=== PATIENT | male | born 1940 | race Caucasian/White ===

== ENCOUNTER → 2018-06-13 08:11 | Outpatient (CLI) | payer MEDICARE, SELFPAY ==
[2018-06-13 08:55] LABS: BUN Creatinine Ratio 19.1 (6-22); Blood Urea Nitrogen 21 mg/dL (9-20); Calcium 8.6 mg/dL (8.4-10.2); Carbon Dioxide 29 mmol/L (22-32); Chloride 104 mmol/L (98-107); Estimated Glomerular Filt Rate > 60.0 mL/min (>60); Glucose 108 mg/dL (80-110); HEMOLYSIS < 15 (0-50); Sodium 144 mmol/L (137-145)
== END ==
PROVIDERS: PCP Student in an Organized Health Care Education/Training Program; Visit Provider Student in an Organized Health Care Education/Training Program
DX: Z78.9 Other specified health status (principal)
CPT/HCPCS: 36415; 80048

== ENCOUNTER → 2019-01-21 14:39 | Outpatient (CLI) | payer MEDICARE, SELFPAY ==
--- NOTE | 2019-01-21 14:40 | DI.RAD.S_ITS ---
PROCEDURE: XR KNEE STANDING BI INDICATIONS: Bilateral knee pain TECHNIQUE: Single views of the right knee, and single views of the left knee. COMPARISON: None. FINDINGS: Bones: No acute fractures or dislocations. On the right, severe narrowing of the medial joint space with near [id number] appearance, subchondral sclerosis and spurring. On the left, moderate joint space narrowing within the medial compartment. Scattered degenerative subchondral sclerosis and spurring. IMPRESSION: Severe right knee joint degeneration Moderate left knee joint degeneration Dictated by: Mike Ortiz M.D. on 01/21/2019 at 15:40 Approved by: Mike Ortiz M.D. on 01/21/2019 at 15:42
== END ==
PROVIDERS: PCP Student in an Organized Health Care Education/Training Program; Visit Provider Physical Medicine & Rehabilitation
DX: M17.0 Bilateral primary osteoarthritis of knee (principal)
CPT/HCPCS: 73565; 99214

== ENCOUNTER 2019-06-07 11:15 | Outpatient (RCR) | payer MEDICARE, SELFPAY ==
--- NOTE | 2019-04-26 10:40 | PT.OIE ---
Current Diagnoses Bilateral primary osteoarthritis of knee (04/26/19) Muscle weakness (generalized) (04/26/19) Other reduced mobility (04/26/19) Past Medical History (Last Reviewed 03/14/19 @ 08:01 by ALVARO Oconnor) Chickenpox (Resolved 1944) Hearing loss (Chronic) Knee pain, right anterior (Resolved) Nocturia (Acute) Obesity (BMI 30.0-34.9) (Chronic) Vertigo (Chronic) Past Surgical History (Last Reviewed 03/14/19 @ 08:01 by ALVARO Oconnor) Hx of discectomy (Resolved 1984) Visit Care Team Role Provider Type Gordon Pardo MD Primary Care Provider Physician Specialty: Internal Medicine Address: [address] [place] [address], [facility] [address], [place], [facility] Email: [email or web address] ALVARO Oconnor Attending Provider Advanced Telecommunications Field Engineer Specialty: Pain Management Address: [address] [place] [address], [facility] Email: [email or web address] Physical Therapy Initial Evaluation PT-OP-A Visit Information Start: 04/25/19 15:52 Freq: Status: Active Protocol: Document 04/26/19 09:02 LRN (Rec: 04/26/19 10:33 PACO [id number]) Out-Patient Physical Therapy Visit Information Visit Information Visit Type Initial Evaluation Visit Start Time 09:02 Visit Stop Time 09:50 Total Visit Minutes 48 Visit Number 1 Number of MILANESE KNITTING MACHINE OPERATOR Visits 0 Evaluation Information Evaluation Date 04/26/19 Precautions Precautions Prior history or low back surgery. PT-OP-B Current Condition Start: 04/25/19 15:52 Freq: Status: Active Protocol: Document 04/26/19 09:02 LRN (Rec: 04/26/19 10:33 PACO [id number]) Current Condition History of Current Condition Onset Date 9 months ago. Current Complaints L knee pain with prolonged sitting, franko knee pn w/gait History of Current Condition Pt reports bilateral knee pain off/on for 8-10 yrs. Insidious onset of worsening franko knee pain within the past 9 months. He has pain behind the knee with sitting and with stair ambulation. 5-6 yrs ago he had a shot in R knee that took the pain away; therefore he has occasional tinge of pain in the R knee. He currently has L > R knee pain. Takes a pill for L knee pain and wears a soft brace support to make the knee pain tolerable. Pt reports a hx of vertigo and back surgery to have a disc removed (of unknown level). Prior Treatments and Tests X-rays @ Dr. Pardo office. Future Testing and Treatments Planned Follow up visit with Gray Cruz PA in couple months. 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 Did [email or web address] after retired. Treatment Goals Patient/Caregiver Goals Pt goal is to eliminate bilateral knee pain, but understands since having pain for 8-10 yrs elimination may not be achieved; therefore would like to return to baseline of occasional knee pain on the left. Prior Functional Status Baseline Function- ADL's Independent Baseline Function- Mobility Independent Baseline Function- Gait TM: 3.5 speed. Baseline Function- Other No L knee pain with prolonged sitting. Current Functional Impairments (Reported) Functional Limitations- Mobility/Gait Slower gait than baseline (TM: 2.5 speed without pain). Functional Limitations- Other Off/on use of treadmill. Takes pain pill and use soft brace for pain on L knee. Personal Factors Other Personal Factors That May Effect Varus of knees. Therapy/Recovery Prior low back surgery of unknown specifics. PT-OP-C Subjective Start: 04/25/19 15:52 Freq: Status: Active Protocol: Document 04/26/19 09:02 PACO (Rec: 04/26/19 10:33 LRN [id number]) Patient Questionnaires Lower Extremity Functional Scale LEFS Score 46 LEFS Impairment 40 to 59% Impaired (Score 32- 47) OP-PT Pain Assessment Location R knee Pain Location Details Anterior and lateral R knee Intensity 4 Scale Used Numeric (1 - 10) Description Aching Frequency Intermittent Pain Aggravating Factors Walking Other Pain Alleviating Factors Soft knee support L knee Pain Location Details Posterior after sitting, otherwise general joint Intensity 5 Scale Used Numeric (1 - 10) Description Aching Frequency Frequent Radiating Location to buttock Pain Aggravating Factors Sitting,Walking Pain Alleviating Factors Medication,Changing Position Other Pain Alleviating Factors Soft knee support PT-OP-D Balance Start: 04/25/19 15:52 Freq: Status: Active Protocol: Document 04/26/19 09:02 LRN (Rec: 04/26/19 10:33 LRN [id number]) Balance Tests Single Limb Standing Single Limb- Right 2 Single Limb- Left 4 PT-OP-F Manual Assessment Start: 04/25/19 15:52 Freq: Status: Active Protocol: Document 04/26/19 09:02 LRN (Rec: 04/26/19 10:33 LRN [id number]) Manual Assessments Soft Tissue Assessment Soft Tissue Mobility Assessment L posterior knee: Swelling and tenderness present. Joint Mobility Assessment Joint Mobility Assessment Decreased mobility of patella bilaterally PT-OP-G Mobility & Gait Start: 04/25/19 15:52 Freq: Status: Active Protocol: Document 04/26/19 09:02 LRN (Rec: 04/26/19 10:33 LRN [id number]) OP Gait Assessment Gait Gait Assistance Required: Independent Able to Maintain Weight Bearing Status Yes During Gait Assistive Devices Assistive Device None Gait Deviations General Gait Pattern Decreased Stride Length, Lateral Trunk Lean Factors Limiting Gait Function Factors Limiting Gait Function Limited Range of Motion,Poor Balance PT-OP-J Posture/Palpation/Skin Start: 04/25/19 15:52 Freq: Status: Active Protocol: Document 04/26/19 09:02 LRN (Rec: 04/26/19 10:33 LRN [id number]) Posture Evaluation Comments Posture Comments Standing: Varus of ankles and knees. R PSIS shifted anteriorly, lower L shoulder. PT-OP-K Range of Motion Start: 04/25/19 15:52 Freq: Status: Active Protocol: Document 04/26/19 09:02 LRN (Rec: 04/26/19 10:33 LRN [id number]) Knee Goniometric Range of Motion Knee Right Patient Position Supine Flexion Active (degrees) 123 Left Patient Position Supine Flexion Active (degrees) 114 Knee ROM Limitations Knee ROM Limitations Soft Tissue Tightness,Pain Comments L knee: lacks 10 deg's extension. R knee: lacks 7 deg's extension. PT-OP-M Strength Start: 04/25/19 15:52 Freq: Status: Active Protocol: Document 04/26/19 09:02 LRN (Rec: 04/26/19 10:33 LRN [id number]) Hip Strength Hip Manual Muscle Testing Right Flexion (L2) 4+ Good+ Extension (S1) 5 Normal Comments Otherwise WNL Left Flexion (L2) 4+ Good+ Extension (S1) 4+ Good+ Comments Otherwise WNL Knee Strength Knee Manual Muscle Testing Right Flexion (S2) 4+ Good+ Extension (L3) 5 Normal Left Flexion (S2) 4+ Good+ Extension (L3) 4+ Good+ Ankle/Foot Strength Ankle and Foot Manual Muscle Testing Right Inversion 3+ Fair+ Comments Otherwise WNL Left Eversion (S1) 5 Normal Comments Otherwise WNL PT-OP-Q Treatments Start: 04/25/19 15:52 Freq: Status: Active Protocol: Document 04/26/19 09:02 LRN (Rec: 04/26/19 10:33 [facility] [id number]) Self-Care/Home Management Treatment Education Patient Education Pain Management Other Education I/S pt in bilateral knee ext ROM stretching in supine. Activities Self-Care/Home Management Activities I/S pt in use of Cold pack after exercise PT-OP-T Assessment and Plan Start: 04/25/19 15:52 Freq: Status: Active Protocol: Document 04/26/19 09:02 LRN (Rec: 04/26/19 10:33 [facility] [id number]) Physical Therapy Assessment Rehab Potential Rehabilitation Potential Good Evaluation Complexity Number of Personal Factors/Comorbidities 1-2 Number of Body Systems Impaired 4 or More Clinical Presentation at Evaluation Stable Impairments Impairments Balance,Gait,Pain,ROM,Strength Goals Three Impairment Decreased speed of gait on TM to 2.5. Shear Operator Automatic Goal (LTG) Pt will be able to ambulate on a TM at a speed of 3.5 without pain. LTG Duration 06/07/19 Two Impairment Franko knee pain Nursing Home Goal (LTG) Pt will have occasional bilateral knee pain per baseline level. LTG Duration 06/07/19 One Impairment Pt lacks appropriate self care program. Shear Operator Automatic Goal (LTG) Pt will be independent in a self care HEP. LTG Duration 06/21/19 Assessment Summary Assessment Pt presents with a mechanical dysfunction of the Bilateral knees with limited knee mobility (left worse than right), and mild weakness of R ankle and hip. He has an obvious varus posture of the LEs; therefore changes in patellar tracking and medial quad weakness. He has swelling in the posterior aspect of the L knee that may indicate soft tissue dysfunction. Further assessment is needed. The pt will benefit from skilled physical therapy to improve bilateral knee mobility and stability through ROM exs and strengthening of the LEs. Balance and gait training to improve standing stability and aerobic conditioning to improve the pt's stability and speed with gait. Physical Therapy Plan Frequency and Duration Frequency of Treatment 2x/Week Duration of Treatment 8 weeks Plan of Care Start Date 04/26/19 Plan of Care End Date 06/21/19 Therapeutic Interventions Therapeutic Interventions Balance Training,Gait Training ,Home Exercise Program,Manual Therapy,Neuromuscular Re- education,Patient/Caregiver Education,Self-Care/Home Management,Soft Tissue Mobilization,Taping, Therapeutic Exercises Modalities Cold Pack/Ice Massage,Electric Stimulation,Hot Packs, Ultrasound Next Visit Focus/Plan Next Note Type Treatment Note Next Visit Plan Start aerobic ex on TM and modify gait as able, start ROM to knees bilaterally with US if needed to improve range, check meniscus, start strengthening of hips/knees/ ankles.
--- NOTE | 2019-04-26 10:41 | PT.OPPOC ---
Current Diagnoses Bilateral primary osteoarthritis of knee (04/26/19) Muscle weakness (generalized) (04/26/19) Other reduced mobility (04/26/19) Visit Care Team Role Provider Type Gordon Pardo MD Primary Care Provider Physician Specialty: Internal Medicine Address: [address] [place] [address], [facility] [address], [place], [address] Email: [email or web address] ALVARO Oconnor Attending Provider Advanced Waitstaff Specialty: Pain Management Address: [address] [place] [address], [id number] Email: [email or web address] Plan Of Care PT-OP-T Assessment and Plan Start: 04/25/19 15:52 Freq: Status: Active Protocol: Document 04/26/19 09:02 LRN (Rec: 04/26/19 10:33 LRN [id number]) Physical Therapy Assessment Rehab Potential Rehabilitation Potential Good Evaluation Complexity Number of Personal Factors/Comorbidities 1-2 Number of Body Systems Impaired 4 or More Clinical Presentation at Evaluation Stable Impairments Impairments Balance,Gait,Pain,ROM,Strength Goals Three Impairment Decreased speed of gait on TM to 2.5. Volcanology Teacher Goal (LTG) Pt will be able to ambulate on a TM at a speed of 3.5 without pain. LTG Duration 06/07/19 Two Impairment David knee pain Volcanology Teacher Goal (LTG) Pt will have occasional bilateral knee pain per baseline level. LTG Duration 06/07/19 One Impairment Pt lacks appropriate self care program. Nursing Home Goal (LTG) Pt will be independent in a self care HEP. LTG Duration 06/21/19 Assessment Summary Assessment Pt presents with a mechanical dysfunction of the Bilateral knees with limited knee mobility (left worse than right), and mild weakness of R ankle and hip. He has an obvious varus posture of the LEs; therefore changes in patellar tracking and medial quad weakness. He has swelling in the posterior aspect of the L knee that may indicate soft tissue dysfunction. Further assessment is needed. The pt will benefit from skilled physical therapy to improve bilateral knee mobility and stability through ROM exs and strengthening of the LEs. Balance and gait training to improve standing stability and aerobic conditioning to improve the pt's stability and speed with gait. Physical Therapy Plan Frequency and Duration Frequency of Treatment 2x/Week Duration of Treatment 8 weeks Plan of Care Start Date 04/26/19 Plan of Care End Date 06/21/19 Therapeutic Interventions Therapeutic Interventions Balance Training,Gait Training ,Home Exercise Program,Manual Therapy,Neuromuscular Re- education,Patient/Caregiver Education,Self-Care/Home Management,Soft Tissue Mobilization,Taping, Therapeutic Exercises Modalities Cold Pack/Ice Massage,Electric Stimulation,Hot Packs, Ultrasound Next Visit Focus/Plan Next Note Type Treatment Note Next Visit Plan Start aerobic ex on TM and modify gait as able, start ROM to knees bilaterally with US if needed to improve range, check meniscus, start strengthening of hips/knees/ ankles. Plan of Care Dates Plan of Care Start Date 04/26/19 Plan of Care End Date 06/21/19
--- NOTE | 2019-04-29 10:17 | PT.OTN ---
Current Diagnoses Bilateral primary osteoarthritis of knee (04/29/19) Muscle weakness (generalized) (04/29/19) Other reduced mobility (04/29/19) Physical Therapy Treatment Note PT-OP-A Visit Information Start: 04/25/19 15:52 Freq: Status: Active Protocol: Document 04/29/19 09:04 LRN (Rec: 04/29/19 10:07 LRN [id number]) Out-Patient Physical Therapy Visit Information Visit Information Visit Type Treatment Note Visit Start Time 09:04 Visit Stop Time 09:55 Total Visit Minutes 51 Visit Number 2 Number of ADOPTION SOCIAL WORKER Visits 0 Evaluation Information Evaluation Date 04/26/19 Precautions Precautions Prior history of low back surgery. PT-OP-B Current Condition Start: 04/25/19 15:52 Freq: Status: Active Protocol: Document 04/26/19 09:02 LRN (Rec: 04/26/19 10:33 LRN [id number]) Current Condition History of Current Condition Onset Date 9 months ago. Current Complaints L knee pain with prolonged sitting, franko knee pn w/gait History of Current Condition Pt reports bilateral knee pain off/on for 8-10 yrs. Insidious onset of worsening franko knee pain within the past 9 months. He has pain behind the knee with sitting and with stair ambulation. 5-6 yrs ago he had a shot in R knee that took the pain away; therefore he has occasional tinge of pain in the R knee. He currently has L > R knee pain. Takes a pill for L knee pain and wears a soft brace support to make the knee pain tolerable. Pt reports a hx of vertigo and back surgery to have a disc removed (of unknown level). Prior Treatments and Tests X-rays @ Dr. Pardo office. Future Testing and Treatments Planned Follow up visit with Gray Cruz PA in couple months. 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 Treatment Goals Patient/Caregiver Goals Pt goal is to eliminate bilateral knee pain, but understands since having pain for 8-10 yrs elimination may not be achieved; therefore would like to return to baseline of occasional knee pain on the left. Prior Functional Status Baseline Function- ADL's Independent Baseline Function- Mobility Independent Baseline Function- Gait TM: 3.5 speed. Baseline Function- Other No L knee pain with prolonged sitting. Current Functional Impairments (Reported) Functional Limitations- Mobility/Gait Slower gait than baseline (TM: 2.5 speed without pain). Functional Limitations- Other Off/on use of treadmill. Takes pain pill and use soft brace for pain on L knee. Personal Factors Other Personal Factors That May Effect Varus of knees. Therapy/Recovery Prior low back surgery of unknown specifics. PT-OP-C Subjective Start: 04/25/19 15:52 Freq: Status: Active Protocol: Document 04/29/19 09:04 LRN (Rec: 04/29/19 10:07 LRN [id number]) OP-PT Subjective Patient Comments Patient Comments Wants to walk at speed of 4 vs 3.5 to keep up with family PT-OP-D Balance Start: 04/25/19 15:52 Freq: Status: Active Protocol: Document 04/26/19 09:02 LRN (Rec: 04/26/19 10:33 LRN [id number]) Balance Tests Single Limb Standing Single Limb- Right 2 Single Limb- Left 4 PT-OP-F Manual Assessment Start: 04/25/19 15:52 Freq: Status: Active Protocol: Document 04/26/19 09:02 LRN (Rec: 04/26/19 10:33 LRN [id number]) Manual Assessments Soft Tissue Assessment Soft Tissue Mobility Assessment L posterior knee: Swelling and tenderness present. Joint Mobility Assessment Joint Mobility Assessment Decreased mobility of patella bilaterally PT-OP-G Mobility & Gait Start: 04/25/19 15:52 Freq: Status: Active Protocol: Document 04/26/19 09:02 LRN (Rec: 04/26/19 10:33 LRN [id number]) OP Gait Assessment Gait Gait Assistance Required: Independent Able to Maintain Weight Bearing Status Yes During Gait Assistive Devices Assistive Device None Gait Deviations General Gait Pattern Decreased Stride Length, Lateral Trunk Lean Factors Limiting Gait Function Factors Limiting Gait Function Limited Range of Motion,Poor Balance PT-OP-J Posture/Palpation/Skin Start: 04/25/19 15:52 Freq: Status: Active Protocol: Document 04/26/19 09:02 LRN (Rec: 04/26/19 10:33 LRN [id number]) Posture Evaluation Comments Posture Comments Standing: Varus of ankles and knees. R PSIS shifted anteriorly, lower L shoulder. PT-OP-K Range of Motion Start: 04/25/19 15:52 Freq: Status: Active Protocol: Document 04/26/19 09:02 LRN (Rec: 04/26/19 10:33 LRN [id number]) Knee Goniometric Range of Motion Knee Right Patient Position Supine Flexion Active (degrees) 123 Left Patient Position Supine Flexion Active (degrees) 114 Knee ROM Limitations Knee ROM Limitations Soft Tissue Tightness,Pain Comments L knee: lacks 10 deg's extension. R knee: lacks 7 deg's extension. PT-OP-M Strength Start: 04/25/19 15:52 Freq: Status: Active Protocol: Document 04/26/19 09:02 LRN (Rec: 04/26/19 10:33 LRN [id number]) Hip Strength Hip Manual Muscle Testing Right Flexion (L2) 4+ Good+ Extension (S1) 5 Normal Comments Otherwise WNL Left Flexion (L2) 4+ Good+ Extension (S1) 4+ Good+ Comments Otherwise WNL Knee Strength Knee Manual Muscle Testing Right Flexion (S2) 4+ Good+ Extension (L3) 5 Normal Left Flexion (S2) 4+ Good+ Extension (L3) 4+ Good+ Ankle/Foot Strength Ankle and Foot Manual Muscle Testing Right Inversion 3+ Fair+ Comments Otherwise WNL Left Eversion (S1) 5 Normal Comments Otherwise WNL PT-OP-Q Treatments Start: 04/25/19 15:52 Freq: Status: Active Protocol: Document 04/29/19 09:04 LRN (Rec: 04/29/19 10:07 LRN [id number]) Cardio Equipment Treadmill Duration (Minutes) 5 Speed 1.5 Incline 0 Other Speed increased to Therapeutic Exercises Supine Exercises SAQ Supine Exercise Name SAQ Side bilateral Resistance 5# Reps/Minutes 30 x Comments Pt wearing soft knee supports SLR Supine Exercise Name SLR @ 10, 12, 2 O'Clock Side bilateral Reps/Minutes 10 x each position Ankle pumps Supine Exercise Name Ankles on 1/2 roll Reps/Minutes 10 x QS Supine Exercise Name QS with ankles on 1/2 roll Reps/Minutes 5S holds x 10 End-range knee ext stretch Supine Exercise Name Ankles on 1/2 roll for static stretch Reps/Minutes 60 sec x 2 Manual Therapy Treatment Taping L patella medial glide Body Location L patella Treatment Focus Medial glide of patella Type of Tape Kinesio Tape Skin Inspection Good Self-Care/Home Management Treatment Education Patient Education Home Exercise Program,Safety Other Education Pt I/S and educated in proper self care of removal and skin care precautions. Activities Self-Care/Home Management Activities Issued & reviewed HEP: Knee ext stretch f/b QS & SLR. PT-OP-T Assessment and Plan Start: 04/25/19 15:52 Freq: Status: Active Protocol: Document 04/29/19 09:04 LRN (Rec: 04/29/19 10:07 LRN [id number]) Physical Therapy Assessment Assessment Summary Assessment On TM pt had ER R>L with gait. He has difficulty at 2.2 speed keeping in position of TM and might not be able to achieve 4.0 speed due to knee pain or decreased cardio fitness. He ambs with flex at hips and doesn't fully clear his heels. He has pain with R meniscus testing, neg on the left. +response to K-tape for L medial patella glide with exercise. Physical Therapy Plan Frequency and Duration Frequency of Treatment 2x/Week Duration of Treatment 8 weeks Plan of Care Start Date 04/26/19 Plan of Care End Date 06/21/19 Next Visit Focus/Plan Next Note Type Treatment Note Next Visit Plan Assess response to K-tape and inspect skin. Start aerobic ex (?TM) to improve speed with gait and for LE strengthening . modify gait for improved foot clearance and decr ER of RLE, ROM to knees bilaterally with US if needed to improve range, strengthening of hips/ knees/ankles.
--- NOTE | 2019-05-02 15:46 | PT.OTN ---
Current Diagnoses Bilateral primary osteoarthritis of knee (05/02/19) Muscle weakness (generalized) (05/02/19) Other reduced mobility (05/02/19) Physical Therapy Treatment Note PT-OP-A Visit Information Start: 04/25/19 15:52 Freq: Status: Active Protocol: Document 05/02/19 08:58 LRN (Rec: 05/02/19 09:52 LRN [id number]) Out-Patient Physical Therapy Visit Information Visit Information Visit Type Treatment Note Visit Start Time 08:58 Visit Stop Time 09:45 Total Visit Minutes 47 Visit Number 2 Number of ASSEMBLER WIRE MESH GATE Visits 0 Evaluation Information Evaluation Date 04/26/19 Precautions Precautions Prior history of low back surgery. PT-OP-B Current Condition Start: 04/25/19 15:52 Freq: Status: Active Protocol: Document 04/26/19 09:02 LRN (Rec: 04/26/19 10:33 LRN [id number]) Current Condition History of Current Condition Onset Date 9 months ago. Current Complaints L knee pain with prolonged sitting, david knee pn w/gait History of Current Condition Pt reports bilateral knee pain off/on for 8-10 yrs. Insidious onset of worsening david knee pain within the past 9 months. He has pain behind the knee with sitting and with stair ambulation. 5-6 yrs ago he had a shot in R knee that took the pain away; therefore he has occasional tinge of pain in the R knee. He currently has L > R knee pain. Takes a pill for L knee pain and wears a soft brace support to make the knee pain tolerable. Pt reports a hx of vertigo and back surgery to have a disc removed (of unknown level). Prior Treatments and Tests X-rays @ Dr. Pardo office. Future Testing and Treatments Planned Follow up visit with Gray Cruz PA in couple months. 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 Treatment Goals Patient/Caregiver Goals Pt goal is to eliminate bilateral knee pain, but understands since having pain for 8-10 yrs elimination may not be achieved; therefore would like to return to baseline of occasional knee pain on the left. Prior Functional Status Baseline Function- ADL's Independent Baseline Function- Mobility Independent Baseline Function- Gait TM: 3.5 speed. Baseline Function- Other No L knee pain with prolonged sitting. Current Functional Impairments (Reported) Functional Limitations- Mobility/Gait Slower gait than baseline (TM: 2.5 speed without pain). Functional Limitations- Other Off/on use of treadmill. Takes pain pill and use soft brace for pain on L knee. Personal Factors Other Personal Factors That May Effect Varus of knees. Therapy/Recovery Prior low back surgery of unknown specifics. PT-OP-C Subjective Start: 04/25/19 15:52 Freq: Status: Active Protocol: Document 05/02/19 08:58 LRN (Rec: 05/02/19 09:52 LRN [id number]) OP-PT Subjective Patient Comments Patient Comments States the K-tape was helpful. Helped take the pain away with walking. PT-OP-D Balance Start: 04/25/19 15:52 Freq: Status: Active Protocol: Document 04/26/19 09:02 LRN (Rec: 04/26/19 10:33 LRN [id number]) Balance Tests Single Limb Standing Single Limb- Right 2 Single Limb- Left 4 PT-OP-F Manual Assessment Start: 04/25/19 15:52 Freq: Status: Active Protocol: Document 04/26/19 09:02 LRN (Rec: 04/26/19 10:33 LRN [id number]) Manual Assessments Soft Tissue Assessment Soft Tissue Mobility Assessment L posterior knee: Swelling and tenderness present. Joint Mobility Assessment Joint Mobility Assessment Decreased mobility of patella bilaterally PT-OP-G Mobility & Gait Start: 04/25/19 15:52 Freq: Status: Active Protocol: Document 04/26/19 09:02 LRN (Rec: 04/26/19 10:33 LRN [id number]) OP Gait Assessment Gait Gait Assistance Required: Independent Able to Maintain Weight Bearing Status Yes During Gait Assistive Devices Assistive Device None Gait Deviations General Gait Pattern Decreased Stride Length, Lateral Trunk Lean Factors Limiting Gait Function Factors Limiting Gait Function Limited Range of Motion,Poor Balance PT-OP-J Posture/Palpation/Skin Start: 04/25/19 15:52 Freq: Status: Active Protocol: Document 04/26/19 09:02 LRN (Rec: 04/26/19 10:33 LRN [id number]) Posture Evaluation Comments Posture Comments Standing: Varus of ankles and knees. R PSIS shifted anteriorly, lower L shoulder. PT-OP-K Range of Motion Start: 04/25/19 15:52 Freq: Status: Active Protocol: Document 04/26/19 09:02 LRN (Rec: 04/26/19 10:33 LRN [id number]) Knee Goniometric Range of Motion Knee Right Patient Position Supine Flexion Active (degrees) 123 Left Patient Position Supine Flexion Active (degrees) 114 Knee ROM Limitations Knee ROM Limitations Soft Tissue Tightness,Pain Comments L knee: lacks 10 deg's extension. R knee: lacks 7 deg's extension. PT-OP-M Strength Start: 04/25/19 15:52 Freq: Status: Active Protocol: Document 04/26/19 09:02 LRN (Rec: 04/26/19 10:33 LRN [id number]) Hip Strength Hip Manual Muscle Testing Right Flexion (L2) 4+ Good+ Extension (S1) 5 Normal Comments Otherwise WNL Left Flexion (L2) 4+ Good+ Extension (S1) 4+ Good+ Comments Otherwise WNL Knee Strength Knee Manual Muscle Testing Right Flexion (S2) 4+ Good+ Extension (L3) 5 Normal Left Flexion (S2) 4+ Good+ Extension (L3) 4+ Good+ Ankle/Foot Strength Ankle and Foot Manual Muscle Testing Right Inversion 3+ Fair+ Comments Otherwise WNL Left Eversion (S1) 5 Normal Comments Otherwise WNL PT-OP-Q Treatments Start: 04/25/19 15:52 Freq: Status: Active Protocol: Document 05/02/19 08:58 LRN (Rec: 05/02/19 09:52 LRN [id number]) Therapeutic Exercises Supine Exercises QS Supine Exercise Name QS in prone after US Side bilateral Reps/Minutes 10 Sec holds x 10 End-range knee ext stretch Supine Exercise Name Ankles on 1/2 roll for static stretch Reps/Minutes 60 sec x 2 Sidelying Exercises Hip AD Sidelying Exercise Name Prolonged stretch f/b 10 active stretches Side bilateral Manual Therapy Treatment Joint Mobilizations Patella distraction Joint David patella, R>L Direction Distraction, Medial glide Body Position Supine Taping L patella medial glide Body Location L patella Treatment Focus Medial glide of patella Type of Tape Kinesio Tape Skin Inspection Good Self-Care/Home Management Treatment Education Patient Education Home Exercise Program Other Education Pt I/S and in proper self care of removal and skin care precautions. Activities Self-Care/Home Management Activities Issued & reviewed HEP: IT band stretch. PT-OP-R Modalities Start: 04/25/19 15:52 Freq: Status: Active Protocol: Document 05/02/19 08:58 LRN (Rec: 05/02/19 09:52 LRN [id number]) Hot Pack/Cold Pack Treatment Cold Pack Location Bilateral knees Patient Position Supine Treatment Duration (minutes) 10 Patient Tolerance Good Comments Bolster under knees Ultrasound Therapy Treatment Posterior R knee Treatment Duration (minutes) 8 Patient Position Prone Coupling Medium Ultrasound Gel Applicator Size (cm2) 10 Intensity Setting (w/cm2) 1.7 Posterior L knee Treatment Duration (minutes) 8 Patient Position Prone Coupling Medium Ultrasound Gel Applicator Size (cm2) 10 Intensity Setting (w/cm2) 1.5 PT-OP-T Assessment and Plan Start: 04/25/19 15:52 Freq: Status: Active Protocol: Document 05/02/19 08:58 LRN (Rec: 05/02/19 09:52 LRN [id number]) Physical Therapy Assessment Assessment Summary Assessment Positive response to K-tape. Tight IT Bands (L>R) pulling patella laterally. Physical Therapy Plan Frequency and Duration Frequency of Treatment 2x/Week Duration of Treatment 8 weeks Plan of Care Start Date 04/26/19 Plan of Care End Date 06/21/19 Next Visit Focus/Plan Next Note Type Treatment Note Next Visit Plan Assess response to US. Start w/K-tape and aerobic ex (TM) to improve speed with gait and for LE strengthening, modify gait for improved foot clearance and decr ER of RLE. US to decrease knee pain as needed and improve ROM to knees bilaterally if needed. Start strengthening of hips/ knees/ankles.
--- NOTE | 2019-05-06 09:49 | PT.OTN ---
Current Diagnoses Bilateral primary osteoarthritis of knee (05/06/19) Muscle weakness (generalized) (05/06/19) Other reduced mobility (05/06/19) Physical Therapy Treatment Note PT-OP-A Visit Information Start: 04/25/19 15:52 Freq: Status: Active Protocol: Document 05/06/19 09:02 LRN (Rec: 05/06/19 09:46 LRN [id number]) Out-Patient Physical Therapy Visit Information Visit Information Visit Type Treatment Note Visit Start Time 09:02 Visit Stop Time 09:55 Total Visit Minutes 53 Visit Number 3 Number of PIT CLERK Visits 0 Evaluation Information Evaluation Date 04/26/19 Precautions Precautions Prior history of low back surgery. PT-OP-B Current Condition Start: 04/25/19 15:52 Freq: Status: Active Protocol: Document 04/26/19 09:02 LRN (Rec: 04/26/19 10:33 LRN [id number]) Current Condition History of Current Condition Onset Date 9 months ago. Current Complaints L knee pain with prolonged sitting, franko knee pn w/gait History of Current Condition Pt reports bilateral knee pain off/on for 8-10 yrs. Insidious onset of worsening franko knee pain within the past 9 months. He has pain behind the knee with sitting and with stair ambulation. 5-6 yrs ago he had a shot in R knee that took the pain away; therefore he has occasional tinge of pain in the R knee. He currently has L > R knee pain. Takes a pill for L knee pain and wears a soft brace support to make the knee pain tolerable. Pt reports a hx of vertigo and back surgery to have a disc removed (of unknown level). Prior Treatments and Tests X-rays @ Dr. Pardo office. Future Testing and Treatments Planned Follow up visit with Gray Cruz PA in couple months. 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 Treatment Goals Patient/Caregiver Goals Pt goal is to eliminate bilateral knee pain, but understands since having pain for 8-10 yrs elimination may not be achieved; therefore would like to return to baseline of occasional knee pain on the left. Prior Functional Status Baseline Function- ADL's Independent Baseline Function- Mobility Independent Baseline Function- Gait TM: 3.5 speed. Baseline Function- Other No L knee pain with prolonged sitting. Current Functional Impairments (Reported) Functional Limitations- Mobility/Gait Slower gait than baseline (TM: 2.5 speed without pain). Functional Limitations- Other Off/on use of treadmill. Takes pain pill and use soft brace for pain on L knee. Personal Factors Other Personal Factors That May Effect Varus of knees. Therapy/Recovery Prior low back surgery of unknown specifics. PT-OP-C Subjective Start: 04/25/19 15:52 Freq: Status: Active Protocol: Document 05/06/19 09:02 LRN (Rec: 05/06/19 09:46 LRN [id number]) OP-PT Subjective Patient Comments Patient Comments States he took the tape off yesterday and noted L knee pain going downstairs. PT-OP-D Balance Start: 04/25/19 15:52 Freq: Status: Active Protocol: Document 04/26/19 09:02 LRN (Rec: 04/26/19 10:33 LRN [id number]) Balance Tests Single Limb Standing Single Limb- Right 2 Single Limb- Left 4 PT-OP-F Manual Assessment Start: 04/25/19 15:52 Freq: Status: Active Protocol: Document 04/26/19 09:02 LRN (Rec: 04/26/19 10:33 LRN [id number]) Manual Assessments Soft Tissue Assessment Soft Tissue Mobility Assessment L posterior knee: Swelling and tenderness present. Joint Mobility Assessment Joint Mobility Assessment Decreased mobility of patella bilaterally PT-OP-G Mobility & Gait Start: 04/25/19 15:52 Freq: Status: Active Protocol: Document 04/26/19 09:02 LRN (Rec: 04/26/19 10:33 LRN [id number]) OP Gait Assessment Gait Gait Assistance Required: Independent Able to Maintain Weight Bearing Status Yes During Gait Assistive Devices Assistive Device None Gait Deviations General Gait Pattern Decreased Stride Length, Lateral Trunk Lean Factors Limiting Gait Function Factors Limiting Gait Function Limited Range of Motion,Poor Balance PT-OP-J Posture/Palpation/Skin Start: 04/25/19 15:52 Freq: Status: Active Protocol: Document 04/26/19 09:02 LRN (Rec: 04/26/19 10:33 LRN [id number]) Posture Evaluation Comments Posture Comments Standing: Varus of ankles and knees. R PSIS shifted anteriorly, lower L shoulder. PT-OP-K Range of Motion Start: 04/25/19 15:52 Freq: Status: Active Protocol: Document 04/26/19 09:02 LRN (Rec: 04/26/19 10:33 LRN [id number]) Knee Goniometric Range of Motion Knee Right Patient Position Supine Flexion Active (degrees) 123 Left Patient Position Supine Flexion Active (degrees) 114 Knee ROM Limitations Knee ROM Limitations Soft Tissue Tightness,Pain Comments L knee: lacks 10 deg's extension. R knee: lacks 7 deg's extension. PT-OP-M Strength Start: 04/25/19 15:52 Freq: Status: Active Protocol: Document 04/26/19 09:02 LRN (Rec: 04/26/19 10:33 LRN [id number]) Hip Strength Hip Manual Muscle Testing Right Flexion (L2) 4+ Good+ Extension (S1) 5 Normal Comments Otherwise WNL Left Flexion (L2) 4+ Good+ Extension (S1) 4+ Good+ Comments Otherwise WNL Knee Strength Knee Manual Muscle Testing Right Flexion (S2) 4+ Good+ Extension (L3) 5 Normal Left Flexion (S2) 4+ Good+ Extension (L3) 4+ Good+ Ankle/Foot Strength Ankle and Foot Manual Muscle Testing Right Inversion 3+ Fair+ Comments Otherwise WNL Left Eversion (S1) 5 Normal Comments Otherwise WNL PT-OP-Q Treatments Start: 04/25/19 15:52 Freq: Status: Active Protocol: Document 05/06/19 09:02 LRN (Rec: 05/06/19 09:46 LRN [id number]) Cardio Equipment Bicycle (Upright) Duration (Minutes) 8 Resistance 4, 5 Seat Position 5 Other 70 or greater rpm Gym Equipment Cable Column (Body Solid) Leg Extension Details 30 deg's extension Resistance 5# Reps/Time 10x 10 hold Shuttle Recovery Bilateral Heel Raises Details Focus on last 45 deg's extension Resistance 50# Shuttle Recovery Platform Stable Reps/Time 15x, 5 hold Unilateral Squats Shuttle Recovery Platform Stable Therapeutic Exercises Standing Exercises Ankle DF Standing Exercise Name Toe raises Side bilateral Equipment Used UE support Reps/Minutes 15x 2 Comments 1 set quick reps, 1 set holding 10. Hamstring stretch Standing Exercise Name Hamstring stretch w/foot on step f/b QS Side bilateral Equipment Used Steps Reps/Minutes 1 each Comments Extra time taken for training and posture control PT-OP-R Modalities Start: 04/25/19 15:52 Freq: Status: Active Protocol: Document 05/06/19 09:02 LRN (Rec: 05/06/19 09:47 LRN [id number]) Hot Pack/Cold Pack Treatment Cold Pack Location Bilateral knees Patient Position Supine Treatment Duration (minutes) 10 Patient Tolerance Good Comments Bolster under knees PT-OP-T Assessment and Plan Start: 04/25/19 15:52 Freq: Status: Active Protocol: Document 05/06/19 09:02 LRN (Rec: 05/06/19 09:46 LRN [id number]) Physical Therapy Assessment Assessment Summary Assessment Did good after last session. Used ex bike vs TM to start for medial quad strengthening. Weak medial quads, L>R. L anteriolateral occasional knee pain appears to be managed by improving posture of the core . Poor R foot ankle DF active movement. Physical Therapy Plan Frequency and Duration Frequency of Treatment 2x/Week Duration of Treatment 8 weeks Plan of Care Start Date 04/26/19 Plan of Care End Date 06/21/19 Therapeutic Interventions Therapeutic Interventions Balance Training,Gait Training ,Home Exercise Program,Manual Therapy,Neuromuscular Re- education,Patient/Caregiver Education,Self-Care/Home Management,Soft Tissue Mobilization,Taping, Therapeutic Exercises Modalities Cold Pack/Ice Massage,Electric Stimulation,Hot Packs, Ultrasound Next Visit Focus/Plan Next Note Type Treatment Note Next Visit Plan Start w/K-tape and aerobic ex (bike & TM) to improve speed with gait and for LE strengthening, modify gait for improved foot clearance and decr ER of RLE. US to decrease L posterior knee pain after ex if needed next visit . Improve ROM to knees bilaterally if needed. Add strengthening of hips, progress knee/ankle strengthening.
--- NOTE | 2019-05-09 14:01 | PT.OTN ---
Current Diagnoses Bilateral primary osteoarthritis of knee (05/09/19) Muscle weakness (generalized) (05/09/19) Other reduced mobility (05/09/19) Physical Therapy Treatment Note PT-OP-A Visit Information Start: 04/25/19 15:52 Freq: Status: Active Protocol: Document 05/09/19 09:04 LRN (Rec: 05/09/19 09:46 LRN [id number]) Out-Patient Physical Therapy Visit Information Visit Information Visit Type Treatment Note Visit Start Time 09:04 Visit Stop Time 09:55 Total Visit Minutes 51 Visit Number 4 Number of MACHINE TOOL REBUILDER Visits 0 Evaluation Information Evaluation Date 04/26/19 Precautions Precautions Prior history of low back surgery. PT-OP-B Current Condition Start: 04/25/19 15:52 Freq: Status: Active Protocol: Document 04/26/19 09:02 LRN (Rec: 04/26/19 10:33 LRN [id number]) Current Condition History of Current Condition Onset Date 9 months ago. Current Complaints L knee pain with prolonged sitting, david knee pn w/gait History of Current Condition Pt reports bilateral knee pain off/on for 8-10 yrs. Insidious onset of worsening david knee pain within the past 9 months. He has pain behind the knee with sitting and with stair ambulation. 5-6 yrs ago he had a shot in R knee that took the pain away; therefore he has occasional tinge of pain in the R knee. He currently has L > R knee pain. Takes a pill for L knee pain and wears a soft brace support to make the knee pain tolerable. Pt reports a hx of vertigo and back surgery to have a disc removed (of unknown level). Prior Treatments and Tests X-rays @ Dr. Pardo office. Future Testing and Treatments Planned Follow up visit with Gray Cruz PA in couple months. 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 Treatment Goals Patient/Caregiver Goals Pt goal is to eliminate bilateral knee pain, but understands since having pain for 8-10 yrs elimination may not be achieved; therefore would like to return to baseline of occasional knee pain on the left. Prior Functional Status Baseline Function- ADL's Independent Baseline Function- Mobility Independent Baseline Function- Gait TM: 3.5 speed. Baseline Function- Other No L knee pain with prolonged sitting. Current Functional Impairments (Reported) Functional Limitations- Mobility/Gait Slower gait than baseline (TM: 2.5 speed without pain). Functional Limitations- Other Off/on use of treadmill. Takes pain pill and use soft brace for pain on L knee. Personal Factors Other Personal Factors That May Effect Varus of knees. Therapy/Recovery Prior low back surgery of unknown specifics. PT-OP-C Subjective Start: 04/25/19 15:52 Freq: Status: Active Protocol: Document 05/09/19 09:04 LRN (Rec: 05/09/19 09:46 LRN [id number]) OP-PT Subjective Patient Comments Patient Comments Knees are more achy due to change in weather. PT-OP-D Balance Start: 04/25/19 15:52 Freq: Status: Active Protocol: Document 04/26/19 09:02 LRN (Rec: 04/26/19 10:33 LRN [id number]) Balance Tests Single Limb Standing Single Limb- Right 2 Single Limb- Left 4 PT-OP-F Manual Assessment Start: 04/25/19 15:52 Freq: Status: Active Protocol: Document 04/26/19 09:02 LRN (Rec: 04/26/19 10:33 LRN [id number]) Manual Assessments Soft Tissue Assessment Soft Tissue Mobility Assessment L posterior knee: Swelling and tenderness present. Joint Mobility Assessment Joint Mobility Assessment Decreased mobility of patella bilaterally PT-OP-G Mobility & Gait Start: 04/25/19 15:52 Freq: Status: Active Protocol: Document 04/26/19 09:02 LRN (Rec: 04/26/19 10:33 LRN [id number]) OP Gait Assessment Gait Gait Assistance Required: Independent Able to Maintain Weight Bearing Status Yes During Gait Assistive Devices Assistive Device None Gait Deviations General Gait Pattern Decreased Stride Length, Lateral Trunk Lean Factors Limiting Gait Function Factors Limiting Gait Function Limited Range of Motion,Poor Balance PT-OP-J Posture/Palpation/Skin Start: 04/25/19 15:52 Freq: Status: Active Protocol: Document 04/26/19 09:02 LRN (Rec: 04/26/19 10:33 LRN [id number]) Posture Evaluation Comments Posture Comments Standing: Varus of ankles and knees. R PSIS shifted anteriorly, lower L shoulder. PT-OP-K Range of Motion Start: 04/25/19 15:52 Freq: Status: Active Protocol: Document 04/26/19 09:02 LRN (Rec: 04/26/19 10:33 LRN [id number]) Knee Goniometric Range of Motion Knee Right Patient Position Supine Flexion Active (degrees) 123 Left Patient Position Supine Flexion Active (degrees) 114 Knee ROM Limitations Knee ROM Limitations Soft Tissue Tightness,Pain Comments L knee: lacks 10 deg's extension. R knee: lacks 7 deg's extension. PT-OP-M Strength Start: 04/25/19 15:52 Freq: Status: Active Protocol: Document 04/26/19 09:02 LRN (Rec: 04/26/19 10:33 LRN [id number]) Hip Strength Hip Manual Muscle Testing Right Flexion (L2) 4+ Good+ Extension (S1) 5 Normal Comments Otherwise WNL Left Flexion (L2) 4+ Good+ Extension (S1) 4+ Good+ Comments Otherwise WNL Knee Strength Knee Manual Muscle Testing Right Flexion (S2) 4+ Good+ Extension (L3) 5 Normal Left Flexion (S2) 4+ Good+ Extension (L3) 4+ Good+ Ankle/Foot Strength Ankle and Foot Manual Muscle Testing Right Inversion 3+ Fair+ Comments Otherwise WNL Left Eversion (S1) 5 Normal Comments Otherwise WNL PT-OP-Q Treatments Start: 04/25/19 15:52 Freq: Status: Active Protocol: Document 05/09/19 09:04 LRN (Rec: 05/09/19 09:46 LRN [id number]) Cardio Equipment Bicycle (Upright) Duration (Minutes) 9 Resistance 4, 5 Seat Position 5 Other 70 or greater rpm Gym Equipment Cable Column (Body Solid) Leg Curl Resistance 20# Reps/Time 10x, 5 holes showing Leg Extension Details 45 deg's extension Resistance 10# Reps/Time 10x 5 hold, 5 holes showing Shuttle Recovery Bilateral Squat Details David Squat with hold at full ext Resistance 50 Shuttle Recovery Platform Stable Reps/Time 15x 2 Bilateral Heel Raises Details Heel Raises Resistance 50# Shuttle Recovery Platform Stable Reps/Time 15 x 2 Gait Training Gait Activity Walk with hip shift, core stab Description Hip shift and core straight/ stab Level of Assistance Cuing Treatment Focus 10' PT-OP-R Modalities Start: 04/25/19 15:52 Freq: Status: Active Protocol: Document 05/09/19 09:04 LRN (Rec: 05/09/19 13:54 LRN [id number]) Hot Pack/Cold Pack Treatment Cold Pack Location Bilateral knees Patient Position Supine Treatment Duration (minutes) 10 Patient Tolerance Good Comments Bolster under knees PT-OP-T Assessment and Plan Start: 04/25/19 15:52 Freq: Status: Active Protocol: Document 05/09/19 09:04 LRN (Rec: 05/09/19 09:46 LRN [id number]) Physical Therapy Assessment Assessment Summary Assessment Not able to use K-tape due to redness from last taping. Poor gait mechanics, futher training needed. Physical Therapy Plan Frequency and Duration Frequency of Treatment 2x/Week Duration of Treatment 8 weeks Plan of Care Start Date 04/26/19 Plan of Care End Date 06/21/19 Next Visit Focus/Plan Next Note Type Treatment Note Next Visit Plan Check skin if appropriate for K-tape before aerobic ex (bike & TM). TM to improve speed with gait and for LE strengthening. Assess gait for weight shift. Modify gait for improved foot clearance, improved hip shift, and decr ER of RLE. US to decrease L posterior knee pain after ex if needed next. Improve ROM to knees bilaterally, MWM helpful. Add strengthening of hips and progress knee/ankle strengthening.
--- NOTE | 2019-05-13 16:39 | PT.OTN ---
Current Diagnoses Bilateral primary osteoarthritis of knee (05/13/19) Muscle weakness (generalized) (05/13/19) Other reduced mobility (05/13/19) Physical Therapy Treatment Note PT-OP-A Visit Information Start: 04/25/19 15:52 Freq: Status: Active Protocol: Document 05/13/19 09:01 LRN (Rec: 05/13/19 09:47 LRN [id number]) Out-Patient Physical Therapy Visit Information Visit Information Visit Type Treatment Note Visit Start Time 09:02 Visit Stop Time 09:57 Total Visit Minutes 55 Visit Number 5 Number of CERTIFIED BREASTFEEDING EDUCATOR Visits 0 Evaluation Information Evaluation Date 04/26/19 Precautions Precautions Prior history of low back surgery. PT-OP-B Current Condition Start: 04/25/19 15:52 Freq: Status: Active Protocol: Document 04/26/19 09:02 LRN (Rec: 04/26/19 10:33 LRN [id number]) Current Condition History of Current Condition Onset Date 9 months ago. Current Complaints L knee pain with prolonged sitting, david knee pn w/gait History of Current Condition Pt reports bilateral knee pain off/on for 8-10 yrs. Insidious onset of worsening david knee pain within the past 9 months. He has pain behind the knee with sitting and with stair ambulation. 5-6 yrs ago he had a shot in R knee that took the pain away; therefore he has occasional tinge of pain in the R knee. He currently has L > R knee pain. Takes a pill for L knee pain and wears a soft brace support to make the knee pain tolerable. Pt reports a hx of vertigo and back surgery to have a disc removed (of unknown level). Prior Treatments and Tests X-rays @ Dr. Pardo office. Future Testing and Treatments Planned Follow up visit with Gray Cruz PA in couple months. 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 Did [employer] business after retired. Treatment Goals Patient/Caregiver Goals Pt goal is to eliminate bilateral knee pain, but understands since having pain for 8-10 yrs elimination may not be achieved; therefore would like to return to baseline of occasional knee pain on the left. Prior Functional Status Baseline Function- ADL's Independent Baseline Function- Mobility Independent Baseline Function- Gait TM: 3.5 speed. Baseline Function- Other No L knee pain with prolonged sitting. Current Functional Impairments (Reported) Functional Limitations- Mobility/Gait Slower gait than baseline (TM: 2.5 speed without pain). Functional Limitations- Other Off/on use of treadmill. Takes pain pill and use soft brace for pain on L knee. Personal Factors Other Personal Factors That May Effect Varus of knees. Therapy/Recovery Prior low back surgery of unknown specifics. PT-OP-C Subjective Start: 04/25/19 15:52 Freq: Status: Active Protocol: Document 05/13/19 09:01 LRN (Rec: 05/13/19 09:47 LRN [id number]) OP-PT Subjective Patient Comments Patient Comments 60-70% better. States he has twinges of pain. PT-OP-D Balance Start: 04/25/19 15:52 Freq: Status: Active Protocol: Document 04/26/19 09:02 LRN (Rec: 04/26/19 10:33 LRN [id number]) Balance Tests Single Limb Standing Single Limb- Right 2 Single Limb- Left 4 PT-OP-F Manual Assessment Start: 04/25/19 15:52 Freq: Status: Active Protocol: Document 04/26/19 09:02 LRN (Rec: 04/26/19 10:33 LRN [id number]) Manual Assessments Soft Tissue Assessment Soft Tissue Mobility Assessment L posterior knee: Swelling and tenderness present. Joint Mobility Assessment Joint Mobility Assessment Decreased mobility of patella bilaterally PT-OP-G Mobility & Gait Start: 04/25/19 15:52 Freq: Status: Active Protocol: Document 04/26/19 09:02 LRN (Rec: 04/26/19 10:33 LRN [id number]) OP Gait Assessment Gait Gait Assistance Required: Independent Able to Maintain Weight Bearing Status Yes During Gait Assistive Devices Assistive Device None Gait Deviations General Gait Pattern Decreased Stride Length, Lateral Trunk Lean Factors Limiting Gait Function Factors Limiting Gait Function Limited Range of Motion,Poor Balance PT-OP-J Posture/Palpation/Skin Start: 04/25/19 15:52 Freq: Status: Active Protocol: Document 04/26/19 09:02 LRN (Rec: 04/26/19 10:33 LRN [id number]) Posture Evaluation Comments Posture Comments Standing: Varus of ankles and knees. R PSIS shifted anteriorly, lower L shoulder. PT-OP-K Range of Motion Start: 04/25/19 15:52 Freq: Status: Active Protocol: Document 04/26/19 09:02 LRN (Rec: 04/26/19 10:33 LRN [id number]) Knee Goniometric Range of Motion Knee Right Patient Position Supine Flexion Active (degrees) 123 Left Patient Position Supine Flexion Active (degrees) 114 Knee ROM Limitations Knee ROM Limitations Soft Tissue Tightness,Pain Comments L knee: lacks 10 deg's extension. R knee: lacks 7 deg's extension. PT-OP-M Strength Start: 04/25/19 15:52 Freq: Status: Active Protocol: Document 04/26/19 09:02 LRN (Rec: 04/26/19 10:33 LRN [id number]) Hip Strength Hip Manual Muscle Testing Right Flexion (L2) 4+ Good+ Extension (S1) 5 Normal Comments Otherwise WNL Left Flexion (L2) 4+ Good+ Extension (S1) 4+ Good+ Comments Otherwise WNL Knee Strength Knee Manual Muscle Testing Right Flexion (S2) 4+ Good+ Extension (L3) 5 Normal Left Flexion (S2) 4+ Good+ Extension (L3) 4+ Good+ Ankle/Foot Strength Ankle and Foot Manual Muscle Testing Right Inversion 3+ Fair+ Comments Otherwise WNL Left Eversion (S1) 5 Normal Comments Otherwise WNL PT-OP-Q Treatments Start: 04/25/19 15:52 Freq: Status: Active Protocol: Document 05/13/19 09:01 LRN (Rec: 05/13/19 09:47 LRN [id number]) Cardio Equipment Bicycle (Upright) Duration (Minutes) 10 Resistance 4, 5 Seat Position 5 Other 70 or greater rpm Treadmill Duration (Minutes) 9 Speed Speed increased to 1.6 Incline 2 Other No c/o knee pain Therapeutic Exercises Prone Exercises Posterior knee stretch Prone Exercise Name Stretch f/b QS Side bilateral Reps/Minutes QS 30x Gait Training Gait Activity Walk with hip shift, core stab Description Hip shift and core straight/ stab Level of Assistance Cuing Treatment Focus 8' PT-OP-R Modalities Start: 04/25/19 15:52 Freq: Status: Active Protocol: Document 05/13/19 09:01 LRN (Rec: 05/13/19 09:47 LRN [id number]) Ultrasound Therapy Treatment Posterior R knee Treatment Duration (minutes) 8 Patient Position Prone Coupling Medium Ultrasound Gel Applicator Size (cm2) 10 Mode Setting Pulsed Duty Cycle 50% Intensity Setting (w/cm2) 1.7 Posterior L knee Treatment Duration (minutes) 8 Patient Position Prone Coupling Medium Ultrasound Gel Applicator Size (cm2) 10 Mode Setting Pulsed Duty Cycle 50% Intensity Setting (w/cm2) 1.5 PT-OP-T Assessment and Plan Start: 04/25/19 15:52 Freq: Status: Active Protocol: Document 05/13/19 09:01 LRN (Rec: 05/13/19 09:47 LRN [id number]) Physical Therapy Assessment Goals Three Impairment Decreased speed of gait on TM to 2.5. [facility] Goal (LTG) Pt will be able to ambulate on a TM at a speed of 3.5 without pain. LTG Duration 06/07/19 Two Impairment David knee pain [facility] Goal (LTG) Pt will have occasional bilateral knee pain per baseline level. LTG Duration 06/07/19 One Impairment Pt lacks appropriate self care program. [facility] Goal (LTG) Pt will be independent in a self care HEP. LTG Duration 06/21/19 Assessment Summary Assessment Pt L knee skin shows minor redness where K-tape had been; therefore held K-tape use. Pt able to walk incline of 2deg without knee pain. Physical Therapy Plan Frequency and Duration Frequency of Treatment 2x/Week Duration of Treatment 8 weeks Plan of Care Start Date 04/26/19 Plan of Care End Date 06/21/19 Next Visit Focus/Plan Next Note Type Treatment Note Next Visit Plan Check ROM to knees bilaterally . Monitor Skin since K-tape~1 wk ago. TM to improve speed with gait and for LE strengthening. Assess gait for weight shift. Modify gait for improved foot clearance, improved hip shift, and decr ER of RLE. US to decrease L posterior knee pain after ex if needed. Add strengthening of hips and progress knee/ ankle strengthening.
--- NOTE | 2019-05-16 09:43 | PT.OTN ---
Current Diagnoses Bilateral primary osteoarthritis of knee (05/16/19) Muscle weakness (generalized) (05/16/19) Other reduced mobility (05/16/19) Physical Therapy Treatment Note PT-OP-A Visit Information Start: 04/25/19 15:52 Freq: Status: Active Protocol: Document 05/16/19 09:06 LR (Rec: 05/16/19 09:43 [facility] [id number]) Out-Patient Physical Therapy Visit Information Visit Information Visit Type Treatment Note Visit Start Time 09:01 Visit Stop Time 09:51 Total Visit Minutes 50 Visit Number 6 Number of ROOFER VINYL COATING Visits 0 PT-OP-B Current Condition Start: 04/25/19 15:52 Freq: Status: Active Protocol: Document 04/26/19 09:02 LRN (Rec: 04/26/19 10:33 LRN [id number]) Current Condition History of Current Condition Onset Date 9 months ago. Current Complaints L knee pain with prolonged sitting, david knee pn w/gait History of Current Condition Pt reports bilateral knee pain off/on for 8-10 yrs. Insidious onset of worsening david knee pain within the past 9 months. He has pain behind the knee with sitting and with stair ambulation. 5-6 yrs ago he had a shot in R knee that took the pain away; therefore he has occasional tinge of pain in the R knee. He currently has L > R knee pain. Takes a pill for L knee pain and wears a soft brace support to make the knee pain tolerable. Pt reports a hx of vertigo and back surgery to have a disc removed (of unknown level). Prior Treatments and Tests X-rays @ Dr. Pardo office. Future Testing and Treatments Planned Follow up visit with Gray Cruz PA in couple months. 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 Did [employer] business after retired. Treatment Goals Patient/Caregiver Goals Pt goal is to eliminate bilateral knee pain, but understands since having pain for 8-10 yrs elimination may not be achieved; therefore would like to return to baseline of occasional knee pain on the left. Prior Functional Status Baseline Function- ADL's Independent Baseline Function- Mobility Independent Baseline Function- Gait TM: 3.5 speed. Baseline Function- Other No L knee pain with prolonged sitting. Current Functional Impairments (Reported) Functional Limitations- Mobility/Gait Slower gait than baseline (TM: 2.5 speed without pain). Functional Limitations- Other Off/on use of treadmill. Takes pain pill and use soft brace for pain on L knee. Personal Factors Other Personal Factors That May Effect Varus of knees. Therapy/Recovery Prior low back surgery of unknown specifics. PT-OP-C Subjective Start: 04/25/19 15:52 Freq: Status: Active Protocol: Document 05/16/19 09:06 LR (Rec: 05/16/19 09:43 LR [id number]) OP-PT Subjective Patient Comments Patient Comments Pt reports going down stairs, his L leg still gives him a problem. Its been than it was before. Reprots he is doing his stretches at home. Patient Reported Progress Improving PT-OP-D Balance Start: 04/25/19 15:52 Freq: Status: Active Protocol: Document 04/26/19 09:02 LRN (Rec: 04/26/19 10:33 LRN [id number]) Balance Tests Single Limb Standing Single Limb- Right 2 Single Limb- Left 4 PT-OP-F Manual Assessment Start: 04/25/19 15:52 Freq: Status: Active Protocol: Document 04/26/19 09:02 LRN (Rec: 04/26/19 10:33 LRN [id number]) Manual Assessments Soft Tissue Assessment Soft Tissue Mobility Assessment L posterior knee: Swelling and tenderness present. Joint Mobility Assessment Joint Mobility Assessment Decreased mobility of patella bilaterally PT-OP-G Mobility & Gait Start: 04/25/19 15:52 Freq: Status: Active Protocol: Document 04/26/19 09:02 LRN (Rec: 04/26/19 10:33 LRN [id number]) OP Gait Assessment Gait Gait Assistance Required: Independent Able to Maintain Weight Bearing Status Yes During Gait Assistive Devices Assistive Device None Gait Deviations General Gait Pattern Decreased Stride Length, Lateral Trunk Lean Factors Limiting Gait Function Factors Limiting Gait Function Limited Range of Motion,Poor Balance PT-OP-J Posture/Palpation/Skin Start: 04/25/19 15:52 Freq: Status: Active Protocol: Document 04/26/19 09:02 LRN (Rec: 04/26/19 10:33 LRN [id number]) Posture Evaluation Comments Posture Comments Standing: Varus of ankles and knees. R PSIS shifted anteriorly, lower L shoulder. PT-OP-K Range of Motion Start: 04/25/19 15:52 Freq: Status: Active Protocol: Document 04/26/19 09:02 LRN (Rec: 04/26/19 10:33 LR [id number]) Knee Goniometric Range of Motion Knee Right Patient Position Supine Flexion Active (degrees) 123 Left Patient Position Supine Flexion Active (degrees) 114 Knee ROM Limitations Knee ROM Limitations Soft Tissue Tightness,Pain Comments L knee: lacks 10 deg's extension. R knee: lacks 7 deg's extension. PT-OP-M Strength Start: 04/25/19 15:52 Freq: Status: Active Protocol: Document 04/26/19 09:02 LRN (Rec: 04/26/19 10:33 LR [id number]) Hip Strength Hip Manual Muscle Testing Right Flexion (L2) 4+ Good+ Extension (S1) 5 Normal Comments Otherwise WNL Left Flexion (L2) 4+ Good+ Extension (S1) 4+ Good+ Comments Otherwise WNL Knee Strength Knee Manual Muscle Testing Right Flexion (S2) 4+ Good+ Extension (L3) 5 Normal Left Flexion (S2) 4+ Good+ Extension (L3) 4+ Good+ Ankle/Foot Strength Ankle and Foot Manual Muscle Testing Right Inversion 3+ Fair+ Comments Otherwise WNL Left Eversion (S1) 5 Normal Comments Otherwise WNL PT-OP-Q Treatments Start: 04/25/19 15:52 Freq: Status: Active Protocol: Document 05/16/19 09:06 [facility] (Rec: 05/16/19 09:43 [facility] [id number]) Cardio Equipment Treadmill Duration (Minutes) 5 Speed 1.6 Incline 2.5 Other No c/o knee pain Therapeutic Exercises Standing Exercises step downs Standing Exercise Name 4 in Side left Reps/Minutes 12 Comments focus on neutral position & wt shift sidestepping Standing Exercise Name w/mini squats Side bilateral Equipment Used yellow tband Reps/Minutes 2x20ft PT-OP-R Modalities Start: 04/25/19 15:52 Freq: Status: Active Protocol: Document 05/16/19 09:06 [facility] (Rec: 05/16/19 09:43 [facility] [id number]) Hot Pack/Cold Pack Treatment Cold Pack Location Bilateral knees Patient Position Supine Treatment Duration (minutes) 10 Patient Tolerance Good Comments Bolster under knees Ultrasound Therapy Treatment Posterior R knee Treatment Duration (minutes) 8 Patient Position Prone Coupling Medium Ultrasound Gel Applicator Size (cm2) 10 Mode Setting Pulsed Duty Cycle 50% Intensity Setting (w/cm2) 1.7 Posterior L knee Treatment Duration (minutes) 8 Patient Position Prone Coupling Medium Ultrasound Gel Applicator Size (cm2) 10 Mode Setting Pulsed Duty Cycle 50% Intensity Setting (w/cm2) 1.5 PT-OP-T Assessment and Plan Start: 04/25/19 15:52 Freq: Status: Active Protocol: Document 05/16/19 09:06 [facility] (Rec: 05/16/19 09:43 [facility] [id number]) Physical Therapy Assessment Goals Three Impairment Decreased speed of gait on TM to 2.5. Mortgage Counselor Goal (LTG) Pt will be able to ambulate on a TM at a speed of 3.5 without pain. LTG Duration 06/07/19 Two Impairment David knee pain Skilled Nursing Goal (LTG) Pt will have occasional bilateral knee pain per baseline level. LTG Duration 06/07/19 One Impairment Pt lacks appropriate self care program. Mortgage Counselor Goal (LTG) Pt will be independent in a self care HEP. LTG Duration 06/21/19 Assessment Summary Assessment Pt did well with walking on treadmill without inc pain. WOrked on squatting strength today d/t pt main c/o stair descent being difficult. He required cueing throughout to avoid knees going past toes in squat. Physical Therapy Plan Frequency and Duration Frequency of Treatment 2x/Week Duration of Treatment 8 weeks Plan of Care Start Date 04/26/19 Plan of Care End Date 06/21/19 Next Visit Focus/Plan Next Note Type Treatment Note Next Visit Plan Check ROM to knees bilaterally . Monitor Skin since K-tape~1 wk ago. TM to improve speed with gait and for LE strengthening. Assess gait for weight shift. Modify gait for improved foot clearance, improved hip shift, and decr ER of RLE. US to decrease L posterior knee pain after ex if needed. Add strengthening of hips and progress knee/ ankle strengthening.
--- NOTE | 2019-05-21 14:48 | PT.OTN ---
Current Diagnoses Bilateral primary osteoarthritis of knee (05/21/19) Muscle weakness (generalized) (05/21/19) Other reduced mobility (05/21/19) Physical Therapy Treatment Note PT-OP-A Visit Information Start: 04/25/19 15:52 Freq: Status: Active Protocol: Document 05/21/19 13:50 [facility] (Rec: 05/21/19 14:45 [facility] [id number]) Out-Patient Physical Therapy Visit Information Visit Information Visit Type Treatment Note Visit Start Time 13:47 Visit Stop Time 14:38 Total Visit Minutes 51 Visit Number 7 Number of RETREAD SUPERVISOR Visits 0 PT-OP-B Current Condition Start: 04/25/19 15:52 Freq: Status: Active Protocol: Document 04/26/19 09:02 LRN (Rec: 04/26/19 10:33 LRN [id number]) Current Condition History of Current Condition Onset Date 9 months ago. Current Complaints L knee pain with prolonged sitting, david knee pn w/gait History of Current Condition Pt reports bilateral knee pain off/on for 8-10 yrs. Insidious onset of worsening david knee pain within the past 9 months. He has pain behind the knee with sitting and with stair ambulation. 5-6 yrs ago he had a shot in R knee that took the pain away; therefore he has occasional tinge of pain in the R knee. He currently has L > R knee pain. Takes a pill for L knee pain and wears a soft brace support to make the knee pain tolerable. Pt reports a hx of vertigo and back surgery to have a disc removed (of unknown level). Prior Treatments and Tests X-rays @ Dr. Pardo office. Future Testing and Treatments Planned Follow up visit with Gray Cruz PA in couple months. 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 Did [employer] business after retired. Treatment Goals Patient/Caregiver Goals Pt goal is to eliminate bilateral knee pain, but understands since having pain for 8-10 yrs elimination may not be achieved; therefore would like to return to baseline of occasional knee pain on the left. Prior Functional Status Baseline Function- ADL's Independent Baseline Function- Mobility Independent Baseline Function- Gait TM: 3.5 speed. Baseline Function- Other No L knee pain with prolonged sitting. Current Functional Impairments (Reported) Functional Limitations- Mobility/Gait Slower gait than baseline (TM: 2.5 speed without pain). Functional Limitations- Other Off/on use of treadmill. Takes pain pill and use soft brace for pain on L knee. Personal Factors Other Personal Factors That May Effect Varus of knees. Therapy/Recovery Prior low back surgery of unknown specifics. PT-OP-C Subjective Start: 04/25/19 15:52 Freq: Status: Active Protocol: Document 05/21/19 13:50 [facility] (Rec: 05/21/19 14:45 [facility] [id number]) OP-PT Subjective Patient Comments Patient Comments Pt reports no issues after last session. Pt reports stairs have been better the last few days. PT-OP-D Balance Start: 04/25/19 15:52 Freq: Status: Active Protocol: Document 04/26/19 09:02 LRN (Rec: 04/26/19 10:33 [facility] [id number]) Balance Tests Single Limb Standing Single Limb- Right 2 Single Limb- Left 4 PT-OP-F Manual Assessment Start: 04/25/19 15:52 Freq: Status: Active Protocol: Document 04/26/19 09:02 LRN (Rec: 04/26/19 10:33 LRN [id number]) Manual Assessments Soft Tissue Assessment Soft Tissue Mobility Assessment L posterior knee: Swelling and tenderness present. Joint Mobility Assessment Joint Mobility Assessment Decreased mobility of patella bilaterally PT-OP-G Mobility & Gait Start: 04/25/19 15:52 Freq: Status: Active Protocol: Document 04/26/19 09:02 LRN (Rec: 04/26/19 10:33 [facility] [id number]) OP Gait Assessment Gait Gait Assistance Required: Independent Able to Maintain Weight Bearing Status Yes During Gait Assistive Devices Assistive Device None Gait Deviations General Gait Pattern Decreased Stride Length, Lateral Trunk Lean Factors Limiting Gait Function Factors Limiting Gait Function Limited Range of Motion,Poor Balance PT-OP-J Posture/Palpation/Skin Start: 04/25/19 15:52 Freq: Status: Active Protocol: Document 04/26/19 09:02 LRN (Rec: 04/26/19 10:33 LRN [id number]) Posture Evaluation Comments Posture Comments Standing: Varus of ankles and knees. R PSIS shifted anteriorly, lower L shoulder. PT-OP-K Range of Motion Start: 09/19/19 15:52 Freq: Status: Active Protocol: Document 04/26/19 09:02 LRN (Rec: 04/26/19 10:33 LR [id number]) Knee Goniometric Range of Motion Knee Right Patient Position Supine Flexion Active (degrees) 123 Left Patient Position Supine Flexion Active (degrees) 114 Knee ROM Limitations Knee ROM Limitations Soft Tissue Tightness,Pain Comments L knee: lacks 10 deg's extension. R knee: lacks 7 deg's extension. PT-OP-M Strength Start: 04/25/19 15:52 Freq: Status: Active Protocol: Document 04/26/19 09:02 LRN (Rec: 04/26/19 10:33 LR [id number]) Hip Strength Hip Manual Muscle Testing Right Flexion (L2) 4+ Good+ Extension (S1) 5 Normal Comments Otherwise WNL Left Flexion (L2) 4+ Good+ Extension (S1) 4+ Good+ Comments Otherwise WNL Knee Strength Knee Manual Muscle Testing Right Flexion (S2) 4+ Good+ Extension (L3) 5 Normal Left Flexion (S2) 4+ Good+ Extension (L3) 4+ Good+ Ankle/Foot Strength Ankle and Foot Manual Muscle Testing Right Inversion 3+ Fair+ Comments Otherwise WNL Left Eversion (S1) 5 Normal Comments Otherwise WNL PT-OP-Q Treatments Start: 04/25/19 15:52 Freq: Status: Active Protocol: Document 05/21/19 13:50 [facility] (Rec: 05/21/19 14:45 [facility] [id number]) Cardio Equipment Treadmill Duration (Minutes) 9 Speed 1.7 Incline 2-4 Other No c/o knee pain Therapeutic Exercises Standing Exercises step downs Standing Exercise Name 5 in step up and down Side bilateral Reps/Minutes 12 Comments focus on neutral position & wt shift sidestepping Standing Exercise Name w/mini squats Side bilateral Equipment Used yellow tband Reps/Minutes 20ft Gait Training Gait Activity stairs Description 6 in Comments reciprocal working on on wt shift fwd into the next step Walk with hip shift, core stab Description focus on push off & upright positioning PT-OP-R Modalities Start: 04/25/19 15:52 Freq: Status: Active Protocol: Document 05/21/19 13:50 [facility] (Rec: 05/21/19 14:45 [facility] [id number]) Hot Pack/Cold Pack Treatment Cold Pack Location Bilateral knees Patient Position Supine Treatment Duration (minutes) 10 Patient Tolerance Good Comments Bolster under knees Ultrasound Therapy Treatment Posterior R knee Treatment Duration (minutes) 8 Patient Position Prone Coupling Medium Ultrasound Gel Applicator Size (cm2) 10 Mode Setting Pulsed Duty Cycle 50% Intensity Setting (w/cm2) 1.7 Posterior L knee Treatment Duration (minutes) 7 Patient Position Prone Coupling Medium Ultrasound Gel Applicator Size (cm2) 10 Mode Setting Pulsed Duty Cycle 50% Intensity Setting (w/cm2) 1.5 PT-OP-T Assessment and Plan Start: 04/25/19 15:52 Freq: Status: Active Protocol: Document 05/21/19 13:50 [facility] (Rec: 05/21/19 14:45 [facility] [id number]) Physical Therapy Assessment Goals Three Impairment Decreased speed of gait on TM to 2.5. Penitentiary Goal (LTG) Pt will be able to ambulate on a TM at a speed of 3.5 without pain. LTG Duration 06/07/19 Two Impairment David knee pain [facility]iary Goal (LTG) Pt will have occasional bilateral knee pain per baseline level. LTG Duration 06/07/19 One Impairment Pt lacks appropriate self care program. Penitentiary Goal (LTG) Pt will be independent in a self care HEP. LTG Duration 06/21/19 Assessment Summary Assessment Pt progressed with ability to walk at slightly faster pace with increased grade. He was able to improve gait pattern and stair pattern with cueing and use of mirro with dec pain . Physical Therapy Plan Frequency and Duration Frequency of Treatment 2x/Week Duration of Treatment 8 weeks Plan of Care Start Date 04/26/19 Plan of Care End Date 06/21/19 Next Visit Focus/Plan Next Note Type Treatment Note Next Visit Plan TM to improve speed with gait and for LE strengthening. Assess gait for weight shift. Modify gait for improved foot clearance, improved hip shift , and decr ER of RLE. US to decrease L posterior knee pain after ex if needed. Add strengthening of hips and progress knee/ankle strengthening.
--- NOTE | 2019-05-24 14:47 | PT.OTN ---
Current Diagnoses Bilateral primary osteoarthritis of knee (05/24/19) Muscle weakness (generalized) (05/24/19) Other reduced mobility (05/24/19) Physical Therapy Treatment Note PT-OP-A Visit Information Start: 04/25/19 15:52 Freq: Status: Active Protocol: Document 05/24/19 13:36 LRN (Rec: 05/24/19 14:31 [facility] [id number]) Out-Patient Physical Therapy Visit Information Visit Information Visit Type Treatment Note Visit Start Time 13:36 Visit Stop Time 14:26 Total Visit Minutes 50 Visit Number 8 Number of BLOWER ROOM ATTENDANT Visits 0 Evaluation Information Evaluation Date 04/26/19 Precautions Precautions Prior history of low back surgery. PT-OP-B Current Condition Start: 04/25/19 15:52 Freq: Status: Active Protocol: Document 04/26/19 09:02 LRN (Rec: 04/26/19 10:33 [facility] [id number]) Current Condition History of Current Condition Onset Date 9 months ago. Current Complaints L knee pain with prolonged sitting, david knee pn w/gait History of Current Condition Pt reports bilateral knee pain off/on for 8-10 yrs. Insidious onset of worsening david knee pain within the past 9 months. He has pain behind the knee with sitting and with stair ambulation. 5-6 yrs ago he had a shot in R knee that took the pain away; therefore he has occasional tinge of pain in the R knee. He currently has L > R knee pain. Takes a pill for L knee pain and wears a soft brace support to make the knee pain tolerable. Pt reports a hx of vertigo and back surgery to have a disc removed (of unknown level). Prior Treatments and Tests X-rays @ Dr. Pardo office. Future Testing and Treatments Planned Follow up visit with Gray Cruz PA in couple months. 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 Did [employer] business after retired. Treatment Goals Patient/Caregiver Goals Pt goal is to eliminate bilateral knee pain, but understands since having pain for 8-10 yrs elimination may not be achieved; therefore would like to return to baseline of occasional knee pain on the left. Prior Functional Status Baseline Function- ADL's Independent Baseline Function- Mobility Independent Baseline Function- Gait TM: 3.5 speed. Baseline Function- Other No L knee pain with prolonged sitting. Current Functional Impairments (Reported) Functional Limitations- Mobility/Gait Slower gait than baseline (TM: 2.5 speed without pain). Functional Limitations- Other Off/on use of treadmill. Takes pain pill and use soft brace for pain on L knee. Personal Factors Other Personal Factors That May Effect Varus of knees. Therapy/Recovery Prior low back surgery of unknown specifics. PT-OP-C Subjective Start: 04/25/19 15:52 Freq: Status: Active Protocol: Document 05/24/19 13:36 LRN (Rec: 05/24/19 14:31 [facility]N [id number]) OP-PT Subjective Patient Comments Patient Comments Thinks improving because he is exercising. 80% towards baseline. Pain daily in the posterior knees, primarily on the left. Has not noticed the kne pain with walking. Patient Reported Progress Improving PT-OP-D Balance Start: 04/25/19 15:52 Freq: Status: Active Protocol: Document 04/26/19 09:02 LRN (Rec: 04/26/19 10:33 LRN [id number]) Balance Tests Single Limb Standing Single Limb- Right 2 Single Limb- Left 4 PT-OP-F Manual Assessment Start: 04/25/19 15:52 Freq: Status: Active Protocol: Document 04/26/19 09:02 LRN (Rec: 04/26/19 10:33 LRN [id number]) Manual Assessments Soft Tissue Assessment Soft Tissue Mobility Assessment L posterior knee: Swelling and tenderness present. Joint Mobility Assessment Joint Mobility Assessment Decreased mobility of patella bilaterally PT-OP-G Mobility & Gait Start: 04/25/19 15:52 Freq: Status: Active Protocol: Document 04/26/19 09:02 LRN (Rec: 04/26/19 10:33 [facility]N [id number]) OP Gait Assessment Gait Gait Assistance Required: Independent Able to Maintain Weight Bearing Status Yes During Gait Assistive Devices Assistive Device None Gait Deviations General Gait Pattern Decreased Stride Length, Lateral Trunk Lean Factors Limiting Gait Function Factors Limiting Gait Function Limited Range of Motion,Poor Balance PT-OP-J Posture/Palpation/Skin Start: 04/25/19 15:52 Freq: Status: Active Protocol: Document 04/26/19 09:02 LRN (Rec: 04/26/19 10:33 LRN [id number]) Posture Evaluation Comments Posture Comments Standing: Varus of ankles and knees. R PSIS shifted anteriorly, lower L shoulder. PT-OP-K Range of Motion Start: 04/25/19 15:52 Freq: Status: Active Protocol: Document 04/26/19 09:02 LRN (Rec: 04/26/19 10:33 LRN [id number]) Knee Goniometric Range of Motion Knee Right Patient Position Supine Flexion Active (degrees) 123 Left Patient Position Supine Flexion Active (degrees) 114 Knee ROM Limitations Knee ROM Limitations Soft Tissue Tightness,Pain Comments L knee: lacks 10 deg's extension. R knee: lacks 7 deg's extension. PT-OP-M Strength Start: 04/25/19 15:52 Freq: Status: Active Protocol: Document 04/26/19 09:02 LRN (Rec: 04/26/19 10:33 LRN [id number]) Hip Strength Hip Manual Muscle Testing Right Flexion (L2) 4+ Good+ Extension (S1) 5 Normal Comments Otherwise WNL Left Flexion (L2) 4+ Good+ Extension (S1) 4+ Good+ Comments Otherwise WNL Knee Strength Knee Manual Muscle Testing Right Flexion (S2) 4+ Good+ Extension (L3) 5 Normal Left Flexion (S2) 4+ Good+ Extension (L3) 4+ Good+ Ankle/Foot Strength Ankle and Foot Manual Muscle Testing Right Inversion 3+ Fair+ Comments Otherwise WNL Left Eversion (S1) 5 Normal Comments Otherwise WNL PT-OP-Q Treatments Start: 04/25/19 15:52 Freq: Status: Active Protocol: Document 05/24/19 13:36 LRN (Rec: 05/24/19 14:31 LRN [id number]) Cardio Equipment Treadmill Duration (Minutes) 10 Speed 1.7 Incline 2-4.5 Other c/o knee pain at 4.5 incline only Therapeutic Exercises Supine Exercises End range knee flex stretch Supine Exercise Name Knee flexion stretch Side bilateral Comments Stretch f/b ROM taken End-range knee ext stretch Supine Exercise Name Ankles on 1/2 roll for static stretch Side bilateral Reps/Minutes 60 sec x 1 Comments Stretch f/b ROM taken Prone Exercises Hamstring Curls Prone Exercise Name Knee flex: foot in neutral, ER , IR Side left Reps/Minutes 15x each Comments Ex f/b ROM taken Standing Exercises step downs Standing Exercise Name 5 in step up and down in open area of floor Side bilateral Reps/Minutes 10 Comments focus on balance Ankle DF Standing Exercise Name Toe raises Side bilateral Equipment Used UE support Reps/Minutes 15xeach: Quick lifts and long holds Comments 1 set quick reps, 1 set holding 10. PT-OP-R Modalities Start: 04/25/19 15:52 Freq: Status: Active Protocol: Document 05/24/19 13:36 LRN (Rec: 05/24/19 14:31 LRN [id number]) Hot Pack/Cold Pack Treatment Cold Pack Location Bilateral knees Patient Position Supine Treatment Duration (minutes) 10 Patient Tolerance Good Comments Bolster under knees PT-OP-T Assessment and Plan Start: 04/25/19 15:52 Freq: Status: Active Protocol: Document 05/24/19 13:36 [facility]N (Rec: 05/24/19 14:31 [facility]N [id number]) Physical Therapy Assessment Goals Three Impairment Decreased speed of gait on TM to 2.5. Stripper [employer] Goal (LTG) Pt will be able to ambulate on a TM at a speed of 3.5 without pain. LTG Duration 06/07/19 (05/24/19: Incline 4. 5%, Speed 1.7) Two Impairment David knee pain Group Home Goal (LTG) Pt will have occasional bilateral knee pain per baseline level. LTG Duration 06/07/19 (: Pain daily , but intermittent in day). One Impairment Pt lacks appropriate self care program. Group Home Goal (LTG) Pt will be independent in a self care HEP. LTG Duration 06/21/19 Progress Towards Goals Progress Comments Goal 1: HEP progressing as appropriate. Goal 2: Pt is 80% to baseline bilateral knee pain level. Goal 3: TM gait speed and incline GOAL MET. Assessment Summary Assessment Pt knee AROM decreased. Pain with L knee flex is lessened with AP mob applied; therefore further hamstring strengthening is needed. Skin at location of K-tape is normal. Held K-tape due to no c/o knee pain. Pt having no pain with incline 0-4.5%, pain onset at incline of 5%. His speed is 1.7 but the goal is for 3.5 which seems too fast, but the pt will walk with spouse this weekend to get an idea of speed of gait of spouse. Physical Therapy Plan Frequency and Duration Frequency of Treatment 2x/Week Duration of Treatment 8 weeks Plan of Care Start Date 04/26/19 Plan of Care End Date 06/21/19 Next Visit Focus/Plan Next Note Type Treatment Note Next Visit Plan Progress speed of gait on TM as pt notes over the weekend walks. TM for LE strengthening. Assess gait for weight shift. Modify gait for improved foot clearance, improved hip shift, and decr ER of RLE. Add strengthening of hips and progress hamstring /ankle strengthening.
--- NOTE | 2019-05-24 14:51 | PT.OTN ---
Current Diagnoses Bilateral primary osteoarthritis of knee (05/24/19) Muscle weakness (generalized) (05/24/19) Other reduced mobility (05/24/19) Physical Therapy Treatment Note PT-OP-A Visit Information Start: 04/25/19 15:52 Freq: Status: Active Protocol: Document 05/24/19 13:36 LRN (Rec: 05/24/19 14:31 LRN [id number]) Out-Patient Physical Therapy Visit Information Visit Information Visit Type Treatment Note Visit Start Time 13:36 Visit Stop Time 14:26 Total Visit Minutes 50 Visit Number 8 Number of MACHINIST HELPER Visits 0 Evaluation Information Evaluation Date 04/26/19 Precautions Precautions Prior history of low back surgery. PT-OP-B Current Condition Start: 04/25/19 15:52 Freq: Status: Active Protocol: Document 04/26/19 09:02 LRN (Rec: 04/26/19 10:33 LRN [id number]) Current Condition History of Current Condition Onset Date 9 months ago. Current Complaints L knee pain with prolonged sitting, david knee pn w/gait History of Current Condition Pt reports bilateral knee pain off/on for 8-10 yrs. Insidious onset of worsening david knee pain within the past 9 months. He has pain behind the knee with sitting and with stair ambulation. 5-6 yrs ago he had a shot in R knee that took the pain away; therefore he has occasional tinge of pain in the R knee. He currently has L > R knee pain. Takes a pill for L knee pain and wears a soft brace support to make the knee pain tolerable. Pt reports a hx of vertigo and back surgery to have a disc removed (of unknown level). Prior Treatments and Tests X-rays @ Dr. Pardo office. Future Testing and Treatments Planned Follow up visit with Gray Cruz PA in couple months. 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 Treatment Goals Patient/Caregiver Goals Pt goal is to eliminate bilateral knee pain, but understands since having pain for 8-10 yrs elimination may not be achieved; therefore would like to return to baseline of occasional knee pain on the left. Prior Functional Status Baseline Function- ADL's Independent Baseline Function- Mobility Independent Baseline Function- Gait TM: 3.5 speed. Baseline Function- Other No L knee pain with prolonged sitting. Current Functional Impairments (Reported) Functional Limitations- Mobility/Gait Slower gait than baseline (TM: 2.5 speed without pain). Functional Limitations- Other Off/on use of treadmill. Takes pain pill and use soft brace for pain on L knee. Personal Factors Other Personal Factors That May Effect Varus of knees. Therapy/Recovery Prior low back surgery of unknown specifics. PT-OP-C Subjective Start: 04/25/19 15:52 Freq: Status: Active Protocol: Document 05/24/19 13:36 LRN (Rec: 05/24/19 14:31 LRN [id number]) OP-PT Subjective Patient Comments Patient Comments Thinks improving because he is exercising. 80% towards baseline. Pain daily in the posterior knees, primarily on the left. Has not noticed the kne pain with walking. Patient Reported Progress Improving PT-OP-D Balance Start: 04/25/19 15:52 Freq: Status: Active Protocol: Document 04/26/19 09:02 LRN (Rec: 04/26/19 10:33 LRN [id number]) Balance Tests Single Limb Standing Single Limb- Right 2 Single Limb- Left 4 PT-OP-F Manual Assessment Start: 04/25/19 15:52 Freq: Status: Active Protocol: Document 04/26/19 09:02 LRN (Rec: 04/26/19 10:33 LRN [id number]) Manual Assessments Soft Tissue Assessment Soft Tissue Mobility Assessment L posterior knee: Swelling and tenderness present. Joint Mobility Assessment Joint Mobility Assessment Decreased mobility of patella bilaterally PT-OP-G Mobility & Gait Start: 04/25/19 15:52 Freq: Status: Active Protocol: Document 04/26/19 09:02 LRN (Rec: 04/26/19 10:33 LRN [id number]) OP Gait Assessment Gait Gait Assistance Required: Independent Able to Maintain Weight Bearing Status Yes During Gait Assistive Devices Assistive Device None Gait Deviations General Gait Pattern Decreased Stride Length, Lateral Trunk Lean Factors Limiting Gait Function Factors Limiting Gait Function Limited Range of Motion,Poor Balance PT-OP-J Posture/Palpation/Skin Start: 04/25/19 15:52 Freq: Status: Active Protocol: Document 04/26/19 09:02 LRN (Rec: 04/26/19 10:33 LRN [id number]) Posture Evaluation Comments Posture Comments Standing: Varus of ankles and knees. R PSIS shifted anteriorly, lower L shoulder. PT-OP-K Range of Motion Start: 04/25/19 15:52 Freq: Status: Active Protocol: Document 05/24/19 13:36 LRN (Rec: 05/24/19 14:51 LRN [id number]) Knee Goniometric Range of Motion Knee Right Patient Position Supine Flexion Active (degrees) 120 Extension Active (degrees) 0 Left Patient Position Supine Flexion Active (degrees) 103 Hyper-Extension Active 1 Knee ROM Limitations Comments Supine L knee flexion after hamstring curls in prone: 112 deg's flex w/o pain. PT-OP-M Strength Start: 04/25/19 15:52 Freq: Status: Active Protocol: Document 04/26/19 09:02 LRN (Rec: 04/26/19 10:33 LRN [id number]) Hip Strength Hip Manual Muscle Testing Right Flexion (L2) 4+ Good+ Extension (S1) 5 Normal Comments Otherwise WNL Left Flexion (L2) 4+ Good+ Extension (S1) 4+ Good+ Comments Otherwise WNL Knee Strength Knee Manual Muscle Testing Right Flexion (S2) 4+ Good+ Extension (L3) 5 Normal Left Flexion (S2) 4+ Good+ Extension (L3) 4+ Good+ Ankle/Foot Strength Ankle and Foot Manual Muscle Testing Right Inversion 3+ Fair+ Comments Otherwise WNL Left Eversion (S1) 5 Normal Comments Otherwise WNL PT-OP-Q Treatments Start: 04/25/19 15:52 Freq: Status: Active Protocol: Document 05/24/19 13:36 LRN (Rec: 05/24/19 14:31 LRN [id number]) Cardio Equipment Treadmill Duration (Minutes) 10 Speed 1.7 Incline 2-4.5 Other c/o knee pain at 4.5 incline only Therapeutic Exercises Supine Exercises End range knee flex stretch Supine Exercise Name Knee flexion stretch Side bilateral Comments Stretch f/b ROM taken End-range knee ext stretch Supine Exercise Name Ankles on 1/2 roll for static stretch Side bilateral Reps/Minutes 60 sec x 1 Comments Stretch f/b ROM taken Prone Exercises Hamstring Curls Prone Exercise Name Knee flex: foot in neutral, ER , IR Side left Reps/Minutes 15x each Comments Ex f/b ROM taken Standing Exercises step downs Standing Exercise Name 5 in step up and down in open area of floor Side bilateral Reps/Minutes 10 Comments focus on balance Ankle DF Standing Exercise Name Toe raises Side bilateral Equipment Used UE support Reps/Minutes 15xeach: Quick lifts and long holds Comments 1 set quick reps, 1 set holding 10. PT-OP-R Modalities Start: 04/25/19 15:52 Freq: Status: Active Protocol: Document 05/24/19 13:36 LRN (Rec: 05/24/19 14:31 LRN [id number]) Hot Pack/Cold Pack Treatment Cold Pack Location Bilateral knees Patient Position Supine Treatment Duration (minutes) 10 Patient Tolerance Good Comments Bolster under knees PT-OP-T Assessment and Plan Start: 04/25/19 15:52 Freq: Status: Active Protocol: Document 05/24/19 13:36 LRN (Rec: 05/24/19 14:31 LRN [id number]) Physical Therapy Assessment Goals Three Impairment Decreased speed of gait on TM to 2.5. Long-Term Goal (LTG) Pt will be able to ambulate on a TM at a speed of 3.5 without pain. LTG Duration 06/07/19 (05/24/19: Incline 4. 5%, Speed 1.7) Two Impairment David knee pain Long-Term Goal (LTG) Pt will have occasional bilateral knee pain per baseline level. LTG Duration 06/07/19 (: Pain daily , but intermittent in day). One Impairment Pt lacks appropriate self care program. 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 LTG Duration 06/21/19 Progress Towards Goals Progress Comments Goal 1: HEP progressing as appropriate. Goal 2: Pt is 80% to baseline bilateral knee pain level. Goal 3: TM gait speed and incline GOAL MET. Assessment Summary Assessment Pt knee AROM decreased. Pain with L knee flex is lessened with AP mob applied; therefore further hamstring strengthening is needed. Skin at location of K-tape is normal. Held K-tape due to no c/o knee pain. Pt having no pain with incline 0-4.5%, pain onset at incline of 5%. His speed is 1.7 but the goal is for 3.5 which seems too fast, but the pt will walk with spouse this weekend to get an idea of speed of gait of spouse. Physical Therapy Plan Frequency and Duration Frequency of Treatment 2x/Week Duration of Treatment 8 weeks Plan of Care Start Date 04/26/19 Plan of Care End Date 06/21/19 Next Visit Focus/Plan Next Note Type Treatment Note Next Visit Plan Progress speed of gait on TM as pt notes over the weekend walks. TM for LE strengthening. Assess gait for weight shift. Modify gait for improved foot clearance, improved hip shift, and decr ER of RLE. Add strengthening of hips and progress hamstring /ankle strengthening.
--- NOTE | 2019-05-27 14:29 | PT.OTN ---
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 Current Complaints L knee pain with prolonged sitting, david knee pn w/gait History of Current Condition Pt reports bilateral knee pain off/on for 8-10 yrs. Insidious onset of worsening david knee pain within the past 9 months. He has pain behind the knee with sitting and with stair ambulation. 5-6 yrs ago he had a shot in R knee that took the pain away; therefore he has occasional tinge of pain in the R knee. He currently has L > R knee pain. Takes a pill for L knee pain and wears a soft brace support to make the knee pain tolerable. Pt reports a hx of vertigo and back surgery to have a disc removed (of unknown level). Prior Treatments and Tests X-rays @ Dr. Pardo office. Future Testing and Treatments Planned Follow up visit with Gray Cruz PA in couple months. 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 Did [employer] business after retired. Treatment Goals Patient/Caregiver Goals Pt goal is to eliminate bilateral knee pain, but understands since having pain for 8-10 yrs elimination may not be achieved; therefore would like to return to baseline of occasional knee pain on the left. Prior Functional Status Baseline Function- ADL's Independent Baseline Function- Mobility Independent Baseline Function- Gait TM: 3.5 speed. Baseline Function- Other No L knee pain with prolonged sitting. Current Functional Impairments (Reported) Functional Limitations- Mobility/Gait Slower gait than baseline (TM: 2.5 speed without pain). Functional Limitations- Other Off/on use of treadmill. Takes pain pill and use soft brace for pain on L knee. Personal Factors Other Personal Factors That May Effect Varus of knees. Therapy/Recovery Prior low back surgery of unknown specifics. PT-OP-C Subjective Start: 04/25/19 15:52 Freq: Status: Active Protocol: Document 05/27/19 13:50 LRH (Rec: 05/27/19 14:29 LRH [id number]) OP-PT Subjective Patient Comments Patient Comments Pt reports he feels much better. He is still slower than his dgt but feels like his speed is picking up and he feels like PT is really helping his walking pattern. Patient Reported Progress Improving PT-OP-D Balance Start: 04/25/19 15:52 Freq: Status: Active Protocol: Document 04/26/19 09:02 LRN (Rec: 04/26/19 10:33 LRN [id number]) Balance Tests Single Limb Standing Single Limb- Right 2 Single Limb- Left 4 PT-OP-F Manual Assessment Start: 04/25/19 15:52 Freq: Status: Active Protocol: Document 04/26/19 09:02 LRN (Rec: 04/26/19 10:33 LRN [id number]) Manual Assessments Soft Tissue Assessment Soft Tissue Mobility Assessment L posterior knee: Swelling and tenderness present. Joint Mobility Assessment Joint Mobility Assessment Decreased mobility of patella bilaterally PT-OP-G Mobility & Gait Start: 04/25/19 15:52 Freq: Status: Active Protocol: Document 04/26/19 09:02 LRN (Rec: 04/26/19 10:33 LRN [id number]) OP Gait Assessment Gait Gait Assistance Required: Independent Able to Maintain Weight Bearing Status Yes During Gait Assistive Devices Assistive Device None Gait Deviations General Gait Pattern Decreased Stride Length, Lateral Trunk Lean Factors Limiting Gait Function Factors Limiting Gait Function Limited Range of Motion,Poor Balance PT-OP-J Posture/Palpation/Skin Start: 04/25/19 15:52 Freq: Status: Active Protocol: Document 04/26/19 09:02 LRN (Rec: 04/26/19 10:33 LRN [id number]) Posture Evaluation Comments Posture Comments Standing: Varus of ankles and knees. R PSIS shifted anteriorly, lower L shoulder. PT-OP-K Range of Motion Start: 04/25/19 15:52 Freq: Status: Active Protocol: Document 05/24/19 13:36 LRN (Rec: 05/24/19 14:51 LRN [id number]) Knee Goniometric Range of Motion Knee Right Patient Position Supine Flexion Active (degrees) 120 Extension Active (degrees) 0 Left Patient Position Supine Flexion Active (degrees) 103 Hyper-Extension Active 1 Knee ROM Limitations Comments Supine L knee flexion after hamstring curls in prone: 112 deg's flex w/o pain. PT-OP-M Strength Start: 04/25/19 15:52 Freq: Status: Active Protocol: Document 04/26/19 09:02 LRN (Rec: 04/26/19 10:33 LRN [id number]) Hip Strength Hip Manual Muscle Testing Right Flexion (L2) 4+ Good+ Extension (S1) 5 Normal Comments Otherwise WNL Left Flexion (L2) 4+ Good+ Extension (S1) 4+ Good+ Comments Otherwise WNL Knee Strength Knee Manual Muscle Testing Right Flexion (S2) 4+ Good+ Extension (L3) 5 Normal Left Flexion (S2) 4+ Good+ Extension (L3) 4+ Good+ Ankle/Foot Strength Ankle and Foot Manual Muscle Testing Right Inversion 3+ Fair+ Comments Otherwise WNL Left Eversion (S1) 5 Normal Comments Otherwise WNL PT-OP-Q Treatments Start: 04/25/19 15:52 Freq: Status: Active Protocol: Document 05/27/19 13:50 [facility] (Rec: 05/27/19 14:29 [facility] [id number]) Cardio Equipment Treadmill Duration (Minutes) 10 Speed 1.8-2.1 Incline 2-3 Other c/o knee pain at 4.5 incline only Gym Equipment Sport Cord red Cord/Resistance red Comments 1. wt shifts B 10 each 2. fwd walking x10 Therapeutic Exercises Prone Exercises Hamstring Curls Prone Exercise Name Knee flex: foot in neutral, ER , IR Side left Reps/Minutes 10x each Comments Ex f/b ROM taken Standing Exercises HS curl Side bilateral sidestepping Standing Exercise Name w/mini squats Side bilateral Equipment Used yellow tband Reps/Minutes 20ft Comments rail as needed Gait Training Gait Activity Walk with hip shift, core stab Description focus on push off & upright positioning Manual Therapy Treatment Soft Tissue Mobilization HS Body Location L lat Mobilization Type Rolling,Strumming Intensity/Depth Moderate Body Position Prone PT-OP-R Modalities Start: 04/25/19 15:52 Freq: Status: Active Protocol: Document 05/27/19 13:50 [facility] (Rec: 05/27/19 14:29 [facility] [id number]) Hot Pack/Cold Pack Treatment Cold Pack Comments Bolster under knees PT-OP-T Assessment and Plan Start: 04/25/19 15:52 Freq: Status: Active Protocol: Document 05/27/19 13:50 [facility] (Rec: 05/27/19 14:29 [facility] [id number]) Physical Therapy Assessment Goals Three Impairment Decreased speed of gait on TM to 2.5. Shelter Goal (LTG) Pt will be able to ambulate on a TM at a speed of 3.5 without pain. LTG Duration 06/07/19 (05/24/19: Incline 4. 5%, Speed 1.7) Two Impairment David knee pain Preschool Teacher'S Assistant Goal (LTG) Pt will have occasional bilateral knee pain per baseline level. LTG Duration 06/07/19 (: Pain daily , but intermittent in day). One Impairment Pt lacks appropriate self care program. Preschool Teacher'S Assistant Goal (LTG) Pt will be independent in a self care HEP. LTG Duration 06/21/19 Assessment Summary Assessment Pt able to tolerate all strengthening without inc pain . He requires significant cueing for push off with ambulation. He is improving with foot clearance and heel strike. Physical Therapy Plan Frequency and Duration Frequency of Treatment 2x/Week Duration of Treatment 8 weeks Plan of Care Start Date 04/26/19 Plan of Care End Date 06/21/19 Next Visit Focus/Plan Next Note Type Progress Note Next Visit Plan Progress speed of gait on TM as pt notes over the weekend walks. TM for LE strengthening. Assess gait for weight shift. Modify gait for improved foot clearance, improved hip shift, and decr ER of RLE. Add strengthening of hips and progress hamstring /ankle strengthening.
--- NOTE | 2019-05-29 14:31 | PT.OTN ---
Current Diagnoses Bilateral primary osteoarthritis of knee (05/29/19) Muscle weakness (generalized) (05/29/19) Other reduced mobility (05/29/19) Physical Therapy Treatment Note PT-OP-A Visit Information Start: 04/25/19 15:52 Freq: Status: Active Protocol: Document 05/29/19 13:51 LR (Rec: 05/29/19 14:31 [facility] [id number]) Out-Patient Physical Therapy Visit Information Visit Information Visit Type Treatment Note Visit Start Time 13:46 Visit Stop Time 14:27 Total Visit Minutes 41 Visit Number 10 Number of ASSEMBLER [employer]ILITY BUILDINGS Visits 0 PT-OP-B Current Condition Start: 04/25/19 15:52 Freq: Status: Active Protocol: Document 04/26/19 09:02 LRN (Rec: 04/26/19 10:33 LRN [id number]) Current Condition History of Current Condition Onset Date 9 months ago. Current Complaints L knee pain with prolonged sitting, david knee pn w/gait History of Current Condition Pt reports bilateral knee pain off/on for 8-10 yrs. Insidious onset of worsening david knee pain within the past 9 months. He has pain behind the knee with sitting and with stair ambulation. 5-6 yrs ago he had a shot in R knee that took the pain away; therefore he has occasional tinge of pain in the R knee. He currently has L > R knee pain. Takes a pill for L knee pain and wears a soft brace support to make the knee pain tolerable. Pt reports a hx of vertigo and back surgery to have a disc removed (of unknown level). Prior Treatments and Tests X-rays @ Dr. Pardo office. Future Testing and Treatments Planned Follow up visit with Gray Cruz PA in couple months. 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 Did [employer] business after retired. Treatment Goals Patient/Caregiver Goals Pt goal is to eliminate bilateral knee pain, but understands since having pain for 8-10 yrs elimination may not be achieved; therefore would like to return to baseline of occasional knee pain on the left. Prior Functional Status Baseline Function- ADL's Independent Baseline Function- Mobility Independent Baseline Function- Gait TM: 3.5 speed. Baseline Function- Other No L knee pain with prolonged sitting. Current Functional Impairments (Reported) Functional Limitations- Mobility/Gait Slower gait than baseline (TM: 2.5 speed without pain). Functional Limitations- Other Off/on use of treadmill. Takes pain pill and use soft brace for pain on L knee. Personal Factors Other Personal Factors That May Effect Varus of knees. Therapy/Recovery Prior low back surgery of unknown specifics. PT-OP-C Subjective Start: 04/25/19 15:52 Freq: Status: Active Protocol: Document 05/29/19 13:51 LRH (Rec: 05/29/19 14:31 [facility]H [id number]) OP-PT Subjective Patient Comments Patient Comments Pt reports he didn't have any aching after the soft tissue work last session. Patient Reported Progress Improving PT-OP-D Balance Start: 04/25/19 15:52 Freq: Status: Active Protocol: Document 04/26/19 09:02 LRN (Rec: 04/26/19 10:33 LRN [id number]) Balance Tests Single Limb Standing Single Limb- Right 2 Single Limb- Left 4 PT-OP-F Manual Assessment Start: 04/25/19 15:52 Freq: Status: Active Protocol: Document 04/26/19 09:02 LRN (Rec: 04/26/19 10:33 LRN [id number]) Manual Assessments Soft Tissue Assessment Soft Tissue Mobility Assessment L posterior knee: Swelling and tenderness present. Joint Mobility Assessment Joint Mobility Assessment Decreased mobility of patella bilaterally PT-OP-G Mobility & Gait Start: 04/25/19 15:52 Freq: Status: Active Protocol: Document 04/26/19 09:02 LRN (Rec: 04/26/19 10:33 LRN [id number]) OP Gait Assessment Gait Gait Assistance Required: Independent Able to Maintain Weight Bearing Status Yes During Gait Assistive Devices Assistive Device None Gait Deviations General Gait Pattern Decreased Stride Length, Lateral Trunk Lean Factors Limiting Gait Function Factors Limiting Gait Function Limited Range of Motion,Poor Balance PT-OP-J Posture/Palpation/Skin Start: 04/25/19 15:52 Freq: Status: Active Protocol: Document 04/26/19 09:02 LRN (Rec: 04/26/19 10:33 LRN [id number]) Posture Evaluation Comments Posture Comments Standing: Varus of ankles and knees. R PSIS shifted anteriorly, lower L shoulder. PT-OP-K Range of Motion Start: 04/25/19 15:52 Freq: Status: Active Protocol: Document 05/24/19 13:36 LRN (Rec: 05/24/19 14:51 LRN [id number]) Knee Goniometric Range of Motion Knee Right Patient Position Supine Flexion Active (degrees) 120 Extension Active (degrees) 0 Left Patient Position Supine Flexion Active (degrees) 103 Hyper-Extension Active 1 Knee ROM Limitations Comments Supine L knee flexion after hamstring curls in prone: 112 deg's flex w/o pain. PT-OP-M Strength Start: 04/25/19 15:52 Freq: Status: Active Protocol: Document 04/26/19 09:02 LRN (Rec: 04/26/19 10:33 LRN [id number]) Hip Strength Hip Manual Muscle Testing Right Flexion (L2) 4+ Good+ Extension (S1) 5 Normal Comments Otherwise WNL Left Flexion (L2) 4+ Good+ Extension (S1) 4+ Good+ Comments Otherwise WNL Knee Strength Knee Manual Muscle Testing Right Flexion (S2) 4+ Good+ Extension (L3) 5 Normal Left Flexion (S2) 4+ Good+ Extension (L3) 4+ Good+ Ankle/Foot Strength Ankle and Foot Manual Muscle Testing Right Inversion 3+ Fair+ Comments Otherwise WNL Left Eversion (S1) 5 Normal Comments Otherwise WNL PT-OP-Q Treatments Start: 04/25/19 15:52 Freq: Status: Active Protocol: Document 05/29/19 13:51 [facility] (Rec: 05/29/19 14:31 [facility] [id number]) Cardio Equipment Treadmill Duration (Minutes) 10 Speed 2-2.2 Incline 2-3 Other c/o knee pain at 4.5 incline only Gym Equipment Sport Cord red Cord/Resistance red Comments 1. wt shifts to wt acceptance & SLS B 10 each 2. fwd walking x10 3. backwards walking x10 Therapeutic Exercises Supine Exercises ITB stretch Supine Exercise Name L ITB & HS Side bilateral Reps/Minutes 30 sec Comments with belt d/t feels liek he is falling off bed w/s/l version Standing Exercises step up Standing Exercise Name onto bosu Side bilateral Reps/Minutes 10 Comments w/3 sec balance at top Gait Training Gait Activity Walk with hip shift, core stab Description focus on push off & upright positioning Manual Therapy Treatment Soft Tissue Mobilization ITB Body Location L Mobilization Type Rolling,Strumming Intensity/Depth Moderate Body Position Hooklying HS Body Location L lat Mobilization Type Rolling,Strumming Intensity/Depth Moderate Body Position Hooklying PT-OP-R Modalities Start: 04/25/19 15:52 Freq: Status: Active Protocol: Document 05/27/19 13:50 [facility] (Rec: 05/27/19 14:29 [facility] [id number]) Hot Pack/Cold Pack Treatment Cold Pack Comments Bolster under knees PT-OP-T Assessment and Plan Start: 04/25/19 15:52 Freq: Status: Active Protocol: Document 05/29/19 13:51 [facility] (Rec: 05/29/19 14:31 [facility] [id number]) Physical Therapy Assessment Goals Three Impairment Decreased speed of gait on TM to 2.5. Hot Mill Operator Goal (LTG) Pt will be able to ambulate on a TM at a speed of 3.5 without pain. 05/29-improved to 2.2 with 4% incline LTG Duration 06/07/19 (05/24/19: Incline 4. 5%, Speed 1.7) Two Impairment David knee pain Hot Mill Operator Goal (LTG) Pt will have occasional bilateral knee pain per baseline level. 05/29- Pt reports past 2 days have been really good. Notes occasionally some post pain after working out. LTG Duration 06/07/19 One Impairment Pt lacks appropriate self care program. Fpc Goal (LTG) Pt will be independent in a self care HEP. LTG Duration 06/21/19-achieved progressing as needed Assessment Summary Assessment Pt is making excellent progress with goals. he cont to advance with speed and incline without knee pain. He is improving gait mechanics and is having greater ease with knee pain and activities at home. Cont to work on push off with gait. Physical Therapy Plan Frequency and Duration Frequency of Treatment 2x/Week Duration of Treatment 8 weeks Plan of Care Start Date 04/26/19 Plan of Care End Date 06/21/19 Next Visit Focus/Plan Next Note Type Treatment Note Next Visit Plan COnt to work on gait mechanics & glute strenght for push off
--- NOTE | 2019-06-04 17:19 | PT.OTN ---
Current Diagnoses Bilateral primary osteoarthritis of knee (06/04/19) Muscle weakness (generalized) (06/04/19) Other reduced mobility (06/04/19) Physical Therapy Treatment Note PT-OP-A Visit Information Start: 04/25/19 15:52 Freq: Status: Active Protocol: Document 06/04/19 13:02 MT (Rec: 06/04/19 14:04 MT [id number]) Out-Patient Physical Therapy Visit Information Visit Information Visit Type Treatment Note Visit Start Time 13:02 Visit Stop Time 13:42 Total Visit Minutes 40 Visit Number 11 Number of FREE LANCE MODEL Visits 0 PT-OP-B Current Condition Start: 04/25/19 15:52 Freq: Status: Active Protocol: Document 04/26/19 09:02 LRN (Rec: 04/26/19 10:33 LRN [id number]) Current Condition History of Current Condition Onset Date 9 months ago. Current Complaints L knee pain with prolonged sitting, david knee pn w/gait History of Current Condition Pt reports bilateral knee pain off/on for 8-10 yrs. Insidious onset of worsening david knee pain within the past 9 months. He has pain behind the knee with sitting and with stair ambulation. 5-6 yrs ago he had a shot in R knee that took the pain away; therefore he has occasional tinge of pain in the R knee. He currently has L > R knee pain. Takes a pill for L knee pain and wears a soft brace support to make the knee pain tolerable. Pt reports a hx of vertigo and back surgery to have a disc removed (of unknown level). Prior Treatments and Tests X-rays @ Dr. Pardo office. Future Testing and Treatments Planned Follow up visit with Gray Cruz PA in couple months. 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 Did [email or web address] after retired. Treatment Goals Patient/Caregiver Goals Pt goal is to eliminate bilateral knee pain, but understands since having pain for 8-10 yrs elimination may not be achieved; therefore would like to return to baseline of occasional knee pain on the left. Prior Functional Status Baseline Function- ADL's Independent Baseline Function- Mobility Independent Baseline Function- Gait TM: 3.5 speed. Baseline Function- Other No L knee pain with prolonged sitting. Current Functional Impairments (Reported) Functional Limitations- Mobility/Gait Slower gait than baseline (TM: 2.5 speed without pain). Functional Limitations- Other Off/on use of treadmill. Takes pain pill and use soft brace for pain on L knee. Personal Factors Other Personal Factors That May Effect Varus of knees. Therapy/Recovery Prior low back surgery of unknown specifics. PT-OP-C Subjective Start: 04/25/19 15:52 Freq: Status: Active Protocol: Document 06/04/19 13:02 MT (Rec: 06/04/19 14:04 MT [id number]) OP-PT Subjective Patient Comments Patient Comments Pt reports that he has not had much of his knee pain and [facility] daugther with only one rest break. He was able to keep up with her pretty well. He remarked that he only seems to have trouble when he has been sitting for a prolonged period of time Patient Reported Progress Improving PT-OP-D Balance Start: 04/25/19 15:52 Freq: Status: Active Protocol: Document 04/26/19 09:02 LRN (Rec: 04/26/19 10:33 LRN [id number]) Balance Tests Single Limb Standing Single Limb- Right 2 Single Limb- Left 4 PT-OP-F Manual Assessment Start: 04/25/19 15:52 Freq: Status: Active Protocol: Document 04/26/19 09:02 LRN (Rec: 04/26/19 10:33 LRN [id number]) Manual Assessments Soft Tissue Assessment Soft Tissue Mobility Assessment L posterior knee: Swelling and tenderness present. Joint Mobility Assessment Joint Mobility Assessment Decreased mobility of patella bilaterally PT-OP-G Mobility & Gait Start: 04/25/19 15:52 Freq: Status: Active Protocol: Document 04/26/19 09:02 LRN (Rec: 04/26/19 10:33 LRN [id number]) OP Gait Assessment Gait Gait Assistance Required: Independent Able to Maintain Weight Bearing Status Yes During Gait Assistive Devices Assistive Device None Gait Deviations General Gait Pattern Decreased Stride Length, Lateral Trunk Lean Factors Limiting Gait Function Factors Limiting Gait Function Limited Range of Motion,Poor Balance PT-OP-J Posture/Palpation/Skin Start: 04/25/19 15:52 Freq: Status: Active Protocol: Document 04/26/19 09:02 LRN (Rec: 04/26/19 10:33 LRN [id number]) Posture Evaluation Comments Posture Comments Standing: Varus of ankles and knees. R PSIS shifted anteriorly, lower L shoulder. PT-OP-K Range of Motion Start: 04/25/19 15:52 Freq: Status: Active Protocol: Document 05/24/19 13:36 LRN (Rec: 05/24/19 14:51 LRN [id number]) Knee Goniometric Range of Motion Knee Right Patient Position Supine Flexion Active (degrees) 120 Extension Active (degrees) 0 Left Patient Position Supine Flexion Active (degrees) 103 Hyper-Extension Active 1 Knee ROM Limitations Comments Supine L knee flexion after hamstring curls in prone: 112 deg's flex w/o pain. PT-OP-M Strength Start: 04/25/19 15:52 Freq: Status: Active Protocol: Document 04/26/19 09:02 LRN (Rec: 04/26/19 10:33 LRN [id number]) Hip Strength Hip Manual Muscle Testing Right Flexion (L2) 4+ Good+ Extension (S1) 5 Normal Comments Otherwise WNL Left Flexion (L2) 4+ Good+ Extension (S1) 4+ Good+ Comments Otherwise WNL Knee Strength Knee Manual Muscle Testing Right Flexion (S2) 4+ Good+ Extension (L3) 5 Normal Left Flexion (S2) 4+ Good+ Extension (L3) 4+ Good+ Ankle/Foot Strength Ankle and Foot Manual Muscle Testing Right Inversion 3+ Fair+ Comments Otherwise WNL Left Eversion (S1) 5 Normal Comments Otherwise WNL PT-OP-Q Treatments Start: 04/25/19 15:52 Freq: Status: Active Protocol: Document 06/04/19 13:02 MT (Rec: 06/04/19 14:04 MT [email or web address]) Cardio Equipment Treadmill Duration (Minutes) 10 Speed 2-2.2 Incline 2 Gym Equipment Sport Cord blue Exercise Details step ups/downs 5 inch box Cord/Resistance blue Reps/Duration 15B Comments cueing for squeezing glutes at top of step up and to slowly control step down Therapeutic Exercises Standing Exercises step up Standing Exercise Name onto bosu Side bilateral Reps/Minutes 20 Comments w/ 5 sec balance at top sidestepping Standing Exercise Name w/mini squats Side bilateral Equipment Used L1 Reps/Minutes 20ft Comments rail as needed, cueing for squeeze glut at top of extension Manual Therapy Treatment Soft Tissue Mobilization HS Body Location L HS/calf/popliteal area Mobilization Type Rolling,Strumming Intensity/Depth Moderate Body Position Hooklying Comments pt had decreased tightness and with knee extension on table PT-OP-R Modalities Start: 04/25/19 15:52 Freq: Status: Active Protocol: Document 05/27/19 13:50 LRH (Rec: 05/27/19 14:29 LRH [id number]) Hot Pack/Cold Pack Treatment Cold Pack Comments Bolster under knees PT-OP-T Assessment and Plan Start: 04/25/19 15:52 Freq: Status: Active Protocol: Document 06/04/19 13:02 MT (Rec: 06/04/19 14:04 MT [id number]) Physical Therapy Assessment Goals Three Impairment Decreased speed of gait on TM to 2.5. Senior Care Goal (LTG) Pt will be able to ambulate on a TM at a speed of 3.5 without pain. 05/29-improved to 2.2 with 4% incline LTG Duration 06/07/19 (05/24/19: Incline 4. 5%, Speed 1.7) Two Impairment David knee pain Therapeutic Sales Specialist Goal (LTG) Pt will have occasional bilateral knee pain per baseline level. 05/29- Pt reports past 2 days have been really good. Notes occasionally some post pain after working out. 06/04- pt reports that he has not noticed his knee pain except for sitting for prolonged periods of time LTG Duration 06/07/19 One Impairment Pt lacks appropriate self care program. Senior Care Goal (LTG) Pt will be independent in a self care HEP. LTG Duration 06/21/19-achieved progressing as needed Assessment Summary Assessment Pt is making good progress towards his goals. Discussed with pt to take note of things he still has difficulty or when he feels most pain and to report back at next visit. Discussed with pt the possibility of discharge for the next couple visits if he continues to progress and does not report difficulty with any tasks. Pt is able to walk at faster pace and demonstrates better push off and forward motion with gait with less cueing, but does not consistently maintain these corrections when walking to different activities in the clinic and not focusing on form. Pt expressed some tightness in the back of his R knee when his legs were fully extended on the table. When STM was applied to hamstrings/ calf/popiliteal area he reported less stiffness in the back of his leg. Physical Therapy Plan Frequency and Duration Frequency of Treatment 2x/Week Duration of Treatment 8 weeks Plan of Care Start Date 04/26/19 Plan of Care End Date 06/21/19 Next Visit Focus/Plan Next Note Type Treatment Note Next Visit Plan continue to work on gait mechanics and patient awarenss of gait pattern when not focusing on technique, emphasis on push off and forward rather than lateral motion, continue with glute strengthening, review HEp and look for places to progress
--- NOTE | 2019-06-07 12:51 | PT.OTN ---
Current Diagnoses Bilateral primary osteoarthritis of knee (06/07/19) Muscle weakness (generalized) (06/07/19) Other reduced mobility (06/07/19) Physical Therapy Treatment Note PT-OP-A Visit Information Start: 04/25/19 15:52 Freq: Status: Active Protocol: Document 06/07/19 11:27 LRN (Rec: 06/07/19 12:24 LRN [id number]) Out-Patient Physical Therapy Visit Information Visit Information Visit Type Treatment Note Visit Start Time 11:28 Visit Stop Time 12:07 Total Visit Minutes 39 Visit Number 12 Number of ON SITE SOIL EVALUATOR Visits 0 Evaluation Information Evaluation Date 04/26/19 Precautions Precautions Prior history of low back surgery. PT-OP-B Current Condition Start: 04/25/19 15:52 Freq: Status: Active Protocol: Document 04/26/19 09:02 LRN (Rec: 04/26/19 10:33 LRN [id number]) Current Condition History of Current Condition Onset Date 9 months ago. Current Complaints L knee pain with prolonged sitting, david knee pn w/gait History of Current Condition Pt reports bilateral knee pain off/on for 8-10 yrs. Insidious onset of worsening david knee pain within the past 9 months. He has pain behind the knee with sitting and with stair ambulation. 5-6 yrs ago he had a shot in R knee that took the pain away; therefore he has occasional tinge of pain in the R knee. He currently has L > R knee pain. Takes a pill for L knee pain and wears a soft brace support to make the knee pain tolerable. Pt reports a hx of vertigo and back surgery to have a disc removed (of unknown level). Prior Treatments and Tests X-rays @ Dr. Pardo office. Future Testing and Treatments Planned Follow up visit with Gray Cruz PA in couple months. 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 Treatment Goals Patient/Caregiver Goals Pt goal is to eliminate bilateral knee pain, but understands since having pain for 8-10 yrs elimination may not be achieved; therefore would like to return to baseline of occasional knee pain on the left. Prior Functional Status Baseline Function- ADL's Independent Baseline Function- Mobility Independent Baseline Function- Gait TM: 3.5 speed. Baseline Function- Other No L knee pain with prolonged sitting. Current Functional Impairments (Reported) Functional Limitations- Mobility/Gait Slower gait than baseline (TM: 2.5 speed without pain). Functional Limitations- Other Off/on use of treadmill. Takes pain pill and use soft brace for pain on L knee. Personal Factors Other Personal Factors That May Effect Varus of knees. Therapy/Recovery Prior low back surgery of unknown specifics. PT-OP-C Subjective Start: 04/25/19 15:52 Freq: Status: Active Protocol: Document 06/07/19 11:27 LRN (Rec: 06/07/19 12:24 LRN [id number]) OP-PT Subjective Patient Comments Patient Comments Improving. [place] around [place] without a problem. Doing stretches and don't have the problems like I did in the past. Patient Questionnaires Lower Extremity Functional Scale LEFS Score 58 LEFS Impairment 20 to 39% Impaired (Score 48- 62) PT-OP-D Balance Start: 04/25/19 15:52 Freq: Status: Active Protocol: Document 04/26/19 09:02 LRN (Rec: 04/26/19 10:33 LRN [id number]) Balance Tests Single Limb Standing Single Limb- Right 2 Single Limb- Left 4 PT-OP-F Manual Assessment Start: 04/25/19 15:52 Freq: Status: Active Protocol: Document 04/26/19 09:02 LRN (Rec: 04/26/19 10:33 LRN [id number]) Manual Assessments Soft Tissue Assessment Soft Tissue Mobility Assessment L posterior knee: Swelling and tenderness present. Joint Mobility Assessment Joint Mobility Assessment Decreased mobility of patella bilaterally PT-OP-G Mobility & Gait Start: 04/25/19 15:52 Freq: Status: Active Protocol: Document 04/26/19 09:02 LRN (Rec: 04/26/19 10:33 LRN [id number]) OP Gait Assessment Gait Gait Assistance Required: Independent Able to Maintain Weight Bearing Status Yes During Gait Assistive Devices Assistive Device None Gait Deviations General Gait Pattern Decreased Stride Length, Lateral Trunk Lean Factors Limiting Gait Function Factors Limiting Gait Function Limited Range of Motion,Poor Balance PT-OP-J Posture/Palpation/Skin Start: 04/25/19 15:52 Freq: Status: Active Protocol: Document 04/26/19 09:02 LRN (Rec: 04/26/19 10:33 LRN [id number]) Posture Evaluation Comments Posture Comments Standing: Varus of ankles and knees. R PSIS shifted anteriorly, lower L shoulder. PT-OP-K Range of Motion Start: 04/25/19 15:52 Freq: Status: Active Protocol: Document 05/24/19 13:36 LRN (Rec: 05/24/19 14:51 LRN [id number]) Knee Goniometric Range of Motion Knee Right Patient Position Supine Flexion Active (degrees) 120 Extension Active (degrees) 0 Left Patient Position Supine Flexion Active (degrees) 103 Hyper-Extension Active 1 Knee ROM Limitations Comments Supine L knee flexion after hamstring curls in prone: 112 deg's flex w/o pain. PT-OP-M Strength Start: 04/25/19 15:52 Freq: Status: Active Protocol: Document 04/26/19 09:02 LRN (Rec: 04/26/19 10:33 LRN [id number]) Hip Strength Hip Manual Muscle Testing Right Flexion (L2) 4+ Good+ Extension (S1) 5 Normal Comments Otherwise WNL Left Flexion (L2) 4+ Good+ Extension (S1) 4+ Good+ Comments Otherwise WNL Knee Strength Knee Manual Muscle Testing Right Flexion (S2) 4+ Good+ Extension (L3) 5 Normal Left Flexion (S2) 4+ Good+ Extension (L3) 4+ Good+ Ankle/Foot Strength Ankle and Foot Manual Muscle Testing Right Inversion 3+ Fair+ Comments Otherwise WNL Left Eversion (S1) 5 Normal Comments Otherwise WNL PT-OP-Q Treatments Start: 04/25/19 15:52 Freq: Status: Active Protocol: Document 06/07/19 11:27 LRN (Rec: 06/07/19 12:24 LRN [id number]) Cardio Equipment Treadmill Duration (Minutes) 10 Speed 2.2 Incline 0% Other Pt reported normal gait Therapeutic Exercises Supine Exercises SAQ Supine Exercise Name SAQ Side bilateral Reps/Minutes 10 x Comments Pt wearing soft knee supports SLR Supine Exercise Name SLR @ 10, 12, 2 O'Clock Side bilateral Reps/Minutes 10 x each position Comments Pt wearing soft knee supports QS Supine Exercise Name QS in supine Side bilateral Reps/Minutes 10 Sec holds x 10 Comments Pt wearing soft knee supports End-range knee ext stretch Supine Exercise Name Ankles on 1/2 roll for static stretch Side bilateral Reps/Minutes 60 sec x 1 Comments Stretch f/b ROM taken Sidelying Exercises Hip AD Sidelying Exercise Name Prolonged stretch f/b 10 active stretches Side bilateral Comments Stretch to TFL/IT-Band Standing Exercises Ankle PF Standing Exercise Name Heel Raises Side bilateral Ankle DF Standing Exercise Name Gastroc stretch on YAW f/b Toe raises Side bilateral Equipment Used UE support Reps/Minutes 15xeach: Quick lifts and long holds Comments 1 set quick reps, 1 set holding 10. Gait Training Gait Activity Walk with hip shift, core stab Description focus on push off & upright positioning and no waddle Level of Assistance Independent Surface Level Comments Pt able to correct gait without use of mirror. Habitually he waddles unless focusing on preventing waddling. Self-Care/Home Management Treatment Education Patient Education Home Exercise Program,Posture Activities Self-Care/Home Management Activities Training and education in proper gait and gait posturing (see gait training above). Reviewed Current HEP and issued/reviewed new HEP: ankle DF/PF exer stretching and strengthening. PT-OP-R Modalities Start: 04/25/19 15:52 Freq: Status: Active Protocol: Document 05/27/19 13:50 LRH (Rec: 05/27/19 14:29 LR [id number]) Hot Pack/Cold Pack Treatment Cold Pack Comments Bolster under knees PT-OP-T Assessment and Plan Start: 04/25/19 15:52 Freq: Status: Active Protocol: Document 06/07/19 11:27 LRN (Rec: 06/07/19 12:24 LRN [id number]) Physical Therapy Assessment Goals Three Impairment Decreased speed of gait on TM to 2.5. Health And Wellness Advisor Goal (LTG) Pt will be able to ambulate on a TM at a speed of 3.5 without pain. 05/29-improved to 2.2 with 4% incline LTG Duration 06/07/19 (05/24/19: Incline 4. 5%, Speed 1.7) Two Impairment David knee pain Mcfp Goal (LTG) Pt will have occasional bilateral knee pain per baseline level. 05/29- Pt reports past 2 days have been really good. Notes occasionally some post pain after working out. 06/04- pt reports that he has not noticed his knee pain except for sitting for prolonged periods of time LTG Duration 06/07/19 One Impairment Pt lacks appropriate self care program. Health And Wellness Advisor Goal (LTG) Pt will be independent in a self care HEP. LTG Duration 06/21/19 (06/07/19: GOAL MET) Assessment Summary Assessment Pt feels confident with his HEP and was able to demonstrate good knowledge of his exercises after review. He feels he is a little above his baseline level and can walk [place] without onset of knee pain. His gait speed goals was determined to be inappropriate as it was a speed he thought he could do on his own treadmill, but admits it was a guess. The pt is able to walk at a good pace on the TM without onset of knee pain and can walk on inclines without difficulty, His gait mechanics is normal when he concentrates on maintaining an upright core, but he has a tendency to forward bend at the hips, possibly due to tight hip flexors. The pt may need therapy in the future if he is not able to maintain good core stability with gait. Physical Therapy Plan Frequency and Duration Frequency of Treatment 2x/Week Duration of Treatment 8 weeks Plan of Care Start Date 04/26/19 Plan of Care End Date 06/21/19 Discharge Physical Therapy Discharge Comments Goals that were appropriate were met. Goal #3 was inappropriate. Pt felt he was wrong in guessing the appropriate speed goal. Pt is happy with gait speed that he feels is his norm (2.5)
== END 2019-06-07 12:52 ==
LOC: PHYS 11:15
PROVIDERS: PCP Student in an Organized Health Care Education/Training Program; Visit Provider Registered Nurse
DX: M17.0 Bilateral primary osteoarthritis of knee (principal); M62.81 Muscle weakness (generalized); Z74.09 Other reduced mobility
CPT/HCPCS: 97035; 97110; 97116; 97140; 97161; 97535

== ENCOUNTER 2020-01-03 20:00 | Emergency (ER) | payer MEDICARE, SELFPAY ==
[2020-01-03 20:10] VITALS: BP 194/103; PULSE 115; RESP 19; TEMP 37.5; O2SAT 96; BMI 33.4
--- NOTE | 2020-01-03 20:27 | PC.NURSE ---
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 10, aching mostly in the upper arm. equal pattern attendant and pushes. FAST negative. no known inj. IV placed labs drawn EKG obtained. BP elevated 199/103 HR 110. awaiting MD assessment
[2020-01-03 20:34] LABS: INR 1.2 (0.9-1.3)
[2020-01-03 20:39] LABS: Alanine Aminotransferase 14 IU/L (<50); Albumin 4.1 g/dL (3.5-5.0); Albumin Globulin Ratio 1.2 (1.0-2.8); Alkaline Phosphatase 102 U/L (38-126); Aspartate Aminotransferase 22 IU/L (17-59); BUN Creatinine Ratio 16.7 (6-22); Bilirubin Total 0.6 mg/dL (0.2-1.3); Blood Urea Nitrogen 18 mg/dL (9-20); Carbon Dioxide 27 mmol/L (22-32); Chloride 103 mmol/L (98-107); Creatine Kinase 39 U/L (55-170); Estimated Glomerular Filt Rate > 60.0 mL/min (>60); Globulin 3.5 g/dL (1.7-4.1); Glucose 133 mg/dL (80-110); HEMOLYSIS < 15 (0-50); Potassium 3.8 mmol/L (3.4-5.1); Sodium 139 mmol/L (137-145); Total Protein 7.6 g/dL (6.3-8.2)
[2020-01-03 20:41] LABS: Add Manual Diff / Slide Review NO; Basophils Absolute Auto 100 /uL (0-100); Eosinophils Absolute Auto 400 /uL (0-450); Eosinophils Percent Auto 4.6 % (2-4); Hemoglobin 13.8 g/dL (13.5-17.5); Lymphocytes Absolute Auto 3100 /uL (1100-4500); Lymphocytes Percent Auto 33.1 % (25-40); Mean Corpuscular HGB Conc 34.5 % (30-36); Mean Corpuscular Hemoglobin 31.5 PG (26-34); Mean Corpuscular Volume 91.2 fL (80-100); Monocytes Absolute Auto 1000 /uL (0-900); Monocytes Percent Auto 10.6 % (3-14); Neutrophils Absolute Auto 4700 /uL (1500-7000); Neutrophils Percent Auto 50.7 % (50-75); Platelet Count 194 X10^3/uL (150-400); Red Blood Cell Count 4.39 X10^6/uL (4.5-5.9); Red Cell Distribution Width 13.8 % (11.6-14.8); White Blood Cell Count 9.3 X10^3/uL (4.5-11.0)
[2020-01-03 20:51] LABS: Troponin I < 0.012 ng/mL (0.01-0.034)
[2020-01-03 21:11] VITALS: BP 198/96; PULSE 95; RESP 17; O2SAT 96
--- NOTE | 2020-01-03 22:07 | ED.EXTPRO ---
HPI - Extremity Problem General Chief complaint: Extremity Problem,Nontraumatic Stated complaint: left arm pain and shoulder pain, no injury Time Seen by Provider: 01/03/20 22:07 Source: patient and family Mode of arrival: Ambulatory Limitations: no limitations History of Present Illness HPI Narrative: The patient was a passenger in a car with his . He has no neck pain, and no chest pain, he developed sharp pain radiating down his left arm. He has no weakness or numbness in left arm. The pain is pulsing in nature, not consistent. He takes lisinopril for hypertension. He has no cardiac issues. He has no recent illness. He has no history suggesting CVA. He is right-hand dominant. The left hand although presenting with his postop pain, has no functional deficits. Motion of the arm does not exacerbate or relieve the pain. Despite his compliance to his blood pressure medications, history of his blood pressure was 198 systolic. His blood pressure has remained elevated since arrival. Related Data Previous Rx's Medication Instructions Recorded lisinopril 20 mg tablet 20 mg PO DAILY #90 tab 07/18/19 celecoxib 200 mg capsule 200 mg PO DAILY #30 cap MDD 200 mg 10/07/19 amlodipine [Norvasc] 10 mg PO DAILY #30 tab 01/04/20 Allergies Allergy/AdvReac Type Severity Reaction Status Date / Time No Known Drug Allergies Allergy Verified 05/15/19 10:05 Review of Systems Review of Systems ROS Unobtainable: All systems reviewed & are unremarkable except as noted in HPI and below Constitutional Constitutional: Denies body ache(s), Denies chills, Denies fatigue, Denies fever(s), Denies headache(s), Denies lethargy and Denies weakness Eyes Eyes: Denies change in vision ENT Ears, Nose, Mouth, and Throat: Denies facial pain and Denies headache(s) Cardiovascular Cardiovascular: Denies chest pain, Denies lightheadedness, Denies palpitations, Denies dyspnea and Denies orthopnea Respiratory Respiratory: Denies cough, Denies dyspnea and Denies wheezing Gastrointestinal Gastrointestinal: Denies abdominal pain and Denies nausea Musculoskeletal Musculoskeletal: Denies back pain, Denies numbness and Denies tingling Comments: Left arm pain as noted HPI. No restriction of motion or weakness. Integumentary/Breasts Skin/Breast: Denies pruritus, Denies erythema, Denies rash and Denies wounds Neurologic Neurologic: Denies confusion, Denies headache(s), Denies numbness, Denies tingling and Denies weakness Psychiatric Psychiatric: Denies anxiety, Denies confusion, Denies depression, Denies homicidal ideation and Denies suicidal ideation Endocrine Endocrine: Denies fatigue and Denies palpitations Allergic/Immunologic Allergic/Immunologic: Denies wheezing Patient History Medical History (Updated 01/04/20 @ 00:48 by Josias Watson MD) Chickenpox (Resolved 1944) Hearing loss (Chronic) Hypertension (Chronic) Knee pain, right anterior (Resolved) Nocturia (Acute) Obesity (BMI 30.0-34.9) (Chronic) Vertigo (Chronic) Surgical History Hx of discectomy (Resolved 1984) Family History Father Diabetes mellitus Mother Cancer Sister Cancer Grandfather Cancer Grandmother Stroke Grandfather No problems noted. Grandmother No problems noted. Social History Smoking Status: Never smoker alcohol intake: never substance use type: does not use Smoking Status: Never smoker Substance Use Type: does not use Exam Initial Vital Signs Initial Vital Signs: Vital Signs Temperature 99.5 F 01/03/20 20:10 Pulse Rate 115 H 01/03/20 20:10 Respiratory Rate 19 01/03/20 20:10 Blood Pressure 194/103 H 01/03/20 20:10 Pulse Oximetry 96 01/03/20 20:10 Const General: cooperative and well developed Nutritional Appearance: well nourished [facility] Head: normocephalic and atraumatic Mouth: oral mucosae normal Throat: posterior oropharynx normal and uvula midline Eyes General: appearance normal, both eyes and all related structures Eyelids: eyelids normal Conjunctivae: conjunctivae normal Sclera: sclerae normal Pupils: PERRL EOM: EOM intact bilaterally Neck Neck: No lymphadenopathy and No JVD Resp Effort & Inspection: normal respiratory effort and able to speak in complete sentences Auscultation: clear to auscultation bilaterally, no rales, no rhonchi and no wheezes Cardio Rate: regular rate Rhythm: regular rhythm Heart Sounds: no click, no gallops, no murmurs and no rubs Pulses: normal peripheral pulses GI Inspection: non-distended Palpation: soft, no hepatosplenomegaly and No tender Auscultation: normal bowel sounds Back/Spine/Pelvis Back: No CVA tenderness Cervical Spine: cervical ROM normal Thoracic/Lumbar Spine: thoracic and lumbar spine normal to inspection Skin General: no rashes or lesions noted, No jaundice and No petechiae Neuro General: alert, oriented x3, gait normal and no focal motor deficits Speech: speech normal Extrem General: full ROM, capillary refill normal, no pedal edema and no calf tenderness Other: Left arm discomfort, no palpable tenderness in the left shoulder, elbow, wrist or hand. No pain with motion. The left arm as no edema. The radial pulse is normal. He has normal flexion extension in all fingers. Course Course Course Narrative: His blood pressure initially greater than 200 has 150/88 after receiving IV labetalol. He is on lisinopril 20 mg daily. I have added Norvasc 10 mg daily to treat his blood pressure. He still has left arm discomfort, but not the sharp, shooting pain earlier. Exam showed no obvious musculoskeletal etiology of pain. He has no evidence of cardiac issues. He is advised to take Tylenol as necessary for the arm pain. Orders Ordered: ED Orders 01/03/20 20:19 EKG-12 Lead Stat 01/03/20 20:22 Complete Blood Count AUTO DIFF Stat Comprehensive Metabolic Panel Stat Prothrombin Time INR Stat Troponin & CK Cardiac Panel Stat Discontinued Medications Labetalol HCl (Trandate) 10 mg IV NOW ONE Stop: 01/03/20 22:15 Last Admin: 01/03/20 22:18 Dose: 10 mg Documented by: MISTI Vital Signs Vital signs: Vital Signs - 8 hr 01/03/20 20:10 01/03/20 21:11 01/03/20 22:18 Temperature 99.5 F Pulse Rate 115 H 95 H Respiratory Rate 19 17 Blood Pressure 194/103 H 209/106 H Blood Pressure [Right Arm] 198/96 H Pulse Oximetry 96 96 01/03/20 22:54 Temperature Pulse Rate 82 Respiratory Rate 16 Blood Pressure Blood Pressure [Right Arm] 166/89 H Pulse Oximetry 97 MDM - Extremity (Nontraumatic) Lab Data Result diagrams: 01/03/20 20:22 01/03/20 20:22 Labs: Lab Results 01/03/20 01/03/20 01/03/20 Range/Units 20:22 20:22 20:22 WBC 9.3 (4.5-11.0) X10^3/uL RBC 4.39 L (4.5-5.9) X10^6/uL Hgb 13.8 (13.5-17.5) g/dL Hct 40.0 L (41-53) % MCV 91.2 (80-100) fL MCH 31.5 (26-34) PG MCHC 34.5 (30-36) % RDW 13.8 (11.6-14.8) % Plt Count 194 (150-400) X10^3/uL Neut % (Auto) 50.7 (50-75) % Lymph % (Auto) 33.1 (25-40) % [place] % (Auto) 10.6 (3-14) % Eos % (Auto) 4.6 H (2-4) % Baso % (Auto) 1.0 (0-2) % Neut # (Auto) 4700 (5538-0147) /uL Lymph # (Auto) 3100 (3304-5282) /uL [place] # (Auto) 1000 H (0-900) /uL Eos # (Auto) 400 (0-450) /uL Baso # (Auto) 100 (0-100) /uL PT 14.0 H (10.1-12.7) SECONDS INR 1.2 (0.9-1.3) Sodium 139 (137-145) mmol/L Potassium 3.8 (3.4-5.1) mmol/L Chloride 103 (98-107) mmol/L Carbon Dioxide 27 (22-32) mmol/L BUN 18 (9-20) mg/dL Creatinine 1.08 (0.66-1.25) mg/dL Estimated GFR > 60.0 (>60) mL/min BUN/Creatinine Ratio 16.7 (6-22) Glucose 133 H (80-110) mg/dL Calcium 9.0 (8.4-10.2) mg/dL Total Bilirubin 0.6 (0.2-1.3) mg/dL AST 22 (17-59) IU/L ALT 14 (<50) IU/L Alkaline Phosphatase 102 (38-126) U/L Total Creatine Kinase 39 L (55-170) U/L CK-MB (CK-2) TNP CK-MB (CK-2) Rel Index TNP Troponin I < 0.012 (0.01-0.034) ng/mL Total Protein 7.6 (6.3-8.2) g/dL Albumin 4.1 (3.5-5.0) g/dL Globulin 3.5 (1.7-4.1) g/dL Albumin/Globulin Ratio 1.2 (1.0-2.8) ECG Data Attestation EKG: I personally reviewed and interpreted this ECG as follows: (Sinus tachycardia rate 106 beats per minute. Occasional PVCs. LAFB. No acute ST T wave changes.) Discharge Plan Departure Patient Disposition: Home Clinical Impression: Arm pain, left Hypertension Qualifiers: Hypertension type: essential hypertension Qualified Code(s): I10 - Essential (primary) hypertension Instructions: Essential Hypertension, DI for Arm Pain Activity Restrictions/Additional Instructions: Use prescription Celebrex forearm pain, you may also take Tylenol every 4 hours if you need additional pain treatment. For high blood pressure, continue your current dose of lisinopril, 20 mg daily. I have also prescribed Norvasc 10 mg daily. You may take the medications at the same time. Keep a daily record of your blood pressure readings. If you have persistent blood pressure greater than 180, headache, visual changes, chest pain or difficulty breathing return the ER. Contact your doctor for follow-up. Prescriptions: New amlodipine [Norvasc] 10 mg tablet 10 mg PO DAILY Qty: 30 RF: 0 No Action lisinopril 20 mg tablet 20 mg PO DAILY Qty: 90 RF: 1 celecoxib [Celebrex] 200 mg capsule 200 mg PO DAILY MDD 200 mg Qty: 30 RF: 5 Referrals: Gordon Pardo MD [Primary Care Provider] -
[2020-01-03 22:18] VITALS: BP 209/106
[2020-01-03] MEDS: LABETALOL 20 MG/4 ML SYRINGE 10 MG IV (22:18)
[2020-01-03 22:54] VITALS: BP 166/89; PULSE 82; RESP 16; O2SAT 97
[2020-01-03 23:30] VITALS: BP 158/89; PULSE 80; RESP 26; O2SAT 95
[2020-01-04] VITALS: BP 158/88; PULSE 81; RESP 18; O2SAT 96
[2020-01-04] MEDS: AMLODIPINE 2.5 MG TABLET 10 MG PO (00:35)
== END 2020-01-04 00:51 | disposition home or self-care (01) ==
PROVIDERS: Emergency Provider Emergency Medicine; PCP Student in an Organized Health Care Education/Training Program
DX: M79.602 Pain in left arm (principal); I10 Essential (primary) hypertension; R00.0 Tachycardia, unspecified
CPT/HCPCS: 36415; 80053; 82550; 84484; 85025; 85610; 93005; 93010; 96374; 99284

== ENCOUNTER → 2021-01-13 13:22 | Outpatient (CLI) | payer MEDICARE, SELFPAY ==
[2021-01-13 15:08] LABS: Hematocrit 40.5 % (41-53); Mean Corpuscular HGB Conc 34.4 % (30-36); Mean Corpuscular Hemoglobin 31.4 PG (26-34); Mean Corpuscular Volume 91.2 fL (80-100); Platelet Count 204 X10^3/uL (150-400); Red Blood Cell Count 4.45 X10^6/uL (4.5-5.9); Red Cell Distribution Width 13.6 % (11.6-14.8)
[2021-01-13 15:23] LABS: BUN Creatinine Ratio 18.3 (6-22); Blood Urea Nitrogen 20 mg/dL (9-20); Calcium 9.2 mg/dL (8.4-10.2); Carbon Dioxide 25 mmol/L (22-32); Chloride 105 mmol/L (98-107); Estimated Glomerular Filt Rate > 60.0 mL/min (>60); Glucose 103 mg/dL (80-110); HEMOLYSIS < 15 (0-50); Potassium 4.4 mmol/L (3.4-5.1); Sodium 138 mmol/L (137-145)
== END ==
PROVIDERS: PCP Student in an Organized Health Care Education/Training Program; Referring Provider Student in an Organized Health Care Education/Training Program; Visit Provider Student in an Organized Health Care Education/Training Program
DX: I10 Essential (primary) hypertension (principal); Z79.1 Long term (current) use of non-steroidal anti-inflammatories (NSAID)
CPT/HCPCS: 36415; 80048; 85027

== ENCOUNTER 2021-02-15 18:23 | Emergency (ER) | payer MEDICARE, SELFPAY ==
[2021-02-15] VITALS (10 sets, daily range): BP systolic 126–146; BP diastolic 59–79; PULSE 92–101; RESP 12–33; TEMP 38.4; O2SAT 87–96
--- NOTE | 2021-02-15 18:30 | DI.RAD.S_ITS ---
PROCEDURE: XR CHEST 1V INDICATIONS: suspected sepsis TECHNIQUE: One view of the chest was acquired. COMPARISON: None. FINDINGS: Surgical changes and devices: None. Lungs and pleura: Bibasilar atelectasis and infiltrate accentuated by low lung volumes. Mediastinum: Mediastinal contours appear normal. Heart size is normal. Bones and chest wall: No suspicious bony lesions. Overlying soft tissues appear unremarkable. IMPRESSION: Bibasilar atelectasis and/or infiltrate accentuated by low lung volumes. Dictated by: Blayne Woods M.D. on 02/15/2021 at 18:21 Approved by: Blayne Woods M.D. on 02/15/2021 at 18:23
[2021-02-15 19:02] LABS: Add Manual Diff / Slide Review NO; Basophils Absolute Auto 0 /uL (0-100); Basophils Percent Auto 0.4 % (0-2); Eosinophils Absolute Auto 0 /uL (0-450); Eosinophils Percent Auto 0.1 % (2-4); Hematocrit 39.9 % (41-53); Hemoglobin 13.8 g/dL (13.5-17.5); Lymphocytes Absolute Auto 1000 /uL (1100-4500); Lymphocytes Percent Auto 18.3 % (25-40); Mean Corpuscular HGB Conc 34.5 % (30-36); Mean Corpuscular Hemoglobin 31.2 PG (26-34); Mean Corpuscular Volume 90.6 fL (80-100); Monocytes Absolute Auto 600 /uL (0-900); Neutrophils Absolute Auto 4000 /uL (1500-7000); Neutrophils Percent Auto 71.2 % (50-75); Platelet Count 147 X10^3/uL (150-400); Red Blood Cell Count 4.41 X10^6/uL (4.5-5.9); Red Cell Distribution Width 13.5 % (11.6-14.8); White Blood Cell Count 5.6 X10^3/uL (4.5-11.0)
[2021-02-15 19:28] LABS: Lactate (Lactic Acid) 1.1 mmol/L (0.7-2.1)
--- NOTE | 2021-02-15 19:29 | ED.SEPSIS ---
HPI - Sepsis General Chief Complaint: Fever Mode of arrival: Wheelchair Source: patient and family Evaluation Sepsis Screen: Possible Sepsis Risk Sepsis Infection Criteria Present: Suspected New Infection Narrative: 80-year-old male never smoker with history of hypertension presents with family in the chief complaint of fever, chills, generalized weakness and dry hacking cough over the past few days. He had recently traveled to [facility] and returned home early in the week. His symptoms have been gradually worsening over the past 5 or 6 days. He denies any obvious exposure to persons known or suspected to have COVID. He is vaccinated and wears his mask any time he goes out. He denies any N/V/D. Review of Systems Review of Systems Narrative: GENERAL: See HPI. HEENT: Denies sinus pain, ear pain, sore throat, difficulty swallowing, dizziness. RESPIRATORY: See HPI CARDIOVASCULAR: Denies chest pain, palpitations, orthopnea, edema, GASTROINTESTINAL: Denies nausea, vomiting, abdominal pain, diarrhea, constipation, melena. : Denies dysuria, frequency, incontinence, hematuria, urinary retention. MUSCULOSKELETAL: denies weakness, joint pain, or bony pain SKIN: Denies rash, skin lesions, or other NEUROLOGIC: Denies weakness, headache, numbness, change in speech, confusion, seizures, incoordination. PSYCHIATRIC: No concerning psychosocial issues. 12 point review of systems is negative except for those stated above Patient History Medical History Chickenpox (1945) Hearing loss Hypertension Knee pain, right anterior Nocturia Obesity (BMI 30.0-34.9) Vertigo Surgical History Hx of discectomy (1984) Family History Father Diabetes mellitus Mother Cancer Sister Cancer Grandfather Cancer Grandmother Stroke Grandfather No problems noted. Grandmother No problems noted. Social History Smoking Status: Never smoker alcohol intake: never substance use type: does not use Smoking Status: Never smoker Substance Use Type: does not use Exam Narrative Exam Narrative: GENERAL: [80] year old patient appears stated age. Well-developed patient, in mild distress. No significant work of breathing, no need for supplemental oxygen, the occasional dry hacking cough is noted HEAD: Atraumatic. Normocephalic. EYES: Pupils equal round and reactive. Extraocular motions intact. No scleral icterus. No injection or drainage. ENT: Nose without bleeding, purulent drainage. Throat without erythema, tonsillar hypertrophy or exudate. Airway patent. NECK: Trachea midline. Non tender CARDIOVASCULAR: Regular rate and rhythm without murmurs, gallops, or rubs. RESPIRATORY: Faint crackles in bilateral bases GASTROINTESTINAL: Abdomen soft, non-tender, nondistended. EXTREMITIES: No edema or joint tenderness. BACK: Nontender without deformity or crepitance. No flank tenderness. NEURO: AOx3. SKIN: No rash or erythema of visible areas Initial Vital Signs Initial Vital Signs: Vital Signs Temperature 101.1 F H 02/15/21 18:33 Pulse Rate 101 H 02/15/21 18:33 Respiratory Rate 20 02/15/21 18:33 Blood Pressure 144/70 H 02/15/21 18:33 Pulse Oximetry 96 02/15/21 18:33 Course Orders Ordered: ED Orders 02/15/21 18:55 Blood Culture Stat 02/15/21 19:30 COVID19 -Nasal swab/Pre-Proc Stat Respiratory Panel (Film Array) Stat 02/15/21 19:46 Urine Microscopic Stat 02/15/21 20:01 D Dimer Stat Discontinued Medications Sodium Chloride (Normal Saline 0.9%) 1,000 mls @ 1,000 mls/hr IV BOLUS ONE Stop: 02/15/21 19:29 Last Infusion: 02/15/21 21:23 Dose: 0 mls/hr Documented by: Admin: 02/15/21 19:41 Dose: 1,000 mls/hr Documented by: LORRAINE Vital Signs Vital signs: Vital Signs - 8 hr 02/15/21 20:02 02/15/21 20:30 02/15/21 21:00 Pulse Rate 95 H 95 H 95 H Respiratory Rate 33 H 25 H 27 H Blood Pressure 141/67 H 127/68 141/67 H Pulse Oximetry 92 91 93 MDM - Sepsis Lab Data Result diagrams: 02/15/21 18:48 02/15/21 18:48 Labs: Lab Results 02/15/21 02/15/21 02/15/21 Range/Units 18:48 18:48 18:48 WBC 5.6 (4.5-11.0) X10^3/uL RBC 4.41 L (4.5-5.9) X10^6/uL Hgb 13.8 (13.5-17.5) g/dL Hct 39.9 L (41-53) % MCV 90.6 (80-100) fL MCH 31.2 (26-34) PG MCHC 34.5 (30-36) % RDW 13.5 (11.6-14.8) % Plt Count 147 L (150-400) X10^3/uL Neut % (Auto) 71.2 (50-75) % Lymph % (Auto) 18.3 L (25-40) % Barry % (Auto) 10.0 (3-14) % Eos % (Auto) 0.1 L (2-4) % Baso % (Auto) 0.4 (0-2) % Neut # (Auto) 4000 (8314-8802) /uL Lymph # (Auto) 1000 L (9481-9083) /uL Barry # (Auto) 600 (0-900) /uL Eos # (Auto) 0 (0-450) /uL Baso # (Auto) 0 (0-100) /uL D-Dimer (<230) ng/mL Sodium 133 L (137-145) mmol/L Potassium 4.1 (3.4-5.1) mmol/L Chloride 101 (98-107) mmol/L Carbon Dioxide 25 (22-32) mmol/L BUN 19 (9-20) mg/dL Creatinine 1.12 (0.66-1.25) mg/dL Estimated GFR > 60.0 (>60) mL/min BUN/Creatinine Ratio 17.0 (6-22) Glucose 134 H (80-110) mg/dL Lactate 1.1 (0.7-2.1) mmol/L Calcium 8.5 (8.4-10.2) mg/dL Total Bilirubin 0.4 (0.2-1.3) mg/dL AST 37 (17-59) IU/L ALT 23 (<50) IU/L Alkaline Phosphatase 85 (38-126) U/L Total Creatine Kinase (55-170) U/L CK-MB (CK-2) CK-MB (CK-2) Rel Index Troponin I (0.01-0.034) ng/mL NT-Pro-B Natriuret Pep (<450) pg/mL Total Protein 7.2 (6.3-8.2) g/dL Albumin 3.9 (3.5-5.0) g/dL Globulin 3.3 (1.7-4.1) g/dL Albumin/Globulin Ratio 1.2 (1.0-2.8) Lipase 57 (23-300) U/L Procalcitonin 0.13 (<0.5) ng/mL Urine RBC (0-5/HPF) Urine WBC (0-5/HPF) Ur Squamous Epith Cells (0-5/HPF) Urine Bacteria (None) Urine Mucus (Negative) Ur Culture Indicated? Chlamy pneumoniae PCR (Not Detect) Adenovirus (PCR) (Not Detect) B. pertussis DNA (PCR) (Not Detecte) B.parapertussis DNA PCR (Not Detecte) Coronavirus OC43 (PCR) (Not Detect) Coronavirus HKU1 (PCR) (Not Detect) Coronavirus 229E (PCR) (Not Detect) SARS-CoV-2 (PCR) (Negative) Coronavirus NL63 (PCR) (Not Detect) Human Metapneumovir PCR (Not Detect) Influenza Type A (PCR) (Not Detect) Influenza Type B (PCR) (Not Detect) M. pneumoniae (PCR) (Not Detect) Parainfluenza 1 (PCR) (Not Detect) Parainfluenza 2 (PCR) (Not Detect) Parainfluenza 3 (PCR) (Not Detect) Parainfluenza 4 (PCR) (Not Detect) RSV (PCR) (Not Detect) Entero/Rhino (PCR) (Not Detect) 02/15/21 02/15/21 02/15/21 Range/Units 18:48 19:30 19:30 WBC (4.5-11.0) X10^3/uL RBC (4.5-5.9) X10^6/uL Hgb (13.5-17.5) g/dL Hct (41-53) % MCV (80-100) fL MCH (26-34) PG MCHC (30-36) % RDW (11.6-14.8) % Plt Count (150-400) X10^3/uL Neut % (Auto) (50-75) % Lymph % (Auto) (25-40) % Barry % (Auto) (3-14) % Eos % (Auto) (2-4) % Baso % (Auto) (0-2) % Neut # (Auto) (6464-7448) /uL Lymph # (Auto) (9629-7130) /uL Barry # (Auto) (0-900) /uL Eos # (Auto) (0-450) /uL Baso # (Auto) (0-100) /uL D-Dimer (<230) ng/mL Sodium (137-145) mmol/L Potassium (3.4-5.1) mmol/L Chloride (98-107) mmol/L Carbon Dioxide (22-32) mmol/L BUN (9-20) mg/dL Creatinine (0.66-1.25) mg/dL Estimated GFR (>60) mL/min BUN/Creatinine Ratio (6-22) Glucose (80-110) mg/dL Lactate (0.7-2.1) mmol/L Calcium (8.4-10.2) mg/dL Total Bilirubin (0.2-1.3) mg/dL AST (17-59) IU/L ALT (<50) IU/L Alkaline Phosphatase (38-126) U/L Total Creatine Kinase 52 L (55-170) U/L CK-MB (CK-2) TNP CK-MB (CK-2) Rel Index TNP Troponin I < 0.012 (0.01-0.034) ng/mL NT-Pro-B Natriuret Pep 199 (<450) pg/mL Total Protein (6.3-8.2) g/dL Albumin (3.5-5.0) g/dL Globulin (1.7-4.1) g/dL Albumin/Globulin Ratio (1.0-2.8) Lipase (23-300) U/L Procalcitonin (<0.5) ng/mL Urine RBC (0-5/HPF) Urine WBC (0-5/HPF) Ur Squamous Epith Cells (0-5/HPF) Urine Bacteria (None) Urine Mucus (Negative) Ur Culture Indicated? Chlamy pneumoniae PCR Not detected (Not Detect) Adenovirus (PCR) Not detected (Not Detect) B. pertussis DNA (PCR) Not detected (Not Detecte) B.parapertussis DNA PCR Not detected (Not Detecte) Coronavirus OC43 (PCR) Not detected (Not Detect) Coronavirus HKU1 (PCR) Not detected (Not Detect) Coronavirus 229E (PCR) Not detected (Not Detect) SARS-CoV-2 (PCR) Positive H Detected H (Negative) Coronavirus NL63 (PCR) Not detected (Not Detect) Human Metapneumovir PCR Not detected (Not Detect) Influenza Type A (PCR) Not detected (Not Detect) Influenza Type B (PCR) Not detected (Not Detect) M. pneumoniae (PCR) Not detected (Not Detect) Parainfluenza 1 (PCR) Not detected (Not Detect) Parainfluenza 2 (PCR) Not detected (Not Detect) Parainfluenza 3 (PCR) Not detected (Not Detect) Parainfluenza 4 (PCR) Not detected (Not Detect) RSV (PCR) Not detected (Not Detect) Entero/Rhino (PCR) Not detected (Not Detect) 02/15/21 02/15/21 Range/Units 19:46 20:01 WBC (4.5-11.0) X10^3/uL RBC (4.5-5.9) X10^6/uL Hgb (13.5-17.5) g/dL Hct (41-53) % MCV (80-100) fL MCH (26-34) PG MCHC (30-36) % RDW (11.6-14.8) % Plt Count (150-400) X10^3/uL Neut % (Auto) (50-75) % Lymph % (Auto) (25-40) % Barry % (Auto) (3-14) % Eos % (Auto) (2-4) % Baso % (Auto) (0-2) % Neut # (Auto) (8722-3104) /uL Lymph # (Auto) (2908-9405) /uL Barry # (Auto) (0-900) /uL Eos # (Auto) (0-450) /uL Baso # (Auto) (0-100) /uL D-Dimer 343 H (<230) ng/mL Sodium (137-145) mmol/L Potassium (3.4-5.1) mmol/L Chloride (98-107) mmol/L Carbon Dioxide (22-32) mmol/L BUN (9-20) mg/dL Creatinine (0.66-1.25) mg/dL Estimated GFR (>60) mL/min BUN/Creatinine Ratio (6-22) Glucose (80-110) mg/dL Lactate (0.7-2.1) mmol/L Calcium (8.4-10.2) mg/dL Total Bilirubin (0.2-1.3) mg/dL AST (17-59) IU/L ALT (<50) IU/L Alkaline Phosphatase (38-126) U/L Total Creatine Kinase (55-170) U/L CK-MB (CK-2) CK-MB (CK-2) Rel Index Troponin I (0.01-0.034) ng/mL NT-Pro-B Natriuret Pep (<450) pg/mL Total Protein (6.3-8.2) g/dL Albumin (3.5-5.0) g/dL Globulin (1.7-4.1) g/dL Albumin/Globulin Ratio (1.0-2.8) Lipase (23-300) U/L Procalcitonin (<0.5) ng/mL Urine RBC None seen (0-5/HPF) Urine WBC 0-1/hpf (0-5/HPF) Ur Squamous Epith Cells 0-1 /hpf (0-5/HPF) Urine Bacteria None seen (None) Urine Mucus 1+ H (Negative) Ur Culture Indicated? Cult not indicated Chlamy pneumoniae PCR (Not Detect) Adenovirus (PCR) (Not Detect) B. pertussis DNA (PCR) (Not Detecte) B.parapertussis DNA PCR (Not Detecte) Coronavirus OC43 (PCR) (Not Detect) Coronavirus HKU1 (PCR) (Not Detect) Coronavirus 229E (PCR) (Not Detect) SARS-CoV-2 (PCR) (Negative) Coronavirus NL63 (PCR) (Not Detect) Human Metapneumovir PCR (Not Detect) Influenza Type A (PCR) (Not Detect) Influenza Type B (PCR) (Not Detect) M. pneumoniae (PCR) (Not Detect) Parainfluenza 1 (PCR) (Not Detect) Parainfluenza 2 (PCR) (Not Detect) Parainfluenza 3 (PCR) (Not Detect) Parainfluenza 4 (PCR) (Not Detect) RSV (PCR) (Not Detect) Entero/Rhino (PCR) (Not Detect) Urine Dip Bedside Urine Glucose Negative Bedside Urine Bilirubin - Negative Bedside Urine Ketone +/- 5 Urine Specific [place] 1.025 Bedside Urine Occult Blood - Negative Bedside Urine pH 6.0 Bedside Urine Protein + 30 Bedside Urine Urobilinogen - Negative Bedside Urine Nitrite - Negative Bedside Urine Leukocytes - Negative Esterase Imaging Data Chest x-ray: Radiologist's Impression: [address] [id number] ReportSigned Patient: Jack Boyd AMR#: [id number]: 9Acct:[id number]/Sex: 80 / MDate of Service: 02/15/21Loc: EDAccession Number: [id number] Procedure: XR chest 1V Ordering Provider: Crow Danielson D.O. PROCEDURE: XR CHEST 1V INDICATIONS: suspected sepsis TECHNIQUE: One view of the chest was acquired. COMPARISON: None. FINDINGS: Surgical changes and devices: None. Lungs and pleura: Bibasilar atelectasis and infiltrate accentuated by low lung volumes. Mediastinum: Mediastinal contours appear normal. Heart size is normal. Bones and chest wall: No suspicious bony lesions. Overlying soft tissues appear unremarkable. IMPRESSION: Bibasilar atelectasis and/or infiltrate accentuated by low lung volumes. Dictated by: Blayne Woods M.D. on 02/15/2021 at 18:21 Approved by: Blayne Woods M.D. on 02/15/2021 at 18:23 [facility] Narrative Medical decision making narrative: Patient has become COVID positive and risk factors include age, slightly elevated BMI. He has mild findings on x-ray, physical exam demonstrates no sign of respiratory distress or need for supplemental oxygen. Patient is appropriate for discharge. Extensive return precautions given and encouragement to use home pulse oximeter device. We did discuss that under many circumstances a patient's symptoms worsen as we approached the 8-10 day darling and I discussed with patient and family what to look for to prompt return. They expressed their understanding with return precautions as well as agreement and understanding of the plan and diagnosis. Questions have been answered to their apparent satisfaction Discharge Plan Departure Patient Disposition: Home Clinical Impression: COVID-19 Instructions: Coronavirus Disease 2019 Activity Restrictions/Additional Instructions: *You have been diagnosed with [ COVID-19] *What to do: * per recommendations from the CDC and the [facility] Department of Health * stay home except to get medical care. Restrict activities outside your home, except for getting medical care. Do not go to work, school, or public areas. Avoid using public transportation, ride sharing, or taxis. * separate yourself from other people in your home. * call ahead before visiting your doctor * Wear a facemask * Cover your coughs and sneezes * Clean your hands often * Avoid sharing household items * Clean all high-touch services every day * Monitor your symptoms and seek prompt medical attention if your illness is worsening, particularly with difficulty in breathing. You may discontinue your isolation when: 1. You have been fever-free for at least 24 hours without the use of fever reducing medication, AND 2. Your symptoms are getting better 3. At least 10 days have passed since symptoms first appeared Individuals with laboratory confirmed COVID-19 who have not had any symptoms may discontinue home isolation when at least 10 days have passed since the date of their first COVID-19 diagnostic test and have had no subsequent illness Prescriptions: No Action celecoxib [Celebrex] 200 mg capsule 200 mg PO DAILY MDD 200 mg Qty: 30 RF: 5 lisinopril 20 mg tablet 20 mg PO DAILY Qty: 90 RF: 0 amlodipine [Norvasc] 10 mg tablet 10 mg PO DAILY Qty: 90 RF: 0 Referrals: Gordon Pardo MD [Primary Care Provider] -
[2021-02-15 19:30] LABS: Alanine Aminotransferase 23 IU/L (<50); Albumin 3.9 g/dL (3.5-5.0); Albumin Globulin Ratio 1.2 (1.0-2.8); Alkaline Phosphatase 85 U/L (38-126); Aspartate Aminotransferase 37 IU/L (17-59); Bilirubin Total 0.4 mg/dL (0.2-1.3); Blood Urea Nitrogen 19 mg/dL (9-20); Calcium 8.5 mg/dL (8.4-10.2); Carbon Dioxide 25 mmol/L (22-32); Chloride 101 mmol/L (98-107); Estimated Glomerular Filt Rate > 60.0 mL/min (>60); Globulin 3.3 g/dL (1.7-4.1); Glucose 134 mg/dL (80-110); HEMOLYSIS < 15 (0-50); Lipase 57 U/L (23-300); Potassium 4.1 mmol/L (3.4-5.1); Sodium 133 mmol/L (137-145); Total Protein 7.2 g/dL (6.3-8.2)
[2021-02-15] MEDS: SODIUM CHLORIDE 0.9% 1,000 ML 1000 ML IV (19:41)
[2021-02-15 19:46] LABS: Procalcitonin 0.13 ng/mL (<0.5)
[2021-02-15 19:56] LABS: Bacteria Urine None Seen; RBC Urine None Seen (0-5/HPF)
[2021-02-15 20:03] LABS: Creatine Kinase 52 U/L (55-170)
[2021-02-15 20:14] LABS: COVID19 -Nasal RAPID POSITIVE (Negative)
[2021-02-15 20:15] LABS: NT-proBNP (BNP-Adult 18+) 199 pg/mL (<450); Troponin I < 0.012 ng/mL (0.01-0.034)
[2021-02-15 20:16] LABS: Mucus Urine 1+ (Negative); Squamous Epithelial Cell Urine 0-1 /HPF (0-5/HPF); WBC Urine 0-1/HPF (0-5/HPF)
[2021-02-15 20:17] LABS: Culture Indicated Urine Cult Not Indicated
[2021-02-15 20:30] LABS: D Dimer 343 ng/mL (<230)
[2021-02-15 21:11] LABS: Adenovirus Not Detected (Not Detect); B. parapertussis Not Detected (Not Detecte); Bordetella pertussis Not Detected (Not Detecte); Chlamydophila pneumoniae Not Detected (Not Detect); Coronavirus 229E Not Detected (Not Detect); Coronavirus HKU1 Not Detected (Not Detect); Coronavirus NL 63 Not Detected (Not Detect); Coronavirus OC43 Not Detected (Not Detect); Human Metapneumovirus Not Detected (Not Detect); Human Rhinovirus/Enterovirus Not Detected (Not Detect); Influenza A Not Detected (Not Detect); Influenza B Not Detected (Not Detect); Mycoplasma pneumoniae Not Detected (Not Detect); Parainfluenza Virus 1 Not Detected (Not Detect); Parainfluenza Virus 2 Not Detected (Not Detect); Parainfluenza Virus 3 Not Detected (Not Detect); Parainfluenza Virus 4 Not Detected (Not Detect); Respiratory Syncytial Virus Not Detected (Not Detect); SARS- CoV-2 Detected (Not Detecte)
== END 2021-02-15 21:10 | disposition home or self-care (01) ==
PROVIDERS: Emergency Provider Emergency Medicine; PCP Student in an Organized Health Care Education/Training Program
DX: U07.1 COVID-19 (principal); R79.89 Other specified abnormal findings of blood chemistry
CPT/HCPCS: 36415; 71045; 80053; 81003; 81015; 82550; 83605; 83690; 83880; 84145; 84484; 85025; 85379; 87040; 87633; 87635; 96360; 96361; 99284; C9803

== ENCOUNTER 2021-02-18 10:54 | Inpatient (IN) | payer MEDICARE, SELFPAY ==
[2021-02-18] VITALS (40 sets, daily range): BP systolic 115–155; BP diastolic 57–79; PULSE 75–110; RESP 12–34; TEMP 36.4–38.3; O2SAT 84–97; BMI 34.0
[2021-02-18] MEDS: ACETAMINOPHEN 325 MG TABLET 650 MG PO (11:13)
--- NOTE | 2021-02-18 11:19 | ED.GENADULT ---
HPI - General Adult General Chief complaint: Fever Stated complaint: covid+, low blood oxygen Time Seen by Provider: 02/18/21 11:00 Source: patient Mode of arrival: EMS History of Present Illness HPI narrative: Patient is a 80-year-old male who is relatively healthy with a history of high blood pressure not on anticoagulation no prior cardiac diagnosis and no underlying lung issues who has had 2 Pfizer COVID-19 immunizations with the last dose being at the beginning of November who was just diagnosed with COVID-19 a couple days ago in the emergency department after having approximately 1 week of symptoms returns today for feeling worse, problems breathing and low oxygen saturations at home. He denies chest pain. Related Data Previous Rx's Medication Instructions Recorded celecoxib 200 mg capsule (Celebrex) 200 mg PO DAILY #30 cap MDD 200 mg 10/19/20 amlodipine 10 mg tablet (Norvasc) 10 mg PO DAILY #90 tab 12/31/20 lisinopril 20 mg tablet 20 mg PO DAILY #90 tab 12/31/20 Allergies Allergy/AdvReac Type Severity Reaction Status Date / Time No Known Drug Allergies Allergy Verified 02/18/21 11:24 Review of Systems Constitutional Constitutional: Reports body ache(s), Reports chills, Reports fatigue and Reports fever(s) Eyes Eyes: Reports system reviewed and no additional complaints, except as documented ENT Ears, Nose, Mouth, and Throat: Denies sore throat Cardiovascular Cardiovascular: Denies chest pain and Reports dyspnea Respiratory Respiratory: Reports cough and Reports dyspnea Gastrointestinal Gastrointestinal: Reports system reviewed and no additional complaints, except as documented Genitourinary Genitourinary: Reports system reviewed and no additional complaints, except as documented Musculoskeletal Musculoskeletal: Reports system reviewed and no additional complaints, except as documented Integumentary/Breasts Skin/Breast: Denies rash Neurologic Neurologic: Reports system reviewed and no additional complaints, except as documented Psychiatric Psychiatric: Reports system reviewed and no additional complaints, except as documented Endocrine Endocrine: Reports fatigue Hematologic/Lymphatic On Anticoagulants: No Allergic/Immunologic Allergic/Immunologic: Reports system reviewed and no additional complaints, except as documented Patient History Medical History Chickenpox (1945) Hearing loss Hypertension Knee pain, right anterior Nocturia Obesity (BMI 30.0-34.9) Vertigo Surgical History Hx of discectomy (1984) Family History Father Diabetes mellitus Mother Cancer Sister Cancer Grandfather Cancer Grandmother Stroke Grandfather No problems noted. Grandmother No problems noted. Social History Smoking Status: Never smoker alcohol intake: never substance use type: does not use Smoking Status: Never smoker Substance Use Type: does not use Exam Initial Vital Signs Initial Vital Signs: Vital Signs Temperature 100.9 F H 02/18/21 10:55 Pulse Rate 110 H 02/18/21 10:55 Respiratory Rate 34 H 02/18/21 10:55 Blood Pressure 134/79 02/18/21 10:55 Pulse Oximetry 84 L 02/18/21 10:55 Const General: cooperative and healthy appearing HENMT Head: normal to inspection and normocephalic Eyes General: appearance normal, both eyes and all related structures Resp Effort & Inspection: tachypneic Auscultation: clear to auscultation bilaterally Cardio Rate: regular rate Rhythm: regular rhythm GI Inspection: normal to inspection Skin General: no rashes or lesions noted Neuro General: patient alert, patient awake, patient oriented x3 and moves all extremities Extrem General: normal to inspection and capillary refill normal Psych Appearance: grossly normal and well kempt Course Orders Ordered: ED Orders 02/18/21 11:11 Blood Culture Stat C-Reactive Protein Quant Stat Complete Blood Count AUTO DIFF Stat Comprehensive Metabolic Panel Stat D Dimer Stat Ferritin Stat Lactate (Lactic Acid) Stat Lactate Dehydrogenase Stat Troponin & CK Cardiac Panel Stat 02/18/21 11:20 Arterial Blood Gas Stat 02/18/21 11:21 EKG-12 Lead Stat RT Consult Eval and Treat Now 02/18/21 11:36 ABG [Arterial Blood Gas] Stat 02/18/21 12:07 XR chest 1V Stat 02/18/21 12:43 Urine Microscopic Stat Dexamethasone (Dexamethasone 10 Mg/Ml Vial) 10 mg IV NOW ONE Stop: 02/18/21 13:53 Sodium Chloride (Normal Saline 0.9%) 1,000 mls @ 100 mls/hr IV CONT NORA Last Admin: 02/18/21 12:00 Dose: 100 mls/hr Documented by: PAOLO Discontinued Medications Acetaminophen (Acetaminophen 325 Mg Tablet) 650 mg PO NOW ONE Stop: 02/18/21 11:10 Last Admin: 02/18/21 11:13 Dose: 650 mg Documented by: CASPER Murphyivir 200 mg/ Sodium (Chloride) 250 mls @ 250 mls/hr IV NOW ONE Stop: 02/18/21 11:31 Last Infusion: 02/18/21 13:05 Dose: 0 mls/hr Documented by: Admin: 02/18/21 12:00 Dose: 250 mls/hr Documented by: PAOLO Vital Signs Vital signs: Vital Signs - 8 hr 02/18/21 10:55 02/18/21 11:25 02/18/21 11:30 Temperature 100.9 F H Pulse Rate 110 H 99 H 100 H Respiratory Rate 34 H 30 H 26 H Blood Pressure 134/79 145/75 H 146/76 H Pulse Oximetry 84 L 94 93 02/18/21 11:45 02/18/21 12:00 02/18/21 12:15 Temperature Pulse Rate 105 H 101 H 99 H Respiratory Rate 34 H 27 H 25 H Blood Pressure 125/59 L 124/59 L 117/57 L Pulse Oximetry 93 90 L 91 02/18/21 12:30 02/18/21 12:45 02/18/21 13:00 Temperature 100.4 F H Pulse Rate 97 H 91 H 84 Respiratory Rate 27 H 33 H 32 H Blood Pressure 133/70 125/67 Pulse Oximetry 91 92 92 02/18/21 13:28 Temperature 100.4 F H Pulse Rate Respiratory Rate Blood Pressure Pulse Oximetry Medical Decision Making Medical Records Medical records reviewed: Yes I reviewed the patient's medical records. Lab Data Lab results reviewed: Yes I reviewed the patient's lab results. Result diagrams: 02/18/21 11:11 02/18/21 11:11 Labs: Lab Results 02/18/21 02/18/21 02/18/21 Range/Units 11:11 11:11 11:11 WBC 8.9 (4.5-11.0) X10^3/uL RBC 4.38 L (4.5-5.9) X10^6/uL Hgb 13.3 L (13.5-17.5) g/dL Hct 38.5 L (41-53) % MCV 87.8 (80-100) fL MCH 30.2 (26-34) PG MCHC 34.4 (30-36) % RDW 13.7 (11.6-14.8) % Plt Count 171 (150-400) X10^3/uL Neut % (Auto) 83.3 H (50-75) % Lymph % (Auto) 11.5 L (25-40) % [place] % (Auto) 5.1 (3-14) % Eos % (Auto) 0.0 L (2-4) % Baso % (Auto) 0.1 (0-2) % Neut # (Auto) 7400 H (1743-1619) /uL Lymph # (Auto) 1000 L (3135-4861) /uL [place] # (Auto) 400 (0-900) /uL Eos # (Auto) 0 (0-450) /uL Baso # (Auto) 0 (0-100) /uL D-Dimer 478 H (<230) ng/mL ABG pH (7.35-7.45) ABG pCO2 (35-45) mmHg ABG pO2 (80-100) mmHg ABG HCO3 (22-26) mmol/L ABG Total CO2 (21-31) mmol/L ABG O2 Saturation (95-100) % ABG Base Excess (-2-2) mmol/L FiO2 Sodium 131 L (137-145) mmol/L Potassium 3.6 (3.4-5.1) mmol/L Chloride 98 (98-107) mmol/L Carbon Dioxide 25 (22-32) mmol/L BUN 21 H (9-20) mg/dL Creatinine 1.00 (0.66-1.25) mg/dL Estimated GFR > 60.0 (>60) mL/min BUN/Creatinine Ratio 21.0 (6-22) Glucose 137 H (80-110) mg/dL Lactate (0.7-2.1) mmol/L Calcium 7.9 L (8.4-10.2) mg/dL Ferritin 511 H (18-464) ng/mL Total Bilirubin 0.7 (0.2-1.3) mg/dL AST 63 H (17-59) IU/L ALT 28 (<50) IU/L Alkaline Phosphatase 70 (38-126) U/L Lactate Dehydrogenase 855 H (313-618) U/L Total Creatine Kinase (55-170) U/L CK-MB (CK-2) (<2.37) ng/mL CK-MB (CK-2) Rel Index (1.5-5.0) % Troponin I (0.01-0.034) ng/mL C-Reactive Protein (<1.0) mg/dL Total Protein 6.7 (6.3-8.2) g/dL Albumin 3.5 (3.5-5.0) g/dL Globulin 3.2 (1.7-4.1) g/dL Albumin/Globulin Ratio 1.1 (1.0-2.8) Urine RBC (0-5/HPF) Urine WBC (0-5/HPF) Ur Squamous Epith Cells (0-5/HPF) Ur Renal Epithelial Cell (0-1/HPF) Amorphous Sediment Urine Bacteria (None) Urine Mucus (Negative) Ur Culture Indicated? 02/18/21 02/18/21 02/18/21 Range/Units 11:11 11:11 11:36 WBC (4.5-11.0) X10^3/uL RBC (4.5-5.9) X10^6/uL Hgb (13.5-17.5) g/dL Hct (41-53) % MCV (80-100) fL MCH (26-34) PG MCHC (30-36) % RDW (11.6-14.8) % Plt Count (150-400) X10^3/uL Neut % (Auto) (50-75) % Lymph % (Auto) (25-40) % [place] % (Auto) (3-14) % Eos % (Auto) (2-4) % Baso % (Auto) (0-2) % Neut # (Auto) (9791-0469) /uL Lymph # (Auto) (3107-3218) /uL [place] # (Auto) (0-900) /uL Eos # (Auto) (0-450) /uL Baso # (Auto) (0-100) /uL D-Dimer (<230) ng/mL ABG pH 7.53 H (7.35-7.45) ABG pCO2 28.3 L (35-45) mmHg ABG pO2 60 L (80-100) mmHg ABG HCO3 24 (22-26) mmol/L ABG Total CO2 24 (21-31) mmol/L ABG O2 Saturation 94 L (95-100) % ABG Base Excess 1.0 (-2-2) mmol/L FiO2 38 Sodium (137-145) mmol/L Potassium (3.4-5.1) mmol/L Chloride (98-107) mmol/L Carbon Dioxide (22-32) mmol/L BUN (9-20) mg/dL Creatinine (0.66-1.25) mg/dL Estimated GFR (>60) mL/min BUN/Creatinine Ratio (6-22) Glucose (80-110) mg/dL Lactate 1.6 (0.7-2.1) mmol/L Calcium (8.4-10.2) mg/dL Ferritin (18-464) ng/mL Total Bilirubin (0.2-1.3) mg/dL AST (17-59) IU/L ALT (<50) IU/L Alkaline Phosphatase (38-126) U/L Lactate Dehydrogenase (313-618) U/L Total Creatine Kinase 602 H D (55-170) U/L CK-MB (CK-2) 3.15 H (<2.37) ng/mL CK-MB (CK-2) Rel Index 0.5 L (1.5-5.0) % Troponin I 0.017 (0.01-0.034) ng/mL C-Reactive Protein 8.8 H (<1.0) mg/dL Total Protein (6.3-8.2) g/dL Albumin (3.5-5.0) g/dL Globulin (1.7-4.1) g/dL Albumin/Globulin Ratio (1.0-2.8) Urine RBC (0-5/HPF) Urine WBC (0-5/HPF) Ur Squamous Epith Cells (0-5/HPF) Ur Renal Epithelial Cell (0-1/HPF) Amorphous Sediment Urine Bacteria (None) Urine Mucus (Negative) Ur Culture Indicated? 02/18/21 Range/Units 12:43 WBC (4.5-11.0) X10^3/uL RBC (4.5-5.9) X10^6/uL Hgb (13.5-17.5) g/dL Hct (41-53) % MCV (80-100) fL MCH (26-34) PG MCHC (30-36) % RDW (11.6-14.8) % Plt Count (150-400) X10^3/uL Neut % (Auto) (50-75) % Lymph % (Auto) (25-40) % [place] % (Auto) (3-14) % Eos % (Auto) (2-4) % Baso % (Auto) (0-2) % Neut # (Auto) (3444-2013) /uL Lymph # (Auto) (3506-1591) /uL [place] # (Auto) (0-900) /uL Eos # (Auto) (0-450) /uL Baso # (Auto) (0-100) /uL D-Dimer (<230) ng/mL ABG pH (7.35-7.45) ABG pCO2 (35-45) mmHg ABG pO2 (80-100) mmHg ABG HCO3 (22-26) mmol/L ABG Total CO2 (21-31) mmol/L ABG O2 Saturation (95-100) % ABG Base Excess (-2-2) mmol/L FiO2 Sodium (137-145) mmol/L Potassium (3.4-5.1) mmol/L Chloride (98-107) mmol/L Carbon Dioxide (22-32) mmol/L BUN (9-20) mg/dL Creatinine (0.66-1.25) mg/dL Estimated GFR (>60) mL/min BUN/Creatinine Ratio (6-22) Glucose (80-110) mg/dL Lactate (0.7-2.1) mmol/L Calcium (8.4-10.2) mg/dL Ferritin (18-464) ng/mL Total Bilirubin (0.2-1.3) mg/dL AST (17-59) IU/L ALT (<50) IU/L Alkaline Phosphatase (38-126) U/L Lactate Dehydrogenase (313-618) U/L Total Creatine Kinase (55-170) U/L CK-MB (CK-2) (<2.37) ng/mL CK-MB (CK-2) Rel Index (1.5-5.0) % Troponin I (0.01-0.034) ng/mL C-Reactive Protein (<1.0) mg/dL Total Protein (6.3-8.2) g/dL Albumin (3.5-5.0) g/dL Globulin (1.7-4.1) g/dL Albumin/Globulin Ratio (1.0-2.8) Urine RBC 0-1/hpf (0-5/HPF) Urine WBC 0-1/hpf (0-5/HPF) Ur Squamous Epith Cells 0-1 /hpf (0-5/HPF) Ur Renal Epithelial Cell 0-1/hpf (0-1/HPF) Amorphous Sediment 1+ Urine Bacteria None seen (None) Urine Mucus 1+ H (Negative) Ur Culture Indicated? Cult not indicated Urine Dip Bedside Urine Glucose Negative Bedside Urine Bilirubin - Negative Bedside Urine Ketone - Negative Urine Specific [place] 1.020 Bedside Urine Occult Blood +/- Bedside Urine pH 6.0 Bedside Urine Protein ++ 100 Bedside Urine Urobilinogen - Negative Bedside Urine Nitrite - Negative Bedside Urine Leukocytes - Negative Esterase Point of care testing: Urine Dip Bedside Urine Glucose Negative Bedside Urine Bilirubin - Negative Bedside Urine Ketone - Negative Urine Specific [place] 1.020 Bedside Urine Occult Blood +/- Bedside Urine pH 6.0 Bedside Urine Protein ++ 100 Bedside Urine Urobilinogen - Negative Bedside Urine Nitrite - Negative Bedside Urine Leukocytes - Negative Esterase Imaging Data Chest x-ray: Radiologist's Impression: [address] [id number] ReportSigned Patient: Jack Boyd AMR#: [id number]: 9Acct:[id number]/Sex: 80 / MDate of Service: 02/18/21Loc: EDAccession Number: [id number] Procedure: XR chest 1V Ordering Provider: Saúl Suárez D.O. PROCEDURE: XR CHEST 1V INDICATIONS: SOB TECHNIQUE: One view of the chest was acquired. COMPARISON: [facility] , XR CHEST 1V, 02/15/2021, 19:02. FINDINGS: Surgical changes and devices: None. Lungs and pleura: Increased patchy opacifications in the lung bases bilaterally compatible with progression of pneumonia. No pleural effusions or pneumothorax. Mediastinum: Mediastinal contours appear normal. Heart size is normal. Bones and chest wall: No suspicious bony lesions. Overlying soft tissues appear unremarkable. IMPRESSION: Worsening bibasilar pneumonia. Dictated by: Francheska James MD, PhD on 02/18/2021 at 12:32 Approved by: Francheska James MD, PhD on 02/18/2021 at 12:32 ECG Data Attestation: I personally reviewed and interpreted this ECG as follows: Interpretation: Sinus tachycardia Ventricular rate of 101 Occasional PAC Normal QRS Normal QTC No ST T wave changes MDM Narrative Medical decision making narrative: Patient is known COVID positive despite being fully immunized. Is hypoxic. Improved with oxygen by nasal cannula. EKG is unremarkable. Given patient's COVID positive status, chest x-ray, hypoxia a does require admission to the hospital for further evaluation and treatment. Discussed the case with Dr. Patel who will admit. Also discussed admission with the patient family. They expressed understanding and agreement. Discharge Plan Departure Patient Disposition: Admitted As Inpatient Clinical Impression: COVID-19, Hypoxia
--- NOTE | 2021-02-18 11:28 | PC.NURSE ---
Pt w/known Covid +.
[2021-02-18 11:29] LABS: Add Manual Diff / Slide Review NO; Basophils Absolute Auto 0 /uL (0-100); Basophils Percent Auto 0.1 % (0-2); Eosinophils Absolute Auto 0 /uL (0-450); Hematocrit 38.5 % (41-53); Hemoglobin 13.3 g/dL (13.5-17.5); Lymphocytes Absolute Auto 1000 /uL (1100-4500); Lymphocytes Percent Auto 11.5 % (25-40); Mean Corpuscular HGB Conc 34.4 % (30-36); Mean Corpuscular Hemoglobin 30.2 PG (26-34); Mean Corpuscular Volume 87.8 fL (80-100); Monocytes Absolute Auto 400 /uL (0-900); Monocytes Percent Auto 5.1 % (3-14); Neutrophils Absolute Auto 7400 /uL (1500-7000); Neutrophils Percent Auto 83.3 % (50-75); Platelet Count 171 X10^3/uL (150-400); Red Blood Cell Count 4.38 X10^6/uL (4.5-5.9); Red Cell Distribution Width 13.7 % (11.6-14.8); White Blood Cell Count 8.9 X10^3/uL (4.5-11.0)
[2021-02-18 11:47] LABS: Lactate (Lactic Acid) 1.6 mmol/L (0.7-2.1)
[2021-02-18 11:49] LABS: Alanine Aminotransferase 28 IU/L (<50); Albumin 3.5 g/dL (3.5-5.0); Albumin Globulin Ratio 1.1 (1.0-2.8); Alkaline Phosphatase 70 U/L (38-126); Aspartate Aminotransferase 63 IU/L (17-59); Bilirubin Total 0.7 mg/dL (0.2-1.3); Blood Urea Nitrogen 21 mg/dL (9-20); Calcium 7.9 mg/dL (8.4-10.2); Carbon Dioxide 25 mmol/L (22-32); Chloride 98 mmol/L (98-107); Estimated Glomerular Filt Rate > 60.0 mL/min (>60); Globulin 3.2 g/dL (1.7-4.1); Glucose 137 mg/dL (80-110); HEMOLYSIS < 15 (0-50); Lactate Dehydrogenase 855 U/L (313-618); Potassium 3.6 mmol/L (3.4-5.1); Sodium 131 mmol/L (137-145); Total Protein 6.7 g/dL (6.3-8.2)
[2021-02-18 11:51] LABS: C-Reactive Protein Quant 8.8 mg/dL (<1.0); Creatine Kinase 602 U/L (55-170)
[2021-02-18 11:57] LABS: D Dimer 478 ng/mL (<230)
[2021-02-18] MEDS: SODIUM CHLORIDE 0.9% 1,000 ML 100 ML IV ×2 (12:00→20:51)
[2021-02-18] MEDS: REMDESIVIR 200 MG in SODIUM CHLORIDE 0.9% 210 ML 250 ML IV (12:00)
[2021-02-18 12:01] LABS: Troponin I 0.017 ng/mL (0.01-0.034)
[2021-02-18 12:03] LABS: CKMB % Relative Index 0.5 % (1.5-5.0); Creatine Kinase MB 3.15 ng/mL (<2.37)
--- NOTE | 2021-02-18 12:07 | DI.RAD.S_ITS ---
PROCEDURE: XR CHEST 1V INDICATIONS: SOB TECHNIQUE: One view of the chest was acquired. COMPARISON: [facility], CR, XR CHEST 1V, 02/15/2021, 19:02. FINDINGS: Surgical changes and devices: None. Lungs and pleura: Increased patchy opacifications in the lung bases bilaterally compatible with progression of pneumonia. No pleural effusions or pneumothorax. Mediastinum: Mediastinal contours appear normal. Heart size is normal. Bones and chest wall: No suspicious bony lesions. Overlying soft tissues appear unremarkable. IMPRESSION: Worsening bibasilar pneumonia. Dictated by: Francheska James MD, PhD on 02/18/2021 at 12:32 Approved by: Francheska James MD, PhD on 02/18/2021 at 12:32
[2021-02-18 12:11] LABS: HCO3 ABG 24 mmol/L (22-26); Oxygen Saturation ABG 94 % (95-100); PCO2 ABG 28.3 mmHg (35-45); PO2 ABG 60 mmHg (80-100); TCO2 ABG 24 mmol/L (21-31); pH ABG 7.53 (7.35-7.45)
[2021-02-18 12:12] LABS: Fractionated Inspired Oxygen 38
[2021-02-18 12:24] LABS: Ferritin 511 ng/mL (18-464)
[2021-02-18 12:50] LABS: Bacteria Urine None Seen
[2021-02-18 13:28] LABS: RBC Urine 0-1/HPF (0-5/HPF)
[2021-02-18 13:29] LABS: Amorphous Sediment Urine 1+; Culture Indicated Urine Cult Not Indicated; Mucus Urine 1+ (Negative); Renal Epithelial Cells Urine 0-1/HPF (0-1/HPF); Squamous Epithelial Cell Urine 0-1 /HPF (0-5/HPF); WBC Urine 0-1/HPF (0-5/HPF)
[2021-02-18] MEDS: DEXAMETHASONE 10 MG/ML VIAL IV (14:22)
--- NOTE | 2021-02-18 19:00 | PC.NURSE ---
Patient arrived to ICU from ED at 1840 with RT and ED RN at bedside. Report received from MERLE Hoffman. Pt alert, oriented to self and situation, oxygen saturations 92-94% after being placed back on heated high flow nasal cannula at 40L and 50% FiO2. Patient able to transfer self from ED gurney to bed in room. Pt vital signs stable, afebrile upon arrival. Patient educated plc controls engineer light, call don't fall policies, and plan of care up to this point. Discussed importance of proning and side-lying positions with pt. Spoke briefly with patient's daughter Jenni outside of the room.
[2021-02-18] MEDS: SENNOSIDES 8.6 MG TABLET 17.2 MG PO (20:51)
--- NOTE | 2021-02-18 22:06 | P.HP_ITS ---
History of Present Illness History of Present Illness Date Patient Seen: 02/18/21 Time Patient Seen: 19:56 Chief complaint: covid+, low blood oxygen Narrative: Patient is a 80-year-old male Jack Boyd who presented to the ED with a chief complaint of fever, chills, generalized weakness and dry hacking cough over the past few days. He had recently traveled to [facility] and returned home earlier in the week. His symptoms have been gradually worsening over the past 5 or 6 days. He denies any obvious exposure to persons known or suspected to have COVID. He is vaccinated and wears his mask any time he goes out. He denies any N/V/D. Patient was seen in the ED on 02/15/2021 for the symptoms and was diagnosed with COVID-19. Today he returned feeling worse, problems breathing and low oxygen saturations at home. He denies chest pain. is relatively healthy with a history of high blood pressure not on anticoagulation no prior cardiac diagnosis and no underlying lung issues, he had 2 Pfizer COVID- 19 immunizations, last dose . Upon admit patient is resting in isolation, in no distress at this time denies chest pain states that shortness of breath has improved from ED, he continues to have an occasional mild cough that is productive, denies nasal drainage, eye irritation, sore throat, fever, body aches, chills, nausea, vomiting, abdominal pain, swelling of his hands or feet, leg pain. Patient is currently satting in the low 90s at rest but any sort of movement or exertion even sitting up to the side of the bed patient desats into the low 80s. Patient upon admit was slightly febrile at 99.5, mildly hypertensive 155/79, HR 91, tachypneic with an RR 24, patient's saturation was 89% on 40 L high-flow. Patient presents with acute respiratory alkalosis failure with hypocapnia as evidence by ABGs pH 7.53, pCO2 28.3, HC03 24, patient has a Christina score of 9.76 which is low risk for intubation. Mild anemia HGB 13.3, HCT 38.5, RBC 4.38, patient does have elevated neutrophils at 7400, WBC WNL. Mild hyponatremia Na 131, BUN 21, AST 63, mild hypo calcemia 7.9, elevated D-dimer 478, elevated ferritin 511, lactate D 155, CK-MB 3.15, CK-MB index 0.5%, CRP 8.8, UA is negative. On chest xray found increased patchy opacifications in the lung bases bilaterally compatible with progression of pneumonia. Patient admitted for acute respiratory alkalosis failure with hypocapnia and hypoxia as a result of bibasilar COVID pneumonia. Patient History Medical History Chickenpox (1945) Hearing loss Hypertension Knee pain, right anterior Nocturia Obesity (BMI 30.0-34.9) Vertigo Surgical History Hx of discectomy (1984) Family & Social History Family History Father Diabetes mellitus Mother Cancer Sister Cancer Grandfather Cancer Grandmother Stroke Grandfather No problems noted. Grandmother No problems noted. Social History: household members children Prior Living Arrangements House Safety & Behavioral: Feels Safe in Current Yes Environment Been Physically Hurt or No Threatened By a Person Suicidal Ideation Description None Suicide Plan Description No Plan Tobacco & Substance use: Smoking Status Never smoker alcohol intake never alcohol intake frequency never Substance Use Type does not use Meds Home Medications and Allergies Home Medications Medication Instructions Recorded Confirmed Type celecoxib 200 mg capsule (Celebrex) 200 mg PO DAILY #30 cap MDD 200 mg 10/19/20 02/18/21 Rx Prevagen 1 tab PO QAM 02/18/21 02/18/21 History amlodipine 10 mg tablet (Norvasc) 10 mg PO QPM 02/18/21 02/18/21 History lisinopril 20 mg tablet 20 mg PO QAM 02/18/21 02/18/21 History Allergies Allergy/AdvReac Type Severity Reaction Status Date / Time No Known Drug Allergies Allergy Verified 02/18/21 11:24 Review of Systems Review of Systems Narrative: All systems reviewed with the patient and are negative except otherwise documented. Exam Vital Signs (past 8 hours): - 02/18/21 14:15 02/18/21 14:25 02/18/21 14:30 Temperature Pulse Rate 85 85 86 Respiratory Rate 27 H 21 26 H Blood Pressure 125/72 Pulse Oximetry 91 90 L 91 02/18/21 14:38 02/18/21 14:45 02/18/21 14:55 Temperature Pulse Rate 91 H 86 84 Respiratory Rate 25 H 25 H 16 Blood Pressure 138/76 124/74 Pulse Oximetry 91 92 92 02/18/21 15:00 02/18/21 15:15 02/18/21 15:30 Temperature Pulse Rate 79 76 77 Respiratory Rate 24 19 19 Blood Pressure 124/74 124/60 Pulse Oximetry 92 92 91 02/18/21 15:45 02/18/21 16:00 02/18/21 16:15 Temperature Pulse Rate 85 76 75 Respiratory Rate 23 21 22 Blood Pressure 115/64 Pulse Oximetry 93 91 90 L 02/18/21 16:30 02/18/21 16:45 02/18/21 17:00 Temperature Pulse Rate 77 77 94 H Respiratory Rate 21 24 23 Blood Pressure 125/59 L 140/71 Pulse Oximetry 91 91 97 02/18/21 17:30 02/18/21 17:45 02/18/21 18:01 Temperature Pulse Rate 82 83 94 H Respiratory Rate 23 25 H Blood Pressure 151/71 H Pulse Oximetry 89 L 89 L 86 L 02/18/21 18:02 02/18/21 18:19 02/18/21 18:40 Temperature 99.5 F 97.6 F Pulse Rate 91 H 92 H Respiratory Rate 24 23 Blood Pressure 155/79 H 131/64 Pulse Oximetry 89 L 93 02/18/21 20:00 02/18/21 20:10 02/18/21 21:11 Temperature 98 F 98.5 F Pulse Rate 96 H 91 H 91 H Respiratory Rate 20 24 23 Blood Pressure 153/75 H 129/75 Pulse Oximetry 92 91 92 Fraction of Inspired Oxygen 50 Oxygen Delivery Method Heated High Flow Oxygen Flow Rate 40 Narrative Exam Narrative: General: Patient is a well-developed, well-nourished male in no acute distress at rest at this time, but continued slightly increased work of breathing. HEENT: Normocephalic, atraumatic, extraocular muscles intact, oral pharynx is clear and mucous membranes are moist. Neck is supple and symmetric, trachea is midline, no adenopathy, no thyroid enlargement, nontender, no masses palpated. Negative for JVD Chest: Normal AP diameter and contour without kyphoscoliosis, Positive tachypneic labored and work of breathing. Patient unable to complete full sentences. Lungs: Auscultation of all lung [place]on appeared diffusely slightly decraesed but equal, clear without adventitious sounds, wheezes, rhonchi, or rales. Cardio: S1 & S2 with regular rate and rhythm without murmur, rubs, or gallops, no carotid bruit, no cardiac pulsations present. Abdomen: Soft nontender, negative for organomegaly, or masses. Bowel sounds are present in all 4 quadrants without guarding or rebound, no CVA tenderness. Musculoskeletal: Muscle strength and tone are equal within normal limits, no deformity, crepitus, effusions, cyanosis, clubbing or edema present. Full range of motion intact radial and pedal pulses are normal. Skin: Warm dry and intact without rashes, ulcerations or petechiae. Neuro: Alert and orientated x3, strength is +5/5 in all extremities, sensation to touch intact, no gross deficits noted of cranial nerves. Psych: Patient has a well-kept appearance, appropriate affect, mental status attitude thought context and judgment are appropriate for age. Objective Labs Result Diagrams: 02/18/21 11:11 02/18/21 11:11 Labs: Laboratory Results - last 24 hr 02/18/21 02/18/21 02/18/21 11:11 11:11 11:11 WBC 8.9 RBC 4.38 L Hgb 13.3 L Hct 38.5 L MCV 87.8 MCH 30.2 MCHC 34.4 RDW 13.7 Plt Count 171 Neut % (Auto) 83.3 H Lymph % (Auto) 11.5 L [place] % (Auto) 5.1 Eos % (Auto) 0.0 L Baso % (Auto) 0.1 Neut # (Auto) 7400 H Lymph # (Auto) 1000 L [place] # (Auto) 400 Eos # (Auto) 0 Baso # (Auto) 0 D-Dimer 478 H ABG pH ABG pCO2 ABG pO2 ABG HCO3 ABG Total CO2 ABG O2 Saturation ABG Base Excess FiO2 Sodium 131 L Potassium 3.6 Chloride 98 Carbon Dioxide 25 BUN 21 H Creatinine 1.00 Estimated GFR > 60.0 BUN/Creatinine Ratio 21.0 Glucose 137 H Lactate Calcium 7.9 L Magnesium Ferritin 511 H Total Bilirubin 0.7 AST 63 H ALT 28 Alkaline Phosphatase 70 Lactate Dehydrogenase 855 H Total Creatine Kinase CK-MB (CK-2) CK-MB (CK-2) Rel Index Troponin I C-Reactive Protein Total Protein 6.7 Albumin 3.5 Globulin 3.2 Albumin/Globulin Ratio 1.1 Urine RBC Urine WBC Ur Squamous Epith Cells Ur Renal Epithelial Cell Amorphous Sediment Urine Bacteria Urine Mucus Ur Culture Indicated? 02/18/21 02/18/21 02/18/21 11:11 11:11 11:20 WBC RBC Hgb Hct MCV MCH MCHC RDW Plt Count Neut % (Auto) Lymph % (Auto) [place] % (Auto) Eos % (Auto) Baso % (Auto) Neut # (Auto) Lymph # (Auto) [place] # (Auto) Eos # (Auto) Baso # (Auto) D-Dimer ABG pH ABG pCO2 ABG pO2 ABG HCO3 ABG Total CO2 ABG O2 Saturation ABG Base Excess FiO2 Sodium Potassium Chloride Carbon Dioxide BUN Creatinine Estimated GFR BUN/Creatinine Ratio Glucose Lactate 1.6 Calcium Magnesium 2.0 Ferritin Total Bilirubin AST ALT Alkaline Phosphatase Lactate Dehydrogenase Total Creatine Kinase 602 H D CK-MB (CK-2) 3.15 H CK-MB (CK-2) Rel Index 0.5 L Troponin I 0.017 C-Reactive Protein 8.8 H Total Protein Albumin Globulin Albumin/Globulin Ratio Urine RBC Urine WBC Ur Squamous Epith Cells Ur Renal Epithelial Cell Amorphous Sediment Urine Bacteria Urine Mucus Ur Culture Indicated? 02/18/21 02/18/21 11:36 12:43 WBC RBC Hgb Hct MCV MCH MCHC RDW Plt Count Neut % (Auto) Lymph % (Auto) [place] % (Auto) Eos % (Auto) Baso % (Auto) Neut # (Auto) Lymph # (Auto) [place] # (Auto) Eos # (Auto) Baso # (Auto) D-Dimer ABG pH 7.53 H ABG pCO2 28.3 L ABG pO2 60 L ABG HCO3 24 ABG Total CO2 24 ABG O2 Saturation 94 L ABG Base Excess 1.0 FiO2 38 Sodium Potassium Chloride Carbon Dioxide BUN Creatinine Estimated GFR BUN/Creatinine Ratio Glucose Lactate Calcium Magnesium Ferritin Total Bilirubin AST ALT Alkaline Phosphatase Lactate Dehydrogenase Total Creatine Kinase CK-MB (CK-2) CK-MB (CK-2) Rel Index Troponin I C-Reactive Protein Total Protein Albumin Globulin Albumin/Globulin Ratio Urine RBC 0-1/hpf Urine WBC 0-1/hpf Ur Squamous Epith Cells 0-1 /hpf Ur Renal Epithelial Cell 0-1/hpf Amorphous Sediment 1+ Urine Bacteria None seen Urine Mucus 1+ H Ur Culture Indicated? Cult not indicated Assessment & Plan Assessment & Plan narrative: Jack Boyd is 80 year old male fairly healthy for age, requiring acute care inpatient hospital management for acute respiratory failure in the setting of COVID pneumonia, after failing attempted outpatient management. 1. Acute respiratory alkalosis failure with hypocapnia and hypoxia due to bibasilar COVID pneumonia, acute, present on admission - Temp 99.5, RR 24, 0sat 89% on 40 L high-flow. ABG: pH 7.53, pCO2 28.3, HC03 24, HGB 13.3, HCT 38.5, RBC 4.38,neutrophils 7400, Na+ 131, BUN 21, AST 63, Ca+ 7.9,D-dimer 478,ferritin 511, lactate D 155, CK-MB 3.15, CK-MB index 0.5%, CRP 8.8, UA is negative.chest xray: increased patchy opacifications in the lung bases bilaterally compatible with progression of pneumonia. -monitor patient for acute PR, ischemic stroke, PE, DVT, venous thrombosis, hyp erglycemia an increased risk of bacterial infections, fungal and strongyloides - 6 mg of dexamethasone, albuterol inhaler 2 puffs, acetaminophen 250 mg, enoxaparin 40 mg, normal saline 1000 cc, remdesivir 200 mg. -patient to be monitored on tele medicine, vital signs q.4 hours, intake and output monitored Q shift, weight measure daily, diet: Regular -Supplemental NC -maintain SaO2 greater than 90%, check peak flow expiratory flow q.day 1-2 days. -ABG/Resp Consult-IF O2 saturation drops below 90%, Max 60L/Min High Flow -medications ordered: Remdesivir 100 mg p.o. q.day & dexamethasone 6 mg QD x 10 days or until D/C per coronavirus infectious disease is modify July 2020 treatment guidelines per up-to-date. Consider proning if patient becomes hypoxic -On admit SOFA : 2, SAPS II Score:18 (2.9% in hospital mortality risk), CHRISTINA Index: 9.76 (low risk for intubation) -albuterol HFA inhaler 2 puffs every 4-6 hours as needed cough or shortness of breath, LMW heparin 5000 units BID -labs ordered PT/PTT every other day, troponin 48 hour repeat, D-dimer and lactate repeat in a.m., CBC and CMP daily, sputum culture/Gram stain-ordered, hep B and C, Resp Panel, HIV per guidelines-in AM, Blood cultures pending -avoiding nebulizer aerosol treatments, if signs and symptoms are worsening orde r chest x-ray and echo -monitor patient for acute PR, ischemic stroke, PE, DVT, venous thrombosis, hyperglycemia an increased risk of bacterial infections, fungal and strongyloides -consults ordered physical therapy, occupational therapy, speech therapy, dietary, respiratory therapy. -prevention vaccine: Recommend yearly flu vaccine, shingles, pneumonia, COVID vaccine when it is available. 2. Essential hypertension, acute on chronic, present on admission -as evidence by BP 155/79 on admission -continue patient's amlodipine 10 mg QHS & lisinopril 20 mg q.a.m. 3. Osteoarthritis, chronic, present on admission -Continue patients Celebrex 4. Obesity as evidence by a BMI of 34, acute on chronic, present on admission -patient's obesity may impair his oxygenation and recovery from COVID p neumonia. -consideration will be given to dietary counseling Code status: DNR/DNI Surrogate decision maker: Zoraida Milligan (daughter [phone]) COVIDPCR: Positive 02/15/2021 COVID Pfizer vaccination X2 completed: 11/2020 VTE/DVT prophylaxis: LMW heparin 5000 units BID Expected length of stay: Greater than 2 midnights Scores GCS Jess coma scale eye opening: Spontaneous Jess coma scale verbal response: Orientated [place] coma scale motor response: Obey commands [place] coma scale total score: 15 Quality VTE Deep Vein Thrombosis/Pulmonary Embolism Present on Admission: No
--- NOTE | 2021-02-18 22:37 | PC.NURSE ---
Patient oxygen saturations held 88-93% on 40L 50% FiO2 heated high flow nasal cannula. Patient able to stand up to edge of bed to void in urinal, about 450mls out for this shift. Proning encouraged, leads placed on pt back around 2220 to facilitate proning. Vital signs stable, taken Q1hr starting at 1840 when pt arrived to unit.
[2021-02-18 23:36] LABS: Troponin I 0.013 ng/mL (0.01-0.034)
[2021-02-19] VITALS (19 sets, daily range): BP systolic 113–138; BP diastolic 55–74; PULSE 75–97; RESP 18–27; TEMP 36.4–37.1; O2SAT 90–97
[2021-02-19 05:10] LABS: HCO3 VBG 24 mmol/L (23-28); Oxygen Saturation VBG 67 % (70-75); PCO2 VBG 33.6 mmHg (45-50); PO2 VBG 32 mmHg (35-45); Total CO2 VBG 25 mmol/L (24-29); pH VBG 7.47 (7.33-7.43)
[2021-02-19 05:12] LABS: Add Manual Diff / Slide Review NO; Basophils Absolute Auto 0 /uL (0-100); Basophils Percent Auto 0.1 % (0-2); Eosinophils Absolute Auto 0 /uL (0-450); Hematocrit 37.8 % (41-53); Hemoglobin 13.1 g/dL (13.5-17.5); Lymphocytes Absolute Auto 900 /uL (1100-4500); Lymphocytes Percent Auto 17.2 % (25-40); Mean Corpuscular HGB Conc 34.6 % (30-36); Mean Corpuscular Hemoglobin 30.5 PG (26-34); Mean Corpuscular Volume 88.1 fL (80-100); Monocytes Absolute Auto 400 /uL (0-900); Monocytes Percent Auto 6.9 % (3-14); Neutrophils Absolute Auto 4200 /uL (1500-7000); Neutrophils Percent Auto 75.8 % (50-75); Platelet Count 178 X10^3/uL (150-400); Red Blood Cell Count 4.29 X10^6/uL (4.5-5.9); Red Cell Distribution Width 13.5 % (11.6-14.8); White Blood Cell Count 5.5 X10^3/uL (4.5-11.0)
[2021-02-19 05:17] LABS: Alanine Aminotransferase 30 IU/L (<50); Albumin 3.1 g/dL (3.5-5.0); Alkaline Phosphatase 62 U/L (38-126); Aspartate Aminotransferase 59 IU/L (17-59); BUN Creatinine Ratio 24.4 (6-22); Bilirubin Total 0.5 mg/dL (0.2-1.3); Blood Urea Nitrogen 20 mg/dL (9-20); Calcium 7.7 mg/dL (8.4-10.2); Carbon Dioxide 22 mmol/L (22-32); Chloride 103 mmol/L (98-107); Estimated Glomerular Filt Rate > 60.0 mL/min (>60); Globulin 3.1 g/dL (1.7-4.1); Glucose 180 mg/dL (80-110); HEMOLYSIS < 15 (0-50); Potassium 3.7 mmol/L (3.4-5.1); Sodium 133 mmol/L (137-145); Total Protein 6.2 g/dL (6.3-8.2)
[2021-02-19 05:18] LABS: Lactate (Lactic Acid) 1.5 mmol/L (0.7-2.1)
[2021-02-19 05:24] LABS: Influenza A - CEPHEID Flu A NEGATIVE (NEGATIVE); Influenza B - CEPHEID Flu B NEGATIVE (NEGATIVE)
[2021-02-19 05:26] LABS: NT-proBNP (BNP-Adult 18+) 1430 pg/mL (<450)
[2021-02-19 05:42] LABS: D Dimer 599 ng/mL (<230)
[2021-02-19 05:57] LABS: Troponin I 0.012 ng/mL (0.01-0.034)
[2021-02-19] MEDS: ACETAMINOPHEN 325 MG TABLET 650 MG PO (06:15)
[2021-02-19] MEDS: PANTOPRAZOLE DR 40 MG TABLET PO (06:15)
[2021-02-19 06:44] LABS: HIV 1 & 2 Ab/Ag 4th Gen Combo NEGATIVE (NEGATIVE)
[2021-02-19] MEDS: HEPARIN 5,000 UNIT/ML VIAL 5000 UNIT SUBCUT ×2 (08:57→20:06)
[2021-02-19] MEDS: dexAMETHasone 4 MG TABLET 6 MG PO (08:57)
[2021-02-19] MEDS: REMDESIVIR 100 MG in SODIUM CHLORIDE 0.9% 230 ML 250 ML IV (09:52)
[2021-02-19 13:29] LABS: INR 1.5 (0.9-1.3); Prothrombin Time 16.3 SECONDS (10.1-12.7)
[2021-02-19 13:32] LABS: PTT Partial Thromboplastin Tim 29 SECONDS (26.4-36.2)
--- NOTE | 2021-02-19 14:24 | PC.NURSE ---
AM shift Pt is A/o x4, HHFNC in place @ 40L and 55% Fio2. Pt at rest sits up to 96% Spo2, any activity causes a drop to mid 80's. Recovery is fairly quick, up to chair for 2 hours this shift. Pt is cooperative with care, difficulty with proning, but excellent at side laying for the shift. Flat affect. Pt expresses anxiety about POC and potential for poor outcome. Reassured, cooperative with care gives the best outcomes and he has been agreeable to all care. Tele SB 1AVB. PIV x2, and no c/o pain at present. Using call light appropriately, standing to void at side of bed. Add-[id number] Dr Patel Cancelled CTA for today.
--- NOTE | 2021-02-19 14:39 | DIET.PN ---
Dietary Progress Note RD Note: RD screen for Covid19+ status in this obese elder male patient. Kitchen to send ONS Ensure Max c lunches to support high protein needs in low kcal/low carb bariatric formula. Renal fxn WNL.
--- NOTE | 2021-02-19 15:21 | P.PN_ITS ---
Subjective Subjective Date Patient Seen: 02/19/21 Time Patient Seen: 15:21 Interval history: This is an 80-year-old male with a past medical history of hypertension who was admitted with ARDS secondary to COVID-19 pneumonia. He has responded well to heated high-flow nasal cannula. He states that he feels quite well but gets short of breath with minimal exertion. He denies any lower extremity edema. He denies any abdominal pain, nausea, vomiting, diarrhea. Exam Vital Signs (past 8 hours): - 02/19/21 08:00 02/19/21 08:41 02/19/21 08:43 Temperature 98.5 F Pulse Rate 80 96 H 96 H Respiratory Rate 18 20 20 Blood Pressure 132/60 Pulse Oximetry 95 92 92 02/19/21 11:34 02/19/21 12:00 02/19/21 13:27 Temperature 98.3 F Pulse Rate 94 H 79 97 H Respiratory Rate 18 18 20 Blood Pressure 138/73 Pulse Oximetry 94 92 97 Fraction of Inspired Oxygen 0.50 Oxygen Delivery Method High Flow Nasal Cannula Oxygen Flow Rate 40 Narrative Exam Narrative: General: Patient is a well-developed, well-nourished male in no acute distress at rest at this time, he had just urinated and was short of breath sitting on the commode. HEENT: Normocephalic, atraumatic, extraocular muscles intact, oral pharynx is clear and mucous membranes are moist. Neck is supple and symmetric, trachea is midline, no adenopathy, no thyroid enlargement, nontender, no masses palpated. Negative for JVD Chest: Normal AP diameter and contour without kyphoscoliosis, Positive tach ypneic labored and work of breathing. Patient unable to complete full sentences. Lungs: Auscultation of all lung [place]on appeared diffusely slightly decraesed but equal, clear without adventitious sounds, wheezes, rhonchi, or rales. Cardio: S1 & S2 with regular rate and rhythm without murmur, rubs, or gallops, no carotid bruit, no cardiac pulsations present. Abdomen: Soft nontender, negative for organomegaly, or masses. Bowel sounds are present in all 4 quadrants without guarding or rebound, no CVA tenderness. Musculoskeletal: Muscle strength and tone are equal within normal limits, no de formity, crepitus, effusions, cyanosis, clubbing or edema present. Full range of motion intact radial and pedal pulses are normal. Skin: Warm dry and intact without rashes, ulcerations or petechiae. Neuro: Alert and orientated x3, strength is +5/5 in all extremities, sensation to touch intact, no gross deficits noted of cranial nerves. Psych: Patient has a well-kept appearance, appropriate affect, mental status attitude thought context and judgment are appropriate for age. Objective Labs Result Diagrams: 02/19/21 04:40 02/19/21 04:40 Labs: Laboratory Results - last 24 hr 02/18/21 02/18/21 02/18/21 11:20 22:51 22:58 WBC RBC Hgb Hct MCV MCH MCHC RDW Plt Count Neut % (Auto) Lymph % (Auto) [place] % (Auto) Eos % (Auto) Baso % (Auto) Neut # (Auto) Lymph # (Auto) [place] # (Auto) Eos # (Auto) Baso # (Auto) PT INR APTT D-Dimer VBG pH VBG pCO2 VBG pO2 VBG HCO3 VBG Total CO2 VBG O2 Saturation VBG Base Excess Sodium Potassium Chloride Carbon Dioxide BUN Creatinine Estimated GFR BUN/Creatinine Ratio Glucose Lactate Calcium Magnesium 2.0 Total Bilirubin Conjugated Bilirubin Unconjugated Bilirubin AST ALT Alkaline Phosphatase Troponin I 0.013 NT-Pro-B Natriuret Pep Total Protein Albumin Globulin Albumin/Globulin Ratio Nasal Screen MRSA (PCR) Negative for mrsa Gentamicin Peak HIV 1&2 Ab/P24 Ag 4thGn Influenza A (RT-PCR) Influenza B (RT-PCR) 02/19/21 02/19/21 02/19/21 03:25 04:40 04:40 WBC RBC Hgb Hct MCV MCH MCHC RDW Plt Count Neut % (Auto) Lymph % (Auto) [place] % (Auto) Eos % (Auto) Baso % (Auto) Neut # (Auto) Lymph # (Auto) [place] # (Auto) Eos # (Auto) Baso # (Auto) PT INR APTT D-Dimer VBG pH VBG pCO2 VBG pO2 VBG HCO3 VBG Total CO2 VBG O2 Saturation VBG Base Excess Sodium Potassium Chloride Carbon Dioxide BUN Creatinine Estimated GFR BUN/Creatinine Ratio Glucose Lactate Calcium Magnesium Total Bilirubin Cancelled Conjugated Bilirubin Cancelled Unconjugated Bilirubin Cancelled AST Cancelled ALT Cancelled Alkaline Phosphatase Cancelled Troponin I NT-Pro-B Natriuret Pep Total Protein Cancelled Albumin Cancelled Globulin Cancelled Albumin/Globulin Ratio Cancelled Nasal Screen MRSA (PCR) Gentamicin Peak HIV 1&2 Ab/P24 Ag 4thGn Negative Influenza A (RT-PCR) Flu a negative Influenza B (RT-PCR) Flu b negative 02/19/21 02/19/21 02/19/21 04:40 04:40 04:40 WBC 5.5 RBC 4.29 L Hgb 13.1 L Hct 37.8 L MCV 88.1 MCH 30.5 MCHC 34.6 RDW 13.5 Plt Count 178 Neut % (Auto) 75.8 H Lymph % (Auto) 17.2 L [place] % (Auto) 6.9 Eos % (Auto) 0.0 L Baso % (Auto) 0.1 Neut # (Auto) 4200 Lymph # (Auto) 900 L [place] # (Auto) 400 Eos # (Auto) 0 Baso # (Auto) 0 PT 16.3 H INR 1.5 H APTT 29 D-Dimer VBG pH VBG pCO2 VBG pO2 VBG HCO3 VBG Total CO2 VBG O2 Saturation VBG Base Excess Sodium 133 L Potassium 3.7 Chloride 103 Carbon Dioxide 22 BUN 20 Creatinine 0.82 Estimated GFR > 60.0 BUN/Creatinine Ratio 24.4 H Glucose 180 H Lactate Calcium 7.7 L Magnesium Total Bilirubin 0.5 Conjugated Bilirubin Unconjugated Bilirubin AST 59 ALT 30 Alkaline Phosphatase 62 Troponin I NT-Pro-B Natriuret Pep 1430 H Total Protein 6.2 L Albumin 3.1 L Globulin 3.1 Albumin/Globulin Ratio 1.0 Nasal Screen MRSA (PCR) Gentamicin Peak Cancelled HIV 1&2 Ab/P24 Ag 4thGn Influenza A (RT-PCR) Influenza B (RT-PCR) 02/19/21 02/19/21 02/19/21 04:40 04:40 04:40 WBC RBC Hgb Hct MCV MCH MCHC RDW Plt Count Neut % (Auto) Lymph % (Auto) [place] % (Auto) Eos % (Auto) Baso % (Auto) Neut # (Auto) Lymph # (Auto) [place] # (Auto) Eos # (Auto) Baso # (Auto) PT INR APTT D-Dimer 599 H VBG pH VBG pCO2 VBG pO2 VBG HCO3 VBG Total CO2 VBG O2 Saturation VBG Base Excess Sodium Potassium Chloride Carbon Dioxide BUN Creatinine Estimated GFR BUN/Creatinine Ratio Glucose Lactate 1.5 Calcium Magnesium Total Bilirubin Conjugated Bilirubin Unconjugated Bilirubin AST ALT Alkaline Phosphatase Troponin I 0.012 NT-Pro-B Natriuret Pep Total Protein Albumin Globulin Albumin/Globulin Ratio Nasal Screen MRSA (PCR) Gentamicin Peak HIV 1&2 Ab/P24 Ag 4thGn Influenza A (RT-PCR) Influenza B (RT-PCR) 02/19/21 05:00 WBC RBC Hgb Hct MCV MCH MCHC RDW Plt Count Neut % (Auto) Lymph % (Auto) [place] % (Auto) Eos % (Auto) Baso % (Auto) Neut # (Auto) Lymph # (Auto) [place] # (Auto) Eos # (Auto) Baso # (Auto) PT INR APTT D-Dimer VBG pH 7.47 H VBG pCO2 33.6 L VBG pO2 32 L VBG HCO3 24 VBG Total CO2 25 VBG O2 Saturation 67 L VBG Base Excess 0.0 Sodium Potassium Chloride Carbon Dioxide BUN Creatinine Estimated GFR BUN/Creatinine Ratio Glucose Lactate Calcium Magnesium Total Bilirubin Conjugated Bilirubin Unconjugated Bilirubin AST ALT Alkaline Phosphatase Troponin I NT-Pro-B Natriuret Pep Total Protein Albumin Globulin Albumin/Globulin Ratio Nasal Screen MRSA (PCR) Gentamicin Peak HIV 1&2 Ab/P24 Ag 4thGn Influenza A (RT-PCR) Influenza B (RT-PCR) [facility] Medical History Chickenpox (1945) Hearing loss Hypertension Knee pain, right anterior Nocturia Obesity (BMI 30.0-34.9) Vertigo Surgical History Hx of discectomy (1984) Family History Father Diabetes mellitus Mother Cancer Sister Cancer Grandfather Cancer Grandmother Stroke Grandfather No problems noted. Grandmother No problems noted. Social History household members: children Smoking Status: Never smoker alcohol intake: never substance use type: does not use Assessment & Plan Assessment & Plan narrative: miriam Boyd is 80 year old male fairly healthy for age, requiring acute care inpatient hospital management for acute respiratory failure in the setting of COVID pneumonia, after failing attempted outpatient management. 1. Acute respiratory failure with hypoxia, ARDS secondary to COVID pneumonia, acute, present on admission - continue remdesevir and decadron. Today day 2 of therapy. - currently on heated high flow nasal cannula. FiO2 55% and 40L. At rest O2 sat 94%, with minimal activity mid-upper 80s. -PaO2 / FiO2 of 157 on admission ABG, consistent with ARDS. - continue to wean as tolerated. 2. Essential hypertension, acute on chronic, present on admission -continue patient's amlodipine 10 mg QHS & lisinopril 20 mg q.a.m. 3. Osteoarthritis, chronic, present on admission -Continue patients Celebrex 4. Obesity as evidence by a BMI of 34, acute on chronic, present on admission -patient's obesity may impair his oxygenation and recovery from COVID pneumonia. Code status: DNR/DNI Surrogate decision maker: Zoraida Milligan (daughter [phone]) COVIDPCR: Positive 02/15/2021 COVID Pfizer vaccination X2 completed: 11/2020 VTE/DVT prophylaxis: LMW heparin 5000 units BID Expected length of stay: Greater than 2 midnights Quality VTE Deep Vein Thrombosis/Pulmonary Embolism Present on Admission: No
--- NOTE | 2021-02-19 16:18 | CM.DANOTE ---
Discharge Planning/Care Management DCP: assessment: initiated: case received, EMR reviewed. Discussed in Team Rounds. Pt is an 80 year old male who admitted last night to care of hospitalist team. PCP: Gordon Pardo Payer: Medicare and [employer]. + Covid status: as of 02/15 Pt fully vaccinated: Pfizer: November. Admission status: INPT: confirmed by UR MERLE Vaca Payer: Medicare and [employer]ARP Dr. Patel stated that pt was very ill and would be here for several days. DCP team will be follow as POC unfolds. Daughter Zoraida Lucio/Jose Guadalupe is listed as his next of kin: [phone] CM Discharge Assessment Start: 02/19/21 16:15 Freq: Status: Active Protocol: Document 02/19/21 16:16 ITV (Rec: 02/19/21 16:17 ITV [id number]) Discharge Planning Assessment Advance Directives? No History Provided By Medical Record Prior Living Arrangements House
[2021-02-19] MEDS: SENNOSIDES 8.6 MG TABLET 17.2 MG PO (20:06)
--- NOTE | 2021-02-19 22:14 | PC.NURSE ---
Patient a/ox4 for this evening, maintaining oxygen saturations of 92-96% on heated high flow 40L 55% FiO2. Patient frequently side-lying in bed, up to chair, and standing at edge of bed to use urinal. With activity, dyspnea increases and sats drop to high 80s, but patient recovers quickly in under five minutes. Pt daughter Jenni updated via phone at 1600 with patient status update.
[2021-02-20] VITALS (13 sets, daily range): BP systolic 125–136; BP diastolic 67–75; PULSE 64–98; RESP 18–25; TEMP 36.4–37.3; O2SAT 92–99
[2021-02-20] MEDS: ACETAMINOPHEN 325 MG TABLET 650 MG PO ×3 (02:23→23:48)
[2021-02-20 05:28] LABS: Add Manual Diff / Slide Review NO; Basophils Absolute Auto 0 /uL (0-100); Basophils Percent Auto 0.1 % (0-2); Eosinophils Absolute Auto 0 /uL (0-450); Hematocrit 36.1 % (41-53); Hemoglobin 12.5 g/dL (13.5-17.5); Lymphocytes Absolute Auto 1000 /uL (1100-4500); Lymphocytes Percent Auto 10.2 % (25-40); Mean Corpuscular HGB Conc 34.6 % (30-36); Mean Corpuscular Hemoglobin 30.5 PG (26-34); Monocytes Absolute Auto 800 /uL (0-900); Monocytes Percent Auto 7.8 % (3-14); Neutrophils Absolute Auto 8100 /uL (1500-7000); Neutrophils Percent Auto 81.9 % (50-75); Platelet Count 206 X10^3/uL (150-400); Red Cell Distribution Width 13.7 % (11.6-14.8); White Blood Cell Count 9.9 X10^3/uL (4.5-11.0)
[2021-02-20 05:36] LABS: Alanine Aminotransferase 28 IU/L (<50); Albumin 2.8 g/dL (3.5-5.0); Alkaline Phosphatase 55 U/L (38-126); Aspartate Aminotransferase 47 IU/L (17-59); BUN Creatinine Ratio 24.7 (6-22); Bilirubin Total 0.5 mg/dL (0.2-1.3); Blood Urea Nitrogen 21 mg/dL (9-20); Calcium 7.4 mg/dL (8.4-10.2); Carbon Dioxide 24 mmol/L (22-32); Chloride 104 mmol/L (98-107); Estimated Glomerular Filt Rate > 60.0 mL/min (>60); Globulin 2.9 g/dL (1.7-4.1); Glucose 166 mg/dL (80-110); HEMOLYSIS < 15 (0-50); Potassium 3.6 mmol/L (3.4-5.1); Sodium 133 mmol/L (137-145); Total Protein 5.7 g/dL (6.3-8.2)
[2021-02-20 05:53] LABS: HBsAg Screen Negative (Negative); Hepatitis A Antibody IgM Negative (Negative); Hepatitis B Core Antibody IgM Negative (Negative); Hepatitis C Antibody <0.1 s/co ratio (0.0-0.9)
--- NOTE | 2021-02-20 06:27 | PC.NURSE ---
Manager Telemetry Note-Patient has been awake most of the night, oriented but restless, HHFNC increased to 60% FIO2/40L by RT, SpO2 remain >92% when cannula in nares, patient is contently touching it. Desats to 80% on RA, only desats to 85% during activity with O2 on. Tylenol given for headache. Had BM, voids frequently with urinal and SBA, does use call light appropriately.
[2021-02-20] MEDS: HEPARIN 5,000 UNIT/ML VIAL 5000 UNIT SUBCUT ×2 (08:44→20:11)
[2021-02-20] MEDS: REMDESIVIR 100 MG in SODIUM CHLORIDE 0.9% 230 ML 250 ML IV (08:45)
[2021-02-20] MEDS: SODIUM CHLORIDE 0.9% FLUSH 10 ML IV ×2 (08:45→20:11)
[2021-02-20] MEDS: PANTOPRAZOLE DR 40 MG TABLET PO (08:46)
[2021-02-20] MEDS: dexAMETHasone 4 MG TABLET 6 MG PO (08:46)
--- NOTE | 2021-02-20 12:28 | P.PN_ITS ---
Subjective Subjective Date Patient Seen: 02/20/21 Time Patient Seen: 08:00 Interval history: He denies feeling significant shortness of breath. His cough is improving. Otherwise he has no complaints. Exam Vital Signs (past 8 hours): - 02/20/21 04:42 02/20/21 05:59 02/20/21 08:22 Temperature 97.5 F L Pulse Rate 76 84 64 Respiratory Rate 20 20 19 Blood Pressure 125/67 126/70 Pulse Oximetry 94 93 95 02/20/21 08:30 Temperature Pulse Rate 83 Respiratory Rate 20 Blood Pressure Pulse Oximetry 93 Fraction of Inspired Oxygen 60 Oxygen Delivery Method Heated High Flow Oxygen Flow Rate 40 Narrative Exam Narrative: General: no acute distress Lungs: diffusely slightly decreased breath sounds Cardio: regular rate and rhythm without murmurs Abdomen: Soft nontender, negative for organomegaly, or masses. Normal bowel sounds Musculoskeletal: Muscle strength and tone are equal within normal limits Skin: Warm dry and intact without rashes Neuro: Alert and orientated x3, grossly no focal neuro deficitis Psych: pleasant, cooperative Objective Labs Result Diagrams: 02/20/21 04:35 02/20/21 04:35 Labs: Laboratory Results - last 24 hr 02/19/21 02/19/21 02/20/21 04:40 04:40 04:35 WBC 9.9 D RBC 4.10 L Hgb 12.5 L Hct 36.1 L MCV 88.0 MCH 30.5 MCHC 34.6 RDW 13.7 Plt Count 206 Neut % (Auto) 81.9 H Lymph % (Auto) 10.2 L [place] % (Auto) 7.8 Eos % (Auto) 0.0 L Baso % (Auto) 0.1 Neut # (Auto) 8100 H Lymph # (Auto) 1000 L [place] # (Auto) 800 Eos # (Auto) 0 Baso # (Auto) 0 PT 16.3 H INR 1.5 H APTT 29 Sodium Potassium Chloride Carbon Dioxide BUN Creatinine Estimated GFR BUN/Creatinine Ratio Glucose Calcium Total Bilirubin AST ALT Alkaline Phosphatase Total Protein Albumin Globulin Albumin/Globulin Ratio Hepatitis A IgM Ab Negative Hep Bs Antigen Negative Hep B Core IgM Ab Negative Hepatitis C Antibody <0.1 Hep C Ab Signal/Cutoff Comment 02/20/21 04:35 WBC RBC Hgb Hct MCV MCH MCHC RDW Plt Count Neut % (Auto) Lymph % (Auto) [place] % (Auto) Eos % (Auto) Baso % (Auto) Neut # (Auto) Lymph # (Auto) [place] # (Auto) Eos # (Auto) Baso # (Auto) PT INR APTT Sodium 133 L Potassium 3.6 Chloride 104 Carbon Dioxide 24 BUN 21 H Creatinine 0.85 Estimated GFR > 60.0 BUN/Creatinine Ratio 24.7 H Glucose 166 H Calcium 7.4 L Total Bilirubin 0.5 AST 47 ALT 28 Alkaline Phosphatase 55 Total Protein 5.7 L Albumin 2.8 L Globulin 2.9 Albumin/Globulin Ratio 1.0 Hepatitis A IgM Ab Hep Bs Antigen Hep B Core IgM Ab Hepatitis C Antibody Hep C Ab Signal/Cutoff ON LICENSE OF [facility] Medical History Chickenpox (1945) Hearing loss Hypertension Knee pain, right anterior Nocturia Obesity (BMI 30.0-34.9) Vertigo Surgical History Hx of discectomy (1984) Family History Father Diabetes mellitus Mother Cancer Sister Cancer Grandfather Cancer Grandmother Stroke Grandfather No problems noted. Grandmother No problems noted. Social History household members: children Smoking Status: Never smoker alcohol intake: never substance use type: does not use Assessment & Plan Assessment & Plan narrative: Mr. Boyd is 80M acute respiratory failure in the setting of COVID pneumonia, after failing attempted outpatient management. 1. Acute respiratory failure with hypoxia, ARDS secondary to COVID pneumonia, acute, present on admission - continue remdesevir and decadron. Day 1 02/18. - currently on heated high flow nasal cannula. FiO2 55% and 40L. At rest O2 sat 94%, with minimal activity mid-upper 80s. -PaO2 / FiO2 of 157 on admission ABG, consistent with ARDS. - continue to wean as tolerated. 2. Essential hypertension, acute on chronic, present on admission -continue patient's amlodipine 10 mg QHS & lisinopril 20 mg q.a.m. 3. Osteoarthritis, chronic, present on admission -Continue patients Celebrex 4. Obesity as evidence by a BMI of 34, acute on chronic, present on admission -patient's obesity may impair his oxygenation and recovery from COVID pneumonia. Code status: DNR/DNI Surrogate decision maker: Zoraida Milligan (daughter [phone]) VTE/DVT prophylaxis: LMW heparin 5000 units BID Quality VTE Deep Vein Thrombosis/Pulmonary Embolism Present on Admission: No
--- NOTE | 2021-02-20 14:48 | PC.NURSE ---
PT DENIES PAIN OR DISCOMFORT - TAKING FAIR AMOUNT OF PO INTAKE AND STANDING OT USE URINAL- CONTINUES ON 40L/60% ON HHFNC SPO2 95%
[2021-02-20] MEDS: SENNOSIDES 8.6 MG TABLET 17.2 MG PO (20:11)
--- NOTE | 2021-02-20 23:18 | PC.NURSE ---
Patient A/Ox4 and no complaints of pain throughout shift. On HHF, 60%, 40L until end of shift when he was titrated down to 40L 50% FiO2 by RT. Good appetite, sat at bedside for multiple hours. Reminded to that side-lying is beneficial to oxygenation. Call light at bedside, able to make needs known.
[2021-02-20] MEDS: MELATONIN 3 MG TABLET 9 MG PO (23:48)
[2021-02-21] VITALS (12 sets, daily range): BP systolic 111–138; BP diastolic 60–76; PULSE 63–79; RESP 17–25; TEMP 36.1–37.2; O2SAT 94–100
[2021-02-21 05:06] LABS: Add Manual Diff / Slide Review NO; Basophils Absolute Auto 100 /uL (0-100); Basophils Percent Auto 1.5 % (0-2); Eosinophils Absolute Auto 0 /uL (0-450); Hematocrit 35.7 % (41-53); Hemoglobin 12.3 g/dL (13.5-17.5); Lymphocytes Absolute Auto 1200 /uL (1100-4500); Lymphocytes Percent Auto 11.7 % (25-40); Mean Corpuscular HGB Conc 34.4 % (30-36); Mean Corpuscular Hemoglobin 30.6 PG (26-34); Mean Corpuscular Volume 88.9 fL (80-100); Monocytes Absolute Auto 700 /uL (0-900); Neutrophils Absolute Auto 8100 /uL (1500-7000); Neutrophils Percent Auto 79.8 % (50-75); Platelet Count 236 X10^3/uL (150-400); Red Blood Cell Count 4.01 X10^6/uL (4.5-5.9); Red Cell Distribution Width 14.2 % (11.6-14.8); White Blood Cell Count 10.1 X10^3/uL (4.5-11.0)
[2021-02-21 05:07] LABS: INR 1.5 (0.9-1.3); Prothrombin Time 17.1 SECONDS (10.1-12.7)
[2021-02-21 05:10] LABS: PTT Partial Thromboplastin Tim 27 SECONDS (26.4-36.2)
[2021-02-21 05:16] LABS: Alanine Aminotransferase 33 IU/L (<50); Albumin 2.7 g/dL (3.5-5.0); Albumin Globulin Ratio 0.9 (1.0-2.8); Alkaline Phosphatase 61 U/L (38-126); Aspartate Aminotransferase 59 IU/L (17-59); Bilirubin Total 0.5 mg/dL (0.2-1.3); Blood Urea Nitrogen 22 mg/dL (9-20); Calcium 7.5 mg/dL (8.4-10.2); Carbon Dioxide 26 mmol/L (22-32); Chloride 104 mmol/L (98-107); Estimated Glomerular Filt Rate > 60.0 mL/min (>60); Globulin 2.9 g/dL (1.7-4.1); Glucose 156 mg/dL (80-110); HEMOLYSIS < 15 (0-50); Potassium 3.9 mmol/L (3.4-5.1); Sodium 134 mmol/L (137-145); Total Protein 5.6 g/dL (6.3-8.2)
[2021-02-21] MEDS: PANTOPRAZOLE DR 40 MG TABLET PO (06:08)
--- NOTE | 2021-02-21 06:56 | PC.NURSE ---
Cyber Security Manager Note-Patient has been on HHF 40L/50% FIO2, SpO2 >95% throughout night, even while standing at the bedside independently. Up to BSC in am, had large BM, no desaturation or distress, crackles in bases R>L, no cough. Melatonin and Tylenol given at midnight-both effective.
[2021-02-21] MEDS: SODIUM CHLORIDE 0.9% FLUSH 10 ML IV ×2 (09:05→20:16)
[2021-02-21] MEDS: HEPARIN 5,000 UNIT/ML VIAL 5000 UNIT SUBCUT ×2 (09:08→20:16)
[2021-02-21] MEDS: DEXAMETHASONE 10 MG/ML VIAL 6 MG IV (09:08)
[2021-02-21] MEDS: REMDESIVIR 100 MG in SODIUM CHLORIDE 0.9% 230 ML 250 ML IV (09:09)
--- NOTE | 2021-02-21 11:19 | P.PN_ITS ---
Subjective Subjective Date Patient Seen: 02/21/21 Time Patient Seen: 08:00 Interval history: He is feeling much improved today. His o2 sats are currently 100% while still on the high flow oxygen. He denies shortness of breath, he is still coughing. Exam Vital Signs (past 8 hours): - 02/21/21 04:35 02/21/21 05:47 02/21/21 07:30 Temperature 98.5 F Pulse Rate 64 78 76 Respiratory Rate 17 20 18 Blood Pressure 119/64 Pulse Oximetry 99 94 96 02/21/21 08:00 02/21/21 09:30 Temperature 97.5 F L Pulse Rate 73 Respiratory Rate 18 Blood Pressure 127/73 Pulse Oximetry 98 100 Fraction of Inspired Oxygen 0.49 Oxygen Delivery Method Nasal Cannula Oxygen Flow Rate 2 Narrative Exam Narrative: General: no acute distress Lungs: diffusely slightly decreased breath sounds Cardio: regular rate and rhythm without murmurs Abdomen: Soft nontender, negative for organomegaly, or masses. Normal bowel sounds Musculoskeletal: Muscle strength and tone are equal within normal limits Skin: Warm dry and intact without rashes Neuro: Alert and orientated x3, grossly no focal neuro deficitis Psych: pleasant, cooperative Objective Labs Result Diagrams: 02/21/21 04:25 02/21/21 04:25 Labs: Laboratory Results - last 24 hr 02/21/21 02/21/21 02/21/21 04:25 04:25 04:25 WBC 10.1 RBC 4.01 L Hgb 12.3 L Hct 35.7 L MCV 88.9 MCH 30.6 MCHC 34.4 RDW 14.2 Plt Count 236 Neut % (Auto) 79.8 H Lymph % (Auto) 11.[address] [place] % (Auto) 7.0 Eos % (Auto) 0.0 L Baso % (Auto) 1.5 Neut # (Auto) 8100 H Lymph # (Auto) 1200 [place] # (Auto) 700 Eos # (Auto) 0 Baso # (Auto) 100 PT 17.1 H INR 1.5 H APTT 27 Sodium 134 L Potassium 3.9 Chloride 104 Carbon Dioxide 26 BUN 22 H Creatinine 0.88 Estimated GFR > 60.0 BUN/Creatinine Ratio 25.0 H Glucose 156 H Calcium 7.5 L Total Bilirubin 0.5 AST 59 ALT 33 Alkaline Phosphatase 61 Total Protein 5.6 L Albumin 2.7 L Globulin 2.9 Albumin/Globulin Ratio 0.9 L PFSH Medical History Chickenpox (1945) Hearing loss Hypertension Knee pain, right anterior Nocturia Obesity (BMI 30.0-34.9) Vertigo Surgical History Hx of discectomy (1984) Family History Father Diabetes mellitus Mother Cancer Sister Cancer Grandfather Cancer Grandmother Stroke Grandfather No problems noted. Grandmother No problems noted. Social History household members: children Smoking Status: Never smoker alcohol intake: never substance use type: does not use Assessment & Plan Assessment & Plan narrative: Mr. Boyd is 80M acute respiratory failure in the setting of COVID pneumonia, after failing attempted outpatient management. 1. Acute respiratory failure with hypoxia, ARDS secondary to COVID pneumonia, acute, present on admission - continue remdesevir and decadron. Day 1 02/18. - currently on heated high flow nasal cannula. FiO2 50% and 40L. At rest O2 sat 100%, can likely titrate down oxygen significantly - PaO2 / FiO2 of 157 on admission ABG, consistent with ARDS. - continue to wean as tolerated. 2. Essential hypertension, acute on chronic, present on admission -continue patient's amlodipine 10 mg QHS & lisinopril 20 mg q.a.m. 3. Osteoarthritis, chronic, present on admission -Continue patients Celebrex 4. Obesity as evidence by a BMI of 34, acute on chronic, present on admission -patient's obesity may impair his oxygenation and recovery from COVID pneumonia. Code status: DNR/DNI Surrogate decision maker: Zoraida Milligan (daughter [phone]) VTE/DVT prophylaxis: LMW heparin 5000 units BID Quality VTE Deep Vein Thrombosis/Pulmonary Embolism Present on Admission: No
[2021-02-21] MEDS: SENNOSIDES 8.6 MG TABLET 17.2 MG PO (20:15)
[2021-02-21] MEDS: MELATONIN 3 MG TABLET 9 MG PO (20:16)
[2021-02-21] MEDS: MAG HYDROX/ALUM/SIMETH 30 ML UDC PO (21:00)
[2021-02-22] VITALS (15 sets, daily range): BP systolic 119–157; BP diastolic 61–78; PULSE 63–92; RESP 20–37; TEMP 36.5–37.1; O2SAT 87–96
--- NOTE | 2021-02-22 01:46 | PC.NURSE ---
Addendum entered by Brigida Camilo R.N. 02/22/21 06:53: O2 sat staying consistently at 86-87% so elevated HOB further and increased oxygen to 3L/min with sat now at 89%. Original Note: Patient is alert and oriented. Breath sounds diminished throughout. Is on oxygen at 2L/min per NC with sat of 93%. Denies SOB at rest but admits to slight SOB with activity. HRR with telemetry reading of SR. Denies nausea. BT present and abdomen is soft. Voiding per urinal; denies dysuria, frequency or urgency. Is able to move himself in bed and stands at side of bed to use urinal. Declines to wear SCD's so reminded to ankle wave. Denies pain. Fall risk score is moderate. On droplet with aersolizing precautions due to covid.
[2021-02-22 05:19] LABS: Add Manual Diff / Slide Review NO; Basophils Absolute Auto 0 /uL (0-100); Basophils Percent Auto 0.3 % (0-2); Eosinophils Absolute Auto 0 /uL (0-450); Eosinophils Percent Auto 0.1 % (2-4); Hematocrit 37.3 % (41-53); Hemoglobin 12.6 g/dL (13.5-17.5); Lymphocytes Absolute Auto 1600 /uL (1100-4500); Lymphocytes Percent Auto 13.2 % (25-40); Mean Corpuscular HGB Conc 33.7 % (30-36); Mean Corpuscular Hemoglobin 30.1 PG (26-34); Mean Corpuscular Volume 89.3 fL (80-100); Monocytes Absolute Auto 900 /uL (0-900); Monocytes Percent Auto 7.2 % (3-14); Neutrophils Absolute Auto 9700 /uL (1500-7000); Neutrophils Percent Auto 79.2 % (50-75); Platelet Count 265 X10^3/uL (150-400); Red Blood Cell Count 4.18 X10^6/uL (4.5-5.9); Red Cell Distribution Width 13.9 % (11.6-14.8); White Blood Cell Count 12.2 X10^3/uL (4.5-11.0)
[2021-02-22 05:28] LABS: Alanine Aminotransferase 55 IU/L (<50); Albumin 2.8 g/dL (3.5-5.0); Albumin Globulin Ratio 0.9 (1.0-2.8); Alkaline Phosphatase 58 U/L (38-126); Aspartate Aminotransferase 57 IU/L (17-59); BUN Creatinine Ratio 24.2 (6-22); Bilirubin Total 0.6 mg/dL (0.2-1.3); Blood Urea Nitrogen 23 mg/dL (9-20); Carbon Dioxide 29 mmol/L (22-32); Chloride 103 mmol/L (98-107); Estimated Glomerular Filt Rate > 60.0 mL/min (>60); Globulin 3.1 g/dL (1.7-4.1); Glucose 122 mg/dL (80-110); HEMOLYSIS < 15 (0-50); Potassium 4.1 mmol/L (3.4-5.1); Sodium 136 mmol/L (137-145); Total Protein 5.9 g/dL (6.3-8.2)
[2021-02-22] MEDS: PANTOPRAZOLE DR 40 MG TABLET PO (06:27)
--- NOTE | 2021-02-22 07:45 | DI.RAD.S_ITS ---
PROCEDURE: XR CHEST 1V INDICATIONS: COVID pna, worsening hypoxemia overnight TECHNIQUE: One view of the chest was acquired. COMPARISON: [facility], CR, XR CHEST 1V, 02/15/2021, 19:02. [facility], CR, XR CHEST 1V, 02/18/2021, 12:13. FINDINGS: Surgical changes and devices: None. Lungs and pleura: Worsening of airspace opacities in right lung and left lower lobe consistent with worsening of pneumonia. No pleural effusions or pneumothorax. Mediastinum: Mediastinal contours appear normal. Heart size is normal. Bones and chest wall: No suspicious bony lesions. Overlying soft tissues appear unremarkable. IMPRESSION: Worsening of bilateral pneumonia. Dictated by: Neel Luis M.D. on 02/22/2021 at 8:14 Approved by: Neel Luis M.D. on 02/22/2021 at 8:15
[2021-02-22 08:41] LABS: PCO2 ABG 27.6 mmHg (35-45); pH ABG 7.52 (7.35-7.45)
[2021-02-22 08:42] LABS: HCO3 ABG 23 mmol/L (22-26); Oxygen Saturation ABG 87 % (95-100); PO2 ABG 46 mmHg (80-100); TCO2 ABG 23 mmol/L (21-31)
[2021-02-22 08:43] LABS: Fractionated Inspired Oxygen 40
[2021-02-22] MEDS: HEPARIN 5,000 UNIT/ML VIAL 5000 UNIT SUBCUT ×2 (09:01→20:50)
[2021-02-22] MEDS: DEXAMETHASONE 10 MG/ML VIAL 6 MG IV (09:01)
[2021-02-22] MEDS: REMDESIVIR 100 MG in SODIUM CHLORIDE 0.9% 230 ML 250 ML IV (09:06)
[2021-02-22] MEDS: SODIUM CHLORIDE 0.9% FLUSH 10 ML IV ×2 (09:07→20:51)
[2021-02-22] MEDS: MEROPENEM 1 GM in SODIUM CHLORIDE 0.9% 100 ML 200 ML IV ×2 (10:04→17:19)
[2021-02-22] MEDS: AZITHROMYCIN 500 MG in DEXTROSE 5% IN WATER 250 ML IV (10:55)
--- NOTE | 2021-02-22 11:05 | PC.NURSE ---
Addendum entered by Eleni Johansen R.N. 02/22/21 11:54: pt got up from bed unassisted and inadvertently pulled out iv access- and he pulled off hhfnc during this urgent transfer of pt to bathroom- assisted back to bed and restarted iv access to continue iv abx therapy as well returned to oxygen therapy at 50L/60% FIO2- REMINDED PT TO USE CALL LIGHT PRIOR TO GETTING UP WELL ENSURING BED ALARM ON Original Note: PT FOUND TO BE DYSPNEIC AND TACHYPNEIC AT INITIAL ASSESSMENT THIS AM-QUICKLY INCREASED HIS O2 TO HFNC AND THEN RESTARTED HEATED HIGH FLOW DUE TO HIS NEEDS- ABG COMPLETED PRIOR AND INDICATED HIS NEED FOR FURTHER INTERVENTION- RESTING PEACEFULLY AT PRESENT ON 40L/65% FOR SPO2 94% RESP RATE REMAINS IN THE 20'S- INITIATED ABX THERAPY WELL
[2021-02-22] MEDS: VANCOMYCIN 1,250 MG/250 ML PIGGYBACK 250 MG IV ×2 (11:55→23:03)
--- NOTE | 2021-02-22 12:11 | PM.PN.1 ---
Subjective Subjective Date Patient Seen: 02/22/21 Time Patient Seen: 08:00 Interval history: This morning he feels more short of breath and fatigued. He had been on 2L oxygen all day yesterday and most of overnight, but this morning has quickly had worsening of his respiratory status and has now been placed back on heated high flow oxygen. Exam Vital Signs (past 8 hours): - 02/22/21 04:45 02/22/21 07:45 02/22/21 08:00 Temperature 98.2 F 98.0 F Pulse Rate 67 67 72 Respiratory Rate 24 28 H 37 H Blood Pressure 130/62 126/67 Pulse Oximetry 94 88 L 87 L 02/22/21 08:15 02/22/21 11:37 02/22/21 11:39 Temperature 97.7 F Pulse Rate 79 68 68 Respiratory Rate 24 24 20 Blood Pressure 139/72 Pulse Oximetry 96 93 93 Fraction of Inspired Oxygen 60 Oxygen Delivery Method Heated High Flow Oxygen Flow Rate 50 Narrative Exam Narrative: General: moderate respiratory distress Lungs: coarse breath sounds bilaterally, poor air movement Cardio: regular rate and rhythm without murmurs Abdomen: Soft nontender, negative for organomegaly, or masses. Normal bowel sounds Musculoskeletal: Muscle strength and tone are equal within normal limits Skin: Warm dry and intact without rashes Neuro: Alert and orientated x3, grossly no focal neuro deficitis Psych: pleasant, cooperative Objective Labs Result Diagrams: 02/22/21 04:30 02/22/21 04:30 Labs: Laboratory Results - last 24 hr 02/22/21 02/22/21 02/22/21 04:30 04:30 08:10 WBC 12.2 H RBC 4.18 L Hgb 12.6 L Hct 37.3 L MCV 89.3 MCH 30.1 MCHC 33.7 RDW 13.9 Plt Count 265 Neut % (Auto) 79.2 H Lymph % (Auto) 13.2 L [place] % (Auto) 7.2 Eos % (Auto) 0.1 L Baso % (Auto) 0.3 Neut # (Auto) 9700 H Lymph # (Auto) 1600 [place] # (Auto) 900 Eos # (Auto) 0 Baso # (Auto) 0 ABG pH 7.52 H ABG pCO2 27.6 L ABG pO2 46 L* ABG HCO3 23 ABG Total CO2 23 ABG O2 Saturation 87 L ABG Base Excess 0.0 FiO2 40 Sodium 136 L Potassium 4.1 Chloride 103 Carbon Dioxide 29 BUN 23 H Creatinine 0.95 Estimated GFR > 60.0 BUN/Creatinine Ratio 24.2 H Glucose 122 H Calcium 8.0 L Total Bilirubin 0.6 AST 57 ALT 55 H Alkaline Phosphatase 58 Total Protein 5.9 L Albumin 2.8 L Globulin 3.1 Albumin/Globulin Ratio 0.9 L [facility] Medical History Chickenpox (1945) Hearing loss Hypertension Knee pain, right anterior Nocturia Obesity (BMI 30.0-34.9) Vertigo Surgical History Hx of discectomy (1984) Family History Father Diabetes mellitus Mother Cancer Sister Cancer Grandfather Cancer Grandmother Stroke Grandfather No problems noted. Grandmother No problems noted. Social History household members: children Smoking Status: Never smoker alcohol intake: never substance use type: does not use Assessment & Plan Assessment & Plan narrative: Mr. Boyd is 80M acute respiratory failure in the setting of COVID pneumonia, after failing attempted outpatient management. 1. Acute respiratory failure with hypoxia, ARDS secondary to COVID pneumonia, acute, present on admission - continue remdesevir and decadron. Day 1 02/18. - had improved to 2L oxygen on 02/21, then had significant worsening and back on heated high flow on 02/22 AM - cxray shows worsening pneumonia on 02/22 presumably worsening COVID - however given initial improvement and now worsening, will start broad spectrum antibiotics vanco,meropenem, and azithro in case super infection from bacterial pneumonia - sputum culture ordered - PaO2 / FiO2 of 157 on admission ABG, consistent with ARDS. - continue to wean as tolerated. 2. Essential hypertension, acute on chronic, present on admission -continue patient's amlodipine 10 mg QHS & lisinopril 20 mg q.a.m. 3. Osteoarthritis, chronic, present on admission -Continue patients Celebrex 4. Obesity as evidence by a BMI of 34, acute on chronic, present on admission -patient's obesity may impair his oxygenation and recovery from COVID pneumonia. Code status: DNR/DNI Surrogate decision maker: Zoraida Milligan (daughter [phone]) VTE/DVT prophylaxis: LMW heparin 5000 units BID Quality VTE Deep Vein Thrombosis/Pulmonary Embolism Present on Admission: No
[2021-02-22] MEDS: SODIUM CHLORIDE 0.9% 250 ML 21 ML IV (15:00)
[2021-02-22 16:00] LABS: PCO2 ABG 29.2 mmHg (35-45); PO2 ABG 71 mmHg (80-100); pH ABG 7.49 (7.35-7.45)
[2021-02-22 16:01] LABS: HCO3 ABG 22 mmol/L (22-26); Oxygen Saturation ABG 96 % (95-100); TCO2 ABG 23 mmol/L (21-31)
[2021-02-22 16:02] LABS: Fractionated Inspired Oxygen 60
[2021-02-22] MEDS: MELATONIN 3 MG TABLET 9 MG PO (20:50)
[2021-02-22] MEDS: SENNOSIDES 8.6 MG TABLET 17.2 MG PO (20:50)
--- NOTE | 2021-02-22 23:00 | PC.NURSE ---
Patient A/Ox4, on HHF 50L 60% FiO2. No complaints of pain. Good appetite. Patient says he had a pretty good day today. SpO2 90-94% most of shift, trending downwards to 88-90% towards end of evening shift, RT notified. Receiving IV antibiotic. Independently using urinal at bedside. Able to use call light and make needs known.
[2021-02-23] VITALS (15 sets, daily range): BP systolic 123–139; BP diastolic 61–72; PULSE 57–88; RESP 19–36; TEMP 36.6–37.5; O2SAT 91–98
[2021-02-23] MEDS: MEROPENEM 1 GM in SODIUM CHLORIDE 0.9% 100 ML 200 ML IV ×3 (00:25→16:48)
[2021-02-23 05:11] LABS: Hematocrit 36.7 % (41-53); Hemoglobin 12.5 g/dL (13.5-17.5); Mean Corpuscular HGB Conc 34.1 % (30-36); Mean Corpuscular Hemoglobin 30.4 PG (26-34); Mean Corpuscular Volume 89.2 fL (80-100); Platelet Count 275 X10^3/uL (150-400); Red Blood Cell Count 4.11 X10^6/uL (4.5-5.9); Red Cell Distribution Width 14.1 % (11.6-14.8); White Blood Cell Count 10.8 X10^3/uL (4.5-11.0)
[2021-02-23 05:18] LABS: BUN Creatinine Ratio 24.7 (6-22); Blood Urea Nitrogen 21 mg/dL (9-20); Calcium 7.7 mg/dL (8.4-10.2); Carbon Dioxide 23 mmol/L (22-32); Chloride 105 mmol/L (98-107); Estimated Glomerular Filt Rate > 60.0 mL/min (>60); Glucose 132 mg/dL (80-110); HEMOLYSIS < 15 (0-50); Sodium 133 mmol/L (137-145)
[2021-02-23] MEDS: PANTOPRAZOLE DR 40 MG TABLET PO (06:09)
--- NOTE | 2021-02-23 06:41 | PC.NURSE ---
Painter Set Note-Patient slept with HHF at 50L/65% FIO2, SpO2 92-94% while sleeping on Rt side, increased to >96% when on Lt side. Denies dyspnea, RR 20s. SB/SR. Tylenol given at MN, IV abx infused. He wakes every 1-2 hrs to void, using urinal on own at bedside.
[2021-02-23] MEDS: DEXAMETHASONE 10 MG/ML VIAL 6 MG IV (08:24)
[2021-02-23] MEDS: HEPARIN 5,000 UNIT/ML VIAL 5000 UNIT SUBCUT ×2 (08:24→22:00)
[2021-02-23] MEDS: SODIUM CHLORIDE 0.9% FLUSH 10 ML IV (08:25)
[2021-02-23] MEDS: REMDESIVIR 100 MG in SODIUM CHLORIDE 0.9% 230 ML 250 ML IV (09:15)
[2021-02-23] MEDS: AZITHROMYCIN 500 MG in DEXTROSE 5% IN WATER 250 ML IV (10:34)
[2021-02-23] MEDS: VANCOMYCIN 1,250 MG/250 ML PIGGYBACK 250 MG IV (11:52)
--- NOTE | 2021-02-23 12:49 | PM.PN.1 ---
Subjective Subjective Date Patient Seen: 02/23/21 Time Patient Seen: 08:00 Interval history: Today he feels less short of breath. However overnight he did need to go up to 65% fio2. He denies coughing, fevers, chills. Exam Vital Signs (past 8 hours): - 02/23/21 04:50 02/23/21 05:48 02/23/21 07:42 Temperature 98.0 F Pulse Rate 66 57 L 65 Respiratory Rate 24 24 28 H Blood Pressure 138/65 138/65 139/70 Pulse Oximetry 91 98 95 02/23/21 08:00 02/23/21 10:11 02/23/21 11:54 Temperature 97.9 F 97.8 F Pulse Rate 71 65 67 Respiratory Rate 19 22 20 Blood Pressure 139/70 139/70 126/70 Pulse Oximetry 94 94 95 02/23/21 12:02 Temperature Pulse Rate 76 Respiratory Rate 30 H Blood Pressure 126/70 Pulse Oximetry 96 Fraction of Inspired Oxygen 0.65 Oxygen Delivery Method Heated High Flow Oxygen Flow Rate 50 Narrative Exam Narrative: General: moderate respiratory distress Lungs: coarse breath sounds bilaterally, poor air movement but improved on 02/23 compared to 02/22 Cardio: regular rate and rhythm without murmurs Abdomen: Soft nontender, negative for organomegaly, or masses. Normal bowel sounds Musculoskeletal: Muscle strength and tone are equal within normal limits Skin: Warm dry and intact without rashes Neuro: Alert and orientated x3, grossly no focal neuro deficitis Psych: pleasant, cooperative Objective Labs Result Diagrams: 02/23/21 04:40 02/23/21 04:40 Labs: Laboratory Results - last 24 hr 02/22/21 02/23/21 02/23/21 15:25 04:40 04:40 WBC 10.8 RBC 4.11 L Hgb 12.5 L Hct 36.7 L MCV 89.2 MCH 30.4 MCHC 34.1 RDW 14.1 Plt Count 275 ABG pH 7.49 H ABG pCO2 29.2 L ABG pO2 71 L ABG HCO3 22 ABG Total CO2 23 ABG O2 Saturation 96 ABG Base Excess -1.0 FiO2 60 Sodium 133 L Potassium 4.0 Chloride 105 Carbon Dioxide 23 BUN 21 H Creatinine 0.85 Estimated GFR > 60.0 BUN/Creatinine Ratio 24.7 H Glucose 132 H Calcium 7.7 L PFSH Medical History Chickenpox (1945) Hearing loss Hypertension Knee pain, right anterior Nocturia Obesity (BMI 30.0-34.9) Vertigo Surgical History Hx of discectomy (1984) Family History Father Diabetes mellitus Mother Cancer Sister Cancer Grandfather Cancer Grandmother Stroke Grandfather No problems noted. Grandmother No problems noted. Social History household members: children Smoking Status: Never smoker alcohol intake: never substance use type: does not use Assessment & Plan Assessment & Plan narrative: Mr. Boyd is 80M acute respiratory failure in the setting of COVID pneumonia, after failing attempted outpatient management. 1. Acute respiratory failure with hypoxia, ARDS secondary to COVID pneumonia, acute, present on admission - continue remdesevir and decadron. Day 1 02/18. - had improved to 2L oxygen on 02/21, then had significant worsening and back on heated high flow on 02/22 AM - cxray shows worsening pneumonia on 02/22 presumably worsening COVID - however given initial improvement and now worsening, will start broad spectrum antibiotics vanco,meropenem, and azithro in case super infection from bacterial pneumonia - sputum culture ordered - PaO2 / FiO2 of 157 on admission ABG, consistent with ARDS. - continue to wean as tolerated. 2. Essential hypertension, acute on chronic, present on admission -continue patient's amlodipine 10 mg QHS & lisinopril 20 mg q.a.m. 3. Osteoarthritis, chronic, present on admission -Continue patients Celebrex 4. Obesity as evidence by a BMI of 34, acute on chronic, present on admission -patient's obesity may impair his oxygenation and recovery from COVID pneumonia. Code status: DNR/DNI Surrogate decision maker: Zoraida Milligan (daughter [phone]) VTE/DVT prophylaxis: LMW heparin 5000 units BID Quality VTE Deep Vein Thrombosis/Pulmonary Embolism Present on Admission: No
--- NOTE | 2021-02-23 16:11 | CM.DPC ---
DCP: continued: Case received and EMR for last few days reviewed. Discussed in Team Rounds and than just now with Dr. Parker. Asked if PT/OT would be appropriate at this point but he clarified that pt remained too ill. DCP team will continue to follow. Daughter Zoraida Lucio is his advocate: [phone].
[2021-02-23] MEDS: SODIUM CHLORIDE 0.9% 250 ML 21 ML IV (16:48)
[2021-02-23] MEDS: MELATONIN 3 MG TABLET 9 MG PO (22:00)
[2021-02-23] MEDS: ACETAMINOPHEN 325 MG TABLET 650 MG PO ×2 (22:01)
[2021-02-24] VITALS (20 sets, daily range): BP systolic 109–155; BP diastolic 55–80; PULSE 56–83; RESP 12–22; TEMP 36.1–37; O2SAT 91–96
[2021-02-24] MEDS: SODIUM CHLORIDE 0.9% FLUSH 10 ML IV ×3 (00:54→20:58)
[2021-02-24] MEDS: MEROPENEM 1 GM in SODIUM CHLORIDE 0.9% 100 ML 200 ML IV ×3 (00:54→17:08)
[2021-02-24] MEDS: PANTOPRAZOLE DR 40 MG TABLET PO (06:34)
[2021-02-24 07:19] LABS: Add Manual Diff / Slide Review NO; Basophils Absolute Auto 100 /uL (0-100); Basophils Percent Auto 0.7 % (0-2); Eosinophils Absolute Auto 100 /uL (0-450); Eosinophils Percent Auto 1.4 % (2-4); Hemoglobin 12.7 g/dL (13.5-17.5); Lymphocytes Absolute Auto 1400 /uL (1100-4500); Lymphocytes Percent Auto 13.7 % (25-40); Mean Corpuscular HGB Conc 34.2 % (30-36); Mean Corpuscular Hemoglobin 30.5 PG (26-34); Mean Corpuscular Volume 89.3 fL (80-100); Monocytes Absolute Auto 700 /uL (0-900); Monocytes Percent Auto 6.6 % (3-14); Neutrophils Absolute Auto 8100 /uL (1500-7000); Neutrophils Percent Auto 77.6 % (50-75); Platelet Count 276 X10^3/uL (150-400); Red Blood Cell Count 4.15 X10^6/uL (4.5-5.9); Red Cell Distribution Width 14.2 % (11.6-14.8); White Blood Cell Count 10.4 X10^3/uL (4.5-11.0)
[2021-02-24 07:34] LABS: D Dimer 531 ng/mL (<230)
[2021-02-24 07:37] LABS: Alanine Aminotransferase 52 IU/L (<50); Albumin 2.8 g/dL (3.5-5.0); Albumin Globulin Ratio 0.9 (1.0-2.8); Alkaline Phosphatase 52 U/L (38-126); Aspartate Aminotransferase 39 IU/L (17-59); Bilirubin Total 0.7 mg/dL (0.2-1.3); Blood Urea Nitrogen 21 mg/dL (9-20); Calcium 8.1 mg/dL (8.4-10.2); Carbon Dioxide 23 mmol/L (22-32); Chloride 107 mmol/L (98-107); Creatine Kinase 38 U/L (55-170); Estimated Glomerular Filt Rate > 60.0 mL/min (>60); Glucose 117 mg/dL (80-110); HEMOLYSIS < 15 (0-50); Lactate Dehydrogenase 744 U/L (313-618); Potassium 3.9 mmol/L (3.4-5.1); Sodium 135 mmol/L (137-145); Total Protein 5.8 g/dL (6.3-8.2)
[2021-02-24] MEDS: HEPARIN 5,000 UNIT/ML VIAL 5000 UNIT SUBCUT ×2 (08:41→20:58)
[2021-02-24] MEDS: DEXAMETHASONE 10 MG/ML VIAL 6 MG IV (08:41)
[2021-02-24] MEDS: REMDESIVIR 100 MG in SODIUM CHLORIDE 0.9% 230 ML 250 ML IV (09:22)
--- NOTE | 2021-02-24 10:42 | PM.PN.1 ---
Subjective Subjective Date Patient Seen: 02/24/21 Time Patient Seen: 08:00 Interval history: He does not feel significantly different today. He still has fatigue and shortness of breath. Overnight he did have his O2 requirements decreased slightly to 40L at 60% FiO2. Exam Vital Signs (past 8 hours): - 02/24/21 04:00 02/24/21 06:10 02/24/21 06:11 Temperature 97.5 F L Pulse Rate 62 60 60 Respiratory Rate 22 16 20 Blood Pressure 146/74 H Pulse Oximetry 94 94 94 02/24/21 08:01 02/24/21 10:03 02/24/21 10:09 Temperature 97.0 F L Pulse Rate 64 64 Respiratory Rate 19 22 Blood Pressure 126/70 Pulse Oximetry 94 96 91 Fraction of Inspired Oxygen 0.61 Oxygen Delivery Method Heated High Flow Oxygen Flow Rate 40 Narrative Exam Narrative: General: moderate respiratory distress Lungs: coarse breath sounds bilaterally, poor air movement but improved on 02/23 compared to 02/22 Cardio: regular rate and rhythm without murmurs Abdomen: Soft nontender, negative for organomegaly, or masses. Normal bowel sounds Musculoskeletal: Muscle strength and tone are equal within normal limits Skin: Warm dry and intact without rashes Neuro: Alert and orientated x3, grossly no focal neuro deficitis Psych: pleasant, cooperative Objective Labs Result Diagrams: 02/24/21 06:45 02/24/21 06:45 Labs: Laboratory Results - last 24 hr 02/24/21 02/24/21 02/24/21 06:45 06:45 06:45 WBC 10.4 RBC 4.15 L Hgb 12.7 L Hct 37.0 L MCV 89.3 MCH 30.5 MCHC 34.2 RDW 14.2 Plt Count 276 Neut % (Auto) 77.6 H Lymph % (Auto) 13.7 L [place] % (Auto) 6.6 Eos % (Auto) 1.4 L Baso % (Auto) 0.7 Neut # (Auto) 8100 H Lymph # (Auto) 1400 [place]alfa # (Auto) 700 Eos # (Auto) 100 Baso # (Auto) 100 D-Dimer 531 H Sodium 135 L Potassium 3.9 Chloride 107 Carbon Dioxide 23 BUN 21 H Creatinine 0.84 Estimated GFR > 60.0 BUN/Creatinine Ratio 25.0 H Glucose 117 H Calcium 8.1 L Total Bilirubin 0.7 AST 39 ALT 52 H Alkaline Phosphatase 52 Lactate Dehydrogenase 744 H Total Creatine Kinase 38 L D Total Protein 5.8 L Albumin 2.8 L Globulin 3.0 Albumin/Globulin Ratio 0.9 L PFSH Medical History Chickenpox (1946) Hearing loss Hypertension Knee pain, right anterior Nocturia Obesity (BMI 30.0-34.9) Vertigo Surgical History Hx of discectomy (1984) Family History Father Diabetes mellitus Mother Cancer Sister Cancer Grandfather Cancer Grandmother Stroke Grandfather No problems noted. Grandmother No problems noted. Social History household members: children Smoking Status: Never smoker alcohol intake: never substance use type: does not use Assessment & Plan Assessment & Plan narrative: Mr. Boyd is 80M acute respiratory failure in the setting of COVID pneumonia, after failing attempted outpatient management. 1. Acute respiratory failure with hypoxia, ARDS secondary to COVID pneumonia, acute, present on admission - continue remdesevir and decadron. Day 1 02/18. - had improved to 2L oxygen on 02/21, then had significant worsening and back on heated high flow on 02/22 AM - cxray shows worsening pneumonia on 02/22 presumably worsening COVID - however given initial improvement and now worsening, will start broad spectrum antibiotics vanco,meropenem, and azithro in case super infection from bacterial pneumonia ---------given negative mrsa swab, also worsened while in hospital think appropriate to stop vanco, azithro ---------given drop in wbc and some respiratory improvement will plan to continue meropenem - sputum culture ordered, showed only deon albicans, a contaminant, as overall presentation, cxray findings are not consistent with deon pneumonia - PaO2 / FiO2 of 157 on admission ABG, consistent with ARDS. - continue to wean O2 as tolerated - inflammatory markers drawn on 02/24 are downtrending 2. Essential hypertension, acute on chronic, present on admission -continue patient's amlodipine 10 mg QHS & lisinopril 20 mg q.a.m. 3. Osteoarthritis, chronic, present on admission -Continue patients Celebrex 4. Obesity as evidence by a BMI of 34, acute on chronic, present on admission -patient's obesity may impair his oxygenation and recovery from COVID pneumonia. Code status: DNR/DNI Surrogate decision maker: Zoraida Milligan (daughter [phone]) VTE/DVT prophylaxis: LMW heparin 5000 units BID Quality VTE Deep Vein Thrombosis/Pulmonary Embolism Present on Admission: No
[2021-02-24] MEDS: SENNOSIDES 8.6 MG TABLET 17.2 MG PO (20:57)
[2021-02-24] MEDS: MELATONIN 3 MG TABLET 9 MG PO (20:57)
[2021-02-25] VITALS (16 sets, daily range): BP systolic 110–144; BP diastolic 57–80; PULSE 58–75; RESP 17–28; TEMP 36.7–37.1; O2SAT 92–97
[2021-02-25] MEDS: MEROPENEM 1 GM in SODIUM CHLORIDE 0.9% 100 ML 200 ML IV ×3 (01:06→15:59)
[2021-02-25] MEDS: SODIUM CHLORIDE 0.9% FLUSH 10 ML IV ×3 (01:06→19:59)
--- NOTE | 2021-02-25 06:14 | PC.NURSE ---
[employer] Manager Note-Patient did not sleep much d/t nocturia, he stands at bedside to void at least hourly, 150-200 at a time, urine is clear yellow. Denies shortness of breath, SpO2 91-95% on HHFNC 40L/50% FIO2.
[2021-02-25] MEDS: PANTOPRAZOLE DR 40 MG TABLET PO (08:03)
[2021-02-25] MEDS: DEXAMETHASONE 10 MG/ML VIAL 6 MG IV (08:04)
[2021-02-25] MEDS: HEPARIN 5,000 UNIT/ML VIAL 5000 UNIT SUBCUT ×2 (08:04→19:59)
[2021-02-25] MEDS: REMDESIVIR 100 MG in SODIUM CHLORIDE 0.9% 230 ML 250 ML IV (09:15)
--- NOTE | 2021-02-25 13:55 | PC.NURSE ---
Day Shift Note Pt weaned to 40L and 45% FiO2 by RT today. Maintaining SpO2 in the 92-94% range. Denies pain, denies shortness of breath. Sitting up at the side of the bed for meals, side lying while in bed. Bed alarm in place, using appropriately to make needs known.
--- NOTE | 2021-02-25 15:59 | PM.PN.1 ---
Subjective Subjective Interval history: Patient is currently on 40 L, and 40% FiO2 high-flow oxygen, he denies any shortness of breath. Patient does ask when he will be able to go home. Of note his oxygen has been titrated down. He was previously on 45% FiO2. He denies any cough, no nausea, no vomiting. Exam Vital Signs (past 8 hours): - 02/25/21 08:00 02/25/21 10:21 02/25/21 10:23 Temperature 98.8 F Pulse Rate 65 58 L 58 L Respiratory Rate 17 18 18 Blood Pressure 122/57 L 122/57 L 122/57 L Pulse Oximetry 95 96 97 02/25/21 12:00 02/25/21 13:54 Temperature 98.4 F Pulse Rate 66 74 Respiratory Rate 18 18 Blood Pressure 110/58 L 110/58 L Pulse Oximetry 94 93 Fraction of Inspired Oxygen 0.45 Oxygen Delivery Method Heated High Flow Oxygen Flow Rate 40 Narrative Exam Narrative: Pleasant gentleman resting comfortably in no obvious distress Resp Other: Lungs: Decreased breath sounds with occasional scattered crackles Cardio Other: Cardiac exam: Regular rate and rhythm normal S1-S2 GI Other: abdomen soft and not tender Extrem Other: edema Objective Labs Result Diagrams: 02/24/21 06:45 02/24/21 06:45 [facility] Medical History Chickenpox (1946) Hearing loss Hypertension Knee pain, right anterior Nocturia Obesity (BMI 30.0-34.9) Vertigo Surgical History Hx of discectomy (1984) Family History Father Diabetes mellitus Mother Cancer Sister Cancer Grandfather Cancer Grandmother Stroke Grandfather No problems noted. Grandmother No problems noted. Social History household members: children Smoking Status: Never smoker alcohol intake: never substance use type: does not use Assessment & Plan Assessment & Plan narrative: 1. Acute hypoxic respiratory failure -secondary to COVID pneumonia -no evidence of bacterial superinfection -patient continues to require high-flow oxygen, currently on 40% FiO2 at 40 L of oxygen -no antibiotics indicated at this time -will continue remdesivir and Decadron -continue to taper oxygen 2. Hypertension -continue lisinopril and amlodipine 3. Osteoarthritis -continue nonsteroidal 4. Code status patient is DNR DNI I have utilized all available immediate resources to obtain update and review the patient's current medications Quality VTE Deep Vein Thrombosis/Pulmonary Embolism Present on Admission: No
[2021-02-25] MEDS: MELATONIN 3 MG TABLET 9 MG PO (19:59)
[2021-02-25] MEDS: SENNOSIDES 8.6 MG TABLET 17.2 MG PO (19:59)
[2021-02-25 20:22] LABS: Procalcitonin 0.06 ng/mL (<0.5)
--- NOTE | 2021-02-25 22:31 | PC.NURSE ---
Bladder scan done, 51mls post void.
[2021-02-26] VITALS (16 sets, daily range): BP systolic 97–136; BP diastolic 57–69; PULSE 50–80; RESP 17–26; TEMP 36.7–37.1; O2SAT 90–94
[2021-02-26 05:26] LABS: Add Manual Diff / Slide Review NO; Basophils Absolute Auto 200 /uL (0-100); Basophils Percent Auto 1.8 % (0-2); Eosinophils Absolute Auto 100 /uL (0-450); Eosinophils Percent Auto 1.2 % (2-4); Hematocrit 39.8 % (41-53); Hemoglobin 13.6 g/dL (13.5-17.5); Lymphocytes Absolute Auto 1000 /uL (1100-4500); Lymphocytes Percent Auto 9.7 % (25-40); Mean Corpuscular HGB Conc 34.1 % (30-36); Mean Corpuscular Hemoglobin 30.6 PG (26-34); Mean Corpuscular Volume 89.8 fL (80-100); Monocytes Absolute Auto 800 /uL (0-900); Monocytes Percent Auto 7.1 % (3-14); Neutrophils Absolute Auto 8600 /uL (1500-7000); Neutrophils Percent Auto 80.2 % (50-75); Platelet Count 268 X10^3/uL (150-400); Red Blood Cell Count 4.43 X10^6/uL (4.5-5.9); Red Cell Distribution Width 14.3 % (11.6-14.8); White Blood Cell Count 10.7 X10^3/uL (4.5-11.0)
[2021-02-26 05:34] LABS: BUN Creatinine Ratio 27.2 (6-22); Blood Urea Nitrogen 25 mg/dL (9-20); Calcium 8.4 mg/dL (8.4-10.2); Carbon Dioxide 24 mmol/L (22-32); Chloride 105 mmol/L (98-107); Estimated Glomerular Filt Rate > 60.0 mL/min (>60); Glucose 124 mg/dL (80-110); HEMOLYSIS < 15 (0-50); Potassium 4.1 mmol/L (3.4-5.1); Sodium 134 mmol/L (137-145)
[2021-02-26] MEDS: DEXAMETHASONE 10 MG/ML VIAL 6 MG IV (08:55)
[2021-02-26] MEDS: PANTOPRAZOLE DR 40 MG TABLET PO (08:55)
[2021-02-26] MEDS: REMDESIVIR 100 MG in SODIUM CHLORIDE 0.9% 230 ML 250 ML IV (08:55)
[2021-02-26] MEDS: HEPARIN 5,000 UNIT/ML VIAL 5000 UNIT SUBCUT ×2 (08:55→20:00)
[2021-02-26] MEDS: SODIUM CHLORIDE 0.9% FLUSH 10 ML IV ×2 (08:56→20:00)
[2021-02-26] MEDS: TAMSULOSIN 0.4 MG CAPSULE PO (08:56)
--- NOTE | 2021-02-26 16:03 | PM.PN.1 ---
Subjective Subjective Interval history: The Patient is an 80 y/o male with acute hypoxic respiratory failure secondary to Covid-19 Pneumonia. Patient reports no shortness of breath, no diarrhea and improved appetite. His oxygen has been taper to 30% FIO2 with 40 liters of oxygen. He is maintaining his oxygen saturations well. Exam Vital Signs (past 8 hours): - 02/26/21 09:32 02/26/21 10:00 02/26/21 12:27 Temperature 98.7 F Pulse Rate 62 73 65 Respiratory Rate 22 24 20 Blood Pressure 114/62 Pulse Oximetry 90 L 92 93 02/26/21 13:03 Temperature 98.2 F Pulse Rate 80 Respiratory Rate 17 Blood Pressure 97/57 L Pulse Oximetry 93 Fraction of Inspired Oxygen 30 Oxygen Delivery Method Heated High Flow Oxygen Flow Rate 40 Narrative Exam Narrative: pleasant male in No acute distress Resp Other: decreased breath sounds with scattered bronchovesicular breath sounds Cardio Other: RRR Nl Sl S2 GI Other: Abd: soft/ non tender / non distended Extrem Other: no edema Objective Labs Result Diagrams: 02/26/21 05:00 02/26/21 05:00 Labs: Laboratory Results - last 24 hr 02/25/21 02/26/21 02/26/21 06:45 05:00 05:00 WBC 10.7 RBC 4.43 L Hgb 13.6 Hct 39.8 L MCV 89.8 MCH 30.6 MCHC 34.1 RDW 14.3 Plt Count 268 Neut % (Auto) 80.2 H Lymph % (Auto) 9.7 L [place] % (Auto) 7.1 Eos % (Auto) 1.2 L Baso % (Auto) 1.8 Neut # (Auto) 8600 H Lymph # (Auto) 1000 L [place] # (Auto) 800 Eos # (Auto) 100 Baso # (Auto) 200 H Sodium 134 L Potassium 4.1 Chloride 105 Carbon Dioxide 24 BUN 25 H Creatinine 0.92 Estimated GFR > 60.0 BUN/Creatinine Ratio 27.2 H Glucose 124 H Calcium 8.4 Procalcitonin 0.06 PFSH Medical History Chickenpox (1945) Hearing loss Hypertension Knee pain, right anterior Nocturia Obesity (BMI 30.0-34.9) Vertigo Surgical History Hx of discectomy (1984) Family History Father Diabetes mellitus Mother Cancer Sister Cancer Grandfather Cancer Grandmother Stroke Grandfather No problems noted. Grandmother No problems noted. Social History household members: children Smoking Status: Never smoker alcohol intake: never substance use type: does not use Assessment & Plan Assessment & Plan narrative: Acute hypoxic respiratory failure -secondary to COVID pneumonia -no evidence of bacterial superinfection -patient continues to require high-flow oxygen, currently on 30% FiO2 at 40 L of oxygen, will continue to attempt to wean oxygen to nasal cannula -no antibiotics indicated at this time -will continue remdesivir and Decadron -continue to taper oxygen 2. Hypertension -blood pressure well controlled off usual medications 3. Osteoarthritis -continue nonsteroidal 4. Code status patient is DNR DNI Quality VTE Deep Vein Thrombosis/Pulmonary Embolism Present on Admission: No
[2021-02-26] MEDS: MELATONIN 3 MG TABLET 9 MG PO (20:00)
[2021-02-26] MEDS: SENNOSIDES 8.6 MG TABLET 17.2 MG PO (20:00)
--- NOTE | 2021-02-26 21:54 | CM.MNRNOTE ---
Patient resting in bed most of the shift. On HHF 40L w/FIO2 @ 30%, sats low 90s. Patient denies feeling short of breath. Patient has been A&O, calm and cooperative.
[2021-02-27] VITALS (14 sets, daily range): BP systolic 95–114; BP diastolic 53–71; PULSE 62–92; RESP 16–26; TEMP 36.2–37.2; O2SAT 91–96
--- NOTE | 2021-02-27 06:10 | PC.NURSE ---
0600- Patient had a restful night with less desaturations than the night before. Patient verbalizing he feels more rested. Vitals stable no distress noted.
[2021-02-27] MEDS: REMDESIVIR 100 MG in SODIUM CHLORIDE 0.9% 230 ML 250 ML IV (09:58)
[2021-02-27] MEDS: TAMSULOSIN 0.4 MG CAPSULE PO (09:58)
[2021-02-27] MEDS: HEPARIN 5,000 UNIT/ML VIAL 5000 UNIT SUBCUT ×2 (09:58→20:50)
[2021-02-27] MEDS: PANTOPRAZOLE DR 40 MG TABLET PO (09:58)
[2021-02-27] MEDS: DEXAMETHASONE 10 MG/ML VIAL 6 MG IV (09:58)
[2021-02-27] MEDS: SODIUM CHLORIDE 0.9% FLUSH 10 ML IV ×2 (09:59→20:52)
--- NOTE | 2021-02-27 10:22 | CM.DPC ---
DCP: continued: Case discussed in Team Rounds. Dr. Patel stated that it appeared that pt was beginning to show signs of improvement. He stated that pt was still not ready to start working with PT; readiness would be once pt was weaned off heated high flow o2 and on to nasal cannula. Pt has a cell at bedside. Room currently dark and pt resting but will plan to call into room later today when he is up. Dr. Perez did clarify code status: DNR/DNA. Spoke now by phone with pt's daughter Zoraida Naveed: [phone]. 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 She says that family is looking forward to pt being able to go home. She says family members are all fully vaccinated and that she has undergone the full quarantine period. She does say that the ICU nurses have been updating her by phone but that she has not spoken with a physician since her father admitted to the hospital. ? POA: she says he never gave this to anyone because he was always so healthy but expects to revisit this with him when he returns home. P: at this point anticipate a home plan with family care and perhaps home health services. DCP team will be following.
--- NOTE | 2021-02-27 14:45 | PC.NURSE ---
Addendum entered by Tracee Sosa R.N. 02/27/21 14:59: RT transitioned to 5L NC @ 1500. Spo2 94% Original Note: AM shift Pt continues to wean down from HHFNC, 30% 30L tolerating well, WOB shows no increase. RT working to transition patient to NC this shift. Pt sitting up for meals, indep to BR, feels the Flomax that he started has made a significant difference in his sleep quality. Able to sleep better overnight. Using call light to make needs known.
--- NOTE | 2021-02-27 16:23 | P.PN_ITS ---
Subjective Subjective Date Patient Seen: 02/27/21 Time Patient Seen: 16:23 Interval history: The Patient is an 80 y/o male with acute hypoxic respiratory failure secondary to Covid-19 Pneumonia. Patient reports no shortness of breath, no diarrhea and improved appetite. His oxygen has been tapered to 2L today, now off of heated high flow O2. Did desaturate today with minimal exertion to 87% on room air. Exam Vital Signs (past 8 hours): - 02/27/21 10:00 02/27/21 10:49 02/27/21 13:16 Temperature Pulse Rate 62 69 78 Respiratory Rate 22 18 20 Blood Pressure 95/53 L Pulse Oximetry 96 92 93 02/27/21 13:22 02/27/21 15:08 Temperature 97.1 F L Pulse Rate 64 Respiratory Rate 16 Blood Pressure 95/53 L Pulse Oximetry 92 93 Fraction of Inspired Oxygen 30 Oxygen Delivery Method Nasal Cannula Oxygen Flow Rate 5 Narrative Exam Narrative: General: No acute distress Lungs: CTA b/l no wheezing rhochi or rales. Cardio: regular rate and rhythm without murmurs Abdomen: Soft nontender, negative for organomegaly, or masses. Normal bowel sounds Musculoskeletal: Muscle strength and tone are equal within normal limits Skin: Warm dry and intact without rashes Neuro: Alert and orientated x3, grossly no focal neuro deficitis, ambulates without assistance within room. Psych: pleasant, cooperative Objective Labs Result Diagrams: 02/26/21 05:00 02/26/21 05:00 [facility] Medical History Chickenpox (1946) Hearing loss Hypertension Knee pain, right anterior Nocturia Obesity (BMI 30.0-34.9) Vertigo Surgical History Hx of discectomy (1984) Family History Father Diabetes mellitus Mother Cancer Sister Cancer Grandfather Cancer Grandmother Stroke Grandfather No problems noted. Grandmother No problems noted. Social History household members: children Smoking Status: Never smoker alcohol intake: never substance use type: does not use Assessment & Plan Assessment & Plan narrative: Mr. Boyd is 80M acute respiratory failure in the setting of COVID pneumonia 1. Acute respiratory failure with hypoxia, ARDS secondary to COVID pneumonia, acute, present on admission - continue remdesevir and decadron. Day 1 02/18 today is final day of therapy. - had improved to 2L oxygen on 02/21, then had significant worsening and back on heated high flow on 02/22 AM which he remained on until today. Finally weaned back to 2L today. Goal O2 > 90% while on O2. - patient initially received empirical antibiotic therapy though this was ultimately discontinued. - today is day 10 of therapy. Now that he is off of heated high flow can look into discharge home as soon as tomorrow if he remains stable on supplemental oxygen if needed. 2. Essential hypertension, acute on chronic, present on admission -continue patient's amlodipine 10 mg QHS & lisinopril 20 mg q.a.m. 3. Osteoarthritis, chronic, present on admission -Continue patients Celebrex 4. Obesity as evidence by a BMI of 34, acute on chronic, present on admission -patient's obesity may impair his oxygenation and recovery from COVID pneumonia. Code status: DNR/DNI Surrogate decision maker: Zoraida Milligan (daughter [phone]) VTE/DVT prophylaxis: LMW heparin 5000 units BID Quality VTE Deep Vein Thrombosis/Pulmonary Embolism Present on Admission: No
[2021-02-27] MEDS: MELATONIN 3 MG TABLET 9 MG PO (20:50)
[2021-02-28 01:00] VITALS: BP 130/63; PULSE 63; RESP 20; TEMP 36.7; O2SAT 93
[2021-02-28 05:00] VITALS: PULSE 65; RESP 20; O2SAT 94
[2021-02-28 09:00] VITALS: BP 119/74; PULSE 83; RESP 14; TEMP 35.9; O2SAT 92
[2021-02-28] MEDS: HEPARIN 5,000 UNIT/ML VIAL 5000 UNIT SUBCUT (09:34)
[2021-02-28] MEDS: DEXAMETHASONE 10 MG/ML VIAL 6 MG IV (09:34)
[2021-02-28] MEDS: PANTOPRAZOLE DR 40 MG TABLET PO (09:34)
[2021-02-28] MEDS: TAMSULOSIN 0.4 MG CAPSULE PO (09:34)
[2021-02-28] MEDS: SODIUM CHLORIDE 0.9% FLUSH 10 ML IV (09:36)
--- NOTE | 2021-02-28 11:49 | P.DS_ITS ---
History of Present Illness History of Present Illness Date Patient Seen: 02/28/21 Time Patient Seen: 11:49 Chief complaint: covid+, low blood oxygen Narrative: As per GERMAINE Morris-DONNA: Patient is a 80-year-old male Jack Boyd who presented to the ED with a chief complaint of fever, chills, generalized weakness and dry hacking cough over the past few days. He had recently traveled to [place] and returned home earlier in the week. His symptoms have been gradually worsening over the past 5 or 6 days. He denies any obvious exposure to persons known or suspected to have COVID. He is vaccinated and wears his mask any time he goes out. He denies any N/V/D. Patient was seen in the ED on 02/15/2021 for the symptoms and was diagnosed with COVID-19. Today he returned feeling worse, problems breathing and low oxygen saturations at home. He denies chest pain. is relatively healthy with a history of high blood pressure not on anticoagulation no prior cardiac diagnosis and no underlying lung issues, he had 2 Pfizer COVID-19 immunizations, last dose . Upon admit patient is resting in isolation, in no distress at this time denies chest pain states that shortness of breath has improved from ED, he continues to have an occasional mild cough that is productive, denies nasal drainage, eye irritation, sore throat, fever, body aches, chills, nausea, vomiting, abdominal pain, swelling of his hands or feet, leg pain. Patient is currently satting in the low 90s at rest but any sort of movement or exertion even sitting up to the side of the bed patient desats into the low 80s. Patient upon admit was slightly febrile at 99.5, mildly hypertensive 155/79, HR 91, tachypneic with an RR 24, patient's saturation was 89% on 40 L high-flow. Patient presents with acute respiratory alkalosis failure with hypocapnia as evidence by ABGs pH 7.53, pCO2 28.3, HC03 24, patient has a Christina score of 9.76 which is low risk for intubation. Mild anemia HGB 13.3, HCT 38.5, RBC 4.38, patient does have elevated neutrophils at 7400, WBC WNL. Mild hyponatremia Na 131, BUN 21, AST 63, mild hypo calcemia 7.9, elevated D-dimer 478, elevated ferritin 511, lactate D 155, CK-MB 3.15, CK-MB index 0.5%, CRP 8.8, UA is negative. On chest xray found increased patchy opacifications in the lung bases bilaterally compatible with progression of pneumonia. Patient admitted for acute respiratory alkalosis failure with hypocapnia and hypoxia as a result of bibasilar COVID pneumonia. Discharge Providers Provider Date of admission: 02/18/21 18:41 Discharge Date: 02/28/21 Primary care physician: Gordon Pardo MD Consults: 02/18/21 19:44 Consult to Respiratory Therapy Evaluate & Treat Comment: Covid Pneumonia Physician Instructions: Evaluate and treat Discharge provider: Blair Patel DO Summary Hospital Course Discharge Diagnosis: 1. Acute respiratory failure with hypoxia, ARDS secondary to COVID pneumonia, acute, present on admission 2. Essential hypertension, acute on chronic, present on admission 3. Osteoarthritis, chronic, present on admission 4. Obesity as evidence by a BMI of 34, acute on chronic, present on admission Hospital Course: Jack Boyd is an 80-year-old male with hypertension, osteoarthritis, and obesity who was admitted to the hospital with acute respiratory failure and ARDS (based on initial ABG values) secondary to COVID pneumonia. The patient had been fully vaccinated against COVID-19 a few months ago. He was treated with dexamethasone and remdesivir therapy. He required heated high-flow nasal cannula oxygen for a little over a week before rapidly improving shortly after completion of his dexamethasone and remdesivir therapy. On the day of discharge he was still requiring some oxygen, but at most 2 L. He was discharged home with home oxygen therapy and home health. No other medications were changed over the course of his hospital stay. Time Spent with Patient Time spent: Greater than 30 minutes Exam Vital Signs (past 8 hours): - 02/28/21 05:00 02/28/21 09:00 Temperature 96.6 F L Pulse Rate 65 83 Respiratory Rate 20 14 Blood Pressure 119/74 Pulse Oximetry 94 92 Fraction of Inspired Oxygen 30 Oxygen Delivery Method Nasal Cannula Oxygen Flow Rate 2 Narrative Exam Narrative: General: No acute distress Lungs: CTA b/l no wheezing rhochi or rales. Cardio: regular rate and rhythm without murmurs Abdomen: Soft nontender, negative for organomegaly, or masses. Normal bowel so unds Musculoskeletal: Muscle strength and tone are equal within normal limits Skin: Warm dry and intact without rashes Neuro: Alert and orientated x3, grossly no focal neuro deficitis, ambulates wi thout assistance within room. Psych: pleasant, cooperative Objective Labs Result Diagrams: 02/26/21 05:00 02/26/21 05:00 [facility] Medical History Chickenpox (1946) Hearing loss Hypertension Knee pain, right anterior Nocturia Obesity (BMI 30.0-34.9) Vertigo Surgical History Hx of discectomy (1984) Family History Father Diabetes mellitus Mother Cancer Sister Cancer Grandfather Cancer Grandmother Stroke Grandfather No problems noted. Grandmother No problems noted. Social History household members: children Smoking Status: Never smoker alcohol intake: never substance use type: does not use Discharge Plan Discharge Plan Patient Disposition: Home Health Service Provider Discharge Comment: You were admitted to the hospital with COVID pneumonia. Improved with antiviral and steroids and supportive care. You still need a small amount of oxygen with ambulating, though I do not expect this to last long. Flomax was added for difficulties with urination. Please try and schedule a telehealth visit with your PCP next week to check on your symptoms after your hospitalization. Discharge orders & Medications Prescriptions: New tamsulosin [Flomax] 0.4 mg Capsule 0.4 mg PO DAILY 30 Days Qty: 30 RF: 0 Continued celecoxib [Celebrex] 200 mg capsule 200 mg PO DAILY MDD 200 mg Qty: 30 RF: 5 Prevagen 1 tab PO QAM RF: 0 lisinopril 20 mg tablet 20 mg PO QAM RF: 0 amlodipine [Norvasc] 10 mg tablet 10 mg PO QPM RF: 0 Follow up/Referrals: Gordon Pardo MD [Primary Care Provider] - Diet/Activity/Treatments Diet: Diet as Tolerated Activity: As tolerated Oxygen: with activity, or when O2 with pulse oximeter is <90%. Other treatments: Do not exceed 96% on pulse oximeter while on supplemental oxygen. Visit Report/Discharge Packet Instructions: DI for COVID-19 (Suspected or Confirmed ), How to Care for Someone with COVID-19 Discharge Data Primary Care Provider: Gordon Pardo VTE Deep Vein Thrombosis/Pulmonary Embolism Present on Admission: No
--- NOTE | 2021-02-28 13:00 | CM.DPC ---
DCP: continued: pt now with d/c to home orders. He is going with oxygen and Dr. Patel anticipates need will not be long for this. Pt is agreeable to the d/c today. IMM #2 will be presented when nursing staff go into his room. Called his daughter Zoraida who confirms that Dr. Patel did call her this morning. She will be here within the hour. MERLE Easley is updated.
--- NOTE | 2021-02-28 13:05 | PC.NURSE ---
Addendum entered by Tracee Sosa R.N. 02/28/21 13:34: Reviewed DC paperwork with daughter, d/c home on . All belongings sent with Pt. Original Note: AM shift Pt is tolerating 2 L NC well, RT home air trialed and Pt will dc with O2 for use as needed at home. 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
== END 2021-02-28 13:36 | disposition home or self-care (01) | DRG 177 ==
LOC: ED 12:55 → AC 18:43 → ICU 02-19 07:18
PROVIDERS: Internal Medicine; Nurse Practitioner Family; Admitting Provider Internal Medicine; Emergency Provider Emergency Medicine; PCP Student in an Organized Health Care Education/Training Program; Referring Provider Emergency Medicine; Visit Provider Internal Medicine
DX: U07.1 COVID-19 (principal); J12.82 Pneumonia due to coronavirus disease 2019; J80 Acute respiratory distress syndrome; I10 Essential (primary) hypertension; M19.90 Unspecified osteoarthritis, unspecified site; E66.9 Obesity, unspecified; Z68.34 Body mass index [BMI] 34.0-34.9, adult
CPT/HCPCS: 36415; 36600; 71045; 80048; 80053; 80074; 81003; 81015; 82550; 82553; 82728; 82805; 83605; 83615; 83690; 83735; 83880; 84145; 84484; 85025; 85027; 85379; 85610; 85730; 86140; 87040; 87070; 87077; 87205; 87389; 87502; 87633; 87635; 87797; 93005; 93010; 94618; 94762; 96360; 96361; 96365; 96375; 99284; 99285; 99291; C9803; A9270; J1100; J1644; J2185

== ENCOUNTER → 2022-06-15 15:44 | Outpatient (CLI) | payer MEDICARE, SELFPAY ==
[2021-02-18 18:46] VITALS: BMI 34.0
[2022-06-15 17:04] LABS: BUN Creatinine Ratio 20.8 (6-22); Blood Urea Nitrogen 22 mg/dL (9-20); Calcium 8.8 mg/dL (8.4-10.2); Carbon Dioxide 24 mmol/L (22-32); Chloride 103 mmol/L (98-107); Estimated Glomerular Filt Rate > 60 mL/min (>60); Glucose 160 mg/dL (80-110); HEMOLYSIS < 15 (0-50); Potassium 3.9 mmol/L (3.4-5.1); Sodium 140 mmol/L (137-145)
== END ==
PROVIDERS: PCP Student in an Organized Health Care Education/Training Program; Referring Provider Student in an Organized Health Care Education/Training Program; Visit Provider Student in an Organized Health Care Education/Training Program
DX: I10 Essential (primary) hypertension (principal)
CPT/HCPCS: 36415; 80048

== ENCOUNTER → 2022-06-29 07:47 | Outpatient (CLI) | payer MEDICARE, SELFPAY ==
[2021-02-18 18:46] VITALS: BMI 34.0
--- NOTE | 2022-06-29 07:49 | DI.RAD.S_ITS ---
PROCEDURE: XR KNEE LT 3V INDICATIONS: LEFT KNEE PAIN TECHNIQUE: 3 views of the knee were acquired. COMPARISON: [facility], CR, XR KNEE STANDING BI, 01/21/2019, 14:46. FINDINGS: Bones: No fractures or dislocations. No suspicious bony lesions. Medial compartmental joint space narrowing with small marginal osteophyte. No joint effusion. Patellofemoral joint space narrowing Soft tissues: No joint effusion. No suspicious soft tissue calcifications. IMPRESSION: Osteoarthritis without fracture or foreign body Approved by: Blayne Woods M.D. on 06/29/2022 at 9:23
--- NOTE | 2022-06-29 07:49 | DI.RAD.S_ITS ---
PROCEDURE: XR KNEE RT 3V INDICATIONS: RIGHT KNEE PAIN TECHNIQUE: 3 views of the knee were acquired. COMPARISON: [facility], CR, XR KNEE STANDING BI, 01/21/2019, 14:46. FINDINGS: Bones: No fractures or dislocations. No suspicious bony lesions. Medial compartmental joint space narrowing with medial lateral marginal osteophytes present. Stippled chondrocalcinosis noted. Patellofemoral joint space narrowing Soft tissues: No joint effusion. No suspicious soft tissue calcifications. IMPRESSION: Osteoarthritis without fracture Approved by: Blayne Woods M.D. on 06/29/2022 at 9:22
== END ==
PROVIDERS: PCP Student in an Organized Health Care Education/Training Program; Referring Provider Physical Medicine & Rehabilitation; Visit Provider Physical Medicine & Rehabilitation
DX: M17.0 Bilateral primary osteoarthritis of knee (principal)
CPT/HCPCS: 20611; 73562; 99213; J0702

== ENCOUNTER → 2023-06-22 08:19 | Outpatient (CLI) | payer MEDICARE, SELFPAY ==
[2021-02-18 18:46] VITALS: BMI 34.0
[2023-06-22 10:29] LABS: Alanine Aminotransferase 24 IU/L (<50); Albumin Globulin Ratio 1.3 (1.0-2.8); Alkaline Phosphatase 88 U/L (38-126); Aspartate Aminotransferase 28 IU/L (17-59); BUN Creatinine Ratio 23.5 (6-22); Bilirubin Total 0.6 mg/dL (0.2-1.3); Blood Urea Nitrogen 23 mg/dL (9-20); Calcium 9.5 mg/dL (8.4-10.2); Carbon Dioxide 29 mmol/L (22-32); Chloride 102 mmol/L (98-107); Cholesterol 179 mg/dL (140-199); Estimated Glomerular Filt Rate > 60 mL/min (>60); Globulin 3.1 g/dL (1.7-4.1); Glucose 120 mg/dL (80-110); HDL Cholesterol 35 mg/dL (40-60); HEMOLYSIS < 15 (0-50); LDL Cholesterol Calculated 123 mg/dL (<100); Potassium 4.1 mmol/L (3.4-5.1); Sodium 137 mmol/L (137-145); Total Protein 7.1 g/dL (6.3-8.2); Triglycerides 105 mg/dL (35-150)
== END ==
PROVIDERS: PCP Family Medicine; Referring Provider Family Medicine; Visit Provider Family Medicine
DX: I10 Essential (primary) hypertension (principal)
CPT/HCPCS: 36415; 80053; 80061

== ENCOUNTER → 2023-07-13 14:31 | Outpatient (CLI) | payer MEDICARE, SELFPAY ==
[2021-02-18 18:46] VITALS: BMI 34.0
[2023-07-13 16:30] LABS: Add Manual Diff / Slide Review NO; Basophils Absolute Auto 0 /uL (0-100); Basophils Percent Auto 0.7 % (0-2); Eosinophils Absolute Auto 200 /uL (0-450); Eosinophils Percent Auto 2.9 % (2-4); Hematocrit 39.2 % (41-53); Hemoglobin 13.6 g/dL (13.5-17.5); Lymphocytes Absolute Auto 1900 /uL (1100-4500); Lymphocytes Percent Auto 29.3 % (25-40); Mean Corpuscular HGB Conc 34.7 % (30-36); Mean Corpuscular Hemoglobin 31.4 PG (26-34); Mean Corpuscular Volume 90.5 fL (80-100); Monocytes Absolute Auto 500 /uL (0-900); Monocytes Percent Auto 8.4 % (3-14); Neutrophils Absolute Auto 3700 /uL (1500-7000); Neutrophils Percent Auto 58.7 % (50-75); Platelet Count 227 X10^3/uL (150-400); Red Blood Cell Count 4.33 X10^6/uL (4.5-5.9); Red Cell Distribution Width 13.5 % (11.6-14.8); White Blood Cell Count 6.4 X10^3/uL (4.5-11.0)
[2023-07-13 16:42] LABS: Hemoglobin A1C% w Est Avg Glu 6.6 % (4.0-6.0)
[2023-07-13 16:44] LABS: BUN Creatinine Ratio 22.3 (6-22); Blood Urea Nitrogen 21 mg/dL (9-20); Calcium 9.2 mg/dL (8.4-10.2); Carbon Dioxide 27 mmol/L (22-32); Chloride 105 mmol/L (98-107); Estimated Glomerular Filt Rate > 60 mL/min (>60); Glucose 138 mg/dL (80-110); HEMOLYSIS < 15 (0-50); Potassium 3.7 mmol/L (3.4-5.1); Sodium 139 mmol/L (137-145)
[2023-07-13 16:52] LABS: Prealbumin 24.4 mg/dL (17.6-36.0)
== END ==
PROVIDERS: PCP Family Medicine; Referring Provider Orthopaedic Surgery Adult Reconstructive Orthopaedic Surgery; Visit Provider Orthopaedic Surgery Adult Reconstructive Orthopaedic Surgery
DX: Z01.818 Encounter for other preprocedural examination (principal); R73.9 Hyperglycemia, unspecified; E55.9 Vitamin D deficiency, unspecified; R77.0 Abnormality of albumin; Z01.812 Encounter for preprocedural laboratory examination
CPT/HCPCS: 36415; 80048; 82306; 83036; 84134; 85025; 93005; 93010

== ENCOUNTER 2023-09-09 11:50 | Observation (INO) | payer MEDICARE, SELFPAY ==
[2021-02-18 18:46] VITALS: BMI 34.0
[2023-08-29 12:44] VITALS: BMI 32.5
[2023-09-08] VITALS (13 sets, daily range): BP systolic 134–163; BP diastolic 68–97; PULSE 73–94; RESP 16–20; TEMP 36.2–37; O2SAT 94–98; BMI 32.5
--- NOTE | 2023-09-08 06:00 | DI.RAD.S_ITS ---
PROCEDURE: XR KNEE LT 1TO2V INDICATIONS: TKA TECHNIQUE: 2 view(s) of the knee acquired. [facility], 14:46. FINDINGS: Bones: Patient is status post knee joint arthroplasty. Hardware components are in expected positions. Visualized bony structures are intact. Soft tissues: Overlying postoperative changes are noted. IMPRESSION: Expected post-operative appearance of a knee arthroplasty. Dictated by: Ru Chou M.D. on 09/08/2023 at 14:59 Approved by: Ru Chou M.D. on 09/08/2023 at 15:00
[2023-09-08] MEDS: ACETAMINOPHEN 325 MG TABLET 975 MG PO (09:36)
[2023-09-08] MEDS: LACTATED RINGERS 1,000 ML 42 ML IV ×2 (09:36→12:53)
[2023-09-08] MEDS: MELOXICAM 7.5 MG TABLET PO (09:37)
--- NOTE | 2023-09-08 10:16 | PM.PREOP ---
Pre-operative Note Interval Note History & Physical reviewed/Exam performed by Physician: Yes Changes to H&P: No
[2023-09-08] MEDS: CEFAZOLIN 2 GM/100 ML PREMIX 100 ML IV ×2 (11:15→18:50)
[2023-09-08] MEDS: TRANEXAMIC ACID 1,000 MG VIAL 2000 MG INJ (11:18)
--- NOTE | 2023-09-08 11:34 | SUR.OPER ---
Supine on padded OR bed. Pillow under head, arms secured on padded armboards <90 degree abduction. Safety belt across torso. Non-operative leg secured with tape over blanket over lower leg. Operative leg secured in DeMayo/Jaspreet/Nathe positioner. Foam padded brace at thigh of operative leg.
[2023-09-08] MEDS: ROPIVACAINE/EPI/CLONIDINE/KET 50 ML SYRINGE INJ (11:42)
--- NOTE | 2023-09-08 13:15 | P.OP_ITS ---
Operative Date/Time/Diagnoses Date of procedure: 09/08/23 Pre-op diagnosis: Left knee arthritis Post-op diagnosis: same Procedure & Clinicians Procedure: Left total knee arthroplasty Same procedure as scheduled: Yes Surgeon: Blayne Hancock Cable Tool Operator: Roya Carvajal Anesthesia Type: Spinal, Peripheral nerve block and Local Operative Notes Estimated Blood Loss (mL): 200 Tourniquet time (min): 60 Procedure in detail: Implants: Jacklyn Persona Medial Congruent Total Knee Arthroplasty: * Size 9 Cruciate Retaining Femoral Component * Size G Tibial Component * Size 10 Medial Congruent Polyethylene Insert * Unresurfaced Patella Procedure Summary: Varus knee which had neutral balance in extension without any releases and externally rotated to 3? in flexion. Procedure in Detail: This patient was seen preoperatively and evaluated for knee pain which was refractory to numerous nonoperative treatment modalities. Their hip pain correlated with radiographic changes demonstrating significant degeneration in the knee joint. The risks and benefits of continued nonoperative management versus operative management were discussed at length and all of the patient?s q uestions were answered. Additional educational materials providing further details beyond our discussion in clinic were provided via a publicly available patient education video which included the incidence of medical complications associated with total knee arthroplasty, reasons for revision following total knee arthroplasty, and patient satisfaction rates following total knee arthroplasty. That video can be accessed at [email or web address] . With this understanding of the risks inherent to the procedure, the patient elected to move forward with operative management. Following preoperative optimization, the patient was scheduled for surgery. The patient was met in the preoperative holding area the day of the procedure and all questions were answered. The patient?s nares were swabbed with betadine in order to decolonize them from MRSA. Informed consent was signed and the operative limb was marked with indeli ble ink.? The patient was brought back to the operating room where anesthesia was induced. The patient was transferred to the operating table and all bony prominences were padded. The operative site was prepped and draped in the usual sterile fashion. A second prep stick was utilized following drape placement. The incision was marked corresponding to the medial aspect of the tibial tubercle and the patella. Ioban was wrapped circumferentially around the knee. Prior to incision, tranexamic acid and cefazolin were administered. Templating images were displayed. A timeout procedure was performed verifying the patient?s identity, medical comorbidities, allergies, relevant medications, anesthesia type and the surgical plan. All present were in agreement. The assistance of a physician prosthetics assistant was required for positioning, room setup, soft tissue retraction and wound closure. Without this assistance, the procedure would have been significantly more challenging and time consuming.?? The tourniquet was inflated prior to incision. I made an anterior incision over the knee, dissected through the subcutaneous tissues and identified the lateral border of the VMO. Medial and lateral soft tissue flaps were developed. A medial parapatellar arthrotomy was performed ensuring that adequate capsular tissue would remain for closure at the conclusion of the procedure. The hip was brought into extension and the medial soft tissues were released off the joint line of the tibia. Tissue overlying the distal anterior femur was released to allow for later assessment for anterior notching but left in place. A portion of the retropatellar fat pad was excised while protecting the patellar tendon. The patella was everted. The patella was not resurfaced. Osteophytes were excised and a lateral facetectomy was performed. The patella was released from its everted position.?? I flexed the knee to 90 degrees and placed retractors to allow access to the notch. An opening reamer was used to gain access to the femoral canal and an intramedullary nacho was introduced into the canal. Diaphyseal fit was obtained in order to allow a distal femoral resection at 5 degrees relative to the anatomic axis, thereby aiming to achieve mechanical alignment of the eventual implant. A +1 resection was planned and assessed using an marni wing. I then made the cut using a sagittal saw. This provided additional access to the femoral notch. The ACL and PCL were excised. Retractors were placed on the lateral and medial tibia. I hyperflexed the knee while externally rotating it to sublux the tibia anteriorly. I placed a PCL retractor posteriorly and used this to provide additional anterior subluxation. The remainder of the PCL root was released. An intramedullary reamer was used in the ACL footprint to provide access to the tibial canal. An extramedullary guide was positioned to allow a resection perpendicular to the anatomic and mechanical axes of the tibia, thereby aiming to achieve mechanical alignment of the eventual implant. A +4 resection off the medial tibia was planned and the tibial cutting jig was pinned in place. I evaluated the cut depth, varus-valgus alignment and slope of the planned tibial resection and deemed them satisfactory. I cut the tibia with a sagittal saw while using retractors to protect the MCL, patellar tendon, and posterolateral structures.? The knee was repositioned in extension and the Fuzion soft tissue balancing gauge was introduced. This demonstrated that there was equal tension in the medial and lateral compartments of the knee with the knee in full extension and no additional soft tissue releases were necessary. When 60 pounds of force was applied to the Fuzion device, the extension gap opened to 10 mm. I moved the knee into 90 degrees of flexion, and the Fuzion device was recalibrated by removing a 9 mm aleta to allow assessment of the flexion gap. The Fuzion was placed perpendicular to the resected surface of the tibia and the resected surface of the distal femur. Sixty pounds of traction was applied to match the tension of the extension gap. This externally rotated the femur to 3 degrees. Pins were placed in the 10 mm holes. The measured resection guide was placed over the pins to allow sizing. Appropriate sizing was determined and a 4-in-1 block was placed. This was double checked using the Fuzion device to ensure that it would open to an equal distance as the extension gap when the same amount of force was applied. The Fuzion block was also used to assess flexion gap symmetry. An marni wing was used to ensure there would be no anterior notching. Retractors were placed to protect the soft tissues during resection. Captured cuts were performed with a sagittal saw for the anterior and posterior femur as well as the corresponding chamfers.? Trial components were placed and the construct was assessed. Range of motion was assessed by ensuring the knee could achieve full extension and assessing maximum passive knee flexion by elevating the femur and allowing the heel to passively fall towards the buttock. Gap symmetry was assessed by stressing the medial and lateral compartments in both extension and flexion. Laxity was assessed in both extension and flexion and the polyethylene trial was adjusted with shims as necessary. Patellar tracking was assessed with knee flexion. Once satisfied with the construct, I moved forward with implant insertion. Lug holes were drilled in the femur and the tibia was prepped ensuring appropriate sizing and rotation relative to the tibial tubercle.?? The bony ends were irrigated and cement was prepared. Portions of the anterior chamfer cut were utilized as cement restrictors in the femur and tibia where intramedullar rods had been utilized. Cement was placed on the entirety of the undersurface of both the tibial and femoral components. Cement was placed onto the dry tibia and pressurized into the cancellous bone. I impacted the tibial component into place. Cement was removed. The tibia was reduced underneath the femur and placed cement onto the dry surface of the resected femur. I placed the femoral component as well as the intended polyethylene trial. Cement was removed from around the femur. I brought the knee into extension and manually pressurized the construct by pushing on the heel while the cement dried. The knee was bathed in a dilute mixture of betadine and peroxide. A mixture of Ropivacaine, Epinephrine, Clonidine and Toradol was infiltrated throughout the soft tissues into structures including the VMO, patellar tendon, quadriceps tendon, MCL and femoral periosteum. A low adductor canal block was also performed using this mixture unless one had been placed preoperatively by anesthesia. The knee was copiously irrigated with pulse lavage. Once cement had been allowed to dry the knee was again trialed. Range of motion was assessed by ensuring the knee could achieve full extension and assessing maximum passive knee flexion by elevating the femur and allowing the heel to passively fall towards the buttock. Gap symmetry was assessed by stressing the medial and lateral compartments in both extension and flexion. Laxity was assessed in both extension and flexion and the polyethylene trial was adjusted with shims as necessary. Patellar tracking was assessed with knee flexion. The tourniquet was let down and the polyethylene trial was removed. I inspected the knee inspected for excess cement and any residual bleeding. Once hemostasis was achieved I inserted the final polyethylene and ensured appropriate engagement of the dovetail locking mechanism.?? The arthrotomy was closed with absorbable interrupted suture ensuring that this extended to the top of the arthrotomy. This was backed up with running barbed suture throughout the arthrotomy. The skin was closed with 2-0 and 3-0 sutures. Surgical glue was applied and a soft dressing was placed.?The sponge, instrument and needle counts were reported as being correct at the end of the case.??No obvious complications occurred. The patient was transferred from the operating table back to a stretcher. The patient emerged from anesthesia without difficulty and was taken to the PACU in a stable condition.? Plan for aftercare: * Weightbearing as tolerated * Mobilization as soon as the patient has recovered from anesthesia. If physical therapists are unavailable at the time the patient is ready to ambulate, then nursing staff should help patient ambulate * Aspirin 81 twice per day for DVT prophylaxis * Multimodal pain regimen with no IV opioids ordered * Anticipate discharge home later today or tomorrow morning * Follow up at [facility] in 2 weeks * Detailed postoperative instructions available at [email or web address]
[2023-09-08] MEDS: OXYCODONE IR 5 MG TABLET PO ×3 (13:49→21:48)
--- NOTE | 2023-09-08 16:05 | PT.IIE ---
Current Diagnoses Unilateral primary osteoarthritis, left knee (09/08/23) Surgery Performed Operation Date: 09/08/23 10:45 Actual Procedures p Total Knee Arthroplasty(Left) - Blayne Hancock MD Surgical History (Last Updated 08/29/23 @ 13:06 by Candace Reina RN) Hx of bilateral cataract extraction Hx of discectomy (1984) Medical History (Last Updated 08/29/23 @ 13:11 by Candace Reina RN) Chickenpox (1945) Enlarged prostate Hearing loss Hypertension Knee pain, right anterior Left anterior fascicular block (LAFB) Macular degeneration of left eye Nocturia Obesity (BMI 30.0-34.9) Osteoarthritis Pneumonia due to COVID-19 virus (02/2021) Pre-diabetes Vertigo Physical Therapy Inpatient Evaluation/Re-Eval M1 PT/OT-IP Prior Functional Status Start: 09/08/23 17:07 Freq: NEEDED Status: Active Protocol: Document 09/08/23 16:05 AB (Rec: 09/08/23 17:22 AB [id number]) Medical Review Prior Functional Status Medical History Reviewed Yes Communication able to make needs known Mobility and Gait Pt stated that he was modified independent with all mobilities and ambulation without AD Social History Household Members children Living Arrangements House Number of Floors (Floors) Two Floors Number of Stairs To Enter/Railing? pt stays on main level of the house 8 steps R rail ascending to enter the house Home Environment Standard Height Toilet,Tub/ Shower Home Equipment Front Wheel Walker,Straight Cane,Hand Held Shower,Grab Bars Near Toilet,Grab Bars In Shower Additional Social History Comment pt lives with his daughter who will assist him at home pt has an adjustable bed M2 PT-IP Current Condition Start: 09/08/23 17:07 Freq: NEEDED Status: Active Protocol: Document 09/08/23 16:05 AB (Rec: 09/08/23 17:22 AB [id number]) Physical Therapy Current Condition Current Condition Evaluation Date 09/08/23 Treatment Diagnosis s/p L TKA; difficulty in walking Onset Date 09/08/23 M3 PT-IP Subjective Start: 09/08/23 17:07 Freq: NEEDED Status: Active Protocol: Document 09/08/23 16:05 AB (Rec: 09/08/23 17:22 AB [id number]) Subjective Physical Therapy Visit Type Type Initial Evaluation Visit Start Time 16:05 Visit Stop Time 17:06 Number of HUMAN DEVELOPMENT PROFESSOR Visits 0 Physical Therapy Visit Comments Patient Comments agreeable to do PT; c/o increase pain (no pain meds order yet after sx) but agreed to try to do PT Therapy Pain Assessment Pain When Pain Assessed At Rest Pain Present Pain Present Pain Reported Location Left Knee Intensity 9 Scale Used Numeric (0 - 10) Pain Behaviors Facial Grimacing,Guarding, Holding Area,Wincing Pain Management Techniques Apply Cold,Distraction, Modification of Treatment,Re- positioning,Timing of Activity with Medications M4 PT-IP Mobility and Gait Start: 09/08/23 17:07 Freq: NEEDED Status: Active Protocol: Document 09/08/23 16:05 AB (Rec: 09/08/23 17:22 AB [id number]) PT-Bed Mobility Assessment Supine to Sit Supine to Sit Maximum Assistance Sit to Supine Sit to Supine Maximum Assistance PT-Transfer Assessment Sit to and From Stand Sit to and from Stand Maximum Assistance,1 Person Assistance,2 Person Assistance ,Use of Upper Extremities Equipment Transfer Assistive Device Gait Belt,Front Wheeled Walker Orthotic/Prosthetic Devices or Brace: No Comments Mobility Comments pt supine in bed and daughter in room. pt with c/o increase pain but agreed to do PT. Per nurse, still awaiting MD orders for pain meds order. obtained PLOF and homse set up . BP in supine: 160/87. DE: 102-109 O2 sat 92% at RA. heel slide conducted prior to mobility. pt presents with increase muscle guarding. L knee flexion ROM: ~ 40 deg and extension: ~ 20 deg less to 0 . provided pt with post-op folder and reviewed contents. reviewed HEP. pt completed supine to sit max A and max cues. able to sit on EOB SBA. no c/o dizziness/ lightheadedness. completed sit to stand max A x 1-2 and max cues. instructed to march in place and completed max A. agreed to take steps and completed 3 steps forwards and backwards using fWW max A x 1 -2 and max cues. instructed to side steps towards HOB using fWW max A x 1-2 and max cues. pt requeste to go back to bed. completed sit to supine max A and max cues. positioned pt in bed. call light and table placed within reach. cold therapy machine positioned on pt. set up pt for dinner. (+) SOB after mobility but O2 sat at 97% set up caregiver training with daughter: 9 am tomorrow. Gait Assessment Gait Gait Assistance Required: Maximum Assistance,1 Person Assist,2 Person Assist Distance (Feet) 2 Able to Maintain Weight Bearing Status Yes During Gait Assistive Devices Assistive Device Gait Belt,Front Wheeled Walker Gait Deviations General Gait Pattern Decreased Stride Length, Decreased Feet Clearance,Step- to Gait Factors Limiting Gait Function Factors Limiting Gait Function Decreased Activity Tolerance, Decreased Strength,Limited Range of Motion,Pain,Poor Balance,Poor Safety Awareness, Respiratory Distress PT-Balance Assessment Sitting Balance and Reactions Static Sitting Balance Ability Good Dynamic Sitting Balance Ability Good Standing Balance and Reactions Static Standing Balance Ability Poor Dynamic Standing Balance Ability Poor Device Used FWW M5 PT-IP Objective Assessments Start: 09/08/23 17:07 Freq: NEEDED Status: Active Protocol: Document 09/08/23 16:05 AB (Rec: 09/08/23 17:22 AB [id number]) Orientation Orientation/Cognition Level of Alertness Alert Orientation Name,Place,Situation Safety Awareness Decreased Safety Awareness Memory Description No Deficits Noted Gross Range of Motion Lower Extremity ROM Impairments L knee flexion: ~ 50 deg L knee extension: ~ 20 deg less to 0 Strength Lower Extremity Strength Assessment Left Impaired Hip 3-/5 Knee 3+/5 Muscle Tone Muscle Tone WNL Yes M6 PT-IP Treatment Start: 09/08/23 17:07 Freq: NEEDED Status: Active Protocol: Document 09/08/23 16:05 AB (Rec: 09/08/23 17:22 AB [id number]) Physical Therapy Treatment Exercises Exercises Heel Slides Education Education Provided Precautions,Weight Bearing Status,Post-Op Packet,Safety M7 PT-IP Assessment and Plan Start: 09/08/23 17:07 Freq: NEEDED Status: Active Protocol: Document 09/08/23 16:05 AB (Rec: 09/08/23 17:22 AB [id number]) PT Summary Assessment and Plan Potential Rehabilitation Potential Fair Status of Condition at Evaluation Evolving Summary Impairments Pain,ROM,Strength,Balance, Coordination,Sensation,Tone, Cognition,Bed Mobility, Transfers,Gait,Activity Tolerance Assessment Summary Pt is an 83 y/o M s/p L TKA POD 0. pt with c/o increase L knee pain and awaiting pain meds order from MD. pt requiring max A x 1-2 for mobility using FWW and plans to go home with daughter to assist him. Caregiver training set up for tomorrow at 9 am. will continue to assess progress. Goals Bed Mobility Goal Independent Transfer Goal Independent,Front Wheeled Walker Gait Goal Independent,Front Wheel Walker Gait Distance 200 Other Goals improve transfers and ambulation using LRAD 300 ft mod I up/down 8 steps using R rail ascending/SPC SBA Days to Meet Goals 5 Frequency of Treatment Frequency Of Treatment Twice a Day Treatment Plan Physical Therapy Treatment Plan Bed Mobility Training,Transfer Training,Gait Training, Therapeutic Exercise,Balance Retraining,Post Op Education, Discharge Planning,Hot or Cold Pack,Neuromuscular Re-ed, Coordination Retraining,Manual Therapy Other Recommendations and Next Treatment caregiver trainin/3 @ 9 am Focus Weight Bearing Status Weight Bearing Status Weight Bear as Tolerated Allowed Weight Bearing Amount (enter % LLE WBAT or #) (%) Recommendations To Nursing Amount of Assist Needed 2 Person Assist Discharge Recommendations PT Discharge Recommendations Home with 27/02 Assist Available,Home Health, Outpatient PT Transportation Needs at Discharge Private Vehicle,Wheelchair/ Cabulance
[2023-09-08] MEDS: ACETAMINOPHEN 325 MG TABLET 650 MG PO ×2 (16:47→21:48)
[2023-09-08] MEDS: LACTATED RINGERS 1,000 ML 100 ML IV ×2 (16:47→23:08)
[2023-09-08] MEDS: AMLODIPINE 5 MG TABLET 10 MG PO (16:49)
--- NOTE | 2023-09-08 17:48 | PC.NURSE ---
Patient A&Ox4. VSS, afebrile on RA. He reports pain to L knee 5-7 /10. Ice machine placed to L knee. Martin wrap in place c/d/i. +CMS to LLE. Patient tolerating po well. IVF LR at 100 ml/hr. PT able to work with patient this afternoon and he tolerated activity well. Plan for Survey Worker Training at 9 a.m. on 09/09/23. Patient given PRN oxycodone, scheduled tylenol and ibuprofen with fair effect. He continues to rate pain 5/10. He is able to void this evening after dinner. IS encouraged, SCD's in place, call light in reach, urninal in reach, bed alarm is on, continuous 02 monitoring, and frequent rounding.
[2023-09-08] MEDS: IBUPROFEN 400 MG TABLET PO (18:49)
[2023-09-08] MEDS: ASPIRIN EC 81 MG TABLET PO (21:47)
[2023-09-08] MEDS: DOCUSATE 100 MG CAPSULE PO (21:47)
[2023-09-09] VITALS: BP 140/72; PULSE 88; RESP 16; TEMP 37.1; O2SAT 97
[2023-09-09] MEDS: IBUPROFEN 400 MG TABLET PO ×5 (00:08→23:49)
[2023-09-09] MEDS: CEFAZOLIN 2 GM/100 ML PREMIX 100 ML IV (03:07)
[2023-09-09 05:00] VITALS: BP 136/85; PULSE 76; RESP 16; TEMP 37.1; O2SAT 97
[2023-09-09] MEDS: ACETAMINOPHEN 325 MG TABLET 650 MG PO ×4 (05:09→23:51)
[2023-09-09 05:43] LABS: Hemoglobin 12.8 g/dL (13.5-17.5)
[2023-09-09 07:33] VITALS: BP 135/77; PULSE 101; RESP 24; TEMP 36.3; O2SAT 90
[2023-09-09] MEDS: DOCUSATE 100 MG CAPSULE PO ×2 (08:31→20:48)
[2023-09-09] MEDS: lisinopriL 20 MG TABLET PO (08:31)
[2023-09-09] MEDS: ASPIRIN EC 81 MG TABLET PO ×2 (08:31→20:47)
[2023-09-09] MEDS: OXYCODONE IR 5 MG TABLET PO ×3 (08:31→20:47)
--- NOTE | 2023-09-09 08:48 | PM.DS.1 ---
History of Present Illness History of Present Illness Date Patient Seen: 09/09/23 Time Patient Seen: 08:48 Chief complaint: OPB Narrative: Operative Date/Time/Diagnoses Date of procedure: 09/08/23 Pre-op diagnosis: Left knee arthritis Post-op diagnosis: same Procedure & Clinicians Procedure: Left total knee arthroplasty Same procedure as scheduled: Yes Surgeon: Blayne Hancock Prefitter: Roya Carvajal Anesthesia Type: Spinal, Peripheral nerve block and Local Operative Notes Estimated Blood Loss (mL): 200 Tourniquet time (min): 60 Procedure in detail: Implants: Jacklyn Persona Medial Congruent Total Knee Arthroplasty: Size 9 Cruciate Retaining Femoral Component Size G Tibial Component Size 10 Medial Congruent Polyethylene Insert Unresurfaced Patella Discharge Providers Provider Discharge Date: 09/09/23 Primary care physician: Mei Tierney DO Consults: 09/08/23 06:00 Consult to Anesthesiology Routine Comment: Consulting Provider: Anesthesiologist Reason for consultation: Regional block for post operative pain control 09/08/23 14:06 Consult to Discharge Planning Routine Comment: Consult to Occupational Therapy Evaluate & Treat Comment: Physician Instructions: Evaluate and treat Consult to Physical Therapy Evaluate & Treat Comment: Physician Instructions: postop TKA protocol Discharge provider: Erika Anthony PA-C Summary Hospital Course Discharge Diagnosis: Left knee osteoarthritis, s/p left total knee arthroplasty Hospital Course: Mr Boyd's hospital course was unremarkable. On the morning of POD# 1, he was feeling well and wanted to go home. He was eating and voiding without difficulty, and his pain was well-controlled with oral medication. He was evaluated by PT during his stay and they felt he was appropriate for homegoing with family. He was interviewed and examined with Dr Hancock. Exam Vital Signs (past 8 hours): - 09/09/23 05:00 09/09/23 07:33 Temperature 98.8 F 97.3 F L Pulse Rate 76 101 H Respiratory Rate 16 24 Blood Pressure 136/85 135/77 Pulse Oximetry 97 90 L Oxygen Flow Rate 0 0 Oxygen Delivery Method Room Air Oxygen Flow Rate 0 Narrative Exam Narrative: 5/5 strength in hip flexors, quadriceps, hamstrings, DF, PF, EHL on left. Sensation to light touch intact throughout LLE. Calf soft, compressible, nontender. BUADILIO over Aquacel CDI. Objective Labs 09/09/23 05:30 Labs: Laboratory Results - last 24 hr 09/09/23 05:30 Hgb 12.8 L Hct 37.0 L PFSH Medical History (Updated 08/29/23 @ 13:11 by Candace Reina RN) Osteoarthritis Pre-diabetes Enlarged prostate Macular degeneration of left eye Left anterior fascicular block (LAFB) Pneumonia due to COVID-19 virus (02/2021) Hypertension Obesity (BMI 30.0-34.9) Nocturia Knee pain, right anterior Hearing loss Vertigo Chickenpox (194) Surgical History (Updated 08/29/23 @ 13:06 by Candace Reina RN) Hx of bilateral cataract extraction Hx of discectomy (1984) Family History Father Diabetes mellitus Mother Cancer Sister Cancer Grandfather Cancer Grandmother Stroke Grandfather No problems noted. Grandmother No problems noted. Social History household members: children Smoking Status: Never smoker alcohol intake: never substance use type: does not use Discharge Assessment & Plan Assessment and Plan Assessment: Left knee osteoarthritis, s/p left total knee arthroplasty Plan of Treatment: Discharge home after AM PT. Pt has d/c meds at home. ASA BID x 6 weeks for VTE prophylaxis, outpt PT, f/u in office in 2 weeks as scheduled. Discharge Plan Discharge Plan Patient Disposition: Home Provider Discharge Comment: DO NOT take both Celebrex and ibuprofen. Take one or the other. Discharge orders & Medications Discharge Orders: Discharge (Order); Ordered 09/09/23 Ordered By: Erika Anthony Prescriptions: Continued lisinopril 20 mg tablet 20 mg PO QAM Qty: 90 3RF amlodipine [Norvasc] 10 mg tablet 10 mg PO QPM Qty: 90 3RF Prevagen 1 tab PO QAM acetaminophen 500 mg Tablet 500 - 1,000 mg PO Q6H PRN (Reason: Pain) ibuprofen [Advil] 200 mg Tablet 400 mg PO Q6H PRN (Reason: Pain) celecoxib [Celebrex] 200 mg capsule 200 mg PO DAILY MDD 200 mg Qty: 90 2RF Follow up/Referrals: Blayne Hancock MD [Physician] - 09/21/23 9:20 am (Follow up w/ Dr Hancock at [facility] [[email or web address] Mei Tierney DO [Primary Care Provider] - Diet/Activity/Treatments Diet: Diet as Tolerated Activity: Walk frequently! Weight bearing as tolerated Cold/Heat Therapy: Ice to the knee for pain control Skin/Wound/Dressing Care Report to your healthcare provider any signs of infection, such as:: chills, fever, night sweats, unusual drainage and unusual redness Dressing: May remove BAUDILIO wrap and shower on 09/11/2023. Leave dressing in place until follow up in office. No bathing or otherwise soaking incision. Call the office if the dressing becomes saturated inside. Visit Report/Discharge Packet Instructions: DI for Knee Replacement, DI for Prescription Opioid Use Stand Alone Forms: Patient Portal/API, Surgery Discharge Discharge Data Primary Care Provider: Mei Tierney Attending Provider: Blayne Hancock VTE Deep Vein Thrombosis/Pulmonary Embolism Present on Admission: No
--- NOTE | 2023-09-09 09:00 | PT.IPTN ---
Current Diagnoses Unilateral primary osteoarthritis, left knee (09/08/23) Surgery Performed Operation Date: 09/08/23 10:45 Actual Procedures p Total Knee Arthroplasty(Left) - Blayne Hancock MD Physical Therapy Treatment Note M2 PT-IP Current Condition Start: 09/08/23 17:07 Freq: NEEDED Status: Active Protocol: Document 09/08/23 16:05 AB (Rec: 09/08/23 17:22 AB [id number]) Physical Therapy Current Condition Current Condition Evaluation Date 09/08/23 Treatment Diagnosis s/p L TKA; difficulty in walking Onset Date 09/08/23 M3 PT-IP Subjective Start: 09/08/23 17:07 Freq: NEEDED Status: Active Protocol: Document 09/09/23 09:00 AB (Rec: 09/09/23 13:10 AB [id number]) Subjective Physical Therapy Visit Type Type Treatment Note Visit Start Time 09:00 Visit Stop Time 09:50 Number of SURVEY TECHNOLOGIST Visits 50 Physical Therapy Visit Comments Patient Comments agreeable to do PT Therapy Pain Assessment Pain When Pain Assessed During Mobility Pain Present Pain Present Pain Reported Location Left Knee Intensity 6 Scale Used Numeric (0 - 10) Pain Management Techniques Apply Cold,Distraction, Modification of Treatment,Re- positioning,Timing of Activity with Medications M4 PT-IP Mobility and Gait Start: 09/08/23 17:07 Freq: NEEDED Status: Active Protocol: Document 09/09/23 09:00 AB (Rec: 09/09/23 13:10 AB [id number]) PT-Bed Mobility Assessment Supine to Sit Supine to Sit Moderate Assistance,1 Person Assistance PT-Transfer Assessment Sit to and From Stand Sit to and from Stand Moderate Assistance,Maximum Assistance,1 Person Assistance ,Use of Upper Extremities Equipment Transfer Assistive Device Gait Belt,Front Wheeled Walker Orthotic/Prosthetic Devices or Brace: No Transfers Transfer Destination Toilet Transfer Technique ambulated Transfer Ability Level of Assist Moderate Assistance,Maximum Assistance,1 Person Assistance ,Use of Upper Extremities Comments Mobility Comments pt supine in bed. daughter in room for caregiver training. pt requested to use the toilet . completed supine to sit mod a and max cues. completed sit to stand mod to max A and max cues. pt with difficulty following directions. (+) SOB . O2 at RA 94%. completed sit to stand max A and max cues and ambulated to the toilet using FWW mod to max A and max cued ~ 20 ft. cued for L quads activation. required assist with brief management. required max A for controlled descent to the toilet. completed sit to stand max A from the toilet using grab bar and ambulated to the chair using FWW mod to max A and max cues. O2 sat after ambulation: 82-85%. cued for deep breathing. O2 sat increased to 90% in ~ 10 sec. caregiver training conducted. educated daughter on how to use safety belt and how to assist pt. daughter was able to put safety belt on and assisted pt with sit to stand mod to max A and max cues. daughter ambulated pt in room ~ 10 ft and Pt with (+) L knee buckling needing PT to stabilize. pt sat back on the chair. (+) SOB : O2 sat: 94- 95%. positioned pt in on the chair. call light and table placed within reach. informed pt and daughter that pt is not ready to go home at this time and will do further caregiver training in the afternoon and set up at 1pm. Gait Assessment Gait Gait Assistance Required: Moderate Assistance,Maximum Assistance Distance (Feet) 20 Able to Maintain Weight Bearing Status Yes During Gait Assistive Devices Assistive Device Gait Belt,Front Wheeled Walker Orthotic/Prosthetic Devices or Brace: No Gait Deviations General Gait Pattern Antalgic,Decreased Stride Length,Decreased Feet Clearance Factors Limiting Gait Function Factors Limiting Gait Function Decreased Activity Tolerance, Decreased Strength,Difficulty Following Directions,Limited Range of Motion,Pain,Poor Balance,Poor Safety Awareness M5 PT-IP Objective Assessments Start: 09/08/23 17:07 Freq: NEEDED Status: Active Protocol: Document 09/08/23 16:05 AB (Rec: 09/08/23 17:22 AB [id number]) Orientation Orientation/Cognition Level of Alertness Alert Orientation Name,Place,Situation Safety Awareness Decreased Safety Awareness Memory Description No Deficits Noted Gross Range of Motion Lower Extremity ROM Impairments L knee flexion: ~ 50 deg L knee extension: ~ 20 deg less to 0 Strength Lower Extremity Strength Assessment Left Impaired Hip 3-/5 Knee 3+/5 Muscle Tone Muscle Tone WNL Yes M6 PT-IP Treatment Start: 09/08/23 17:07 Freq: NEEDED Status: Active Protocol: Document 09/09/23 09:00 AB (Rec: 09/09/23 13:10 AB [id number]) Physical Therapy Treatment Exercises Exercises Heel Slides Education Education Provided Safety M7 PT-IP Assessment and Plan Start: 09/08/23 17:07 Freq: NEEDED Status: Active Protocol: Document 09/09/23 09:00 AB (Rec: 09/09/23 13:10 AB [id number]) PT Summary Assessment and Plan Potential Rehabilitation Potential Fair Summary Impairments Pain,ROM,Strength,Balance, Coordination,Sensation,Tone, Cognition,Bed Mobility, Transfers,Gait,Activity Tolerance Progress Towards Goals Slow Progress due to Pain,Slow Progress due to Medical Issues,Slow Progress due to Activity Tolerance,Slow Progress - Other Assessment Summary Pt requiring mod to max A with mobility using FWW with (+) L knee buckling and with decrease activity tolerance with (+) SOB and O2 sat decreased to 82-85% after ambulation. caregiver training initiated but pt unable to complete further activities and further caregiver training is needed. will continue to assess progress. Goals Bed Mobility Goal Independent Transfer Goal Independent,Front Wheeled Walker Gait Goal Independent,Front Wheel Walker Gait Distance 200 Other Goals improve transfers and ambulation using LRAD 300 ft mod I up/down 8 steps using R rail ascending/SPC SBA Days to Meet Goals 5 Frequency of Treatment Frequency Of Treatment Twice a Day Treatment Plan Physical Therapy Treatment Plan Bed Mobility Training,Transfer Training,Gait Training, Therapeutic Exercise,Balance Retraining,Post Op Education, Discharge Planning,Hot or Cold Pack,Neuromuscular Re-ed, Coordination Retraining,Manual Therapy Weight Bearing Status Weight Bearing Status Weight Bear as Tolerated Allowed Weight Bearing Amount (enter % LLE WBAT or #) (%) Recommendations To Nursing Amount of Assist Needed 2 Person Assist Discharge Recommendations PT Discharge Recommendations Home with 27/02 Assist Available,Home Health, Outpatient PT Transportation Needs at Discharge Private Vehicle,Wheelchair/ Cabulance
--- NOTE | 2023-09-09 09:27 | CM.DANOTE ---
Addendum entered by Gisela Magallanes R.N. 09/09/23 11:20: Discussed patient during team rounds. P.T. indicated that patient's oxygen level dropped when they were working with him. Other concerns are that patient has 8 stairs for home. Met with daughter again, did discuss this, she does not have anyone else to assist her getting patient up the stairs, but is open to ambulance if needed, but did let her know that there most likely will be a cost. Patient will work again with P.T. this afternoon, and will see how he does with his oxygen sats. Original Note: DCP: Case received, EMR reviewed and met with patient. Daughter, Zoraida, was at bedside. Introduced self and role. Was able to obtain information regarding patient's baseline activity status prior to his surgery. DCP assessment completed with information currently available. Patient is an 83 year old male who admitted yesterday morning to the care of the orthopedic team. PCP: Dr. Tierney. Payer: confirmed: Medicare/[employer]. Patient came to the hospital via private vehicle for a surgical procedure. Patient had left total knee arthroplasty. Patient has history of left knee arthritis. Met with patient in his room. His daughter, Zoraida, was with him, who he resides with. Patient resides here in [place]. At his baseline, he is independent. He did work with P.T. yesterday, and will again today. He does have some stairs that he will navigate, according to daughter. She indicated that patient is set up with outpatient P.T. P: Patient does have discharge orders, will work with P.T. again before discharge. Gisela Magallanes RN/Head Of Insight Discharge Planning/Care Management CM Discharge Assessment Start: 09/09/23 09:24 Freq: Status: Active Protocol: Document 09/09/23 09:24 (Rec: 09/09/23 09:26 [id number]) Discharge Planning Assessment Assigned Rn Surgery Icu Gisela Magallanes RN/Head Of Insight Advance Directives? Yes: POLST Advance Directives on File Yes History Provided By Patient,Medical Record Prior Living Arrangements House Household Members children Type of transporation used prior to Drives own vehicle admit Independent with ADL's Yes Caregiver for Another No Barriers to Discharge No Discharge Plan Home Transportation Arrangement Daughter Referrals Initiated Other Additional Comment Will see how patient does with P.T. Has Agency SNF been contacted Yes Whiteboard Updated in Patient Room with Yes name and ext. # of Rn Surgery Icu Review Status In Process Next Review Type Continued Stay Review Pre-Anesthesia Assessment Start: 08/29/23 12:43 Freq: Status: Active Protocol: Document 08/29/23 12:44 CAB (Rec: 08/29/23 13:39 CAB [id number]) Pre-Anesthesia Assessment Patient Information Reviewed Via Phone Assessment Assessment Completed With Patient Diagnostic Results BMP/CMP,CBC,EKG Comment Labs/EKG @ [facility] 07/13/23 Primary Care Provider Mei Tierney Seen Specialist in Last 12 Months Yes Specialist Seen Orthopedist Comment 220lb Primary Language Omani Preferred Language [place] [employer] Accountant Required No Height 5 ft 9 in Weight 220 lb Body Mass Index (BMI) 32.5 Hearing Ability Hearing Impaired Visual Assist Glasses Dentition Type Teeth, Natural Present Barriers to Learning None,Auditory Comment Hearing aids currently missing Hx Anesthesia Reactions No Hx Family Anesthesia Reaction No Hx Malignant Hyperthermia No Hx Blood Transfusions No Anesthesia Review Requested No Lead Presser No alcohol intake never Smoking Status Never smoker Substance Use Type does not use Pain Present Pain Reported Musculoskeletal Symptoms Abnormal Gait,Back Pain, Difficulty Walking,Joint Pain History of Falling (Recent or History of No ) Patient is completely paralyzed or No completely immobile Mental Status Oriented to own ability Is patient on oxygen? No Does patient have JUDD/SOB No Hx Sleep Apnea No Currently Taking a Beta Sarah No Hx Chest Pain No Hx SOB No Hx Syncope or Dizziness No Anti-Coagulant Therapy No Has a Plastering Contractor No Cardiac Testing No Hx Pacemaker/ICD No Pacemaker Rep Required? No Cardiac Clearance Received Not Applicable Diet Type At Home Regular Dysphagia No Gastrointestinal Symptoms Reflux Bladder Pattern Incontinent Urinary Catheter Present No Hx Urinary Self Catheterization No Diabetes No: Pre-diabetes HgbA1C 6.6 Date 07/13/23 Hx Drug Resistant Organism No Presence of External or Internal Medical Yes: Bilat eye IOLs Devices Received a COVID vaccine? Yes Received all doses? No Marital Status / Lives With children Current Living Arrangements House Number of Floors (Floors) Two Floors Number of Stairs To Enter/Railing? 8 Support System Child/Children Comment Daughter lives w/pt and will assist with care at DC Does the Patient Have Assistance After Yes Surgery Patient Discharge Plan Description Return Home Comment Pt advised 2 day length of stay per surgeon Feels Safe in Current Environment Yes Been Physically Hurt or Threatened By a No Person in Current Environment Do you have thoughts of harming yourself None or others? Are you currently considering suicide? No Do you have a plan to hurt yourself or No Plan others? Do You Have Any Spiritual Beliefs That No May Affect Your HC Choices? Do You Have Any Cultural Practices That No May Affect Your HC Choices? Who Can We Speak to About Patient's Care Family, friends Identifying Code for Release of Patient Declines to issue Information Health Care Proxy/Next of Kin Zoraida Arizmendi (Daughter) Health Care Proxy Emergency Contact Name Zoraida Arizmendi (Daughter) Emergency Contact Advance Directives? Yes: POLST Power of Food Writer No PAC Instructions Durable medical equipment, Medications to take/avoid, Nasal antibiotic,No ETOH/ petroleum product on skin DOS, NPO,Pre-surgical wash,Sensory aids,Sturdy shoes/comfortable clothes,Do not bring valuables and remove jewelry
[2023-09-09 12:00] VITALS: BP 138/71; PULSE 94; RESP 20; TEMP 37.2; O2SAT 94
--- NOTE | 2023-09-09 13:05 | PT.IPTN ---
Current Diagnoses Unilateral primary osteoarthritis, left knee (09/08/23) Surgery Performed Operation Date: 09/08/23 10:45 Actual Procedures p Total Knee Arthroplasty(Left) - Blayne Hancock MD Physical Therapy Treatment Note M2 PT-IP Current Condition Start: 09/08/23 17:07 Freq: NEEDED Status: Active Protocol: Document 09/08/23 16:05 AB (Rec: 09/08/23 17:22 AB [id number]) Physical Therapy Current Condition Current Condition Evaluation Date 09/08/23 Treatment Diagnosis s/p L TKA; difficulty in walking Onset Date 09/08/23 M3 PT-IP Subjective Start: 09/08/23 17:07 Freq: NEEDED Status: Active Protocol: Document 09/09/23 13:05 AB (Rec: 09/09/23 14:22 AB [id number]) Subjective Physical Therapy Visit Type Type Treatment Note Visit Start Time 13:05 Visit Stop Time 13:55 Number of LAND DEVELOPER Visits 0 Physical Therapy Visit Comments Patient Comments agreeable to do PT Therapy Pain Assessment Pain When Pain Assessed At Rest Location Left Knee Intensity 4 Scale Used Numeric (0 - 10) Pain Management Techniques Apply Cold,Elevation, Modification of Treatment,Re- positioning,Timing of Activity with Medications M4 PT-IP Mobility and Gait Start: 09/08/23 17:07 Freq: NEEDED Status: Active Protocol: Document 09/09/23 13:05 AB (Rec: 09/09/23 14:22 AB [id number]) PT-Bed Mobility Assessment Sit to Supine Sit to Supine Minimal Assistance PT-Transfer Assessment Sit to and From Stand Sit to and from Stand Moderate Assistance,Maximum Assistance,1 Person Assistance ,Use of Upper Extremities Equipment Transfer Assistive Device Gait Belt,Front Wheeled Walker Orthotic/Prosthetic Devices or Brace: No Transfers Transfer Destination Bed Transfer Technique ambulated Transfer Ability Level of Assist Minimal Assistance,Moderate Assistance,1 Person Assistance ,Use of Upper Extremities Comments Mobility Comments pt sitting on the chair. Daughter in room for caregiver training. pt stated that he has episodes of lightheadedness. BP checked: 99/58 and rechecked: 104/61. O2 sat at RA 90-94%. informed pt regarding low BP. will monitor BP during session. caregiver training conducted. daughter was able to put safety belt on pt. pt completed sit to stand from the chair with daughter assisting mod to max A. pt was able to stay standing while BP is being checked: 104 /61. pt amabulated in room ~ 8 ft using FWW with daughter assisting min to mod A and cues. continues to present with unsteady gait and sligth L knee buckling. pt sat back on the chair and rested. BP: 110/66 and O2 sat 89% and increased to 95% after a few seconds. pt stated that he will just try the stairs tomorrow.. pt requested to go back to bed. completed sit to stand with daughter assisting and ambulated to the EOB ~ 12 ft using FWW min to mod A. completed sit to supine min A and cues for techniques. positioned in bed. call light and table placed within reach . Gait Assessment Gait Gait Assistance Required: Minimum Assistance,Moderate Assistance Distance (Feet) 12 Able to Maintain Weight Bearing Status Yes During Gait Assistive Devices Assistive Device Gait Belt,Front Wheeled Walker Orthotic/Prosthetic Devices or Brace: No Gait Deviations General Gait Pattern Decreased Stride Length, Decreased Feet Clearance,Step- to Gait Factors Limiting Gait Function Factors Limiting Gait Function Decreased Activity Tolerance, Decreased Strength,Difficulty Following Directions,Limited Range of Motion,Pain,Poor Balance,Poor Safety Awareness M5 PT-IP Objective Assessments Start: 09/08/23 17:07 Freq: NEEDED Status: Active Protocol: Document 09/08/23 16:05 AB (Rec: 09/08/23 17:22 AB [id number]) Orientation Orientation/Cognition Level of Alertness Alert Orientation Name,Place,Situation Safety Awareness Decreased Safety Awareness Memory Description No Deficits Noted Gross Range of Motion Lower Extremity ROM Impairments L knee flexion: ~ 50 deg L knee extension: ~ 20 deg less to 0 Strength Lower Extremity Strength Assessment Left Impaired Hip 3-/5 Knee 3+/5 Muscle Tone Muscle Tone WNL Yes M6 PT-IP Treatment Start: 09/08/23 17:07 Freq: NEEDED Status: Active Protocol: Document 09/09/23 13:05 AB (Rec: 09/09/23 14:22 AB [id number]) Physical Therapy Treatment Education Education Provided Safety M7 PT-IP Assessment and Plan Start: 09/08/23 17:07 Freq: NEEDED Status: Active Protocol: Document 09/09/23 13:05 AB (Rec: 09/09/23 14:22 AB [id number]) PT Summary Assessment and Plan Potential Rehabilitation Potential Fair Summary Impairments Pain,ROM,Strength,Balance, Coordination,Sensation,Tone, Cognition,Bed Mobility, Transfers,Gait,Activity Tolerance Progress Towards Goals Slow Progress due to Medical Issues,Slow Progress due to Activity Tolerance Assessment Summary Caregiver training conducted and daughter was able to assist pt with transfers, ambulation and bed mobility but pt continues to have decrease activity tolerance. pt only able to ambulate ~ 12 ft using FWW with min to mod A with unsteady gait and slight L knee buckling. pt also presents with (+) SOB with O2 sat decreasing to 89% with activity. pt also having low BP this afternoon 99/58 with c/o slight dizziness. Caregiver training set up again for tomorrow at 9am. will continue to assess progress. Goals Bed Mobility Goal Independent Transfer Goal Independent,Front Wheeled Walker Gait Goal Independent,Front Wheel Walker Gait Distance 200 Other Goals improve transfers and ambulation using LRAD 300 ft mod I up/down 8 steps using R rail ascending/SPC SBA Days to Meet Goals 5 Frequency of Treatment Frequency Of Treatment Twice a Day Treatment Plan Physical Therapy Treatment Plan Bed Mobility Training,Transfer Training,Gait Training, Therapeutic Exercise,Balance Retraining,Post Op Education, Discharge Planning,Hot or Cold Pack,Neuromuscular Re-ed, Coordination Retraining,Manual Therapy Weight Bearing Status Weight Bearing Status Weight Bear as Tolerated Allowed Weight Bearing Amount (enter % LLE WBAT or #) (%) Recommendations To Nursing Amount of Assist Needed 1 Person Assist Discharge Recommendations PT Discharge Recommendations Home with 27/02 Assist Available,Home Health,SNF Rehab Transportation Needs at Discharge Private Vehicle,Wheelchair/ Cabulance
--- NOTE | 2023-09-09 14:35 | PC.NURSE ---
Day shift: Left voicemail (at approx 1400) on Dr Garcia call number (per [facility]) that Pt unsafe to d/c today and need an order to cancel the discharge order for today.
[2023-09-09 17:20] VITALS: BP 103/53; PULSE 96; RESP 18; TEMP 36.3; O2SAT 90
[2023-09-09] MEDS: polyethylene glycoL 3350 17 GM POWD.PACK PO (17:25)
[2023-09-09 20:15] VITALS: BP 140/72; PULSE 81; RESP 16; TEMP 37.1; O2SAT 94
--- NOTE | 2023-09-10 03:49 | PC.NURSE ---
shift supervisor rn: Patient is AxOx4, VSS, O2 saturation 96% on RA. Encouraged use of incentive spirometer, pt has been compliant. Denies nausea, SOB, chest pain. Pt states pain in LLE is minimal and well controlled w/ scheduled post-op meds. BAUDILIO wrap on left knee is CDI. Pt is SBA w/ FWW to the bathroom, tolerated ambulation well. Uses call light appropriately, fall precautions in place. Will continue to monitor.
[2023-09-10] MEDS: ACETAMINOPHEN 325 MG TABLET 650 MG PO (04:03)
[2023-09-10 04:12] VITALS: BP 150/74; PULSE 95; RESP 16; TEMP 36.5; O2SAT 96
[2023-09-10] MEDS: IBUPROFEN 400 MG TABLET PO (05:31)
[2023-09-10 08:00] VITALS: BP 124/67; PULSE 90; RESP 16; TEMP 36.3; O2SAT 93
[2023-09-10 08:55] VITALS: BP 124/67; PULSE 90
[2023-09-10] MEDS: DOCUSATE 100 MG CAPSULE PO (08:55)
[2023-09-10] MEDS: ASPIRIN EC 81 MG TABLET PO (08:55)
[2023-09-10] MEDS: lisinopriL 20 MG TABLET PO (08:55)
--- NOTE | 2023-09-10 09:38 | PT.IPTN ---
Current Diagnoses Bilateral primary osteoarthritis of knee (09/08/23) Unilateral primary osteoarthritis, left knee (09/08/23) Surgery Performed Operation Date: 09/08/23 10:45 Actual Procedures p Total Knee Arthroplasty(Left) - Blayne Hancock MD Physical Therapy Treatment Note M2 PT-IP Current Condition Start: 09/08/23 17:07 Freq: NEEDED Status: Active Protocol: Document 09/08/23 16:05 AB (Rec: 09/08/23 17:22 AB [id number]) Physical Therapy Current Condition Current Condition Evaluation Date 09/08/23 Treatment Diagnosis s/p L TKA; difficulty in walking Onset Date 09/08/23 M3 PT-IP Subjective Start: 09/08/23 17:07 Freq: NEEDED Status: Active Protocol: Document 09/10/23 09:06 KS (Rec: 09/10/23 12:11 KS [id number]) Subjective Physical Therapy Visit Type Type Treatment Note Visit Start Time 09:06 Visit Stop Time 09:38 Number of PLASTICS ENGINEERING TEACHER Visits 1 Physical Therapy Visit Comments Patient Comments agreeable to do PT, daughter present for caregiver training . M4 PT-IP Mobility and Gait Start: 09/08/23 17:07 Freq: NEEDED Status: Active Protocol: Document 09/10/23 09:06 KS (Rec: 09/10/23 12:11 KS [id number]) PT-Transfer Assessment Sit to and From Stand Sit to and from Stand Minimal Assistance,1 Person Assistance,Use of Upper Extremities Equipment Transfer Assistive Device Gait Belt,Front Wheeled Walker Orthotic/Prosthetic Devices or Brace: No Transfers Transfer Destination Chair,Wheelchair Transfer Technique ambulated Transfer Ability Level of Assist Minimal Assistance,1 Person Assistance,Use of Upper Extremities Comments Mobility Comments Pt in chair and dtr in room upon arrival. Pt feeling better today, BP and O2 stable in low 90's. Denied SOB. Pts dtr able to provide all necessary assist for gaitbelt, sit<>stand, ambulation w/ FWW and transfer to w/c. Pt then ascended/descended 6 total steps w/ R hand rail and SPC w / CGA and cues for sequencing. He performed 1 set w/ this PLASTICS ENGINEERING TEACHER and 1 set successfully w/ his dtr. Pt did report fatigue but feels capable of performing 8 steps leading into home at d/c and dtr feels safe to help him. pt returned to room and chair and was left w/ all needs in reach. Gait Assessment Gait Gait Assistance Required: Contact Guard Assist,Minimum Assistance,1 Person Assist Distance (Feet) 30 Able to Maintain Weight Bearing Status Yes During Gait Assistive Devices Assistive Device Gait Belt,Front Wheeled Walker Orthotic/Prosthetic Devices or Brace: No Gait Deviations General Gait Pattern Decreased Stride Length, Decreased Feet Clearance,Step- to Gait Factors Limiting Gait Function Factors Limiting Gait Function Decreased Activity Tolerance, Decreased Strength,Difficulty Following Directions,Limited Range of Motion,Pain,Poor Balance,Poor Safety Awareness Stair Climbing Assessment Evaluation Level of Assist On Stairs Contact Guard Assistance, Minimal Assistance,1 Person Assistance Devices Stair Climbing Assistive Devices Straight Cane,Right Railing Technique/Endurance Stair Climbing Direction Ascend and Descend Stair Climbing Technique Step to Step Number of Steps Climbed 3 Stair Climbing Set # Repetitions (reps) 2 Comments Stair Climbing Comments Pts daguther able to provide assistance and cues. Pt completely safely w/ step to pattern, rail and SPC. PT-Balance Assessment Sitting Balance and Reactions Static Sitting Balance Ability Normal Dynamic Sitting Balance Ability Normal Standing Balance and Reactions Static Standing Balance Ability Good Dynamic Standing Balance Ability Good Device Used FWW M5 PT-IP Objective Assessments Start: 09/08/23 17:07 Freq: NEEDED Status: Active Protocol: Document 09/08/23 16:05 AB (Rec: 09/08/23 17:22 AB [id number]) Orientation Orientation/Cognition Level of Alertness Alert Orientation Name,Place,Situation Safety Awareness Decreased Safety Awareness Memory Description No Deficits Noted Gross Range of Motion Lower Extremity ROM Impairments L knee flexion: ~ 50 deg L knee extension: ~ 20 deg less to 0 Strength Lower Extremity Strength Assessment Left Impaired Hip 3-/5 Knee 3+/5 Muscle Tone Muscle Tone WNL Yes M6 PT-IP Treatment Start: 09/08/23 17:07 Freq: NEEDED Status: Active Protocol: Document 09/10/23 09:06 KS (Rec: 09/10/23 12:11 KS [id number]) Physical Therapy Treatment Education Education Provided Safety Other Treatments Other Treatment Performed Completed carergiver training and discussed at home safety. M7 PT-IP Assessment and Plan Start: 09/08/23 17:07 Freq: NEEDED Status: Active Protocol: Document 09/10/23 09:06 KS (Rec: 09/10/23 12:11 KS [id number]) PT Summary Assessment and Plan Potential Rehabilitation Potential Good Summary Impairments Pain,ROM,Strength,Balance, Coordination,Sensation,Tone, Cognition,Bed Mobility, Transfers,Gait,Activity Tolerance Progress Towards Goals Slow Progress due to Medical Issues,Slow Progress due to Activity Tolerance Assessment Summary Successfully completed caregiver training and stair training. Pt and his daughter feel safe and capable of returning home. Pt ambulated ~ 30 ft and ascended/descended 6 total steps. Pt has FWW and SPC at home to use on stairs and his daughter lives with him. Goals Bed Mobility Goal Independent Transfer Goal Independent,Front Wheeled Walker Gait Goal Independent,Front Wheel Walker Gait Distance 200 Other Goals improve transfers and ambulation using LRAD 300 ft mod I up/down 8 steps using R rail ascending/SPC SBA Days to Meet Goals 5 Frequency of Treatment Frequency Of Treatment Twice a Day Treatment Plan Physical Therapy Treatment Plan Bed Mobility Training,Transfer Training,Gait Training, Therapeutic Exercise,Balance Retraining,Post Op Education, Discharge Planning,Hot or Cold Pack,Neuromuscular Re-ed, Coordination Retraining,Manual Therapy Weight Bearing Status Weight Bearing Status Weight Bear as Tolerated Allowed Weight Bearing Amount (enter % LLE WBAT or #) (%) Recommendations To Nursing Amount of Assist Needed 1 Person Assist Discharge Recommendations PT Discharge Recommendations Home with 27/02 Assist Available,Home Health Transportation Needs at Discharge Private Vehicle,Wheelchair/ Cabulance
--- NOTE | 2023-09-10 11:30 | PM.PN.1 ---
Subjective Subjective Interval history: He had a little problems with desaturation when he was up with therapy yesterday. He also had some problems with mobilizing. He says he feels much better today and he is ready to be discharged to home. He has been mobilizing with PT and in the room. Exam Vital Signs (past 8 hours): - 09/10/23 04:12 09/10/23 08:00 09/10/23 08:55 Temperature 97.7 F 97.4 F L Pulse Rate 95 H 90 90 Respiratory Rate 16 16 Blood Pressure 150/74 H 124/67 124/67 Pulse Oximetry 96 93 Oxygen Flow Rate 0 Oxygen Delivery Method Room Air Oxygen Flow Rate 0 Narrative Exam Narrative: His resting comfortably in bed calves are soft bilaterally his Martin wrap is in place in his dressing is benign. Neurologically intact distally can do a straight leg raise and he has mild swelling Objective Labs 09/09/23 05:30 [facility] Medical History (Updated 08/29/23 @ 13:11 by Cnadace Reina RN) Osteoarthritis Pre-diabetes Enlarged prostate Macular degeneration of left eye Left anterior fascicular block (LAFB) Pneumonia due to COVID-19 virus (02/2021) Hypertension Obesity (BMI 30.0-34.9) Nocturia Knee pain, right anterior Hearing loss Vertigo Chickenpox (194) Surgical History (Updated 08/29/23 @ 13:06 by Candace Reina RN) Hx of bilateral cataract extraction Hx of discectomy (1984) Family History Father Diabetes mellitus Mother Cancer Sister Cancer Grandfather Cancer Grandmother Stroke Grandfather No problems noted. Grandmother No problems noted. Social History household members: children Smoking Status: Never smoker alcohol intake: never substance use type: does not use Assessment & Plan Assessment and plan (1) Osteoarthritis of knees, bilateral: Qualifiers: Osteoarthritis type: primary Qualified Code(s): M17.0 - Bilateral primary osteoarthritis of knee Status: Chronic Plan He is doing well with physical therapy. He is working with an incentive spirometer. His O2 sat is improved. He is stable for discharge to home. He will keep previously scheduled follow-up. Assessment & Plan narrative: He is doing well. discharge to home. Quality VTE Deep Vein Thrombosis/Pulmonary Embolism Present on Admission: No
--- NOTE | 2023-09-10 11:49 | CM.DPNOTE ---
DCP Note SUMMER COUNSELOR reviewed EMR. Per chart review, dc today home with dtr support. Per PT, cleared for home with dtr support. SUMMER COUNSELOR entered room and introduced self and role. pt in chair and accompanied by dtr at bedside. Pt and dtr confirm no needs from CM team and plan to leave as soon as nurse reviews DC information. Plan: dc today with dtr support. No CM needs identified. CM team will continue to follow as needed. JEREMY Garcia
[2023-09-10 12:00] VITALS: BP 140/78; PULSE 61; RESP 16; TEMP 36.4; O2SAT 94
== END 2023-09-10 12:10 | disposition home or self-care (01) ==
LOC: OR 09-11 07:17 → AC 09-11 07:17
PROVIDERS: Admitting Provider Orthopaedic Surgery Adult Reconstructive Orthopaedic Surgery; PCP Family Medicine; Referring Provider Orthopaedic Surgery Adult Reconstructive Orthopaedic Surgery; Visit Provider Orthopaedic Surgery Adult Reconstructive Orthopaedic Surgery
PROC: 0SRD0JZ Replacement of Left Knee Joint with Synthetic Substitute, Open Approach (ICD-10-PCS; CPT 27447; principal; 2023-09-08 10:45)
DX: M17.0 Bilateral primary osteoarthritis of knee (principal); I10 Essential (primary) hypertension; E66.9 Obesity, unspecified; Z68.33 Body mass index [BMI] 33.0-33.9, adult
CPT/HCPCS: 27447; 36415; 73560; 85014; 85018; 97116; 97163; 97530; C1776; G0378; J0690; J1100; J2405; J2704; J3010

== ENCOUNTER → 2024-08-10 08:26 | Outpatient (CLI) | payer MEDICARE, SELFPAY ==
[2023-09-08 08:29] VITALS: BMI 32.5
[2024-08-10 09:24] LABS: Add Manual Diff / Slide Review NO; Basophils Absolute Auto 0 /uL (0-100); Basophils Percent Auto 0.7 % (0-2); Eosinophils Absolute Auto 300 /uL (0-450); Eosinophils Percent Auto 4.6 % (2-4); Hematocrit 39.5 % (41-53); Hemoglobin 13.3 g/dL (13.5-17.5); Lymphocytes Absolute Auto 2300 /uL (1100-4500); Lymphocytes Percent Auto 32.5 % (25-40); Mean Corpuscular HGB Conc 33.7 % (30-36); Mean Corpuscular Hemoglobin 30.7 PG (26-34); Monocytes Absolute Auto 700 /uL (0-900); Monocytes Percent Auto 10.2 % (3-14); Neutrophils Absolute Auto 3800 /uL (1500-7000); Platelet Count 208 X10^3/uL (150-400); Red Blood Cell Count 4.34 X10^6/uL (4.5-5.9); Red Cell Distribution Width 13.7 % (11.6-14.8); White Blood Cell Count 7.2 X10^3/uL (4.5-11.0)
[2024-08-10 09:40] LABS: Alanine Aminotransferase 21 IU/L (<50); Albumin 3.9 g/dL (3.5-5.0); Albumin Globulin Ratio 1.4 (1.0-2.8); Alkaline Phosphatase 103 U/L (38-126); Aspartate Aminotransferase 25 IU/L (17-59); BUN Creatinine Ratio 20.4 (6-22); Bilirubin Total 0.5 mg/dL (0.2-1.3); Blood Urea Nitrogen 23 mg/dL (9-20); Calcium 9.2 mg/dL (8.4-10.2); Carbon Dioxide 28 mmol/L (22-32); Chloride 104 mmol/L (98-107); Cholesterol 165 mg/dL (140-199); Estimated Glomerular Filt Rate > 60 mL/min (>60); Globulin 2.8 g/dL (1.7-4.1); Glucose 136 mg/dL (80-110); HDL Cholesterol 32 mg/dL (40-60); HEMOLYSIS < 15 (0-50); Hemoglobin A1C% w Est Avg Glu 6.4 % (4.0-6.0); LDL Cholesterol Calculated 120 mg/dL (<100); Potassium 4.5 mmol/L (3.4-5.1); Sodium 139 mmol/L (137-145); Total Protein 6.7 g/dL (6.3-8.2); Triglycerides 66 mg/dL (35-150)
[2024-08-10 10:13] LABS: Prostate Specific Antigen Scrn 4.38 ng/mL (0.1-4.0)
== END ==
LOC: LAB 08:28
PROVIDERS: PCP Family Medicine; Referring Provider Family Medicine; Visit Provider Family Medicine
DX: E66.9 Obesity, unspecified (principal); Z79.899 Other long term (current) drug therapy; Z12.5 Encounter for screening for malignant neoplasm of prostate; M17.0 Bilateral primary osteoarthritis of knee; R35.1 Nocturia; I10 Essential (primary) hypertension; Z00.00 Encounter for general adult medical examination without abnormal findings
CPT/HCPCS: 36415; 80053; 80061; 83036; 85025; G0103

== ENCOUNTER 2025-01-30 09:45 | Outpatient (RCR) | payer MEDICARE, SELFPAY ==
[2023-09-08 08:29] VITALS: BMI 32.5
--- NOTE | 2024-10-22 16:46 | PT.OIE ---
Current Diagnoses Low back pain, unspecified (10/22/24) Past Medical History (Last Updated 08/29/23 @ 13:11 by Candace Reina, RN) Chickenpox (1946) Enlarged prostate Hearing loss Hypertension Knee pain, right anterior Left anterior fascicular block (LAFB) Macular degeneration of left eye Nocturia Obesity (BMI 30.0-34.9) Osteoarthritis Pneumonia due to COVID-19 virus (02/2021) Pre-diabetes Vertigo Past Surgical History (Last Updated 08/29/23 @ 13:06 by Candace Reina RN) Hx of bilateral cataract extraction Hx of discectomy (1984) Visit Care Team Role Provider Type Mei Tierney DO Attending Provider Physician Family Provider Primary Care Provider Referring Provider Specialty: Family Practice Address: [address] [place] [address], [address], [facility] Email: [email or web address] Physical Therapy Initial Evaluation PT-OP-A Visit Information Start: 10/14/24 15:57 Freq: Status: Active Protocol: Document 10/22/24 08:11 MB (Rec: 10/22/24 08:51 MB [id number]) Out-Patient Physical Therapy Visit Information Visit Information Visit Type Initial Evaluation Visit Note Progress note by 11/22/24 Visit Start Time 08:11 Visit Stop Time 08:51 Visit Number 1 Number of WELDER OXYHYDROGEN Visits 0 Evaluation Information Evaluation Date 10/22/24 Precautions Precautions History of vertigo, consider checking BP as needed PT-OP-B Current Condition Start: 10/14/24 15:57 Freq: Status: Active Protocol: Document 10/22/24 08:11 MB (Rec: 10/22/24 08:51 [id number]) Current Condition History of Current Condition Onset Date 6 months to a year ago Current Complaints Right SI pain and pain going down the leg History of Current Condition Pt reports that he was using right leg on yard equipment last year and then he woke up and he had pain in LB and across back into right hip. It makes right leg cramp up. PMH includes LAFB, HTN, enlarged prostate, OA, macular degeneration, left TKA last year, vertigo. Pt has some word-finding difficulties during assessment . Pt does not drive much and daughter lives with him. Pt denies falls. Pt denies numbness and tingling but has the yasmine horse sensation. Standing is the worse position. No lumbar or hip x- rays in [facility] chart. Treatment Goals Patient/Caregiver Goals To decrease pain PT-OP-C Subjective Start: 10/14/24 15:57 Freq: Status: Active Protocol: Document 10/22/24 08:11 MB (Rec: 10/22/24 08:51 MB [id number]) OP-PT Subjective Patient Comments Patient Comments See history of current condition Patient Questionnaires Oswestry Low Back Index Oswestry Score 9 Oswestry Impairment 1 to 19% Impaired (Score 1-19) PT-OP-G Mobility & Gait Start: 10/14/24 15:57 Freq: Status: Active Protocol: Document 10/22/24 08:11 MB (Rec: 10/22/24 08:51 MB [id number]) OP Gait Assessment Comments Gait Comments Shuffling gait that is magnetic in nature with forward, flexed posture and no foot clearance either foot PT-OP-J Posture/Palpation/Skin Start: 10/14/24 15:57 Freq: Status: Active Protocol: Document 10/22/24 08:11 MB (Rec: 10/22/24 08:51 MB [id number]) Posture Evaluation Comments Posture Comments Postural changes with shoulders 20 deg in front of greater trochanter, measured on the right, severe forward head with right tragus 2.5 in front of right AC joint, right shoulder and scapula more elevated than the left and also more forward than the left, decreased upper thoracic kyphosis and right convexity, reduced lumbar lordosis, spine laterally shifted to the right, right iliac crest lower than the right by 1/2, left leg appears functionally longer than right, increased knee varus more on the right and increased B Tracy angle. PT-OP-K Range of Motion Start: 10/14/24 15:57 Freq: Status: Active Protocol: Document 10/22/24 08:11 MB (Rec: 10/22/24 08:51 MB [id number]) Lumbar Spine Range of Motion Lumbar Spine Active Testing Position Standing Comments With lumbar flexion in standing, pt immediately flexes both knees From flexed position, pt can extend 5 deg with hands on hips B SB: less than 5 deg Scour Test: no reproduction of cramping on the right and B hamstrings are very tight and knee naturally passively flexes in resistance when PT tries to DF feet Anterior supine SI mobility testing: more stiffness on the left Passive SLR: B 60 deg Hip Goniometric Range of Motion Hip Left Testing Position Supine Comments PROM IR 5 deg and ER 10 deg Right Testing Position Supine Comments PROM IR 5 deg and ER 15 deg PT-OP-M Strength Start: 10/14/24 15:57 Freq: Status: Active Protocol: Document 10/22/24 08:11 MB (Rec: 10/22/24 08:51 MB [id number]) Hip Strength Hip Manual Muscle Testing Left Flexion (L2) 4+ Good+ Extension (S1) 4 Good Abduction 4- Good- Right Flexion (L2) 4- Good- Extension (S1) 4- Good- Abduction 4- Good- Comments All MMT in supine Knee Strength Knee Manual Muscle Testing Left Flexion (S2) 4 Good Extension (L3) 5 Normal Right Flexion (S2) 5 Normal Extension (L3) 5 Normal Ankle/Foot Strength Ankle and Foot Manual Muscle Testing Left Dorsiflexion (L4) 5 Normal Right Dorsiflexion (L4) 5 Normal Toe Strength Toe Manual Muscle Testing Left Great Toe Extension 5 Normal Right Great Toe Extension 5 Normal PT-OP-Q Treatments Start: 10/14/24 15:57 Freq: Status: Active Protocol: Document 10/22/24 08:11 MB (Rec: 10/22/24 08:51 MB [id number]) Therapeutic Exercises Supine Exercises Pelvic realignment exercises Supine Exercise Name Added to HEP Side bilateral Equipment Used Blue ball and towel around thigh last exercise Reps/Minutes 5 reps, 3 sec hold Comments Feet together ball squeeze iso , knee opp ankle iso, knee opp ankle iso Self-Care/Home Management Treatment Education Patient Education Body Mechanics,Fall Risk,Home Exercise Program,Joint Protection,Pain Management, Posture Other Education Benefits of log rolling and pillow between knees and arms on side, called in daughter, Jenni, at end of eval to review with her as well, also demo of exercises with her in room PT-OP-T Assessment and Plan Start: 10/14/24 15:57 Freq: Status: Active Protocol: Document 10/22/24 08:11 MB (Rec: 10/22/24 08:51 MB [id number]) Physical Therapy Assessment Rehab Potential Rehabilitation Potential Fair Evaluation Complexity Number of Personal Factors/Comorbidities 1-2 Number of Body Systems Impaired 3 Clinical Presentation at Evaluation Evolving Impairments Impairments Activity Tolerance,Balance, Coordination,Functional Activities,Functional Mobility ,Gait,Pain,Posture,ROM,Soft Tissue Mobility,Strength, Transfers,Vestibular Goals 3 Impairment Lack fo HEP Senior Living Goal (LTG) Pt will perform progressive HEP with cues and use of handouts to improve alignment, flexibility, balance and strength. LTG Duration 8 weeks 2 Impairment Evidence of imbalance Impairment . Short Term Goal (STG) . STG Duration . Senior Living Goal (LTG) Pt will perform WNLs on Rivas Balance Test to decrease fall risk. LTG Duration 8 weeks 1 Impairment Slow and shuffling gait Package Drier Goal (LTG) Pt will gait train at least 1500 feet in 6 minutes with or without LRAD to improve community ambulation. LTG Duration 8 weeks Assessment Summary Assessment Pt is an 84 y/o male presenting with shuffling/ magnetic-type gait, severely limited B hip and lumbar range , decreased strength and poor balance in setting of LB pain and right LE radicular symptoms that he describes as cramping. It is possible that RLE symptoms are coming from his LB/sacral area, though vascular/circulatory issue cannot be fully ruled out. He has most trouble when up on his feet. Pt will benefit from PT to improve alignment, flexibility, posture, balance and strength. Physical Therapy Plan Frequency and Duration Frequency of Treatment 2x/Week Duration of treatment (weeks) 8 Plan of Care Start Date 10/22/24 Plan of Care End Date 12/22/24 Therapeutic Interventions Therapeutic Interventions Balance Training,Canalithic Repositioning,Coordination Training,Gait Training,Home Exercise Program,Joint Mobilizations,Manual Therapy, Neuromuscular Re-education, Patient/Caregiver Education, Self-Care/Home Management, Sensory Integration,Soft Tissue Mobilization,Taping, Therapeutic Activities, Therapeutic Exercises Modalities Cold Pack/Ice Massage,Electric Stimulation,Hot Packs, Ultrasound Next Visit Focus/Plan Next Note Type Treatment Note Next Visit Plan Review pelvic realignment exercises, initiate manual work and flexibility exercises
--- NOTE | 2024-10-22 16:46 | PT.OPPOC ---
Physical, Occupational & Speech Therapy At [facility] Current Diagnoses Low back pain, unspecified (10/22/24) Visit Care Team Role Provider Type Mei Tierney DO Attending Provider Physician Family Provider Primary Care Provider Referring Provider Specialty: Family Practice Address: [address] [place] [address], [address], [facility] Email: [email or web address] Plan Of Care PT-OP-B Current Condition Start: 10/14/24 15:57 Freq: Status: Active Protocol: Document 10/22/24 08:11 MB (Rec: 10/22/24 08:51 MB [id number]) Current Condition History of Current Condition Onset Date 6 months to a year ago Current Complaints Right SI pain and pain going down the leg History of Current Condition Pt reports that he was using right leg on yard equipment last year and then he woke up and he had pain in LB and across back into right hip. It makes right leg cramp up. PMH includes LAFB, HTN, enlarged prostate, OA, macular degeneration, left TKA last year, vertigo. Pt has some word-finding difficulties during assessment . Pt does not drive much and daughter lives with him. Pt denies falls. Pt denies numbness and tingling but has the yasmine horse sensation. Standing is the worse position. No lumbar or hip x- rays in [facility] chart. Treatment Goals Patient/Caregiver Goals To decrease pain PT-OP-T Assessment and Plan Start: 10/14/24 15:57 Freq: Status: Active Protocol: Document 10/22/24 08:11 MB (Rec: 10/22/24 08:51 MB [id number]) Physical Therapy Assessment Rehab Potential Rehabilitation Potential Fair Evaluation Complexity Number of Personal Factors/Comorbidities 1-2 Number of Body Systems Impaired 3 Clinical Presentation at Evaluation Evolving Impairments Impairments Activity Tolerance,Balance, Coordination,Functional Activities,Functional Mobility ,Gait,Pain,Posture,ROM,Soft Tissue Mobility,Strength, Transfers,Vestibular Goals 3 Impairment Lack fo HEP Migration Agent Goal (LTG) Pt will perform progressive HEP with cues and use of handouts to improve alignment, flexibility, balance and strength. LTG Duration 8 weeks 2 Impairment Evidence of imbalance Impairment . Short Term Goal (STG) . STG Duration . Migration Agent Goal (LTG) Pt will perform WNLs on Rivas Balance Test to decrease fall risk. LTG Duration 8 weeks 1 Impairment Slow and shuffling gait Care Home Goal (LTG) Pt will gait train at least 1500 feet in 6 minutes with or without LRAD to improve community ambulation. LTG Duration 8 weeks Assessment Summary Assessment Pt is an 84 y/o male presenting with shuffling/ magnetic-type gait, severely limited B hip and lumbar range , decreased strength and poor balance in setting of LB pain and right LE radicular symptoms that he describes as cramping. It is possible that RLE symptoms are coming from his LB/sacral area, though vascular/circulatory issue cannot be fully ruled out. He has most trouble when up on his feet. Pt will benefit from PT to improve alignment, flexibility, posture, balance and strength. Physical Therapy Plan Frequency and Duration Frequency of Treatment 2x/Week Duration of treatment (weeks) 8 Plan of Care Start Date 10/22/24 Plan of Care End Date 12/22/24 Therapeutic Interventions Therapeutic Interventions Balance Training,Canalithic Repositioning,Coordination Training,Gait Training,Home Exercise Program,Joint Mobilizations,Manual Therapy, Neuromuscular Re-education, Patient/Caregiver Education, Self-Care/Home Management, Sensory Integration,Soft Tissue Mobilization,Taping, Therapeutic Activities, Therapeutic Exercises Modalities Cold Pack/Ice Massage,Electric Stimulation,Hot Packs, Ultrasound Next Visit Focus/Plan Next Note Type Treatment Note Next Visit Plan Review pelvic realignment exercises, initiate manual work and flexibility exercises Plan of Care Dates Plan of Care Start Date 10/22/24 Plan of Care End Date 12/22/24 Electronically Signed by: Aparna Toure PT 10/22/24 8826 If you are in agreement with this Plan of Care, please return a signed and dated copy. I have reviewed this Plan of Care and certify that the skilled therapy services above are required to meet the patient?s needs. Physician Signature Date Printed Name and Credentials Clinical Instructor Signature Printed Name and Credentials
--- NOTE | 2024-10-24 10:44 | PT.OTN ---
Current Diagnoses Low back pain, unspecified (10/24/24) Physical Therapy Treatment Note PT-OP-A Visit Information Start: 10/14/24 15:57 Freq: Status: Active Protocol: Document 10/24/24 07:20 AB (Rec: 10/24/24 10:43 AB [id number]) Out-Patient Physical Therapy Visit Information Visit Information Visit Type Treatment Note Visit Note Progress note by 11/22/24 Visit Start Time 09:01 Visit Stop Time 09:47 Visit Number 2 Number of POT FILLER Visits 1 Evaluation Information Evaluation Date 10/22/24 Precautions Precautions History of vertigo, consider checking BP as needed PT-OP-B Current Condition Start: 10/14/24 15:57 Freq: Status: Active Protocol: Document 10/22/24 08:11 MB (Rec: 10/22/24 08:51 MB [id number]) Current Condition History of Current Condition Onset Date 6 months to a year ago Current Complaints Right SI pain and pain going down the leg History of Current Condition Pt reports that he was using right leg on yard equipment last year and then he woke up and he had pain in LB and across back into right hip. It makes right leg cramp up. PMH includes LAFB, HTN, enlarged prostate, OA, macular degeneration, left TKA last year, vertigo. Pt has some word-finding difficulties during assessment . Pt does not drive much and daughter lives with him. Pt denies falls. Pt denies numbness and tingling but has the yasmine horse sensation. Standing is the worse position. No lumbar or hip x- rays in [facility] chart. Treatment Goals Patient/Caregiver Goals To decrease pain PT-OP-C Subjective Start: 10/14/24 15:57 Freq: Status: Active Protocol: Document 10/24/24 07:20 AB (Rec: 10/24/24 10:43 AB [id number]) OP-PT Subjective Patient Comments Patient Comments Patient reports he is the same , comments he has only been here once, has been working on the 3 exercises he was given. Jack rates pain 3/10 start of session. Patient reports pain is worse in standing, comments has to sit within 15 minutes of standing. PT-OP-G Mobility & Gait Start: 10/14/24 15:57 Freq: Status: Active Protocol: Document 10/22/24 08:11 MB (Rec: 10/22/24 08:51 MB [id number]) OP Gait Assessment Comments Gait Comments Shuffling gait that is magnetic in nature with forward, flexed posture and no foot clearance either foot PT-OP-J Posture/Palpation/Skin Start: 10/14/24 15:57 Freq: Status: Active Protocol: Document 10/22/24 08:11 MB (Rec: 10/22/24 08:51 MB [id number]) Posture Evaluation Comments Posture Comments Postural changes with shoulders 20 deg in front of greater trochanter, measured on the right, severe forward head with right tragus 2.5 in front of right AC joint, right shoulder and scapula more elevated than the left and also more forward than the left, decreased upper thoracic kyphosis and right convexity, reduced lumbar lordosis, spine laterally shifted to the right, right iliac crest lower than the right by 1/2, left leg appears functionally longer than right, increased knee varus more on the right and increased B Tracy angle. PT-OP-K Range of Motion Start: 10/14/24 15:57 Freq: Status: Active Protocol: Document 10/22/24 08:11 MB (Rec: 10/22/24 08:51 MB [id number]) Lumbar Spine Range of Motion Lumbar Spine Active Testing Position Standing Comments With lumbar flexion in standing, pt immediately flexes both knees From flexed position, pt can extend 5 deg with hands on hips B SB: less than 5 deg Scour Test: no reproduction of cramping on the right and B hamstrings are very tight and knee naturally passively flexes in resistance when PT tries to DF feet Anterior supine SI mobility testing: more stiffness on the left Passive SLR: B 60 deg Hip Goniometric Range of Motion Hip Left Testing Position Supine Comments PROM IR 5 deg and ER 10 deg Right Testing Position Supine Comments PROM IR 5 deg and ER 15 deg PT-OP-M Strength Start: 10/14/24 15:57 Freq: Status: Active Protocol: Document 10/22/24 08:11 MB (Rec: 10/22/24 08:51 MB [id number]) Hip Strength Hip Manual Muscle Testing Left Flexion (L2) 4+ Good+ Extension (S1) 4 Good Abduction 4- Good- Right Flexion (L2) 4- Good- Extension (S1) 4- Good- Abduction 4- Good- Comments All MMT in supine Knee Strength Knee Manual Muscle Testing Left Flexion (S2) 4 Good Extension (L3) 5 Normal Right Flexion (S2) 5 Normal Extension (L3) 5 Normal Ankle/Foot Strength Ankle and Foot Manual Muscle Testing Left Dorsiflexion (L4) 5 Normal Right Dorsiflexion (L4) 5 Normal Toe Strength Toe Manual Muscle Testing Left Great Toe Extension 5 Normal Right Great Toe Extension 5 Normal PT-OP-Q Treatments Start: 10/14/24 15:57 Freq: Status: Active Protocol: Document 10/24/24 07:20 AB (Rec: 10/24/24 10:43 AB [id number]) Therapeutic Exercises Supine Exercises hip rotators Supine Exercise Name 1. pirifomris stretch 2. figure 4 stretch Side bilateral Reps/Minutes 60 sec each stretch each LE Comments verbal cues Mod Adelfo stretch Side bilateral Reps/Minutes 60 sec each LE with AROM knee flexion X8 Comments verbal cues, monitored for loc of sensation of stretch Pelvic realignment exercises Supine Exercise Name HEP Side bilateral Equipment Used Blue ball and towel around thigh last exercise Reps/Minutes 5 reps, 3 sec hold Comments Feet together ball squeeze iso , knee opp ankle iso, knee opp ankle iso Therapeutic Activity Therapeutic Activity supine to sit Comments verbal cues to roll fully onto side, then push up into sitting for supine to sit during session X 1 Gait Training Gait Activity posture Comments verbal cues to scan floor in distance vs eyes on feet when ambulating in and out of session withotu device Manual Therapy Treatment Consent Patient gave verbal consent for manual Yes treatment Soft Tissue Mobilization Lumbar and hips Body Location lumbar paraspinals, illiopsoas , glute/piriformis Mobilization Type Cross-Friction,Rolling, Sustained Pressure Intensity/Depth Moderate Body Position Sidelying Comments and hooklying PT-OP-T Assessment and Plan Start: 10/14/24 15:57 Freq: Status: Active Protocol: Document 10/24/24 07:20 AB (Rec: 10/24/24 10:43 AB [id number]) Physical Therapy Assessment Goals 3 Impairment Lack fo HEP Federal Appellate Law Clerk Goal (LTG) Pt will perform progressive HEP with cues and use of handouts to improve alignment, flexibility, balance and strength. LTG Duration 8 weeks 2 Impairment Evidence of imbalance Impairment . Short Term Goal (STG) . STG Duration . Federal Appellate Law Clerk Goal (LTG) Pt will perform WNLs on Rivas Balance Test to decrease fall risk. LTG Duration 8 weeks 1 Impairment Slow and shuffling gait Federal Appellate Law Clerk Goal (LTG) Pt will gait train at least 1500 feet in 6 minutes with or without LRAD to improve community ambulation. LTG Duration 8 weeks Assessment Summary Assessment Jack rates back pain 2/10 post supine to sit end of session. Physical Therapy Plan Frequency and Duration Frequency of Treatment 2x/Week Duration of treatment (weeks) 8 Plan of Care Start Date 10/22/24 Plan of Care End Date 12/22/24 Next Visit Focus/Plan Next Note Type Treatment Note Next Visit Plan Review pelvic realignment exercises as needed, continue manual work and flexibility exercises, possibly add piriformis stretch to HEP
--- NOTE | 2024-11-07 13:02 | PT.OTN ---
Current Diagnoses Low back pain, unspecified (11/07/24) Physical Therapy Treatment Note PT-OP-A Visit Information Start: 10/14/24 15:57 Freq: Status: Active Protocol: Document 11/07/24 10:43 AB (Rec: 11/07/24 12:43 AB [id number]) Out-Patient Physical Therapy Visit Information Visit Information Visit Type Treatment Note Visit Note Progress note by 11/22/24 Visit Start Time 10:48 Visit Stop Time 11:33 Visit Number 3 Number of TRAILER TECHNICIAN Visits 2 Evaluation Information Evaluation Date 10/22/24 Precautions Precautions History of vertigo, consider checking BP as needed PT-OP-B Current Condition Start: 10/14/24 15:57 Freq: Status: Active Protocol: Document 10/22/24 08:11 MB (Rec: 10/22/24 08:51 MB [id number]) Current Condition History of Current Condition Onset Date 6 months to a year ago Current Complaints Right SI pain and pain going down the leg History of Current Condition Pt reports that he was using right leg on yard equipment last year and then he woke up and he had pain in LB and across back into right hip. It makes right leg cramp up. PMH includes LAFB, HTN, enlarged prostate, OA, macular degeneration, left TKA last year, vertigo. Pt has some word-finding difficulties during assessment . Pt does not drive much and daughter lives with him. Pt denies falls. Pt denies numbness and tingling but has the yasmine horse sensation. Standing is the worse position. No lumbar or hip x- rays in [facility] chart. Treatment Goals Patient/Caregiver Goals To decrease pain PT-OP-C Subjective Start: 10/14/24 15:57 Freq: Status: Active Protocol: Document 11/07/24 10:43 AB (Rec: 11/07/24 12:43 AB [id number]) OP-PT Subjective Patient Comments Patient Comments Patient reports he had stitches out last week for cancer surgery on nose, was told not to mow lawn or cut down trees, ie avoid excessive movement that strains. Patient reports he has been performing HEP with no difficulty. Patient reports he is better, but not a lot better. PT-OP-G Mobility & Gait Start: 10/14/24 15:57 Freq: Status: Active Protocol: Document 10/22/24 08:11 MB (Rec: 10/22/24 08:51 MB [id number]) OP Gait Assessment Comments Gait Comments Shuffling gait that is magnetic in nature with forward, flexed posture and no foot clearance either foot PT-OP-J Posture/Palpation/Skin Start: 10/14/24 15:57 Freq: Status: Active Protocol: Document 10/22/24 08:11 MB (Rec: 10/22/24 08:51 MB [id number]) Posture Evaluation Comments Posture Comments Postural changes with shoulders 20 deg in front of greater trochanter, measured on the right, severe forward head with right tragus 2.5 in front of right AC joint, right shoulder and scapula more elevated than the left and also more forward than the left, decreased upper thoracic kyphosis and right convexity, reduced lumbar lordosis, spine laterally shifted to the right, right iliac crest lower than the right by 1/2, left leg appears functionally longer than right, increased knee varus more on the right and increased B Tracy angle. PT-OP-K Range of Motion Start: 10/14/24 15:57 Freq: Status: Active Protocol: Document 10/22/24 08:11 MB (Rec: 10/22/24 08:51 MB [id number]) Lumbar Spine Range of Motion Lumbar Spine Active Testing Position Standing Comments With lumbar flexion in standing, pt immediately flexes both knees From flexed position, pt can extend 5 deg with hands on hips B SB: less than 5 deg Scour Test: no reproduction of cramping on the right and B hamstrings are very tight and knee naturally passively flexes in resistance when PT tries to DF feet Anterior supine SI mobility testing: more stiffness on the left Passive SLR: B 60 deg Hip Goniometric Range of Motion Hip Left Testing Position Supine Comments PROM IR 5 deg and ER 10 deg Right Testing Position Supine Comments PROM IR 5 deg and ER 15 deg PT-OP-M Strength Start: 10/14/24 15:57 Freq: Status: Active Protocol: Document 10/22/24 08:11 MB (Rec: 10/22/24 08:51 MB [id number]) Hip Strength Hip Manual Muscle Testing Left Flexion (L2) 4+ Good+ Extension (S1) 4 Good Abduction 4- Good- Right Flexion (L2) 4- Good- Extension (S1) 4- Good- Abduction 4- Good- Comments All MMT in supine Knee Strength Knee Manual Muscle Testing Left Flexion (S2) 4 Good Extension (L3) 5 Normal Right Flexion (S2) 5 Normal Extension (L3) 5 Normal Ankle/Foot Strength Ankle and Foot Manual Muscle Testing Left Dorsiflexion (L4) 5 Normal Right Dorsiflexion (L4) 5 Normal Toe Strength Toe Manual Muscle Testing Left Great Toe Extension 5 Normal Right Great Toe Extension 5 Normal PT-OP-Q Treatments Start: 10/14/24 15:57 Freq: Status: Active Protocol: Document 11/07/24 10:43 AB (Rec: 11/07/24 12:43 AB [id number]) Therapeutic Exercises Supine Exercises hip rotators Supine Exercise Name 1. pirifomris stretch Side bilateral Equipment Used * Assist holding LE Reps/Minutes 60 sec X 2 piriformis Comments verbal cues Mod Adelfo stretch Side bilateral Equipment Used * Assist holding LE Reps/Minutes 60 sec each LE with AROM knee flexion X 2 each LE Comments verbal cues, monitored for loc of sensation of stretch Pelvic realignment exercises Supine Exercise Name HEP * manual assist for #3 Side bilateral Equipment Used Blue ball and towel around thigh last exercise Reps/Minutes 5 reps, 3 sec hold Comments Feet together ball squeeze iso , knee opp ankle iso, knee opp ankle iso Manual Therapy Treatment Soft Tissue Mobilization Lumbar and hips Body Location lumbar paraspinals, illiopsoas , glute/piriformis Mobilization Type Cross-Friction,Rolling, Sustained Pressure Intensity/Depth Moderate Body Position Sidelying Comments and hooklying PT-OP-T Assessment and Plan Start: 10/14/24 15:57 Freq: Status: Active Protocol: Document 11/07/24 10:43 AB (Rec: 11/07/24 12:43 AB [id number]) Physical Therapy Assessment Goals 3 Impairment Lack fo HEP Binding Nicker Goal (LTG) Pt will perform progressive HEP with cues and use of handouts to improve alignment, flexibility, balance and strength. LTG Duration 8 weeks 2 Impairment Evidence of imbalance Impairment . Short Term Goal (STG) . STG Duration . Longterm Goal (LTG) Pt will perform WNLs on Rivas Balance Test to decrease fall risk. LTG Duration 8 weeks 1 Impairment Slow and shuffling gait Binding Nicker Goal (LTG) Pt will gait train at least 1500 feet in 6 minutes with or without LRAD to improve community ambulation. LTG Duration 8 weeks Assessment Summary Assessment During session patient reports less pain when getting out of bed now that he puts pillow between knees. Reports no pain , just soreness end of session . All ex with LE required to be held performed with therapist holding LE due to recent surgery to face. Patient reports he will check in with MD regarding, any exercise limitations post facial surgery, as he had been performing HEP post surgery and prior to this session. Physical Therapy Plan Frequency and Duration Frequency of Treatment 2x/Week Duration of treatment (weeks) 8 Plan of Care Start Date 10/22/24 Plan of Care End Date 12/22/24 Next Visit Focus/Plan Next Note Type Treatment Note Next Visit Plan Review pelvic realignment exercises as needed, continue manual work and flexibility exercises, possibly add piriformis stretch to HEP as nothing added last session
--- NOTE | 2024-11-12 12:20 | PT.OTN ---
Current Diagnoses Low back pain, unspecified (11/12/24) Physical Therapy Treatment Note PT-OP-A Visit Information Start: 10/14/24 15:57 Freq: Status: Active Protocol: Document 11/12/24 11:31 MB (Rec: 11/12/24 12:19 MB Desktop) Out-Patient Physical Therapy Visit Information Visit Information Visit Type Progress Note Visit Note Next progress note by 12/12/24 *Ask if pt underwent general anesthesia for procedure on . If he did, need to get clearance from Dr. Tierney. Visit Start Time 11:31 Visit Stop Time 12:11 Visit Number 4 Number of MARKET DEVELOPMENT TRAINER Visits 0 Evaluation Information Evaluation Date 10/22/24 Precautions Precautions History of vertigo, consider checking BP as needed PT-OP-B Current Condition Start: 10/14/24 15:57 Freq: Status: Active Protocol: Document 10/22/24 08:11 MB (Rec: 10/22/24 08:51 MB [id number]) Current Condition History of Current Condition Onset Date 6 months to a year ago Current Complaints Right SI pain and pain going down the leg History of Current Condition Pt reports that he was using right leg on yard equipment last year and then he woke up and he had pain in LB and across back into right hip. It makes right leg cramp up. PMH includes LAFB, HTN, enlarged prostate, OA, macular degeneration, left TKA last year, vertigo. Pt has some word-finding difficulties during assessment . Pt does not drive much and daughter lives with him. Pt denies falls. Pt denies numbness and tingling but has the yasmine horse sensation. Standing is the worse position. No lumbar or hip x- rays in [facility] chart. Treatment Goals Patient/Caregiver Goals To decrease pain PT-OP-C Subjective Start: 10/14/24 15:57 Freq: Status: Active Protocol: Document 11/12/24 11:31 MB (Rec: 11/12/24 12:19 MB Desktop) OP-PT Subjective Patient Comments Patient Comments Pt has plastic surgery on 11/18 for residual issues after skin CA removal. He is unsure if he has to go under general anesthesia or not. He does not think that he will have to go under. He has been perform 3 pelvic realignment exercises as prescibed on evaluation and has not progressed HEP over treatments with MARKET DEVELOPMENT TRAINER. PT-OP-G Mobility & Gait Start: 10/14/24 15:57 Freq: Status: Active Protocol: Document 10/22/24 08:11 MB (Rec: 10/22/24 08:51 MB [id number]) OP Gait Assessment Comments Gait Comments Shuffling gait that is magnetic in nature with forward, flexed posture and no foot clearance either foot PT-OP-J Posture/Palpation/Skin Start: 10/14/24 15:57 Freq: Status: Active Protocol: Document 10/22/24 08:11 MB (Rec: 10/22/24 08:51 MB [id number]) Posture Evaluation Comments Posture Comments Postural changes with shoulders 20 deg in front of greater trochanter, measured on the right, severe forward head with right tragus 2.5 in front of right AC joint, right shoulder and scapula more elevated than the left and also more forward than the left, decreased upper thoracic kyphosis and right convexity, reduced lumbar lordosis, spine laterally shifted to the right, right iliac crest lower than the right by 1/2, left leg appears functionally longer than right, increased knee varus more on the right and increased B Tracy angle. PT-OP-K Range of Motion Start: 10/14/24 15:57 Freq: Status: Active Protocol: Document 10/22/24 08:11 MB (Rec: 10/22/24 08:51 MB [id number]) Lumbar Spine Range of Motion Lumbar Spine Active Testing Position Standing Comments With lumbar flexion in standing, pt immediately flexes both knees From flexed position, pt can extend 5 deg with hands on hips B SB: less than 5 deg Scour Test: no reproduction of cramping on the right and B hamstrings are very tight and knee naturally passively flexes in resistance when PT tries to DF feet Anterior supine SI mobility testing: more stiffness on the left Passive SLR: B 60 deg Hip Goniometric Range of Motion Hip Left Testing Position Supine Comments PROM IR 5 deg and ER 10 deg Right Testing Position Supine Comments PROM IR 5 deg and ER 15 deg PT-OP-M Strength Start: 10/14/24 15:57 Freq: Status: Active Protocol: Document 10/22/24 08:11 MB (Rec: 10/22/24 08:51 MB [id number]) Hip Strength Hip Manual Muscle Testing Left Flexion (L2) 4+ Good+ Extension (S1) 4 Good Abduction 4- Good- Right Flexion (L2) 4- Good- Extension (S1) 4- Good- Abduction 4- Good- Comments All MMT in supine Knee Strength Knee Manual Muscle Testing Left Flexion (S2) 4 Good Extension (L3) 5 Normal Right Flexion (S2) 5 Normal Extension (L3) 5 Normal Ankle/Foot Strength Ankle and Foot Manual Muscle Testing Left Dorsiflexion (L4) 5 Normal Right Dorsiflexion (L4) 5 Normal Toe Strength Toe Manual Muscle Testing Left Great Toe Extension 5 Normal Right Great Toe Extension 5 Normal PT-OP-Q Treatments Start: 10/14/24 15:57 Freq: Status: Active Protocol: Document 11/12/24 11:31 MB (Rec: 11/12/24 12:19 MB Desktop) Therapeutic Exercises Supine Exercises Pelvic realignment exercises Comments Verbally reviewed today Gait Training Gait Activity 6MWT Comments See findings under goals today , also, did perform gait throughout treatment beyond 6MWT for at least 8' Neuro Re-Education Treatment Balance Activities Rivas Comments Score 41/56, indicative of falls Self-Care/Home Management Treatment Education Patient Education Fall Risk,Home Exercise Program Other Education Reviewed pelvic realignment exercises and provided another handout, discussed PT plan, need to see PT once a month, reviewed goals and performed balance and gait measures and discussed seeing PT after surgical procedure 11/18/24 PT-OP-T Assessment and Plan Start: 10/14/24 15:57 Freq: Status: Active Protocol: Document 11/12/24 11:31 MB (Rec: 11/12/24 12:19 MB Desktop) Physical Therapy Assessment Rehab Potential Rehabilitation Potential Fair Evaluation Complexity Number of Personal Factors/Comorbidities 1-2 Number of Body Systems Impaired 3 Clinical Presentation at Evaluation Evolving Impairments Impairments Activity Tolerance,Balance, Coordination,Functional Activities,Functional Mobility ,Gait,Pain,Posture,ROM,Soft Tissue Mobility,Strength, Transfers,Vestibular Goals 3 Impairment Lack fo HEP Recycling Collections Driver Goal (LTG) Pt will perform progressive HEP with cues and use of handouts to improve alignment, flexibility, balance and strength. 11/12/24: Pt is performing pelvic realignment exercises and HEP has not been progressed with MARKET DEVELOPMENT TRAINER at this time. LTG Duration 8 weeks 2 Impairment Evidence of imbalance Impairment . Short Term Goal (STG) . STG Duration . Recycling Collections Driver Goal (LTG) Pt will perform WNLs on Rivas Balance Test to decrease fall risk. 11/12/24: Rivas 41/56, indicating increased risk for falls LTG Duration 8 weeks 1 Impairment Slow and shuffling gait Recycling Collections Driver Goal (LTG) Pt will gait train at least 1500 feet in 6 minutes with or without LRAD to improve community ambulation. 11/12/24: Pt gait trains 1067 feet in 6 minutes with forward , flexed posture and scuffing feet, worse on the right. LTG Duration 8 weeks Assessment Summary Assessment First visit with PT since evaluation last month. 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 He has another surgery next week and PT asked front office to schedule with PT after this to check in and to make sure he did not under general. If he does, will need to clear with Dr. Tierney. 6MWT and Rivas balance today reveal slower gait and increased risk for falls. Will con't to progress LB, flexibility, balance and strengthening exercises. Physical Therapy Plan Frequency and Duration Frequency of Treatment 2x/Week Duration of treatment (weeks) 6 Plan of Care Start Date 11/12/24 Plan of Care End Date 02/03/25 Therapeutic Interventions Therapeutic Interventions Balance Training,Canalithic Repositioning,Coordination Training,Gait Training,Home Exercise Program,Joint Mobilizations,Manual Therapy, Neuromuscular Re-education, Patient/Caregiver Education, Self-Care/Home Management, Sensory Integration,Soft Tissue Mobilization,Taping, Therapeutic Activities, Therapeutic Exercises Modalities Cold Pack/Ice Massage,Electric Stimulation,Hot Packs, Ultrasound Next Visit Focus/Plan Next Note Type Treatment Note Next Visit Plan Consider adding piriformis and Adelfo stretches to HEP as instructed previously by MARKET DEVELOPMENT TRAINER Ongoing progressive flexibility, core, LE strengthening and balance exercises Retest Rivas and 6MWT
--- NOTE | 2024-11-12 12:20 | PT.OPPOC ---
Physical, Occupational & Speech Therapy At [facility] Current Diagnoses Low back pain, unspecified (11/12/24) Visit Care Team Role Provider Type Mei Tierney DO Attending Provider Physician Family Provider Primary Care Provider Referring Provider Specialty: Family Practice Address: [address] [place] [address], [address], [facility] Email: [email or web address] Plan Of Care PT-OP-B Current Condition Start: 10/14/24 15:57 Freq: Status: Active Protocol: Document 10/22/24 08:11 MB (Rec: 10/22/24 08:51 MB [id number]) Current Condition History of Current Condition Onset Date 6 months to a year ago Current Complaints Right SI pain and pain going down the leg History of Current Condition Pt reports that he was using right leg on yard equipment last year and then he woke up and he had pain in LB and across back into right hip. It makes right leg cramp up. PMH includes LAFB, HTN, enlarged prostate, OA, macular degeneration, left TKA last year, vertigo. Pt has some word-finding difficulties during assessment . Pt does not drive much and daughter lives with him. Pt denies falls. Pt denies numbness and tingling but has the yasmine horse sensation. Standing is the worse position. No lumbar or hip x- rays in [facility] chart. Treatment Goals Patient/Caregiver Goals To decrease pain PT-OP-T Assessment and Plan Start: 10/14/24 15:57 Freq: Status: Active Protocol: Document 11/12/24 11:31 MB (Rec: 11/12/24 12:19 MB Desktop) Physical Therapy Assessment Rehab Potential Rehabilitation Potential Fair Evaluation Complexity Number of Personal Factors/Comorbidities 1-2 Number of Body Systems Impaired 3 Clinical Presentation at Evaluation Evolving Impairments Impairments Activity Tolerance,Balance, Coordination,Functional Activities,Functional Mobility ,Gait,Pain,Posture,ROM,Soft Tissue Mobility,Strength, Transfers,Vestibular Goals 3 Impairment Lack fo HEP Hand Bookbinder Goal (LTG) Pt will perform progressive HEP with cues and use of handouts to improve alignment, flexibility, balance and strength. 11/12/24: Pt is performing pelvic realignment exercises and HEP has not been progressed with SLAT GRADER at this time. LTG Duration 8 weeks 2 Impairment Evidence of imbalance Impairment . Short Term Goal (STG) . STG Duration . Hand Bookbinder Goal (LTG) Pt will perform WNLs on Rivas Balance Test to decrease fall risk. 11/12/24: Rivas 41/56, indicating increased risk for falls LTG Duration 8 weeks 1 Impairment Slow and shuffling gait Usp Goal (LTG) Pt will gait train at least 1500 feet in 6 minutes with or without LRAD to improve community ambulation. 11/12/24: Pt gait trains 1067 feet in 6 minutes with forward , flexed posture and scuffing feet, worse on the right. LTG Duration 8 weeks Assessment Summary Assessment First visit with PT since evaluation last month. 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 He has another surgery next week and PT asked front office to schedule with PT after this to check in and to make sure he did not under general. If he does, will need to clear with Dr. Tierney. 6MWT and Rivas balance today reveal slower gait and increased risk for falls. Will con't to progress LB, flexibility, balance and strengthening exercises. Physical Therapy Plan Frequency and Duration Frequency of Treatment 2x/Week Duration of treatment (weeks) 6 Plan of Care Start Date 11/12/24 Plan of Care End Date 02/03/25 Therapeutic Interventions Therapeutic Interventions Balance Training,Canalithic Repositioning,Coordination Training,Gait Training,Home Exercise Program,Joint Mobilizations,Manual Therapy, Neuromuscular Re-education, Patient/Caregiver Education, Self-Care/Home Management, Sensory Integration,Soft Tissue Mobilization,Taping, Therapeutic Activities, Therapeutic Exercises Modalities Cold Pack/Ice Massage,Electric Stimulation,Hot Packs, Ultrasound Next Visit Focus/Plan Next Note Type Treatment Note Next Visit Plan Consider adding piriformis and Adelfo stretches to HEP as instructed previously by SLAT GRADER Ongoing progressive flexibility, core, LE strengthening and balance exercises Retest Rivas and 6MWT Plan of Care Dates Plan of Care Start Date 11/12/24 Plan of Care End Date 02/03/25 Electronically Signed by: Aparna Toure, PT 11/12/24 3702 If you are in agreement with this Plan of Care, please return a signed and dated copy. I have reviewed this Plan of Care and certify that the skilled therapy services above are required to meet the patient?s needs. Physician Signature Date Printed Name and Credentials Clinical Instructor Signature Printed Name and Credentials
--- NOTE | 2024-11-26 13:07 | PT-OP ANOTE ---
Pt arrives to appointment and states he did undergo general anesthesia for plastic surgery procedure on his nose. Will cancel today's appointment and the one on the with DINKEY DRIVER. PT will send email and leave message for Dr. Tierney about con't PT and will anciticipate treating pt on the for progress note. Pt and front office aware of plan.
--- NOTE | 2024-12-01 08:22 | PT-OP ANOTE ---
Dr. Tierney cleared for PT to con't with pt via email reply sent 11/27/24.
--- NOTE | 2024-12-04 09:42 | PT.OTN ---
Current Diagnoses Low back pain, unspecified (12/04/24) Physical Therapy Treatment Note PT-OP-A Visit Information Start: 10/14/24 15:57 Freq: Status: Active Protocol: Document 12/04/24 09:00 MB (Rec: 12/04/24 09:15 MB Desktop) Out-Patient Physical Therapy Visit Information Visit Information Visit Type Treatment Note Visit Note Next progress note by 12/12/24 Dr. Tierney cleared to con't PT Visit Start Time 09:00 Visit Stop Time 09:40 Visit Number 5 Number of HOME WEATHERIZING WORKER Visits 0 Evaluation Information Evaluation Date 10/22/24 Precautions Precautions History of vertigo PT-OP-B Current Condition Start: 10/14/24 15:57 Freq: Status: Active Protocol: Document 10/22/24 08:11 MB (Rec: 10/22/24 08:51 MB [id number]) Current Condition History of Current Condition Onset Date 6 months to a year ago Current Complaints Right SI pain and pain going down the leg History of Current Condition Pt reports that he was using right leg on yard equipment last year and then he woke up and he had pain in LB and across back into right hip. It makes right leg cramp up. PMH includes LAFB, HTN, enlarged prostate, OA, macular degeneration, left TKA last year, vertigo. Pt has some word-finding difficulties during assessment . Pt does not drive much and daughter lives with him. Pt denies falls. Pt denies numbness and tingling but has the yasmine horse sensation. Standing is the worse position. No lumbar or hip x- rays in [facility] chart. Treatment Goals Patient/Caregiver Goals To decrease pain PT-OP-C Subjective Start: 10/14/24 15:57 Freq: Status: Active Protocol: Document 12/04/24 09:00 MB (Rec: 12/04/24 09:15 MB Desktop) OP-PT Subjective Patient Comments Patient Comments Pt is recovering well after second facial surgery. His back is so-so and he only has the pelvic realignment exercises. PT-OP-G Mobility & Gait Start: 10/14/24 15:57 Freq: Status: Active Protocol: Document 10/22/24 08:11 MB (Rec: 10/22/24 08:51 MB [id number]) OP Gait Assessment Comments Gait Comments Shuffling gait that is magnetic in nature with forward, flexed posture and no foot clearance either foot PT-OP-J Posture/Palpation/Skin Start: 10/14/24 15:57 Freq: Status: Active Protocol: Document 10/22/24 08:11 MB (Rec: 10/22/24 08:51 MB [id number]) Posture Evaluation Comments Posture Comments Postural changes with shoulders 20 deg in front of greater trochanter, measured on the right, severe forward head with right tragus 2.5 in front of right AC joint, right shoulder and scapula more elevated than the left and also more forward than the left, decreased upper thoracic kyphosis and right convexity, reduced lumbar lordosis, spine laterally shifted to the right, right iliac crest lower than the right by 1/2, left leg appears functionally longer than right, increased knee varus more on the right and increased B Tracy angle. PT-OP-K Range of Motion Start: 10/14/24 15:57 Freq: Status: Active Protocol: Document 10/22/24 08:11 MB (Rec: 10/22/24 08:51 MB [id number]) Lumbar Spine Range of Motion Lumbar Spine Active Testing Position Standing Comments With lumbar flexion in standing, pt immediately flexes both knees From flexed position, pt can extend 5 deg with hands on hips B SB: less than 5 deg Scour Test: no reproduction of cramping on the right and B hamstrings are very tight and knee naturally passively flexes in resistance when PT tries to DF feet Anterior supine SI mobility testing: more stiffness on the left Passive SLR: B 60 deg Hip Goniometric Range of Motion Hip Left Testing Position Supine Comments PROM IR 5 deg and ER 10 deg Right Testing Position Supine Comments PROM IR 5 deg and ER 15 deg PT-OP-M Strength Start: 10/14/24 15:57 Freq: Status: Active Protocol: Document 10/22/24 08:11 MB (Rec: 10/22/24 08:51 MB [id number]) Hip Strength Hip Manual Muscle Testing Left Flexion (L2) 4+ Good+ Extension (S1) 4 Good Abduction 4- Good- Right Flexion (L2) 4- Good- Extension (S1) 4- Good- Abduction 4- Good- Comments All MMT in supine Knee Strength Knee Manual Muscle Testing Left Flexion (S2) 4 Good Extension (L3) 5 Normal Right Flexion (S2) 5 Normal Extension (L3) 5 Normal Ankle/Foot Strength Ankle and Foot Manual Muscle Testing Left Dorsiflexion (L4) 5 Normal Right Dorsiflexion (L4) 5 Normal Toe Strength Toe Manual Muscle Testing Left Great Toe Extension 5 Normal Right Great Toe Extension 5 Normal PT-OP-Q Treatments Start: 10/14/24 15:57 Freq: Status: Active Protocol: Document 12/04/24 09:00 MB (Rec: 12/04/24 09:15 MB Desktop) Therapeutic Exercises Supine Exercises hip rotators Supine Exercise Name HEP and handout today, piriformis stretch Side bilateral Equipment Used Towel Reps/Minutes 60 sec Comments Verbal cues and pt tends to hold breath Mod Adelfo stretch Side bilateral Reps/Minutes 60 sec Comments will be too challenging for pt in supine Pelvic realignment exercises Supine Exercise Name Reviewed from HEP and cues today Side bilateral Equipment Used Blue ball and towel around thigh last exercise Reps/Minutes 5 reps, 3 sec hold Comments Feet together ball squeeze iso , knee opp ankle iso, knee opp ankle iso Sitting Exercises Thoracic rotation in sitting Sitting Exercise Name HEP and handout today Reps/Minutes Arms across chest, can warm-up with lesser mobility reps, then hold Comments Hold one side 20 sec and deep breath through ribs Hamstring stretch Sitting Exercise Name HEP and handout today Reps/Minutes 60 sec each leg Comments Cues for toes up Hip rotator stretch Sitting Exercise Name HEP and handout today Reps/Minutes 60 sec each leg Comments L knee is stiff and pt with B LE edema Self-Care/Home Management Treatment Education Patient Education Body Mechanics,Home Exercise Program,Posture,Safety Other Education Orthostatic assessment with BP and HR in LUE: supine 124/68, 79; standing 128/64, 99; standing 1' 130/74, 95. Negative and pt states that he hydrates well at home. Log rolling to get on and off of plinth today Pt asks about walking on treadmill where he is tense and holding on and PT ed pt that walking on treadmill may not be the best exercise for him, may try gait with rollator PT-OP-T Assessment and Plan Start: 10/14/24 15:57 Freq: Status: Active Protocol: Document 12/04/24 09:00 MB (Rec: 12/04/24 09:15 MB Desktop) Physical Therapy Assessment Rehab Potential Rehabilitation Potential Fair Evaluation Complexity Number of Personal Factors/Comorbidities 1-2 Number of Body Systems Impaired 3 Clinical Presentation at Evaluation Evolving Impairments Impairments Activity Tolerance,Balance, Coordination,Functional Activities,Functional Mobility ,Gait,Pain,Posture,ROM,Soft Tissue Mobility,Strength, Transfers,Vestibular Goals 3 Impairment Lack fo HEP Snf Goal (LTG) Pt will perform progressive HEP with cues and use of handouts to improve alignment, flexibility, balance and strength. 11/12/24: Pt is performing pelvic realignment exercises and HEP has not been progressed with HOME WEATHERIZING WORKER at this time. LTG Duration 8 weeks 2 Impairment Evidence of imbalance Impairment . Short Term Goal (STG) . STG Duration . Hot Dog Vendor Goal (LTG) Pt will perform WNLs on Rivas Balance Test to decrease fall risk. 11/12/24: Rivas 41/56, indicating increased risk for falls LTG Duration 8 weeks 1 Impairment Slow and shuffling gait Snf Goal (LTG) Pt will gait train at least 1500 feet in 6 minutes with or without LRAD to improve community ambulation. 11/12/24: Pt gait trains 1067 feet in 6 minutes with forward , flexed posture and scuffing feet, worse on the right. LTG Duration 8 weeks Assessment Summary Assessment Cleared to con't PT by Dr. Tierney and so progressed exercises today for home. Sitting stretches appear to be easier for pt today. Pt may benefit from rollator or RW training to improve gait d/t shuffling gait today. Pt with right greater than left LE edema. Physical Therapy Plan Frequency and Duration Frequency of Treatment 2x/Week Duration of treatment (weeks) 6 Plan of Care Start Date 11/12/24 Plan of Care End Date 02/03/25 Therapeutic Interventions Therapeutic Interventions Balance Training,Canalithic Repositioning,Coordination Training,Gait Training,Home Exercise Program,Joint Mobilizations,Manual Therapy, Neuromuscular Re-education, Patient/Caregiver Education, Self-Care/Home Management, Sensory Integration,Soft Tissue Mobilization,Taping, Therapeutic Activities, Therapeutic Exercises Modalities Cold Pack/Ice Massage,Electric Stimulation,Hot Packs, Ultrasound Next Visit Focus/Plan Next Note Type Treatment Note Next Visit Plan Ongoing progressive flexibility, core, LE strengthening and balance exercises, consider gait training with RW and rollator to improve shuffling gait (can try outside), consider standing calf stretches Retest Rivas and 6MWT
--- NOTE | 2024-12-06 10:42 | PT.OTN ---
Current Diagnoses Low back pain, unspecified (12/06/24) Physical Therapy Treatment Note PT-OP-A Visit Information Start: 10/14/24 15:57 Freq: Status: Active Protocol: Document 12/06/24 09:04 AB (Rec: 12/06/24 10:14 AB Laptop) Out-Patient Physical Therapy Visit Information Visit Information Visit Type Treatment Note Visit Note Next progress note by 12/12/24 Dr. Tierney cleared to con't PT Visit Start Time 09:04 Visit Stop Time 09:46 Visit Number 6 Number of FARM EQUIPMENT SERVICE TECHNICIAN Visits 1 PT-OP-B Current Condition Start: 10/14/24 15:57 Freq: Status: Active Protocol: Document 10/22/24 08:11 MB (Rec: 10/22/24 08:51 MB [id number]) Current Condition History of Current Condition Onset Date 6 months to a year ago Current Complaints Right SI pain and pain going down the leg History of Current Condition Pt reports that he was using right leg on yard equipment last year and then he woke up and he had pain in LB and across back into right hip. It makes right leg cramp up. PMH includes LAFB, HTN, enlarged prostate, OA, macular degeneration, left TKA last year, vertigo. Pt has some word-finding difficulties during assessment . Pt does not drive much and daughter lives with him. Pt denies falls. Pt denies numbness and tingling but has the yasmine horse sensation. Standing is the worse position. No lumbar or hip x- rays in [facility] chart. Treatment Goals Patient/Caregiver Goals To decrease pain PT-OP-C Subjective Start: 10/14/24 15:57 Freq: Status: Active Protocol: Document 12/06/24 09:04 AB (Rec: 12/06/24 10:14 AB Laptop) OP-PT Subjective Patient Comments Patient Comments Patient reports he may be a little better, still has back pain, but thinks it is getting better. Patient reports if he stands much he has pain, if he stands it goes away. PT-OP-G Mobility & Gait Start: 10/14/24 15:57 Freq: Status: Active Protocol: Document 10/22/24 08:11 MB (Rec: 10/22/24 08:51 MB [id number]) OP Gait Assessment Comments Gait Comments Shuffling gait that is magnetic in nature with forward, flexed posture and no foot clearance either foot PT-OP-J Posture/Palpation/Skin Start: 10/14/24 15:57 Freq: Status: Active Protocol: Document 10/22/24 08:11 MB (Rec: 10/22/24 08:51 MB [id number]) Posture Evaluation Comments Posture Comments Postural changes with shoulders 20 deg in front of greater trochanter, measured on the right, severe forward head with right tragus 2.5 in front of right AC joint, right shoulder and scapula more elevated than the left and also more forward than the left, decreased upper thoracic kyphosis and right convexity, reduced lumbar lordosis, spine laterally shifted to the right, right iliac crest lower than the right by 1/2, left leg appears functionally longer than right, increased knee varus more on the right and increased B Tracy angle. PT-OP-K Range of Motion Start: 10/14/24 15:57 Freq: Status: Active Protocol: Document 10/22/24 08:11 MB (Rec: 10/22/24 08:51 MB [id number]) Lumbar Spine Range of Motion Lumbar Spine Active Testing Position Standing Comments With lumbar flexion in standing, pt immediately flexes both knees From flexed position, pt can extend 5 deg with hands on hips B SB: less than 5 deg Scour Test: no reproduction of cramping on the right and B hamstrings are very tight and knee naturally passively flexes in resistance when PT tries to DF feet Anterior supine SI mobility testing: more stiffness on the left Passive SLR: B 60 deg Hip Goniometric Range of Motion Hip Left Testing Position Supine Comments PROM IR 5 deg and ER 10 deg Right Testing Position Supine Comments PROM IR 5 deg and ER 15 deg PT-OP-M Strength Start: 10/14/24 15:57 Freq: Status: Active Protocol: Document 10/22/24 08:11 MB (Rec: 10/22/24 08:51 MB [id number]) Hip Strength Hip Manual Muscle Testing Left Flexion (L2) 4+ Good+ Extension (S1) 4 Good Abduction 4- Good- Right Flexion (L2) 4- Good- Extension (S1) 4- Good- Abduction 4- Good- Comments All MMT in supine Knee Strength Knee Manual Muscle Testing Left Flexion (S2) 4 Good Extension (L3) 5 Normal Right Flexion (S2) 5 Normal Extension (L3) 5 Normal Ankle/Foot Strength Ankle and Foot Manual Muscle Testing Left Dorsiflexion (L4) 5 Normal Right Dorsiflexion (L4) 5 Normal Toe Strength Toe Manual Muscle Testing Left Great Toe Extension 5 Normal Right Great Toe Extension 5 Normal PT-OP-Q Treatments Start: 10/14/24 15:57 Freq: Status: Active Protocol: Document 12/06/24 09:04 AB (Rec: 12/06/24 10:14 AB Laptop) Therapeutic Exercises Supine Exercises Pelvic realignment exercises Supine Exercise Name Reviewed from HEP Side bilateral Equipment Used Blue ball and towel around thigh last exercise Reps/Minutes 5 reps, 3 sec hold Comments Feet together ball squeeze iso , knee opp ankle iso, knee opp ankle iso Sitting Exercises seated core warm up Sitting Exercise Name 1. shoulder flexion X 5 end ROM trunk rotation X 5 Reps/Minutes 5 X 4 each Comments verbal and visual cues seated breathing from diaphragm Sitting Exercise Name 2 pillows on lap Comments Verbal cues, pt ed rationale of this for back pain Thoracic rotation in sitting Sitting Exercise Name HEP review this session Reps/Minutes Arms across chest, can warm-up with lesser mobility reps, then hold Comments Hold one side 20 sec and deep breath through ribs Standing Exercises calf stretches Standing Exercise Name Gastroc and soleus 1.. YAW 2. at wall HEP for standing at wall 3 on stairs. Reps/Minutes 60 sec each X 1 stretch each position Comments verbal and visual cues Therapeutic Activity Therapeutic Activity 4 wheel walker training Reps/Minutes 15 min Comments Patient comments daughter bought him a 4 wheeled walker it is at home. Patient performed sit to and from stand, chair to chair transfers, locking walker and turning to sit on seat of walker indoors, post verbal and visual instruction good return demonstration. Patient ambulates out doors up and down curb with 4 wheeled walker and using brake to decelerate down hill. PT-OP-T Assessment and Plan Start: 10/14/24 15:57 Freq: Status: Active Protocol: Document 12/06/24 09:04 AB (Rec: 12/06/24 10:14 AB Laptop) Physical Therapy Assessment Goals 3 Impairment Lack fo HEP Director Of Early Childhood Education Goal (LTG) Pt will perform progressive HEP with cues and use of handouts to improve alignment, flexibility, balance and strength. 11/12/24: Pt is performing pelvic realignment exercises and HEP has not been progressed with FARM EQUIPMENT SERVICE TECHNICIAN at this time. LTG Duration 8 weeks 2 Impairment Evidence of imbalance Impairment . Short Term Goal (STG) . STG Duration . Director Of Early Childhood Education Goal (LTG) Pt will perform WNLs on Rivas Balance Test to decrease fall risk. 11/12/24: Rivas 41/56, indicating increased risk for falls LTG Duration 8 weeks 1 Impairment Slow and shuffling gait Director Of Early Childhood Education Goal (LTG) Pt will gait train at least 1500 feet in 6 minutes with or without LRAD to improve community ambulation. 11/12/24: Pt gait trains 1067 feet in 6 minutes with forward , flexed posture and scuffing feet, worse on the right. LTG Duration 8 weeks Assessment Summary Assessment Scuffing with ambulation persists, but less with verbal cues for posture ( repeated ) and use of 4 wheeled walker. Good return demonstration for locking brakes pre sit to and from stand. Physical Therapy Plan Frequency and Duration Frequency of Treatment 2x/Week Duration of treatment (weeks) 6 Plan of Care Start Date 11/12/24 Plan of Care End Date 02/03/25 Next Visit Focus/Plan Next Note Type Treatment Note Next Visit Plan Ongoing progressive flexibility, core, LE strengthening and balance exercises, Retest Rivas and 6MWT
--- NOTE | 2024-12-10 16:38 | PT.OTN ---
Current Diagnoses Low back pain, unspecified (12/10/24) Physical Therapy Treatment Note PT-OP-A Visit Information Start: 10/14/24 15:57 Freq: Status: Active Protocol: Document 12/10/24 16:02 MB (Rec: 12/10/24 16:38 MB Desktop) Out-Patient Physical Therapy Visit Information Visit Information Visit Type Progress Note Visit Start Time 16:02 Visit Stop Time 16:40 Visit Number 7 Number of INDIGO MIXER Visits 0 Evaluation Information Evaluation Date 10/22/24 Precautions Precautions History of vertigo PT-OP-B Current Condition Start: 10/14/24 15:57 Freq: Status: Active Protocol: Document 10/22/24 08:11 MB (Rec: 10/22/24 08:51 MB [id number]) Current Condition History of Current Condition Onset Date 6 months to a year ago Current Complaints Right SI pain and pain going down the leg History of Current Condition Pt reports that he was using right leg on yard equipment last year and then he woke up and he had pain in LB and across back into right hip. It makes right leg cramp up. PMH includes LAFB, HTN, enlarged prostate, OA, macular degeneration, left TKA last year, vertigo. Pt has some word-finding difficulties during assessment . Pt does not drive much and daughter lives with him. Pt denies falls. Pt denies numbness and tingling but has the yasmine horse sensation. Standing is the worse position. No lumbar or hip x- rays in [facility] chart. Treatment Goals Patient/Caregiver Goals To decrease pain PT-OP-C Subjective Start: 10/14/24 15:57 Freq: Status: Active Protocol: Document 12/10/24 16:02 MB (Rec: 12/10/24 16:38 MB Desktop) OP-PT Subjective Patient Comments Patient Comments Pt is doing okay and he thinks his back is feeling a little better. He can stand a little longer with loading the rod buster helper. PT-OP-G Mobility & Gait Start: 10/14/24 15:57 Freq: Status: Active Protocol: Document 10/22/24 08:11 MB (Rec: 10/22/24 08:51 MB [id number]) OP Gait Assessment Comments Gait Comments Shuffling gait that is magnetic in nature with forward, flexed posture and no foot clearance either foot PT-OP-J Posture/Palpation/Skin Start: 10/14/24 15:57 Freq: Status: Active Protocol: Document 10/22/24 08:11 MB (Rec: 10/22/24 08:51 MB [id number]) Posture Evaluation Comments Posture Comments Postural changes with shoulders 20 deg in front of greater trochanter, measured on the right, severe forward head with right tragus 2.5 in front of right AC joint, right shoulder and scapula more elevated than the left and also more forward than the left, decreased upper thoracic kyphosis and right convexity, reduced lumbar lordosis, spine laterally shifted to the right, right iliac crest lower than the right by 1/2, left leg appears functionally longer than right, increased knee varus more on the right and increased B Tracy angle. PT-OP-K Range of Motion Start: 10/14/24 15:57 Freq: Status: Active Protocol: Document 10/22/24 08:11 MB (Rec: 10/22/24 08:51 MB [id number]) Lumbar Spine Range of Motion Lumbar Spine Active Testing Position Standing Comments With lumbar flexion in standing, pt immediately flexes both knees From flexed position, pt can extend 5 deg with hands on hips B SB: less than 5 deg Scour Test: no reproduction of cramping on the right and B hamstrings are very tight and knee naturally passively flexes in resistance when PT tries to DF feet Anterior supine SI mobility testing: more stiffness on the left Passive SLR: B 60 deg Hip Goniometric Range of Motion Hip Left Testing Position Supine Comments PROM IR 5 deg and ER 10 deg Right Testing Position Supine Comments PROM IR 5 deg and ER 15 deg PT-OP-M Strength Start: 10/14/24 15:57 Freq: Status: Active Protocol: Document 10/22/24 08:11 MB (Rec: 10/22/24 08:51 MB [id number]) Hip Strength Hip Manual Muscle Testing Left Flexion (L2) 4+ Good+ Extension (S1) 4 Good Abduction 4- Good- Right Flexion (L2) 4- Good- Extension (S1) 4- Good- Abduction 4- Good- Comments All MMT in supine Knee Strength Knee Manual Muscle Testing Left Flexion (S2) 4 Good Extension (L3) 5 Normal Right Flexion (S2) 5 Normal Extension (L3) 5 Normal Ankle/Foot Strength Ankle and Foot Manual Muscle Testing Left Dorsiflexion (L4) 5 Normal Right Dorsiflexion (L4) 5 Normal Toe Strength Toe Manual Muscle Testing Left Great Toe Extension 5 Normal Right Great Toe Extension 5 Normal PT-OP-Q Treatments Start: 10/14/24 15:57 Freq: Status: Active Protocol: Document 12/10/24 16:02 MB (Rec: 12/10/24 16:38 MB Desktop) Therapeutic Exercises Supine Exercises Pelvic realignment exercises Comments Verbal review today Sitting Exercises Thoracic rotation in sitting Comments Demonstrates today Hamstring stretch Comments Demonstrates today Hip rotator stretch Comments Demonstrates today Standing Exercises calf stretches Comments Demonstrates today Gait Training Gait Activity [id number] Comments Performs today and see goals for findings, pt does talk throughout test and this may decrease gait speed and distance, he gait trains at least 8' throughout treatment Neuro Re-Education Treatment Balance Activities Rivas Comments Performed today with score 42/ 56, which is better than mean for age and one point higher than last tested last month and also indicates increased risk of falling Self-Care/Home Management Treatment Education Other Education Review of findings from progress note, con't exercises at home, benefits of LRAD for gait distance, back pain and posture and pt does not wish to pursue at this time, answered exercise questions and hope to progress HEP in future treatments PT-OP-T Assessment and Plan Start: 10/14/24 15:57 Freq: Status: Active Protocol: Document 12/10/24 16:02 MB (Rec: 12/10/24 16:38 MB Desktop) Physical Therapy Assessment Rehab Potential Rehabilitation Potential Fair Evaluation Complexity Number of Personal Factors/Comorbidities 1-2 Number of Body Systems Impaired 3 Clinical Presentation at Evaluation Evolving Impairments Impairments Activity Tolerance,Balance, Coordination,Functional Activities,Functional Mobility ,Gait,Pain,Posture,ROM,Soft Tissue Mobility,Strength, Transfers,Vestibular Goals 3 Impairment Lack fo HEP Fpc Goal (LTG) Pt will perform progressive HEP with cues and use of handouts to improve alignment, flexibility, balance and strength. 11/12/24: Pt is performing pelvic realignment exercises and HEP has not been progressed with INDIGO MIXER at this time. 12/10/24: Pt is performing his exercises at home LTG Duration 8 weeks 2 Impairment Evidence of imbalance Impairment . Short Term Goal (STG) . STG Duration . Worsted Winder Goal (LTG) Pt will perform WNLs on Rivas Balance Test to decrease fall risk. 11/12/24: Rivas 41/56, indicating increased risk for falls 12/10/24: Rivas 42/56, indicating increased risk for falls LTG Duration 8 weeks 1 Impairment Slow and shuffling gait Worsted Winder Goal (LTG) Pt will gait train at least 1500 feet in 6 minutes with or without LRAD to improve community ambulation. 11/12/24: Pt gait trains 1067 feet in 6 minutes with forward , flexed posture and scuffing feet, worse on the right. 12/10/24: Pt gait trains 892 feet in 6 minutes with forward , flexed posture and scuffing feet today, worse on the right . Pt does talk throughout gait and this might have slowed him down. He denies pain. LTG Duration 8 weeks Assessment Summary Assessment Pt is progressing slowly towards Rivas and HEP goals and can con't to advance exercises. 6MWT slower today and likely d/t talking during gait. Physical Therapy Plan Frequency and Duration Frequency of Treatment 2x/Week Duration of treatment (weeks) 6 Plan of Care Start Date 11/12/24 Plan of Care End Date 02/03/25 Therapeutic Interventions Therapeutic Interventions Balance Training,Canalithic Repositioning,Coordination Training,Gait Training,Home Exercise Program,Joint Mobilizations,Manual Therapy, Neuromuscular Re-education, Patient/Caregiver Education, Self-Care/Home Management, Sensory Integration,Soft Tissue Mobilization,Taping, Therapeutic Activities, Therapeutic Exercises Modalities Cold Pack/Ice Massage,Electric Stimulation,Hot Packs, Ultrasound Next Visit Focus/Plan Next Note Type Treatment Note Next Visit Plan Add exercises previous reviewed by INDIGO MIXER to HEP as appropriate Ongoing progressive flexibility, core, LE strengthening and balance exercises
--- NOTE | 2024-12-13 12:29 | PT.OTN ---
Current Diagnoses Low back pain, unspecified (12/13/24) Physical Therapy Treatment Note PT-OP-A Visit Information Start: 10/14/24 15:57 Freq: Status: Active Protocol: Document 12/13/24 09:01 AB (Rec: 12/13/24 12:21 AB Laptop) Out-Patient Physical Therapy Visit Information Visit Information Visit Type Treatment Note Visit Start Time 09:04 Visit Stop Time 09:46 Visit Number 8 Number of TUFTING MACHINE OPERATOR Visits 1 Evaluation Information Evaluation Date 10/22/24 Precautions Precautions History of vertigo PT-OP-B Current Condition Start: 10/14/24 15:57 Freq: Status: Active Protocol: Document 10/22/24 08:11 MB (Rec: 10/22/24 08:51 MB [id number]) Current Condition History of Current Condition Onset Date 6 months to a year ago Current Complaints Right SI pain and pain going down the leg History of Current Condition Pt reports that he was using right leg on yard equipment last year and then he woke up and he had pain in LB and across back into right hip. It makes right leg cramp up. PMH includes LAFB, HTN, enlarged prostate, OA, macular degeneration, left TKA last year, vertigo. Pt has some word-finding difficulties during assessment . Pt does not drive much and daughter lives with him. Pt denies falls. Pt denies numbness and tingling but has the yasmine horse sensation. Standing is the worse position. No lumbar or hip x- rays in [facility] chart. Treatment Goals Patient/Caregiver Goals To decrease pain PT-OP-C Subjective Start: 10/14/24 15:57 Freq: Status: Active Protocol: Document 12/13/24 09:01 AB (Rec: 12/13/24 12:21 AB Laptop) OP-PT Subjective Patient Comments Patient Comments Patient reports he is a little better. Patient rates R knee pain 2-3/10 start of session. PT-OP-G Mobility & Gait Start: 10/14/24 15:57 Freq: Status: Active Protocol: Document 10/22/24 08:11 MB (Rec: 10/22/24 08:51 MB [id number]) OP Gait Assessment Comments Gait Comments Shuffling gait that is magnetic in nature with forward, flexed posture and no foot clearance either foot PT-OP-J Posture/Palpation/Skin Start: 10/14/24 15:57 Freq: Status: Active Protocol: Document 10/22/24 08:11 MB (Rec: 10/22/24 08:51 MB [id number]) Posture Evaluation Comments Posture Comments Postural changes with shoulders 20 deg in front of greater trochanter, measured on the right, severe forward head with right tragus 2.5 in front of right AC joint, right shoulder and scapula more elevated than the left and also more forward than the left, decreased upper thoracic kyphosis and right convexity, reduced lumbar lordosis, spine laterally shifted to the right, right iliac crest lower than the right by 1/2, left leg appears functionally longer than right, increased knee varus more on the right and increased B Tracy angle. PT-OP-K Range of Motion Start: 10/14/24 15:57 Freq: Status: Active Protocol: Document 10/22/24 08:11 MB (Rec: 10/22/24 08:51 MB [id number]) Lumbar Spine Range of Motion Lumbar Spine Active Testing Position Standing Comments With lumbar flexion in standing, pt immediately flexes both knees From flexed position, pt can extend 5 deg with hands on hips B SB: less than 5 deg Scour Test: no reproduction of cramping on the right and B hamstrings are very tight and knee naturally passively flexes in resistance when PT tries to DF feet Anterior supine SI mobility testing: more stiffness on the left Passive SLR: B 60 deg Hip Goniometric Range of Motion Hip Left Testing Position Supine Comments PROM IR 5 deg and ER 10 deg Right Testing Position Supine Comments PROM IR 5 deg and ER 15 deg PT-OP-M Strength Start: 10/14/24 15:57 Freq: Status: Active Protocol: Document 10/22/24 08:11 MB (Rec: 10/22/24 08:51 MB [id number]) Hip Strength Hip Manual Muscle Testing Left Flexion (L2) 4+ Good+ Extension (S1) 4 Good Abduction 4- Good- Right Flexion (L2) 4- Good- Extension (S1) 4- Good- Abduction 4- Good- Comments All MMT in supine Knee Strength Knee Manual Muscle Testing Left Flexion (S2) 4 Good Extension (L3) 5 Normal Right Flexion (S2) 5 Normal Extension (L3) 5 Normal Ankle/Foot Strength Ankle and Foot Manual Muscle Testing Left Dorsiflexion (L4) 5 Normal Right Dorsiflexion (L4) 5 Normal Toe Strength Toe Manual Muscle Testing Left Great Toe Extension 5 Normal Right Great Toe Extension 5 Normal PT-OP-Q Treatments Start: 10/14/24 15:57 Freq: Status: Active Protocol: Document 12/13/24 09:01 (Rec: 12/13/24 12:21 AB Laptop) Therapeutic Exercises Sitting Exercises seated hip abd with band Sitting Exercise Name HEP Resistance napaimute green band Reps/Minutes one min X 1 Comments verbal cues, SLS less than one sec L and R w/o UE use pre Hip rotator stretch Sitting Exercise Name piriformis today, between balance ex post seated hip abd with band Side bilateral Reps/Minutes 0ne min each LE Comments verbal cues Standing Exercises bilateral heel raise Standing Exercise Name with UE use Reps/Minutes X10 Comments verbal cues to lower heels slowly to floor sit to stand Standing Exercise Name HEP at patient's request Reps/Minutes X10 X 2 Comments patient ed self tactile cues for hip hinge, Pt mech of sit to stand calf stretches Standing Exercise Name Gastroc and soleus on stairs. Side bilateral Reps/Minutes 60 sec X 2 Comments prior to sit to stand for body over ankle mvt. Neuro Re-Education Treatment Balance Activities tandem stepping Details hands above parallel bars Reps/Duration 10 feet X5 Comments CGA step up taps Surface foam to 6 inch step Reps/Duration X10 Comments CGA EC Details Romberg, stagger, and Romberg on foam Reps/Duration CGA and VC to open eyes when feeling LOB Comments 3 min PT-OP-T Assessment and Plan Start: 10/14/24 15:57 Freq: Status: Active Protocol: Document 12/13/24 09:01 AB (Rec: 12/13/24 12:21 Laptop) Physical Therapy Assessment Goals 3 Impairment Lack fo HEP Orthopedic Designer Goal (LTG) Pt will perform progressive HEP with cues and use of handouts to improve alignment, flexibility, balance and strength. 11/12/24: Pt is performing pelvic realignment exercises and HEP has not been progressed with TUFTING MACHINE OPERATOR at this time. 12/10/24: Pt is performing his exercises at home LTG Duration 8 weeks 2 Impairment Evidence of imbalance Impairment . Short Term Goal (STG) . STG Duration . Fdc Goal (LTG) Pt will perform WNLs on Rivas Balance Test to decrease fall risk. 11/12/24: Rivas 41/56, indicating increased risk for falls 12/10/24: Rivas 42/56, indicating increased risk for falls LTG Duration 8 weeks 1 Impairment Slow and shuffling gait Fdc Goal (LTG) Pt will gait train at least 1500 feet in 6 minutes with or without LRAD to improve community ambulation. 11/12/24: Pt gait trains 1067 feet in 6 minutes with forward , flexed posture and scuffing feet, worse on the right. 12/10/24: Pt gait trains 892 feet in 6 minutes with forward , flexed posture and scuffing feet today, worse on the right . Pt does talk throughout gait and this might have slowed him down. He denies pain. LTG Duration 8 weeks Assessment Summary Assessment post glute med activation L LE SLS 1,3,2 sec R 3, 3, 3 sec this session SLS without UE use. Physical Therapy Plan Frequency and Duration Frequency of Treatment 2x/Week Duration of treatment (weeks) 6 Plan of Care Start Date 11/12/24 Plan of Care End Date 02/03/25 Next Visit Focus/Plan Next Note Type Treatment Note Next Visit Plan Add exercises previous reviewed by TUFTING MACHINE OPERATOR to HEP as appropriate Ongoing progressive flexibility, core, LE strengthening and balance exercises/assess meghann to sit to stand and seated hip abd with band addition to HEP
--- NOTE | 2024-12-17 09:41 | PT.OTN ---
Current Diagnoses Low back pain, unspecified (12/17/24) Physical Therapy Treatment Note PT-OP-A Visit Information Start: 10/14/24 15:57 Freq: Status: Active Protocol: Document 12/17/24 09:02 MB (Rec: 12/17/24 09:41 MB Desktop) Out-Patient Physical Therapy Visit Information Visit Information Visit Type Treatment Note Visit Start Time 09:02 Visit Stop Time 09:42 Visit Number 9 Number of HIGH SCHOOL ADMISSIONS REPRESENTATIVE Visits 0 Evaluation Information Evaluation Date 10/22/24 Precautions Precautions History of vertigo PT-OP-B Current Condition Start: 10/14/24 15:57 Freq: Status: Active Protocol: Document 10/22/24 08:11 MB (Rec: 10/22/24 08:51 MB [id number]) Current Condition History of Current Condition Onset Date 6 months to a year ago Current Complaints Right SI pain and pain going down the leg History of Current Condition Pt reports that he was using right leg on yard equipment last year and then he woke up and he had pain in LB and across back into right hip. It makes right leg cramp up. PMH includes LAFB, HTN, enlarged prostate, OA, macular degeneration, left TKA last year, vertigo. Pt has some word-finding difficulties during assessment . Pt does not drive much and daughter lives with him. Pt denies falls. Pt denies numbness and tingling but has the yasmine horse sensation. Standing is the worse position. No lumbar or hip x- rays in [facility] chart. Treatment Goals Patient/Caregiver Goals To decrease pain PT-OP-C Subjective Start: 10/14/24 15:57 Freq: Status: Active Protocol: Document 12/17/24 09:02 MB (Rec: 12/17/24 09:41 MB Desktop) OP-PT Subjective Patient Comments Patient Comments Pt states that things are going pretty good. PT-OP-G Mobility & Gait Start: 10/14/24 15:57 Freq: Status: Active Protocol: Document 10/22/24 08:11 MB (Rec: 10/22/24 08:51 MB [id number]) OP Gait Assessment Comments Gait Comments Shuffling gait that is magnetic in nature with forward, flexed posture and no foot clearance either foot PT-OP-J Posture/Palpation/Skin Start: 10/14/24 15:57 Freq: Status: Active Protocol: Document 10/22/24 08:11 MB (Rec: 10/22/24 08:51 MB [id number]) Posture Evaluation Comments Posture Comments Postural changes with shoulders 20 deg in front of greater trochanter, measured on the right, severe forward head with right tragus 2.5 in front of right AC joint, right shoulder and scapula more elevated than the left and also more forward than the left, decreased upper thoracic kyphosis and right convexity, reduced lumbar lordosis, spine laterally shifted to the right, right iliac crest lower than the right by 1/2, left leg appears functionally longer than right, increased knee varus more on the right and increased B Tracy angle. PT-OP-K Range of Motion Start: 10/14/24 15:57 Freq: Status: Active Protocol: Document 10/22/24 08:11 MB (Rec: 10/22/24 08:51 MB [id number]) Lumbar Spine Range of Motion Lumbar Spine Active Testing Position Standing Comments With lumbar flexion in standing, pt immediately flexes both knees From flexed position, pt can extend 5 deg with hands on hips B SB: less than 5 deg Scour Test: no reproduction of cramping on the right and B hamstrings are very tight and knee naturally passively flexes in resistance when PT tries to DF feet Anterior supine SI mobility testing: more stiffness on the left Passive SLR: B 60 deg Hip Goniometric Range of Motion Hip Left Testing Position Supine Comments PROM IR 5 deg and ER 10 deg Right Testing Position Supine Comments PROM IR 5 deg and ER 15 deg PT-OP-M Strength Start: 10/14/24 15:57 Freq: Status: Active Protocol: Document 10/22/24 08:11 MB (Rec: 10/22/24 08:51 MB [id number]) Hip Strength Hip Manual Muscle Testing Left Flexion (L2) 4+ Good+ Extension (S1) 4 Good Abduction 4- Good- Right Flexion (L2) 4- Good- Extension (S1) 4- Good- Abduction 4- Good- Comments All MMT in supine Knee Strength Knee Manual Muscle Testing Left Flexion (S2) 4 Good Extension (L3) 5 Normal Right Flexion (S2) 5 Normal Extension (L3) 5 Normal Ankle/Foot Strength Ankle and Foot Manual Muscle Testing Left Dorsiflexion (L4) 5 Normal Right Dorsiflexion (L4) 5 Normal Toe Strength Toe Manual Muscle Testing Left Great Toe Extension 5 Normal Right Great Toe Extension 5 Normal PT-OP-Q Treatments Start: 10/14/24 15:57 Freq: Status: Active Protocol: Document 12/17/24 09:02 MB (Rec: 12/17/24 09:41 MB Desktop) Therapeutic Exercises Sitting Exercises seated hip abd with band Sitting Exercise Name Reviewed from [facility] Resistance Resighini green band, no latex allergy Reps/Minutes 1 rep x 1 min Comments Used timer for 1 min, per picture feet are not together Thoracic rotation in sitting Sitting Exercise Name Reviewed from [facility] today Side bilateral Reps/Minutes 5 reps to each side and breathing end-range Hamstring stretch Sitting Exercise Name Reviewed from [facility] today Side bilateral Reps/Minutes Hold 60 sec, 1 rep Hip rotator stretch Sitting Exercise Name Reviewed from [facility] today Side bilateral Reps/Minutes Hold 60 sec, 1 rep Standing Exercises bilateral heel raise Standing Exercise Name HEP and handout today Reps/Minutes 25 reps, to perform before calf stretches sit to stand Standing Exercise Name Reviewed from [facility] Equipment Used Pt sitting on black high low table Comments 30 sec: 9 reps calf stretches Standing Exercise Name Reviewed from [facility], performed at wall Side bilateral Reps/Minutes 60 sec each stretch Manual Therapy Treatment Consent Patient gave verbal consent for manual Yes treatment Other Other Manual Treatments Pt sidelying with pillow support under head, ribs, leg, top leg straight and bottom leg bent: STM B glutes, TFL, vastus lateralis, hamstrings, PFs, gentle rib mobility for QL and paraspinals, good response to treatment initially PT-OP-T Assessment and Plan Start: 10/14/24 15:57 Freq: Status: Active Protocol: Document 12/17/24 09:02 MB (Rec: 12/17/24 09:41 MB Desktop) Physical Therapy Assessment Rehab Potential Rehabilitation Potential Fair Evaluation Complexity Number of Personal Factors/Comorbidities 1-2 Number of Body Systems Impaired 3 Clinical Presentation at Evaluation Evolving Impairments Impairments Activity Tolerance,Balance, Coordination,Functional Activities,Functional Mobility ,Gait,Pain,Posture,ROM,Soft Tissue Mobility,Strength, Transfers,Vestibular Goals 3 Impairment Lack fo HEP Pull Through Hooker Goal (LTG) Pt will perform progressive HEP with cues and use of handouts to improve alignment, flexibility, balance and strength. 11/12/24: Pt is performing pelvic realignment exercises and HEP has not been progressed with HIGH SCHOOL ADMISSIONS REPRESENTATIVE at this time. 12/10/24: Pt is performing his exercises at home LTG Duration 8 weeks 2 Impairment Evidence of imbalance Impairment . Short Term Goal (STG) . STG Duration . [facility]ci Goal (LTG) Pt will perform WNLs on Rivas Balance Test to decrease fall risk. 11/12/24: Rivas 41/56, indicating increased risk for falls 12/10/24: Rivas 42/56, indicating increased risk for falls LTG Duration 8 weeks 1 Impairment Slow and shuffling gait Fci Goal (LTG) Pt will gait train at least 1500 feet in 6 minutes with or without LRAD to improve community ambulation. 11/12/24: Pt gait trains 1067 feet in 6 minutes with forward , flexed posture and scuffing feet, worse on the right. 12/10/24: Pt gait trains 892 feet in 6 minutes with forward , flexed posture and scuffing feet today, worse on the right . Pt does talk throughout gait and this might have slowed him down. He denies pain. LTG Duration 8 weeks Assessment Summary Assessment Reviewed many HEP exercises and added heel raises to HEP. Pt with B LE edema. He reports right quad yasmine horse at night and may benefit from a modified quad/hip flexor stretch in doorway. Physical Therapy Plan Frequency and Duration Frequency of Treatment 2x/Week Duration of treatment (weeks) 6 Plan of Care Start Date 11/12/24 Plan of Care End Date 02/03/25 Therapeutic Interventions Therapeutic Interventions Balance Training,Canalithic Repositioning,Coordination Training,Gait Training,Home Exercise Program,Joint Mobilizations,Manual Therapy, Neuromuscular Re-education, Patient/Caregiver Education, Self-Care/Home Management, Sensory Integration,Soft Tissue Mobilization,Taping, Therapeutic Activities, Therapeutic Exercises Modalities Cold Pack/Ice Massage,Electric Stimulation,Hot Packs, Ultrasound Next Visit Focus/Plan Next Note Type Treatment Note Next Visit Plan Ongoing progressive flexibility, core, LE strengthening and balance exercises, manual work as needed
--- NOTE | 2024-12-20 10:41 | PT.OTN ---
Current Diagnoses Low back pain, unspecified (12/20/24) Physical Therapy Treatment Note PT-OP-A Visit Information Start: 10/14/24 15:57 Freq: Status: Active Protocol: Document 12/20/24 07:27 AB (Rec: 12/20/24 10:40 AB Laptop) Out-Patient Physical Therapy Visit Information Visit Information Visit Type Treatment Note Visit Start Time 09:05 Visit Stop Time 09:46 Visit Number 10 ( next PN by 01/09/2025) Number of APARTMENT LEASING SPECIALIST Visits 1 Evaluation Information Evaluation Date 10/22/24 Precautions Precautions History of vertigo PT-OP-B Current Condition Start: 10/14/24 15:57 Freq: Status: Active Protocol: Document 10/22/24 08:11 MB (Rec: 10/22/24 08:51 MB [id number]) Current Condition History of Current Condition Onset Date 6 months to a year ago Current Complaints Right SI pain and pain going down the leg History of Current Condition Pt reports that he was using right leg on yard equipment last year and then he woke up and he had pain in LB and across back into right hip. It makes right leg cramp up. PMH includes LAFB, HTN, enlarged prostate, OA, macular degeneration, left TKA last year, vertigo. Pt has some word-finding difficulties during assessment . Pt does not drive much and daughter lives with him. Pt denies falls. Pt denies numbness and tingling but has the yasmine horse sensation. Standing is the worse position. No lumbar or hip x- rays in [facility] chart. Treatment Goals Patient/Caregiver Goals To decrease pain PT-OP-C Subjective Start: 10/14/24 15:57 Freq: Status: Active Protocol: Document 12/20/24 07:27 AB (Rec: 12/20/24 10:40 AB Laptop) OP-PT Subjective Patient Comments Patient Comments Patient reports he is a little better. Jack reports the right knee pain comes and goes , has no knee pain start of session per patient. PT-OP-G Mobility & Gait Start: 10/14/24 15:57 Freq: Status: Active Protocol: Document 10/22/24 08:11 MB (Rec: 10/22/24 08:51 MB [id number]) OP Gait Assessment Comments Gait Comments Shuffling gait that is magnetic in nature with forward, flexed posture and no foot clearance either foot PT-OP-J Posture/Palpation/Skin Start: 10/14/24 15:57 Freq: Status: Active Protocol: Document 10/22/24 08:11 MB (Rec: 10/22/24 08:51 MB [id number]) Posture Evaluation Comments Posture Comments Postural changes with shoulders 20 deg in front of greater trochanter, measured on the right, severe forward head with right tragus 2.5 in front of right AC joint, right shoulder and scapula more elevated than the left and also more forward than the left, decreased upper thoracic kyphosis and right convexity, reduced lumbar lordosis, spine laterally shifted to the right, right iliac crest lower than the right by 1/2, left leg appears functionally longer than right, increased knee varus more on the right and increased B Tracy angle. PT-OP-K Range of Motion Start: 10/14/24 15:57 Freq: Status: Active Protocol: Document 10/22/24 08:11 MB (Rec: 10/22/24 08:51 MB [id number]) Lumbar Spine Range of Motion Lumbar Spine Active Testing Position Standing Comments With lumbar flexion in standing, pt immediately flexes both knees From flexed position, pt can extend 5 deg with hands on hips B SB: less than 5 deg Scour Test: no reproduction of cramping on the right and B hamstrings are very tight and knee naturally passively flexes in resistance when PT tries to DF feet Anterior supine SI mobility testing: more stiffness on the left Passive SLR: B 60 deg Hip Goniometric Range of Motion Hip Left Testing Position Supine Comments PROM IR 5 deg and ER 10 deg Right Testing Position Supine Comments PROM IR 5 deg and ER 15 deg PT-OP-M Strength Start: 10/14/24 15:57 Freq: Status: Active Protocol: Document 10/22/24 08:11 MB (Rec: 10/22/24 08:51 MB [id number]) Hip Strength Hip Manual Muscle Testing Left Flexion (L2) 4+ Good+ Extension (S1) 4 Good Abduction 4- Good- Right Flexion (L2) 4- Good- Extension (S1) 4- Good- Abduction 4- Good- Comments All MMT in supine Knee Strength Knee Manual Muscle Testing Left Flexion (S2) 4 Good Extension (L3) 5 Normal Right Flexion (S2) 5 Normal Extension (L3) 5 Normal Ankle/Foot Strength Ankle and Foot Manual Muscle Testing Left Dorsiflexion (L4) 5 Normal Right Dorsiflexion (L4) 5 Normal Toe Strength Toe Manual Muscle Testing Left Great Toe Extension 5 Normal Right Great Toe Extension 5 Normal PT-OP-Q Treatments Start: 10/14/24 15:57 Freq: Status: Active Protocol: Document 12/20/24 07:27 AB (Rec: 12/20/24 10:40 AB Laptop) Gym Equipment Shuttle Recovery Bilateral Squat Details David Squat with hold at full ext Resistance 62# then 75# Shuttle Recovery Platform Stable Reps/Time 15x 2 Bilateral Heel Raises Shuttle Recovery Platform Stable Therapeutic Exercises Sitting Exercises seated hip abd with band Sitting Exercise Name Reviewed from HEP Resistance level 4 band Reps/Minutes 1 rep x 1 min Comments for glute med activation Hip rotator stretch Sitting Exercise Name piriformis stretch Reps/Minutes 60 sec each LE Comments post glute med activation to prevent stiffness Standing Exercises lunge stretch on 2nd step Standing Exercise Name with UE support for quad, illiopsoas, calf stretch Reps/Minutes 60 sec each LE X 2 Comments verbal and visual cues bilateral heel raise Standing Exercise Name single leg heel raise Reps/Minutes X 10 Comments Verbal cues to dec velocity ecc phase sit to stand Equipment Used webbed chair. Comments 30 sec 10 repors without UE use Neuro Re-Education Treatment Balance Activities tilt board Details CGA patient's hands above bars, uses intermittently Reps/Duration AP X 12 lateral X 12 Hurdles Details initiates with hands above bars CGA Reps/Duration 10 feet X 6 tandem stepping Details hands above parallel bars Reps/Duration 10 feet X6 Comments CGA step up taps Surface foam to 6 inch step Reps/Duration X10 Comments CGA PT-OP-T Assessment and Plan Start: 10/14/24 15:57 Freq: Status: Active Protocol: Document 12/20/24 07:27 AB (Rec: 12/20/24 10:40 AB Laptop) Physical Therapy Assessment Goals 3 Impairment Lack fo HEP Gravity Prospecting Observer Goal (LTG) Pt will perform progressive HEP with cues and use of handouts to improve alignment, flexibility, balance and strength. 11/12/24: Pt is performing pelvic realignment exercises and HEP has not been progressed with APARTMENT LEASING SPECIALIST at this time. 12/10/24: Pt is performing his exercises at home LTG Duration 8 weeks 2 Impairment Evidence of imbalance Impairment . Short Term Goal (STG) . STG Duration . Gravity Prospecting Observer Goal (LTG) Pt will perform WNLs on Rivas Balance Test to decrease fall risk. 11/12/24: Rivas 41/56, indicating increased risk for falls 12/10/24: Rivas 42/56, indicating increased risk for falls LTG Duration 8 weeks 1 Impairment Slow and shuffling gait Care Home Goal (LTG) Pt will gait train at least 1500 feet in 6 minutes with or without LRAD to improve community ambulation. 11/12/24: Pt gait trains 1067 feet in 6 minutes with forward , flexed posture and scuffing feet, worse on the right. 12/10/24: Pt gait trains 892 feet in 6 minutes with forward , flexed posture and scuffing feet today, worse on the right . Pt does talk throughout gait and this might have slowed him down. He denies pain. LTG Duration 8 weeks Assessment Summary Assessment Patient reports having no pain ambulating out of session without device. Progressed to level 4 band for seated hip abd/glute med activation. Physical Therapy Plan Frequency and Duration Frequency of Treatment 2x/Week Duration of treatment (weeks) 6 Plan of Care Start Date 11/12/24 Plan of Care End Date 02/03/25 Next Visit Focus/Plan Next Note Type Treatment Note Next Visit Plan Ongoing progressive flexibility, core, LE strengthening and balance exercises, manual work as needed/next session hip flexor stretch in doorway
--- NOTE | 2024-12-23 08:12 | PT.OTN ---
Current Diagnoses Low back pain, unspecified (12/23/24) Physical Therapy Treatment Note PT-OP-A Visit Information Start: 10/14/24 15:57 Freq: Status: Active Protocol: Document 12/23/24 07:26 MB (Rec: 12/23/24 08:02 MB Desktop) Out-Patient Physical Therapy Visit Information Visit Information Visit Type Treatment Note Visit Note PN due 01/10 Visit Start Time 07:26 Visit Stop Time 08:06 Visit Number 11 Number of DIRECTOR OF INTELLIGENCE Visits 0 Evaluation Information Evaluation Date 10/22/24 Precautions Precautions History of vertigo PT-OP-B Current Condition Start: 10/14/24 15:57 Freq: Status: Active Protocol: Document 10/22/24 08:11 MB (Rec: 10/22/24 08:51 MB [id number]) Current Condition History of Current Condition Onset Date 6 months to a year ago Current Complaints Right SI pain and pain going down the leg History of Current Condition Pt reports that he was using right leg on yard equipment last year and then he woke up and he had pain in LB and across back into right hip. It makes right leg cramp up. PMH includes LAFB, HTN, enlarged prostate, OA, macular degeneration, left TKA last year, vertigo. Pt has some word-finding difficulties during assessment . Pt does not drive much and daughter lives with him. Pt denies falls. Pt denies numbness and tingling but has the yasmine horse sensation. Standing is the worse position. No lumbar or hip x- rays in [facility] chart. Treatment Goals Patient/Caregiver Goals To decrease pain PT-OP-C Subjective Start: 10/14/24 15:57 Freq: Status: Active Protocol: Document 12/23/24 07:26 MB (Rec: 12/23/24 08:02 MB Desktop) OP-PT Subjective Patient Comments Patient Comments Pt states that his exercises keep him busy and he tries to get them done everyday. He con 't to have a Yasmine horse in his right thigh. PT-OP-G Mobility & Gait Start: 10/14/24 15:57 Freq: Status: Active Protocol: Document 10/22/24 08:11 MB (Rec: 10/22/24 08:51 MB [id number]) OP Gait Assessment Comments Gait Comments Shuffling gait that is magnetic in nature with forward, flexed posture and no foot clearance either foot PT-OP-J Posture/Palpation/Skin Start: 10/14/24 15:57 Freq: Status: Active Protocol: Document 10/22/24 08:11 MB (Rec: 10/22/24 08:51 MB [id number]) Posture Evaluation Comments Posture Comments Postural changes with shoulders 20 deg in front of greater trochanter, measured on the right, severe forward head with right tragus 2.5 in front of right AC joint, right shoulder and scapula more elevated than the left and also more forward than the left, decreased upper thoracic kyphosis and right convexity, reduced lumbar lordosis, spine laterally shifted to the right, right iliac crest lower than the right by 1/2, left leg appears functionally longer than right, increased knee varus more on the right and increased B Tracy angle. PT-OP-K Range of Motion Start: 10/14/24 15:57 Freq: Status: Active Protocol: Document 10/22/24 08:11 MB (Rec: 10/22/24 08:51 MB [id number]) Lumbar Spine Range of Motion Lumbar Spine Active Testing Position Standing Comments With lumbar flexion in standing, pt immediately flexes both knees From flexed position, pt can extend 5 deg with hands on hips B SB: less than 5 deg Scour Test: no reproduction of cramping on the right and B hamstrings are very tight and knee naturally passively flexes in resistance when PT tries to DF feet Anterior supine SI mobility testing: more stiffness on the left Passive SLR: B 60 deg Hip Goniometric Range of Motion Hip Left Testing Position Supine Comments PROM IR 5 deg and ER 10 deg Right Testing Position Supine Comments PROM IR 5 deg and ER 15 deg PT-OP-M Strength Start: 10/14/24 15:57 Freq: Status: Active Protocol: Document 10/22/24 08:11 MB (Rec: 10/22/24 08:51 MB [id number]) Hip Strength Hip Manual Muscle Testing Left Flexion (L2) 4+ Good+ Extension (S1) 4 Good Abduction 4- Good- Right Flexion (L2) 4- Good- Extension (S1) 4- Good- Abduction 4- Good- Comments All MMT in supine Knee Strength Knee Manual Muscle Testing Left Flexion (S2) 4 Good Extension (L3) 5 Normal Right Flexion (S2) 5 Normal Extension (L3) 5 Normal Ankle/Foot Strength Ankle and Foot Manual Muscle Testing Left Dorsiflexion (L4) 5 Normal Right Dorsiflexion (L4) 5 Normal Toe Strength Toe Manual Muscle Testing Left Great Toe Extension 5 Normal Right Great Toe Extension 5 Normal PT-OP-Q Treatments Start: 10/14/24 15:57 Freq: Status: Active Protocol: Document 12/23/24 07:26 MB (Rec: 12/23/24 08:02 MB Desktop) Therapeutic Exercises Supine Exercises Adelfo stretch Supine Exercise Name HEP and provided handout today Side bilateral Reps/Minutes 60 sec hold plus today, one rep each leg Comments [place] knee to chest Pelvic realignment exercises Comments Verbal review and pt to decrease to 1x/day at home Sitting Exercises [place] knee extension Sitting Exercise Name HEP and handout today Side bilateral Equipment Used 1 lb ankle weight Reps/Minutes 30 alternating reps x2 seated hip abd with band Comments Verbal review today and pt likes level 4 band Thoracic rotation in sitting Comments Verbal review today and ed pt to perform when watching TV Hamstring stretch Comments Verbal review today and ed pt to perform when watching TV Hip rotator stretch Comments Verbal review today and ed pt to perform when watching TV Standing Exercises [place] heel raises Standing Exercise Name HEP and handout today Side bilateral Equipment Used 1 lb ankle weights, ballet bar Reps/Minutes 30 reps Hip extension Standing Exercise Name HEP and handout today (on [place] handouts) Side bilateral Equipment Used 1 lb ankle weights, ballet bar Reps/Minutes 30 alternating reps x2 [place] hamstring curls Standing Exercise Name HEP and handout today Side bilateral Equipment Used 1 lb ankle weights, ballet bar Reps/Minutes 30 alternating reps x2 [place] hip abduction Standing Exercise Name HEP and handout today Side bilateral Equipment Used 1 lb ankle weights, ballet bar Reps/Minutes 30 alternating reps x2 bilateral heel raise Comments Will do with [place] sit to stand Comments Will do with [place] Manual Therapy Treatment Consent Patient gave verbal consent for manual Yes treatment Other Other Manual Treatments Pt sidelying with pillow support under head, ribs, leg, top leg straight and bottom leg bent: STM B glutes, TFL, vastus lateralis, hamstrings, PFs, gentle rib mobility for QL and paraspinals, good response to treatment initially PT-OP-T Assessment and Plan Start: 10/14/24 15:57 Freq: Status: Active Protocol: Document 12/23/24 07:26 MB (Rec: 12/23/24 08:02 MB Desktop) Physical Therapy Assessment Rehab Potential Rehabilitation Potential Fair Evaluation Complexity Number of Personal Factors/Comorbidities 1-2 Number of Body Systems Impaired 3 Clinical Presentation at Evaluation Evolving Impairments Impairments Activity Tolerance,Balance, Coordination,Functional Activities,Functional Mobility ,Gait,Pain,Posture,ROM,Soft Tissue Mobility,Strength, Transfers,Vestibular Goals 3 Impairment Lack fo HEP Senior Care Goal (LTG) Pt will perform progressive HEP with cues and use of handouts to improve alignment, flexibility, balance and strength. 11/12/24: Pt is performing pelvic realignment exercises and HEP has not been progressed with DIRECTOR OF INTELLIGENCE at this time. 12/10/24: Pt is performing his exercises at home LTG Duration 8 weeks 2 Impairment Evidence of imbalance Impairment . Short Term Goal (STG) . STG Duration . Senior Care Goal (LTG) Pt will perform WNLs on Rivas Balance Test to decrease fall risk. 11/12/24: Rivas 41/56, indicating increased risk for falls 12/10/24: Rivas 42/56, indicating increased risk for falls LTG Duration 8 weeks 1 Impairment Slow and shuffling gait Senior Care Goal (LTG) Pt will gait train at least 1500 feet in 6 minutes with or without LRAD to improve community ambulation. 11/12/24: Pt gait trains 1067 feet in 6 minutes with forward , flexed posture and scuffing feet, worse on the right. 12/10/24: Pt gait trains 892 feet in 6 minutes with forward , flexed posture and scuffing feet today, worse on the right . Pt does talk throughout gait and this might have slowed him down. He denies pain. LTG Duration 8 weeks Assessment Summary Assessment Added Adelfo jones to HEP and broke down exercises for when pt can perform at home so that he can manage HEP program better. Started [place] today and con't to progress through all exercises. Physical Therapy Plan Frequency and Duration Frequency of Treatment 2x/Week Duration of treatment (weeks) 6 Plan of Care Start Date 11/12/24 Plan of Care End Date 02/03/25 Therapeutic Interventions Therapeutic Interventions Balance Training,Canalithic Repositioning,Coordination Training,Gait Training,Home Exercise Program,Joint Mobilizations,Manual Therapy, Neuromuscular Re-education, Patient/Caregiver Education, Self-Care/Home Management, Sensory Integration,Soft Tissue Mobilization,Taping, Therapeutic Activities, Therapeutic Exercises Modalities Cold Pack/Ice Massage,Electric Stimulation,Hot Packs, Ultrasound Next Visit Focus/Plan Next Note Type Treatment Note Next Visit Plan Manual work as needed, progress through [place] (number 6 and beyond and date on pt's copy when he should do and also copy in pt folder), gentle core strengthening in future
--- NOTE | 2024-12-31 16:24 | PT.OTN ---
Current Diagnoses Low back pain, unspecified (12/31/24) Physical Therapy Treatment Note PT-OP-A Visit Information Start: 10/14/24 15:57 Freq: Status: Active Protocol: Document 12/31/24 15:17 SPEECH/LANGUAGE THERAPIST (Rec: 12/31/24 16:24 SPEECH/LANGUAGE THERAPIST Laptop) Out-Patient Physical Therapy Visit Information Visit Information Visit Type Treatment Note Visit Start Time 15:17 Visit Stop Time 16:00 Visit Number 12 Number of COUPLES THERAPIST Visits 0 Precautions Precautions History of vertigo PT-OP-B Current Condition Start: 10/14/24 15:57 Freq: Status: Active Protocol: Document 10/22/24 08:11 MB (Rec: 10/22/24 08:51 MB [id number]) Current Condition History of Current Condition Onset Date 6 months to a year ago Current Complaints Right SI pain and pain going down the leg History of Current Condition Pt reports that he was using right leg on yard equipment last year and then he woke up and he had pain in LB and across back into right hip. It makes right leg cramp up. PMH includes LAFB, HTN, enlarged prostate, OA, macular degeneration, left TKA last year, vertigo. Pt has some word-finding difficulties during assessment . Pt does not drive much and daughter lives with him. Pt denies falls. Pt denies numbness and tingling but has the yasmine horse sensation. Standing is the worse position. No lumbar or hip x- rays in [facility] chart. Treatment Goals Patient/Caregiver Goals To decrease pain PT-OP-C Subjective Start: 10/14/24 15:57 Freq: Status: Active Protocol: Document 12/31/24 15:17 SPEECH/LANGUAGE THERAPIST (Rec: 12/31/24 16:24 SPEECH/LANGUAGE THERAPIST Laptop) OP-PT Subjective Patient Comments Patient Comments Pt states that he has been doing his exercises daily and has no questions. He reports 1 /10 pain in R knee, no other complaints. PT-OP-G Mobility & Gait Start: 10/14/24 15:57 Freq: Status: Active Protocol: Document 10/22/24 08:11 MB (Rec: 10/22/24 08:51 MB [id number]) OP Gait Assessment Comments Gait Comments Shuffling gait that is magnetic in nature with forward, flexed posture and no foot clearance either foot PT-OP-J Posture/Palpation/Skin Start: 10/14/24 15:57 Freq: Status: Active Protocol: Document 10/22/24 08:11 MB (Rec: 10/22/24 08:51 MB [id number]) Posture Evaluation Comments Posture Comments Postural changes with shoulders 20 deg in front of greater trochanter, measured on the right, severe forward head with right tragus 2.5 in front of right AC joint, right shoulder and scapula more elevated than the left and also more forward than the left, decreased upper thoracic kyphosis and right convexity, reduced lumbar lordosis, spine laterally shifted to the right, right iliac crest lower than the right by 1/2, left leg appears functionally longer than right, increased knee varus more on the right and increased B Tracy angle. PT-OP-K Range of Motion Start: 10/14/24 15:57 Freq: Status: Active Protocol: Document 10/22/24 08:11 MB (Rec: 10/22/24 08:51 MB [id number]) Lumbar Spine Range of Motion Lumbar Spine Active Testing Position Standing Comments With lumbar flexion in standing, pt immediately flexes both knees From flexed position, pt can extend 5 deg with hands on hips B SB: less than 5 deg Scour Test: no reproduction of cramping on the right and B hamstrings are very tight and knee naturally passively flexes in resistance when PT tries to DF feet Anterior supine SI mobility testing: more stiffness on the left Passive SLR: B 60 deg Hip Goniometric Range of Motion Hip Left Testing Position Supine Comments PROM IR 5 deg and ER 10 deg Right Testing Position Supine Comments PROM IR 5 deg and ER 15 deg PT-OP-M Strength Start: 10/14/24 15:57 Freq: Status: Active Protocol: Document 10/22/24 08:11 MB (Rec: 10/22/24 08:51 MB [id number]) Hip Strength Hip Manual Muscle Testing Left Flexion (L2) 4+ Good+ Extension (S1) 4 Good Abduction 4- Good- Right Flexion (L2) 4- Good- Extension (S1) 4- Good- Abduction 4- Good- Comments All MMT in supine Knee Strength Knee Manual Muscle Testing Left Flexion (S2) 4 Good Extension (L3) 5 Normal Right Flexion (S2) 5 Normal Extension (L3) 5 Normal Ankle/Foot Strength Ankle and Foot Manual Muscle Testing Left Dorsiflexion (L4) 5 Normal Right Dorsiflexion (L4) 5 Normal Toe Strength Toe Manual Muscle Testing Left Great Toe Extension 5 Normal Right Great Toe Extension 5 Normal PT-OP-Q Treatments Start: 10/14/24 15:57 Freq: Status: Active Protocol: Document 12/31/24 15:17 SPEECH/LANGUAGE THERAPIST (Rec: 12/31/24 16:24 SPEECH/LANGUAGE THERAPIST Laptop) Cardio Equipment Recumbent Elliptical (Biodex) Duration (Minutes) 3 Resistance L5 Other NuStep without UEs Therapeutic Exercises Supine Exercises Elbow to opp knee Side bilateral Reps/Minutes x10 each side alt Comments pain free Hip flexor stretch Side bilateral Reps/Minutes 1 min x2 each side Adelfo stretch Supine Exercise Name HEP review Side bilateral Reps/Minutes 60 sec hold x1 Comments [place] knee to chest Sitting Exercises Thoracic rotation in sitting Side bilateral Reps/Minutes x10 with 5-10s hold each side Standing Exercises Wall ball rolls Standing Exercise Name Thoracic ext Side bilateral Equipment Used Exercise ball, wall Reps/Minutes x10 with 5s hold Comments Roll ball up wall with BUEs and cervical ext Hip extension Standing Exercise Name HEP review Side bilateral Equipment Used 3 lb ankle weights, support surface Reps/Minutes 30 alternating reps Neuro Re-Education Treatment Balance Activities Modified SLS Details Box step ups Equipment 1. 6 stair 2. 8 stair Reps/Duration 1. x10 each, 2. x10 each alt Comments without UE support, occasional VC for greater hip flex PT-OP-T Assessment and Plan Start: 10/14/24 15:57 Freq: Status: Active Protocol: Document 12/31/24 15:17 SPEECH/LANGUAGE THERAPIST (Rec: 12/31/24 16:24 SPEECH/LANGUAGE THERAPIST Laptop) Physical Therapy Assessment Goals 3 Impairment Lack fo HEP Senior Care Goal (LTG) Pt will perform progressive HEP with cues and use of handouts to improve alignment, flexibility, balance and strength. 11/12/24: Pt is performing pelvic realignment exercises and HEP has not been progressed with COUPLES THERAPIST at this time. 12/10/24: Pt is performing his exercises at home LTG Duration 8 weeks 2 Impairment Evidence of imbalance Impairment . Short Term Goal (STG) . STG Duration . [place] Goal (LTG) Pt will perform WNLs on Rivas Balance Test to decrease fall risk. 11/12/24: Rivas 41/56, indicating increased risk for falls 12/10/24: Rivas 42/56, indicating increased risk for falls LTG Duration 8 weeks 1 Impairment Slow and shuffling gait Senior Care Goal (LTG) Pt will gait train at least 1500 feet in 6 minutes with or without LRAD to improve community ambulation. 11/12/24: Pt gait trains 1067 feet in 6 minutes with forward , flexed posture and scuffing feet, worse on the right. 12/10/24: Pt gait trains 892 feet in 6 minutes with forward , flexed posture and scuffing feet today, worse on the right . Pt does talk throughout gait and this might have slowed him down. He denies pain. LTG Duration 8 weeks Assessment Summary Assessment Pt demonstrated good knowledge of HEP. Pt also tolerated new supine thoracic rotation exercise and standing thoracic extension exercises well without pain.
--- NOTE | 2025-01-02 14:27 | PT.OTN ---
Current Diagnoses Low back pain, unspecified (01/02/25) Physical Therapy Treatment Note PT-OP-A Visit Information Start: 10/14/24 15:57 Freq: Status: Active Protocol: Document 01/02/25 12:59 AB (Rec: 01/02/25 13:52 AB Laptop) Out-Patient Physical Therapy Visit Information Visit Information Visit Type Treatment Note Visit Note PN due 01/10 Visit Start Time 13:03 Visit Stop Time 13:47 Visit Number 13 Number of ENGINE COWLING INSTALLER Visits 1 Precautions Precautions History of vertigo PT-OP-B Current Condition Start: 10/14/24 15:57 Freq: Status: Active Protocol: Document 10/22/24 08:11 MB (Rec: 10/22/24 08:51 MB [id number]) Current Condition History of Current Condition Onset Date 6 months to a year ago Current Complaints Right SI pain and pain going down the leg History of Current Condition Pt reports that he was using right leg on yard equipment last year and then he woke up and he had pain in LB and across back into right hip. It makes right leg cramp up. PMH includes LAFB, HTN, enlarged prostate, OA, macular degeneration, left TKA last year, vertigo. Pt has some word-finding difficulties during assessment . Pt does not drive much and daughter lives with him. Pt denies falls. Pt denies numbness and tingling but has the yasmine horse sensation. Standing is the worse position. No lumbar or hip x- rays in [facility] chart. Treatment Goals Patient/Caregiver Goals To decrease pain PT-OP-C Subjective Start: 10/14/24 15:57 Freq: Status: Active Protocol: Document 01/02/25 12:59 AB (Rec: 01/02/25 13:52 AB Laptop) OP-PT Subjective Patient Comments Patient Comments Patient reports he still has a balance problem but it is getting better. Patient reports he is not to bad, now comments he woke up gimpy in the hip did, his exercises and feels fine now. Jack rates pain 0/10 start of session. PT-OP-G Mobility & Gait Start: 10/14/24 15:57 Freq: Status: Active Protocol: Document 10/22/24 08:11 MB (Rec: 10/22/24 08:51 MB [id number]) OP Gait Assessment Comments Gait Comments Shuffling gait that is magnetic in nature with forward, flexed posture and no foot clearance either foot PT-OP-J Posture/Palpation/Skin Start: 10/14/24 15:57 Freq: Status: Active Protocol: Document 10/22/24 08:11 MB (Rec: 10/22/24 08:51 MB [id number]) Posture Evaluation Comments Posture Comments Postural changes with shoulders 20 deg in front of greater trochanter, measured on the right, severe forward head with right tragus 2.5 in front of right AC joint, right shoulder and scapula more elevated than the left and also more forward than the left, decreased upper thoracic kyphosis and right convexity, reduced lumbar lordosis, spine laterally shifted to the right, right iliac crest lower than the right by 1/2, left leg appears functionally longer than right, increased knee varus more on the right and increased B Tracy angle. PT-OP-K Range of Motion Start: 10/14/24 15:57 Freq: Status: Active Protocol: Document 10/22/24 08:11 MB (Rec: 10/22/24 08:51 MB [id number]) Lumbar Spine Range of Motion Lumbar Spine Active Testing Position Standing Comments With lumbar flexion in standing, pt immediately flexes both knees From flexed position, pt can extend 5 deg with hands on hips B SB: less than 5 deg Scour Test: no reproduction of cramping on the right and B hamstrings are very tight and knee naturally passively flexes in resistance when PT tries to DF feet Anterior supine SI mobility testing: more stiffness on the left Passive SLR: B 60 deg Hip Goniometric Range of Motion Hip Left Testing Position Supine Comments PROM IR 5 deg and ER 10 deg Right Testing Position Supine Comments PROM IR 5 deg and ER 15 deg PT-OP-M Strength Start: 10/14/24 15:57 Freq: Status: Active Protocol: Document 10/22/24 08:11 MB (Rec: 10/22/24 08:51 MB [id number]) Hip Strength Hip Manual Muscle Testing Left Flexion (L2) 4+ Good+ Extension (S1) 4 Good Abduction 4- Good- Right Flexion (L2) 4- Good- Extension (S1) 4- Good- Abduction 4- Good- Comments All MMT in supine Knee Strength Knee Manual Muscle Testing Left Flexion (S2) 4 Good Extension (L3) 5 Normal Right Flexion (S2) 5 Normal Extension (L3) 5 Normal Ankle/Foot Strength Ankle and Foot Manual Muscle Testing Left Dorsiflexion (L4) 5 Normal Right Dorsiflexion (L4) 5 Normal Toe Strength Toe Manual Muscle Testing Left Great Toe Extension 5 Normal Right Great Toe Extension 5 Normal PT-OP-Q Treatments Start: 10/14/24 15:57 Freq: Status: Active Protocol: Document 01/02/25 12:59 AB (Rec: 01/02/25 13:52 AB Laptop) Therapeutic Exercises Sitting Exercises seated rhymic stabilzation Sitting Exercise Name Seated and also in standing/ all directions Side bilateral Reps/Minutes 2 min X 2 Comments manual resistance [place] knee extension Sitting Exercise Name HEP and handout today Side bilateral Equipment Used 3 lb ankle weight Reps/Minutes 30 alternating reps x2 Comments Patient requests 3 lb reports using 2.5 at home seated hip abd with band Reps/Minutes level 3 then level 4 band one minute each Comments SLS 4 sec R 2 L pre glute med activ and 6 sec R 4 sec Left post seated core warm up Sitting Exercise Name 1. shoulder flexion X 5 end ROM trunk rotation X 5 Reps/Minutes 5 X 4 each Comments verbal and visual cues Standing Exercises Hip extension Standing Exercise Name HEP review Side bilateral Equipment Used 3 lb ankle weights, support surface Reps/Minutes 30 alternating reps sit to stand Standing Exercise Name [place] sit to stand without UE use Reps/Minutes X 20 Comments vc, monitored for pain, added to HEP Neuro Re-Education Treatment Balance Activities Modified SLS Details SLS Comments without UE use hands above bar tilt board Details CGA patient's hands above bars, uses intermittently Reps/Duration AP X 12 lateral X 12 Hurdles Details initiates with hands above bars CGA Reps/Duration 10 feet X 6 tandem stepping Details hands above parallel bars Reps/Duration 10 feet X6 Comments CGA step up taps Surface foam to 6 inch step Reps/Duration X10 Comments CGA PT-OP-T Assessment and Plan Start: 10/14/24 15:57 Freq: Status: Active Protocol: Document 01/02/25 12:59 AB (Rec: 01/02/25 13:52 AB Laptop) Physical Therapy Assessment Goals 3 Impairment Lack fo HEP Mcfp Goal (LTG) Pt will perform progressive HEP with cues and use of handouts to improve alignment, flexibility, balance and strength. 11/12/24: Pt is performing pelvic realignment exercises and HEP has not been progressed with ENGINE COWLING INSTALLER at this time. 12/10/24: Pt is performing his exercises at home LTG Duration 8 weeks 2 Impairment Evidence of imbalance Impairment . Short Term Goal (STG) . STG Duration . Mcfp Goal (LTG) Pt will perform WNLs on Rivas Balance Test to decrease fall risk. 11/12/24: Rivas 41/56, indicating increased risk for falls 12/10/24: Rivas 42/56, indicating increased risk for falls LTG Duration 8 weeks 1 Impairment Slow and shuffling gait Motion Picture Set Worker Goal (LTG) Pt will gait train at least 1500 feet in 6 minutes with or without LRAD to improve community ambulation. 11/12/24: Pt gait trains 1067 feet in 6 minutes with forward , flexed posture and scuffing feet, worse on the right. 12/10/24: Pt gait trains 892 feet in 6 minutes with forward , flexed posture and scuffing feet today, worse on the right . Pt does talk throughout gait and this might have slowed him down. He denies pain. LTG Duration 8 weeks Assessment Summary Assessment Patient reports having no pain end of session. Good tech and reports no pain with increase to 3# for long arc quad or sit to stand ex. Physical Therapy Plan Frequency and Duration Frequency of Treatment 2x/Week Duration of treatment (weeks) 6 Plan of Care Start Date 11/12/24 Plan of Care End Date 02/03/25 Next Visit Focus/Plan Next Note Type Progress Note Next Visit Plan Progress note. Manual work as needed, progress through [place] (number 7 and beyond and date on pt's copy when he should do and also copy in pt folder), continue gentle core strengthening in future
--- NOTE | 2025-01-08 08:59 | PT.OTN ---
Current Diagnoses Low back pain, unspecified (01/08/25) Physical Therapy Treatment Note PT-OP-A Visit Information Start: 10/14/24 15:57 Freq: Status: Active Protocol: Document 01/08/25 08:13 MB (Rec: 01/08/25 08:59 MB Desktop) Out-Patient Physical Therapy Visit Information Visit Information Visit Type Progress Note Visit Start Time 08:13 Visit Stop Time 08:53 Visit Number 14 Number of HEEL BURNISHER Visits 0 Evaluation Information Evaluation Date 10/22/24 PT-OP-B Current Condition Start: 10/14/24 15:57 Freq: Status: Active Protocol: Document 10/22/24 08:11 MB (Rec: 10/22/24 08:51 MB [id number]) Current Condition History of Current Condition Onset Date 6 months to a year ago Current Complaints Right SI pain and pain going down the leg History of Current Pt reports that he was using right leg on yard Condition equipment last year and then he woke up and he had pain in LB and across back into right hip. It makes right leg cramp up. PMH includes LAFB, HTN, enlarged prostate, OA, macular degeneration, left TKA last year, vertigo. Pt has some word-finding difficulties during assessment . Pt does not drive much and daughter lives with him. Pt denies falls. Pt denies numbness and tingling but has the yasmine horse sensation. Standing is the worse position. No lumbar or hip x-rays in [facility] chart. Treatment Goals Patient/Caregiver To decrease pain Goals PT-OP-C Subjective Start: 10/14/24 15:57 Freq: Status: Active Protocol: Document 01/08/25 08:13 MB (Rec: 01/08/25 08:59 MB Desktop) OP-PT Subjective Patient Comments Patient Comments Pt reports improvement since starting PT. He is pushing himself to do more stuff. He is performing exercises. PT-OP-G Mobility & Gait Start: 10/14/24 15:57 Freq: Status: Active Protocol: Document 10/22/24 08:11 MB (Rec: 10/22/24 08:51 MB [id number]) OP Gait Assessment Comments Gait Comments Shuffling gait that is magnetic in nature with forward, flexed posture and no foot clearance either foot PT-OP-J Posture/Palpation/Skin Start: 10/14/24 15:57 Freq: Status: Active Protocol: Document 10/22/24 08:11 MB (Rec: 10/22/24 08:51 MB [id number]) Posture Evaluation Comments Posture Comments Postural changes with shoulders 20 deg in front of greater trochanter, measured on the right, severe forward head with right tragus 2.5 in front of right AC joint, right shoulder and scapula more elevated than the left and also more forward than the left, decreased upper thoracic kyphosis and right convexity, reduced lumbar lordosis, spine laterally shifted to the right, right iliac crest lower than the right by 1/2, left leg appears functionally longer than right, increased knee varus more on the right and increased B Tracy angle. PT-OP-K Range of Motion Start: 10/14/24 15:57 Freq: Status: Active Protocol: Document 10/22/24 08:11 MB (Rec: 10/22/24 08:51 MB [id number]) Lumbar Spine Range of Motion Lumbar Spine Active Testing Position Standing Comments With lumbar flexion in standing, pt immediately flexes both knees From flexed position, pt can extend 5 deg with hands on hips B SB: less than 5 deg Scour Test: no reproduction of cramping on the right and B hamstrings are very tight and knee naturally passively flexes in resistance when PT tries to DF feet Anterior supine SI mobility testing: more stiffness on the left Passive SLR: B 60 deg Hip Goniometric Range of Motion Hip Left Testing Position Supine Comments PROM IR 5 deg and ER 10 deg Right Testing Position Supine Comments PROM IR 5 deg and ER 15 deg PT-OP-M Strength Start: 10/14/24 15:57 Freq: Status: Active Protocol: Document 10/22/24 08:11 MB (Rec: 10/22/24 08:51 MB [id number]) Hip Strength Hip Manual Muscle Testing Left Flexion (L2) 4+ Good+ Extension (S1) 4 Good Abduction 4- Good- Right Flexion (L2) 4- Good- Extension (S1) 4- Good- Abduction 4- Good- Comments All MMT in supine Knee Strength Knee Manual Muscle Testing Left Flexion (S2) 4 Good Extension (L3) 5 Normal Right Flexion (S2) 5 Normal Extension (L3) 5 Normal Ankle/Foot Strength Ankle and Foot Manual Muscle Testing Left Dorsiflexion (L4) 5 Normal Right Dorsiflexion (L4) 5 Normal Toe Strength Toe Manual Muscle Testing Left Great Toe Extension 5 Normal Right Great Toe Extension 5 Normal PT-OP-Q Treatments Start: 10/14/24 15:57 Freq: Status: Active Protocol: Document 01/08/25 08:13 MB (Rec: 01/08/25 08:59 MB Desktop) Cardio Equipment Recumbent Elliptical (Biodex) Duration (Minutes) 10 Other LEs only and resistance 1-7 Gait Training Gait Activity 6MWT with rollator Comments Pt gait trains 1022 feet in 6 minutes today with rollator and cues to stand taller, pick up worker his feet and he is able to do this more easily and more consistently with rollator and ed pt in benefits of using rollator at home 6MWT Comments 01/08/25: Pt gait trains 908 feet in 6 minutes with shuffling gait, decreased stepping and gait distance, decreased arm swing with more stiffness on the left. He has not improved with 6MWT posture Comments Cues for better upright and arm swing, cues to pick up worker feet, pt gait trains over 8 minutes during treatment Neuro Re-Education Treatment Balance Activities Rivas Comments Rivas score today: 45/56, indicating increased risk for falls Self-Care/Home Management Treatment Education Patient Education Fall Risk,Home Exercise Program,Joint Protection,Pain Management,Posture,Safety Other Education Ed benefits of pt starting to more consistently exercise and consider getting back to the gym, benefits of rollator to increase gait distance and speed PT-OP-T Assessment and Plan Start: 10/14/24 15:57 Freq: Status: Active Protocol: Document 01/08/25 08:13 MB (Rec: 01/08/25 08:59 MB Desktop) Physical Therapy Assessment Rehab Potential Rehabilitation Fair Potential Evaluation Complexity Number of Personal 1-2 Factors/ Comorbidities Number of Body 3 Systems Impaired Clinical Evolving Presentation at Evaluation Goals 3 Impairment Lack fo HEP Senior Living Goal (LTG) Pt will perform progressive HEP with cues and use of handouts to improve alignment, flexibility, balance and strength. 11/12/24: Pt is performing pelvic realignment exercises and HEP has not been progressed with HEEL BURNISHER at this time. 12/10/24: Pt is performing his exercises at home 01/08/25: Pt is performing pelvic realignment exercises, ankle weight exercises and stretches. He is afraid to perform balance exercises as far as letting go LTG Duration 8 weeks 2 Impairment Evidence of imbalance Impairment . Short Term Goal (STG . ) STG Duration . Special Needs Babysitter Goal (LTG) Pt will perform WNLs on Rivas Balance Test to decrease fall risk. 11/12/24: Rivas 41/56, indicating increased risk for falls 12/10/24: Rivas 42/56, indicating increased risk for falls 01/08/25: Rivas 45/56, indicating increased risk for falls LTG Duration 8 weeks 1 Impairment Slow and shuffling gait Senior Living Goal (LTG) Pt will gait train at least 1500 feet in 6 minutes with or without LRAD to improve community ambulation. 11/12/24: Pt gait trains 1067 feet in 6 minutes with forward, flexed posture and scuffing feet, worse on the right. 12/10/24: Pt gait trains 892 feet in 6 minutes with forward, flexed posture and scuffing feet today, worse on the right. Pt does talk throughout gait and this might have slowed him down. He denies pain. 01/08/25: Pt gait trains 908 feet in 6 minutes with shuffling gait, decreased stepping and gait distance, decreased arm swing with more stiffness on the left LTG Duration 8 weeks Assessment Summary Assessment Pt con't with slow and shuffling gait and evidence of imbalance. His 6MWT without AD has not improved and his Rivas has mildly improved. Discussed benefits of getting back to exercising, such as at the gym, to improve endurance, strength and stiffness and pain. Pt used to work out when he lived in [place] and just started a more sedentary lifestyle when he moved here 8 years ago. Physical Therapy Plan Frequency and Duration Frequency of 2x/Week Treatment Duration of 6 treatment (weeks) Plan of Care Start 11/12/24 Date Plan of Care End 02/03/25 Date Therapeutic Interventions Therapeutic Balance Training,Canalithic Repositioning,Coordination Interventions Training,Gait Training,Home Exercise Program,Joint Mobilizations,Manual Therapy,Neuromuscular Re-education ,Patient/Caregiver Education,Self-Care/Home Management, Sensory Integration,Soft Tissue Mobilization,Taping, Therapeutic Activities,Therapeutic Exercises Modalities Cold Pack/Ice Massage,Electric Stimulation,Hot Packs, Ultrasound Next Visit Focus/Plan Next Note Type Treatment Note Next Visit Plan Manual work as needed, progress through [place] (number 7 and beyond and date on pt's copy when he should do and also copy in pt folder), continue gentle core strengthening in future
--- NOTE | 2025-01-14 16:18 | PT.OTN ---
Current Diagnoses Low back pain, unspecified (01/14/25) Physical Therapy Treatment Note PT-OP-A Visit Information Start: 10/14/24 15:57 Freq: Status: Active Protocol: Document 01/14/25 08:53 COMPUTER ASSEMBLER (Rec: 01/14/25 12:40 COMPUTER ASSEMBLER Laptop) Out-Patient Physical Therapy Visit Information Visit Information Visit Type Treatment Note Visit Start Time 09:46 Visit Stop Time 10:30 Visit Number 15 Number of ADVANCED PRACTICE REGISTERED NURSE Visits 0 Precautions Precautions History of vertigo PT-OP-B Current Condition Start: 10/14/24 15:57 Freq: Status: Active Protocol: Document 10/22/24 08:11 MB (Rec: 10/22/24 08:51 MB [id number]) Current Condition History of Current Condition Onset Date 6 months to a year ago Current Complaints Right SI pain and pain going down the leg History of Current Pt reports that he was using right leg on yard Condition equipment last year and then he woke up and he had pain in LB and across back into right hip. It makes right leg cramp up. PMH includes LAFB, HTN, enlarged prostate, OA, macular degeneration, left TKA last year, vertigo. Pt has some word-finding difficulties during assessment . Pt does not drive much and daughter lives with him. Pt denies falls. Pt denies numbness and tingling but has the yasmine horse sensation. Standing is the worse position. No lumbar or hip x-rays in [facility] chart. Treatment Goals Patient/Caregiver To decrease pain Goals PT-OP-C Subjective Start: 10/14/24 15:57 Freq: Status: Active Protocol: Document 01/14/25 08:53 COMPUTER ASSEMBLER (Rec: 01/14/25 12:40 COMPUTER ASSEMBLER Laptop) OP-PT Subjective Patient Comments Patient Comments Pt reports back comes and goes but has been getting better. Pt also reports he has been practicing his HEP and has been being extra careful d/t vertigo. Ambs into session without AD, reporting low 2-3/10 pain in R knee. PT-OP-G Mobility & Gait Start: 10/14/24 15:57 Freq: Status: Active Protocol: Document 10/22/24 08:11 MB (Rec: 10/22/24 08:51 MB [id number]) OP Gait Assessment Comments Gait Comments Shuffling gait that is magnetic in nature with forward, flexed posture and no foot clearance either foot PT-OP-J Posture/Palpation/Skin Start: 10/14/24 15:57 Freq: Status: Active Protocol: Document 10/22/24 08:11 MB (Rec: 10/22/24 08:51 MB [id number]) Posture Evaluation Comments Posture Comments Postural changes with shoulders 20 deg in front of greater trochanter, measured on the right, severe forward head with right tragus 2.5 in front of right AC joint, right shoulder and scapula more elevated than the left and also more forward than the left, decreased upper thoracic kyphosis and right convexity, reduced lumbar lordosis, spine laterally shifted to the right, right iliac crest lower than the right by 1/2, left leg appears functionally longer than right, increased knee varus more on the right and increased B Tracy angle. PT-OP-K Range of Motion Start: 10/14/24 15:57 Freq: Status: Active Protocol: Document 10/22/24 08:11 MB (Rec: 10/22/24 08:51 MB [id number]) Lumbar Spine Range of Motion Lumbar Spine Active Testing Position Standing Comments With lumbar flexion in standing, pt immediately flexes both knees From flexed position, pt can extend 5 deg with hands on hips B SB: less than 5 deg Scour Test: no reproduction of cramping on the right and B hamstrings are very tight and knee naturally passively flexes in resistance when PT tries to DF feet Anterior supine SI mobility testing: more stiffness on the left Passive SLR: B 60 deg Hip Goniometric Range of Motion Hip Left Testing Position Supine Comments PROM IR 5 deg and ER 10 deg Right Testing Position Supine Comments PROM IR 5 deg and ER 15 deg PT-OP-M Strength Start: 10/14/24 15:57 Freq: Status: Active Protocol: Document 10/22/24 08:11 MB (Rec: 10/22/24 08:51 MB [id number]) Hip Strength Hip Manual Muscle Testing Left Flexion (L2) 4+ Good+ Extension (S1) 4 Good Abduction 4- Good- Right Flexion (L2) 4- Good- Extension (S1) 4- Good- Abduction 4- Good- Comments All MMT in supine Knee Strength Knee Manual Muscle Testing Left Flexion (S2) 4 Good Extension (L3) 5 Normal Right Flexion (S2) 5 Normal Extension (L3) 5 Normal Ankle/Foot Strength Ankle and Foot Manual Muscle Testing Left Dorsiflexion (L4) 5 Normal Right Dorsiflexion (L4) 5 Normal Toe Strength Toe Manual Muscle Testing Left Great Toe Extension 5 Normal Right Great Toe Extension 5 Normal PT-OP-Q Treatments Start: 10/14/24 15:57 Freq: Status: Active Protocol: Document 01/14/25 08:53 COMPUTER ASSEMBLER (Rec: 01/14/25 12:40 COMPUTER ASSEMBLER Laptop) Cardio Equipment Recumbent Elliptical (Biodex) Duration (Minutes) 7 Resistance L6 Other BUE and BLEs for warm up Therapeutic Exercises Standing Exercises [place] SLS Standing Exercise B modified ~1 inch wide, increased difficulty R foot Name back-mult LOB Side bilateral Equipment Used chair to balance, wall for safety Reps/Minutes 1 min x2 Comments Added to HEP [place] tandem stance Standing Exercise B modified ~1 inch wide, increased difficulty R foot Name back-mult LOB Side bilateral Equipment Used Chair to balance, wall for safety Reps/Minutes 1 min each Comments Added to HEP Quad Stretch Side bilateral Equipment Used Wall to balance, 12 step Reps/Minutes 60s x2 sit to stand Standing Exercise [place] sit to stand without UE use Name Reps/Minutes x30 with mild UE support chair, x10 without support Comments VC for form, no pain, HEP review PT-OP-T Assessment and Plan Start: 10/14/24 15:57 Freq: Status: Active Protocol: Document 01/14/25 08:53 COMPUTER ASSEMBLER (Rec: 01/14/25 12:40 COMPUTER ASSEMBLER Laptop) Physical Therapy Assessment Impairments Impairments Activity Tolerance,Balance,Coordination,Functional Activities,Functional Mobility,Gait,Pain,Posture,ROM, Soft Tissue Mobility,Strength,Transfers,Vestibular Goals 3 Impairment Lack fo HEP Usp Goal (LTG) Pt will perform progressive HEP with cues and use of handouts to improve alignment, flexibility, balance and strength. 11/12/24: Pt is performing pelvic realignment exercises and HEP has not been progressed with ADVANCED PRACTICE REGISTERED NURSE at this time. 12/10/24: Pt is performing his exercises at home 01/08/25: Pt is performing pelvic realignment exercises, ankle weight exercises and stretches. He is afraid to perform balance exercises as far as letting go LTG Duration 8 weeks 2 Impairment Evidence of imbalance Impairment . Short Term Goal (STG . ) STG Duration . Usp Goal (LTG) Pt will perform WNLs on Rivas Balance Test to decrease fall risk. 11/12/24: Rivas 41/56, indicating increased risk for falls 12/10/24: Rivas 42/56, indicating increased risk for falls 01/08/25: Rivas 45/56, indicating increased risk for falls LTG Duration 8 weeks 1 Impairment Slow and shuffling gait Usp Goal (LTG) Pt will gait train at least 1500 feet in 6 minutes with or without LRAD to improve community ambulation. 11/12/24: Pt gait trains 1067 feet in 6 minutes with forward, flexed posture and scuffing feet, worse on the right. 12/10/24: Pt gait trains 892 feet in 6 minutes with forward, flexed posture and scuffing feet today, worse on the right. Pt does talk throughout gait and this might have slowed him down. He denies pain. 01/08/25: Pt gait trains 908 feet in 6 minutes with shuffling gait, decreased stepping and gait distance, decreased arm swing with more stiffness on the left LTG Duration 8 weeks Progress Towards Goals Progress Towards Progressing Toward Goals Goals Assessment Summary Assessment Pt is progressing with compliance of HEP and [place] balance exercises with mild cueing. Progressed pt this session to [place] number 8 tandem stance and [place] number 9 SLS and added to HEP to perform with chair in front and in corner for safety. Pt performed all without pain during session. Continue progressing hip strength and balance. Physical Therapy Plan Frequency and Duration Frequency of 2x/Week Treatment Duration of 6 treatment (weeks) Plan of Care Start 11/12/24 Date Plan of Care End 02/03/25 Date Therapeutic Interventions Therapeutic Balance Training,Canalithic Repositioning,Coordination Interventions Training,Gait Training,Home Exercise Program,Joint Mobilizations,Manual Therapy,Neuromuscular Re-education ,Patient/Caregiver Education,Self-Care/Home Management, Sensory Integration,Soft Tissue Mobilization,Taping, Therapeutic Activities,Therapeutic Exercises Modalities Cold Pack/Ice Massage,Electric Stimulation,Hot Packs, Ultrasound Next Visit Focus/Plan Next Note Type Treatment Note Next Visit Plan Manual work as needed, progress through [place] (review 8 and 9 and progress to 10 as needed and date on pt's copy when he should do and also copy in pt folder), continue gentle core strengthening in future
--- NOTE | 2025-01-22 10:39 | PT.OTN ---
Current Diagnoses Low back pain, unspecified (01/22/25) Physical Therapy Treatment Note PT-OP-A Visit Information Start: 10/14/24 15:57 Freq: Status: Active Protocol: Document 01/22/25 09:48 AB (Rec: 01/22/25 10:39 AB Laptop) Out-Patient Physical Therapy Visit Information Visit Information Visit Type Treatment Note Visit Start Time 09:49 Visit Stop Time 10:32 Visit Number 17 Number of SOCIAL ORGANIZATION PROFESSOR Visits 1 Precautions Precautions History of vertigo PT-OP-B Current Condition Start: 10/14/24 15:57 Freq: Status: Active Protocol: Document 10/22/24 08:11 MB (Rec: 10/22/24 08:51 MB [id number]) Current Condition History of Current Condition Onset Date 6 months to a year ago Current Complaints Right SI pain and pain going down the leg History of Current Pt reports that he was using right leg on yard Condition equipment last year and then he woke up and he had pain in LB and across back into right hip. It makes right leg cramp up. PMH includes LAFB, HTN, enlarged prostate, OA, macular degeneration, left TKA last year, vertigo. Pt has some word-finding difficulties during assessment . Pt does not drive much and daughter lives with him. Pt denies falls. Pt denies numbness and tingling but has the yasmine horse sensation. Standing is the worse position. No lumbar or hip x-rays in [facility] chart. Treatment Goals Patient/Caregiver To decrease pain Goals PT-OP-C Subjective Start: 10/14/24 15:57 Freq: Status: Active Protocol: Document 01/22/25 09:48 AB (Rec: 01/22/25 10:39 AB Laptop) OP-PT Subjective Patient Comments Patient Comments Patient reports he is the same. Patient rates pain R knee 3/10, comments has been up and down stairs taking care of dog. PT-OP-G Mobility & Gait Start: 10/14/24 15:57 Freq: Status: Active Protocol: Document 10/22/24 08:11 MB (Rec: 10/22/24 08:51 MB [id number]) OP Gait Assessment Comments Gait Comments Shuffling gait that is magnetic in nature with forward, flexed posture and no foot clearance either foot PT-OP-J Posture/Palpation/Skin Start: 10/14/24 15:57 Freq: Status: Active Protocol: Document 10/22/24 08:11 MB (Rec: 10/22/24 08:51 MB [id number]) Posture Evaluation Comments Posture Comments Postural changes with shoulders 20 deg in front of greater trochanter, measured on the right, severe forward head with right tragus 2.5 in front of right AC joint, right shoulder and scapula more elevated than the left and also more forward than the left, decreased upper thoracic kyphosis and right convexity, reduced lumbar lordosis, spine laterally shifted to the right, right iliac crest lower than the right by 1/2, left leg appears functionally longer than right, increased knee varus more on the right and increased B Tracy angle. PT-OP-K Range of Motion Start: 10/14/24 15:57 Freq: Status: Active Protocol: Document 10/22/24 08:11 MB (Rec: 10/22/24 08:51 MB [id number]) Lumbar Spine Range of Motion Lumbar Spine Active Testing Position Standing Comments With lumbar flexion in standing, pt immediately flexes both knees From flexed position, pt can extend 5 deg with hands on hips B SB: less than 5 deg Scour Test: no reproduction of cramping on the right and B hamstrings are very tight and knee naturally passively flexes in resistance when PT tries to DF feet Anterior supine SI mobility testing: more stiffness on the left Passive SLR: B 60 deg Hip Goniometric Range of Motion Hip Left Testing Position Supine Comments PROM IR 5 deg and ER 10 deg Right Testing Position Supine Comments PROM IR 5 deg and ER 15 deg PT-OP-M Strength Start: 10/14/24 15:57 Freq: Status: Active Protocol: Document 10/22/24 08:11 MB (Rec: 10/22/24 08:51 MB [id number]) Hip Strength Hip Manual Muscle Testing Left Flexion (L2) 4+ Good+ Extension (S1) 4 Good Abduction 4- Good- Right Flexion (L2) 4- Good- Extension (S1) 4- Good- Abduction 4- Good- Comments All MMT in supine Knee Strength Knee Manual Muscle Testing Left Flexion (S2) 4 Good Extension (L3) 5 Normal Right Flexion (S2) 5 Normal Extension (L3) 5 Normal Ankle/Foot Strength Ankle and Foot Manual Muscle Testing Left Dorsiflexion (L4) 5 Normal Right Dorsiflexion (L4) 5 Normal Toe Strength Toe Manual Muscle Testing Left Great Toe Extension 5 Normal Right Great Toe Extension 5 Normal PT-OP-Q Treatments Start: 10/14/24 15:57 Freq: Status: Active Protocol: Document 01/22/25 09:48 AB (Rec: 01/22/25 10:39 AB Laptop) Therapeutic Exercises Supine Exercises Pelvic realignment exercises Comments Review post balance ex Standing Exercises LE doorway stretch Standing Exercise Lunge through doorway for HF/Gastroc/quad stretch Name Side bilateral Equipment Used doorway Reps/Minutes 60s each side Comments verbal cues to avoid toeing out Thread the Needle Standing Exercise Modified in standing Name Side bilateral lunge stretch on 2nd step Standing Exercise with UE support for quad, illiopsoas, calf stretch Name Reps/Minutes 60 sec each LE X 2 Comments verbal and visual cues Gait Training Gait Activity Stair training Description 4 six inch steps X 3, 2 rails reciprocal pattern Comments Supervision, Verbal cues for UE position on rail descending to dec quad dom pattern and force on R knee descending. Patient reports decreased R knee pain when descending with a reciprocal pattern bilateral UE use, less quad dom pattern. Neuro Re-Education Treatment Balance Activities obs course Details min assist hurdles on foam 2 mats with objects under X 1 1/2 foam roller stepping Details flat side up Reps/Duration X 2 with UE support X 6 UE use prn in bars. Comments CGA Modified SLS Details SLS Reps/Duration on min practice each LE Comments without UE use hands above bar tilt board Details CGA patient's hands above bars, uses intermittently Reps/Duration AP X 12 lateral X 12 tandem stepping Details 1. tandem stance 2. tandem stepping Reps/Duration 1 one min practice L fwd then R fwd then 10 feet X8 retro X 6 Comments CGA for tandem stepping step up taps Surface foam to 6 inch step Reps/Duration X10 Comments CGA PT-OP-T Assessment and Plan Start: 10/14/24 15:57 Freq: Status: Active Protocol: Document 01/22/25 09:48 AB (Rec: 01/22/25 10:39 AB Laptop) Physical Therapy Assessment Goals 3 Impairment Lack fo HEP Alf Goal (LTG) Pt will perform progressive HEP with cues and use of handouts to improve alignment, flexibility, balance and strength. 11/12/24: Pt is performing pelvic realignment exercises and HEP has not been progressed with SOCIAL ORGANIZATION PROFESSOR at this time. 12/10/24: Pt is performing his exercises at home 01/08/25: Pt is performing pelvic realignment exercises, ankle weight exercises and stretches. He is afraid to perform balance exercises as far as letting go LTG Duration 8 weeks 2 Impairment Evidence of imbalance Impairment . Short Term Goal (STG . ) STG Duration . Alf Goal (LTG) Pt will perform WNLs on Rivas Balance Test to decrease fall risk. 11/12/24: Rvias 41/56, indicating increased risk for falls 12/10/24: Rivas 42/56, indicating increased risk for falls 01/08/25: Rivas 45/56, indicating increased risk for falls LTG Duration 8 weeks 1 Impairment Slow and shuffling gait Alf Goal (LTG) Pt will gait train at least 1500 feet in 6 minutes with or without LRAD to improve community ambulation. 11/12/24: Pt gait trains 1067 feet in 6 minutes with forward, flexed posture and scuffing feet, worse on the right. 12/10/24: Pt gait trains 892 feet in 6 minutes with forward, flexed posture and scuffing feet today, worse on the right. Pt does talk throughout gait and this might have slowed him down. He denies pain. 01/08/25: Pt gait trains 908 feet in 6 minutes with shuffling gait, decreased stepping and gait distance, decreased arm swing with more stiffness on the left LTG Duration 8 weeks Assessment Summary Assessment Pt questioning what to do for R sided back pain post ex and balance training ( minus obs course) Reviewed Pelvic realignment with patient reporting dec pain post . Physical Therapy Plan Frequency and Duration Frequency of 2x/Week Treatment Duration of 6 treatment (weeks) Plan of Care Start 11/12/24 Date Plan of Care End 02/03/25 Date Next Visit Focus/Plan Next Note Type Treatment Note Next Visit Plan Thread the needle stretch at beginning of session, Manual work as needed, progress through [place] continue gentle core strengthening in future
--- NOTE | 2025-01-24 17:32 | PT.OTN ---
Current Diagnoses Low back pain, unspecified (01/24/25) Physical Therapy Treatment Note PT-OP-A Visit Information Start: 10/14/24 15:57 Freq: Status: Active Protocol: Document 01/24/25 09:46 GAS CHARGER (Rec: 01/24/25 10:47 GAS CHARGER Laptop) Out-Patient Physical Therapy Visit Information Visit Information Visit Type Treatment Note Visit Start Time 09:47 Visit Stop Time 10:30 Visit Number 18 Number of AUTOMOTIVE PAINTER HELPER Visits 0 Precautions Precautions History of vertigo PT-OP-B Current Condition Start: 10/14/24 15:57 Freq: Status: Active Protocol: Document 10/22/24 08:11 MB (Rec: 10/22/24 08:51 MB [id number]) Current Condition History of Current Condition Onset Date 6 months to a year ago Current Complaints Right SI pain and pain going down the leg History of Current Pt reports that he was using right leg on yard Condition equipment last year and then he woke up and he had pain in LB and across back into right hip. It makes right leg cramp up. PMH includes LAFB, HTN, enlarged prostate, OA, macular degeneration, left TKA last year, vertigo. Pt has some word-finding difficulties during assessment . Pt does not drive much and daughter lives with him. Pt denies falls. Pt denies numbness and tingling but has the yasmine horse sensation. Standing is the worse position. No lumbar or hip x-rays in [facility] chart. Treatment Goals Patient/Caregiver To decrease pain Goals PT-OP-C Subjective Start: 10/14/24 15:57 Freq: Status: Active Protocol: Document 01/24/25 09:46 GAS CHARGER (Rec: 01/24/25 10:47 GAS CHARGER Laptop) OP-PT Subjective Patient Comments Patient Comments Pt enters bringing his HEP to review, reports he has been practicing but has a few questions on form. Current pain 0/10 but reports low consistent pain to B lumbar muscles PT-OP-G Mobility & Gait Start: 10/14/24 15:57 Freq: Status: Active Protocol: Document 10/22/24 08:11 MB (Rec: 10/22/24 08:51 MB [id number]) OP Gait Assessment Comments Gait Comments Shuffling gait that is magnetic in nature with forward, flexed posture and no foot clearance either foot PT-OP-J Posture/Palpation/Skin Start: 10/14/24 15:57 Freq: Status: Active Protocol: Document 10/22/24 08:11 MB (Rec: 10/22/24 08:51 MB [id number]) Posture Evaluation Comments Posture Comments Postural changes with shoulders 20 deg in front of greater trochanter, measured on the right, severe forward head with right tragus 2.5 in front of right AC joint, right shoulder and scapula more elevated than the left and also more forward than the left, decreased upper thoracic kyphosis and right convexity, reduced lumbar lordosis, spine laterally shifted to the right, right iliac crest lower than the right by 1/2, left leg appears functionally longer than right, increased knee varus more on the right and increased B Tracy angle. PT-OP-K Range of Motion Start: 10/14/24 15:57 Freq: Status: Active Protocol: Document 10/22/24 08:11 MB (Rec: 10/22/24 08:51 MB [id number]) Lumbar Spine Range of Motion Lumbar Spine Active Testing Position Standing Comments With lumbar flexion in standing, pt immediately flexes both knees From flexed position, pt can extend 5 deg with hands on hips B SB: less than 5 deg Scour Test: no reproduction of cramping on the right and B hamstrings are very tight and knee naturally passively flexes in resistance when PT tries to DF feet Anterior supine SI mobility testing: more stiffness on the left Passive SLR: B 60 deg Hip Goniometric Range of Motion Hip Left Testing Position Supine Comments PROM IR 5 deg and ER 10 deg Right Testing Position Supine Comments PROM IR 5 deg and ER 15 deg PT-OP-M Strength Start: 10/14/24 15:57 Freq: Status: Active Protocol: Document 10/22/24 08:11 MB (Rec: 10/22/24 08:51 MB [id number]) Hip Strength Hip Manual Muscle Testing Left Flexion (L2) 4+ Good+ Extension (S1) 4 Good Abduction 4- Good- Right Flexion (L2) 4- Good- Extension (S1) 4- Good- Abduction 4- Good- Comments All MMT in supine Knee Strength Knee Manual Muscle Testing Left Flexion (S2) 4 Good Extension (L3) 5 Normal Right Flexion (S2) 5 Normal Extension (L3) 5 Normal Ankle/Foot Strength Ankle and Foot Manual Muscle Testing Left Dorsiflexion (L4) 5 Normal Right Dorsiflexion (L4) 5 Normal Toe Strength Toe Manual Muscle Testing Left Great Toe Extension 5 Normal Right Great Toe Extension 5 Normal PT-OP-Q Treatments Start: 10/14/24 15:57 Freq: Status: Active Protocol: Document 01/24/25 09:46 GAS CHARGER (Rec: 01/24/25 10:47 GAS CHARGER Laptop) Therapeutic Exercises Supine Exercises Adelfo stretch Supine Exercise Name HEP review Side bilateral Reps/Minutes 60 sec each Sitting Exercises Chin Tuck Sitting Exercise R and L scaption with chin tucks for postural planning Name Side bilateral Reps/Minutes 10x2 Comments Max TC for chin tuck when lifting UEs Scap Retract Sitting Exercise for improved posture Name Side bilateral Reps/Minutes 10x2 Comments first set with max TC, second set without cues Standing Exercises Shoulder Abd Standing Exercise to improve posture and strength of UEs to perform HEP Name stretches Side bilateral Equipment Used mirror for cueing Reps/Minutes 10x2 each side Comments Mod TCs to maintain B scap depression Bicep Curl Standing Exercise to improve posture and strength of UEs to perform HEP Name stretches Side bilateral Resistance 2# dumbbells Equipment Used mirror for cueing Reps/Minutes 10x2 each side alt Comments Mod TCs to maintain B scap depression Scap Retract Side bilateral Equipment Used mirror for cueing Reps/Minutes x10 Comments cueing to maintain B scapula depression Thread the Needle Standing Exercise Modified in standing Name Side bilateral Equipment Used against wall Reps/Minutes 20s hold x2 each side Comments slight manual overpressure calf stretches Standing Exercise HEP review of soleus stretch against wall Name Side bilateral Reps/Minutes 1 min Comments VC for neutral positioning of back foot, keeping heel on floor PT-OP-T Assessment and Plan Start: 10/14/24 15:57 Freq: Status: Active Protocol: Document 01/24/25 09:46 GAS CHARGER (Rec: 01/24/25 10:47 GAS CHARGER Laptop) Physical Therapy Assessment Impairments Impairments Activity Tolerance,Balance,Coordination,Functional Activities,Functional Mobility,Gait,Pain,Posture,ROM, Soft Tissue Mobility,Strength,Transfers,Vestibular Goals 3 Impairment Lack fo HEP Alf Goal (LTG) Pt will perform progressive HEP with cues and use of handouts to improve alignment, flexibility, balance and strength. 11/12/24: Pt is performing pelvic realignment exercises and HEP has not been progressed with AUTOMOTIVE PAINTER HELPER at this time. 12/10/24: Pt is performing his exercises at home 01/08/25: Pt is performing pelvic realignment exercises, ankle weight exercises and stretches. He is afraid to perform balance exercises as far as letting go LTG Duration 8 weeks Assessment Summary Assessment Pt reports feeling weakness in his arms when performing his stretches leaning against the wall and requests UE strengthening exercises, introduced UE strengthening in tandem with postural strengthening and alignment, not yet added to HEP. Reviewed HEP and recommended adding heat pack to reduce B lumbar pain and tightness. Physical Therapy Plan Frequency and Duration Frequency of 2x/Week Treatment Duration of 6 treatment (weeks) Plan of Care Start 11/12/24 Date Plan of Care End 02/03/25 Date Therapeutic Interventions Therapeutic Balance Training,Canalithic Repositioning,Coordination Interventions Training,Gait Training,Home Exercise Program,Joint Mobilizations,Manual Therapy,Neuromuscular Re-education ,Patient/Caregiver Education,Self-Care/Home Management, Sensory Integration,Soft Tissue Mobilization,Taping, Therapeutic Activities,Therapeutic Exercises Modalities Cold Pack/Ice Massage,Electric Stimulation,Hot Packs, Ultrasound Next Visit Focus/Plan Next Note Type Treatment Note Next Visit Plan Thread the needle stretch at beginning of session, Manual work as needed, progress through [place] continue gentle core strengthening in future, postural cueing and strengthening
--- NOTE | 2025-01-28 10:45 | PT.OTN ---
Current Diagnoses Low back pain, unspecified (01/28/25) Physical Therapy Treatment Note PT-OP-A Visit Information Start: 10/14/24 15:57 Freq: Status: Active Protocol: Document 01/28/25 09:46 AB (Rec: 01/28/25 10:45 AB Laptop) Out-Patient Physical Therapy Visit Information Visit Information Visit Type Treatment Note Visit Start Time 09:51 Visit Stop Time 10:37 Visit Number 19 ( * Plan ends PN due 02/07/2025) Number of HEBREW CANTOR Visits 1 Precautions Precautions History of vertigo PT-OP-B Current Condition Start: 10/14/24 15:57 Freq: Status: Active Protocol: Document 10/22/24 08:11 MB (Rec: 10/22/24 08:51 MB [id number]) Current Condition History of Current Condition Onset Date 6 months to a year ago Current Complaints Right SI pain and pain going down the leg History of Current Pt reports that he was using right leg on yard Condition equipment last year and then he woke up and he had pain in LB and across back into right hip. It makes right leg cramp up. PMH includes LAFB, HTN, enlarged prostate, OA, macular degeneration, left TKA last year, vertigo. Pt has some word-finding difficulties during assessment . Pt does not drive much and daughter lives with him. Pt denies falls. Pt denies numbness and tingling but has the yasmine horse sensation. Standing is the worse position. No lumbar or hip x-rays in [facility] chart. Treatment Goals Patient/Caregiver To decrease pain Goals PT-OP-C Subjective Start: 10/14/24 15:57 Freq: Status: Active Protocol: Document 01/28/25 09:46 AB (Rec: 01/28/25 10:45 AB Laptop) OP-PT Subjective Patient Comments Patient Comments Patient reports having no problems start of session, but nothing to brag about. Patient reports having no pain start of session, comments back was stiff yesterday. PT-OP-G Mobility & Gait Start: 10/14/24 15:57 Freq: Status: Active Protocol: Document 10/22/24 08:11 MB (Rec: 10/22/24 08:51 MB [id number]) OP Gait Assessment Comments Gait Comments Shuffling gait that is magnetic in nature with forward, flexed posture and no foot clearance either foot PT-OP-J Posture/Palpation/Skin Start: 10/14/24 15:57 Freq: Status: Active Protocol: Document 10/22/24 08:11 MB (Rec: 10/22/24 08:51 MB [id number]) Posture Evaluation Comments Posture Comments Postural changes with shoulders 20 deg in front of greater trochanter, measured on the right, severe forward head with right tragus 2.5 in front of right AC joint, right shoulder and scapula more elevated than the left and also more forward than the left, decreased upper thoracic kyphosis and right convexity, reduced lumbar lordosis, spine laterally shifted to the right, right iliac crest lower than the right by 1/2, left leg appears functionally longer than right, increased knee varus more on the right and increased B Tracy angle. PT-OP-K Range of Motion Start: 10/14/24 15:57 Freq: Status: Active Protocol: Document 10/22/24 08:11 MB (Rec: 10/22/24 08:51 MB [id number]) Lumbar Spine Range of Motion Lumbar Spine Active Testing Position Standing Comments With lumbar flexion in standing, pt immediately flexes both knees From flexed position, pt can extend 5 deg with hands on hips B SB: less than 5 deg Scour Test: no reproduction of cramping on the right and B hamstrings are very tight and knee naturally passively flexes in resistance when PT tries to DF feet Anterior supine SI mobility testing: more stiffness on the left Passive SLR: B 60 deg Hip Goniometric Range of Motion Hip Left Testing Position Supine Comments PROM IR 5 deg and ER 10 deg Right Testing Position Supine Comments PROM IR 5 deg and ER 15 deg PT-OP-M Strength Start: 10/14/24 15:57 Freq: Status: Active Protocol: Document 10/22/24 08:11 MB (Rec: 10/22/24 08:51 MB [id number]) Hip Strength Hip Manual Muscle Testing Left Flexion (L2) 4+ Good+ Extension (S1) 4 Good Abduction 4- Good- Right Flexion (L2) 4- Good- Extension (S1) 4- Good- Abduction 4- Good- Comments All MMT in supine Knee Strength Knee Manual Muscle Testing Left Flexion (S2) 4 Good Extension (L3) 5 Normal Right Flexion (S2) 5 Normal Extension (L3) 5 Normal Ankle/Foot Strength Ankle and Foot Manual Muscle Testing Left Dorsiflexion (L4) 5 Normal Right Dorsiflexion (L4) 5 Normal Toe Strength Toe Manual Muscle Testing Left Great Toe Extension 5 Normal Right Great Toe Extension 5 Normal PT-OP-Q Treatments Start: 10/14/24 15:57 Freq: Status: Active Protocol: Document 01/28/25 09:46 AB (Rec: 01/28/25 10:45 AB Laptop) Therapeutic Exercises Sitting Exercises seated hip abd with band Reps/Minutes level 4 band one minute each Thoracic rotation in sitting Side bilateral Reps/Minutes x10 with 5-10s hold each side Standing Exercises Thread the Needle Standing Exercise Modified in standing Name Side bilateral Equipment Used against wall Reps/Minutes 20s hold x2 each side start and end of session. lunge stretch on 2nd step Standing Exercise with UE support for quad, illiopsoas, calf stretch Name Reps/Minutes 60 sec each LE X 2 ( door unavailable L and R on wall X 2 each) Comments verbal and visual cues Neuro Re-Education Treatment Balance Activities balloon volley Details Romberg and tandem on foam Reps/Duration 4 min Comments CGA Heel walking Reps/Duration hands above bars CGA 10 feet X 4 Hurdles Details initiates with hands above bars CGA Reps/Duration 10 feet X 6 tandem stepping Details stepping Reps/Duration 10 feet L and right X 6, retro X 2 in // bars Comments CGA step up taps Surface foam to 6 inch step Reps/Duration X10 Comments CGA EC Details Romberg, stagger, and Romberg on foam Reps/Duration CGA and VC to open eyes when feeling LOB Comments 2 min PT-OP-T Assessment and Plan Start: 10/14/24 15:57 Freq: Status: Active Protocol: Document 01/28/25 09:46 AB (Rec: 01/28/25 10:45 AB Laptop) Physical Therapy Assessment Goals 3 Impairment Lack fo HEP Porter Head Goal (LTG) Pt will perform progressive HEP with cues and use of handouts to improve alignment, flexibility, balance and strength. 11/12/24: Pt is performing pelvic realignment exercises and HEP has not been progressed with HEBREW CANTOR at this time. 12/10/24: Pt is performing his exercises at home 01/08/25: Pt is performing pelvic realignment exercises, ankle weight exercises and stretches. He is afraid to perform balance exercises as far as letting go LTG Duration 8 weeks 2 Impairment Evidence of imbalance Impairment . Short Term Goal (STG . ) STG Duration . Porter Head Goal (LTG) Pt will perform WNLs on Rivas Balance Test to decrease fall risk. 11/12/24: Rivas 41/56, indicating increased risk for falls 12/10/24: Rivas 42/56, indicating increased risk for falls 01/08/25: Rivas 45/56, indicating increased risk for falls LTG Duration 8 weeks 1 Impairment Slow and shuffling gait Snf Goal (LTG) Pt will gait train at least 1500 feet in 6 minutes with or without LRAD to improve community ambulation. 11/12/24: Pt gait trains 1067 feet in 6 minutes with forward, flexed posture and scuffing feet, worse on the right. 12/10/24: Pt gait trains 892 feet in 6 minutes with forward, flexed posture and scuffing feet today, worse on the right. Pt does talk throughout gait and this might have slowed him down. He denies pain. 01/08/25: Pt gait trains 908 feet in 6 minutes with shuffling gait, decreased stepping and gait distance, decreased arm swing with more stiffness on the left LTG Duration 8 weeks Assessment Summary Assessment Patient reports having no pain end of session, also reports ache is less. Physical Therapy Plan Frequency and Duration Frequency of 2x/Week Treatment Duration of 6 treatment (weeks) Plan of Care Start 11/12/24 Date Plan of Care End 02/03/25 Date Next Visit Focus/Plan Next Note Type Progress Note Next Visit Plan Last sched session this plan of care, ? extend plan, DC ?, condense HEP as per PT recommendation. PThread the needle stretch at beginning of session, Manual work as needed, progress through [place] continue gentle core strengthening in future, postural cueing and strengthening
--- NOTE | 2025-01-30 18:05 | PT.OTN ---
Current Diagnoses Low back pain, unspecified (01/30/25) Physical Therapy Treatment Note PT-OP-A Visit Information Start: 10/14/24 15:57 Freq: Status: Active Protocol: Document 01/30/25 09:50 DELIVERY HELPER (Rec: 01/30/25 10:46 DELIVERY HELPER Laptop) Out-Patient Physical Therapy Visit Information Visit Information Visit Type Discharge Summary Visit Start Time 09:50 Visit Stop Time 10:30 Visit Number 20 Number of VALET Visits 0 Precautions Precautions History of vertigo PT-OP-B Current Condition Start: 10/14/24 15:57 Freq: Status: Active Protocol: Document 10/22/24 08:11 MB (Rec: 10/22/24 08:51 MB [id number]) Current Condition History of Current Condition Onset Date 6 months to a year ago Current Complaints Right SI pain and pain going down the leg History of Current Pt reports that he was using right leg on yard Condition equipment last year and then he woke up and he had pain in LB and across back into right hip. It makes right leg cramp up. PMH includes LAFB, HTN, enlarged prostate, OA, macular degeneration, left TKA last year, vertigo. Pt has some word-finding difficulties during assessment . Pt does not drive much and daughter lives with him. Pt denies falls. Pt denies numbness and tingling but has the yasmine horse sensation. Standing is the worse position. No lumbar or hip x-rays in [facility] chart. Treatment Goals Patient/Caregiver To decrease pain Goals PT-OP-C Subjective Start: 10/14/24 15:57 Freq: Status: Active Protocol: Document 01/30/25 09:50 DELIVERY HELPER (Rec: 02/20/25 22:23 DELIVERY HELPER Laptop) OP-PT Subjective Patient Comments Patient Comments Pt reports pain 0/10, feels like PT has really benefitted him and would like to continue if able but likes his HEP and feels very comfortable with it. PT-OP-G Mobility & Gait Start: 10/14/24 15:57 Freq: Status: Active Protocol: Document 10/22/24 08:11 MB (Rec: 10/22/24 08:51 MB [id number]) OP Gait Assessment Comments Gait Comments Shuffling gait that is magnetic in nature with forward, flexed posture and no foot clearance either foot PT-OP-J Posture/Palpation/Skin Start: 10/14/24 15:57 Freq: Status: Active Protocol: Document 10/22/24 08:11 MB (Rec: 10/22/24 08:51 MB [id number]) Posture Evaluation Comments Posture Comments Postural changes with shoulders 20 deg in front of greater trochanter, measured on the right, severe forward head with right tragus 2.5 in front of right AC joint, right shoulder and scapula more elevated than the left and also more forward than the left, decreased upper thoracic kyphosis and right convexity, reduced lumbar lordosis, spine laterally shifted to the right, right iliac crest lower than the right by 1/2, left leg appears functionally longer than right, increased knee varus more on the right and increased B Tracy angle. PT-OP-K Range of Motion Start: 10/14/24 15:57 Freq: Status: Active Protocol: Document 10/22/24 08:11 MB (Rec: 10/22/24 08:51 MB [id number]) Lumbar Spine Range of Motion Lumbar Spine Active Testing Position Standing Comments With lumbar flexion in standing, pt immediately flexes both knees From flexed position, pt can extend 5 deg with hands on hips B SB: less than 5 deg Scour Test: no reproduction of cramping on the right and B hamstrings are very tight and knee naturally passively flexes in resistance when PT tries to DF feet Anterior supine SI mobility testing: more stiffness on the left Passive SLR: B 60 deg Hip Goniometric Range of Motion Hip Left Testing Position Supine Comments PROM IR 5 deg and ER 10 deg Right Testing Position Supine Comments PROM IR 5 deg and ER 15 deg PT-OP-M Strength Start: 10/14/24 15:57 Freq: Status: Active Protocol: Document 10/22/24 08:11 MB (Rec: 10/22/24 08:51 MB [id number]) Hip Strength Hip Manual Muscle Testing Left Flexion (L2) 4+ Good+ Extension (S1) 4 Good Abduction 4- Good- Right Flexion (L2) 4- Good- Extension (S1) 4- Good- Abduction 4- Good- Comments All MMT in supine Knee Strength Knee Manual Muscle Testing Left Flexion (S2) 4 Good Extension (L3) 5 Normal Right Flexion (S2) 5 Normal Extension (L3) 5 Normal Ankle/Foot Strength Ankle and Foot Manual Muscle Testing Left Dorsiflexion (L4) 5 Normal Right Dorsiflexion (L4) 5 Normal Toe Strength Toe Manual Muscle Testing Left Great Toe Extension 5 Normal Right Great Toe Extension 5 Normal PT-OP-Q Treatments Start: 10/14/24 15:57 Freq: Status: Active Protocol: Document 01/30/25 09:50 DELIVERY HELPER (Rec: 02/20/25 22:28 DELIVERY HELPER Laptop) Therapeutic Exercises Supine Exercises PPT Reps/Minutes 10x3 Comments VC for breathing, HEP with HO provided Adelfo stretch Supine Exercise Name reviewed HEP Side bilateral Reps/Minutes 30s x3 each side Pelvic realignment exercises Supine Exercise Name ball squeeze, muscle energy HEP review Side bilateral Reps/Minutes x5 each leg Sitting Exercises Thoracic rotation in sitting Sitting Exercise reviewed HEP Name Side bilateral Reps/Minutes 20sx3 each side Hamstring stretch Sitting Exercise reviewed HEP Name Side bilateral Reps/Minutes 30sx3 each side Hip rotator stretch Sitting Exercise reviewed HEP Name Side bilateral Reps/Minutes 30s x3 each side Standing Exercises LE doorway stretch Standing Exercise HEP review Name Side bilateral Reps/Minutes 60x2 each side PT-OP-T Assessment and Plan Start: 10/14/24 15:57 Freq: Status: Active Protocol: Document 01/30/25 09:50 DELIVERY HELPER (Rec: 01/30/25 10:46 DELIVERY HELPER Laptop) Physical Therapy Assessment Goals 3 Impairment Lack fo HEP Braided Rug Maker Goal (LTG) Pt will perform progressive HEP with cues and use of handouts to improve alignment, flexibility, balance and strength. 11/12/24: Pt is performing pelvic realignment exercises and HEP has not been progressed with VALET at this time. 12/10/24: Pt is performing his exercises at home 01/08/25: Pt is performing pelvic realignment exercises, ankle weight exercises and stretches. He is afraid to perform balance exercises as far as letting go LTG Duration 8 weeks 2 Impairment Evidence of imbalance Impairment . Short Term Goal (STG . ) STG Duration . Braided Rug Maker Goal (LTG) Pt will perform WNLs on Rivas Balance Test to decrease fall risk. 11/12/24: Rivas 41/56, indicating increased risk for falls 12/10/24: Rivas 42/56, indicating increased risk for falls 01/08/25: Rivas 45/56, indicating increased risk for falls LTG Duration 8 weeks 1 Impairment Slow and shuffling gait Braided Rug Maker Goal (LTG) Pt will gait train at least 1500 feet in 6 minutes with or without LRAD to improve community ambulation. 11/12/24: Pt gait trains 1067 feet in 6 minutes with forward, flexed posture and scuffing feet, worse on the right. 12/10/24: Pt gait trains 892 feet in 6 minutes with forward, flexed posture and scuffing feet today, worse on the right. Pt does talk throughout gait and this might have slowed him down. He denies pain. 01/08/25: Pt gait trains 908 feet in 6 minutes with shuffling gait, decreased stepping and gait distance, decreased arm swing with more stiffness on the left LTG Duration 8 weeks Assessment Summary Assessment Pt's pain has significantly reduced, balance has been improving but overall plateaued, and is ind with HEP. Significant time this session spent condensing HEP to fewer papers and reviewing. Pt would benefit from D/C on this date and ask for a new referral in future if mobility status declines. Physical Therapy Plan Frequency and Duration Frequency of 2x/Week Treatment Duration of 6 treatment (weeks) Plan of Care Start 11/12/24 Date Plan of Care End 02/03/25 Date Therapeutic Interventions Therapeutic Balance Training,Canalithic Repositioning,Coordination Interventions Training,Gait Training,Home Exercise Program,Joint Mobilizations,Manual Therapy,Neuromuscular Re-education ,Patient/Caregiver Education,Self-Care/Home Management, Sensory Integration,Soft Tissue Mobilization,Taping, Therapeutic Activities,Therapeutic Exercises Modalities Cold Pack/Ice Massage,Electric Stimulation,Hot Packs, Ultrasound
== END 2025-02-25 10:00 | disposition home or self-care (01) ==
LOC: PHYS 09:45
PROVIDERS: Family Provider Family Medicine; PCP Family Medicine; Referring Provider Family Medicine; Visit Provider Family Medicine
DX: M54.50 Low back pain, unspecified (principal)
CPT/HCPCS: 97110; 97112; 97116; 97140; 97162; 97535

== ENCOUNTER → 2025-06-18 10:29 | Outpatient (CLI) | payer MEDICARE, SELFPAY ==
[2024-10-08 13:57] VITALS: BMI 32.5
--- NOTE | 2025-06-18 10:31 | DI.RAD.S_ITS ---
PROCEDURE: XR LUMBAR SPINE 3V
== END ==
PROVIDERS: Family Provider Family Medicine; PCP Family Medicine; Referring Provider Family Medicine; Visit Provider Family Medicine
DX: M47.816 Spondylosis without myelopathy or radiculopathy, lumbar region (principal); M54.50 Low back pain, unspecified; M41.9 Scoliosis, unspecified; N40.1 Benign prostatic hyperplasia with lower urinary tract symptoms; M19.90 Unspecified osteoarthritis, unspecified site; G89.29 Other chronic pain; Z98.890 Other specified postprocedural states
CPT/HCPCS: 72100

== ENCOUNTER → 2025-07-09 18:49 | Outpatient (CLI) | payer MEDICARE, SELFPAY ==
[2024-10-08 13:57] VITALS: BMI 32.5
--- NOTE | 2025-07-09 18:52 | DI.MRI.S_ITS ---
PROCEDURE: MR LUMBAR SPINE WO CON INDICATIONS: chronic back pain, worsening, hx of discectomy, scoliosis TECHNIQUE: Noncontrast sagittal T1 spin echo and T2 fast echo, sagittal STIR, and T2 fast spin echo through the lumbar spine. In cases with scoliosis, additional coronal T2 fast spin echo may be performed. COMPARISON: None. FINDINGS: Image quality: Excellent Please note, partially lumbarized S1. Rudimentary disc is seen at S1-2. Levoscoliosis lumbar spine, centered at L3-4. Straightening of the lumbar spine. Mild retrolisthesis of L2 on L3, L3 on L4, and L5 on S1. Vertebral body height of the lumbar spine are well maintained. Multilevel mild fibrovascular endplate change, most pronounced at L2-3 and L3-4. Multilevel disc bulge and disc desiccation. The conus terminates at the level of T12-L1, and is unremarkable. Right neural foraminal stenosis: Moderate at L2-3, L3-4, L4-5, and moderate to severe at L5-S1. Left neural foraminal stenosis: Mild at L1-2, L2-3, moderate at L3-4, mild at L4-5, and moderate at L5-S1. Axial images: T12-L1: Mild bilateral facet arthropathy. No central canal stenosis. L1-2: Mild bilateral facet arthropathy. Mild disc bulge. No central canal stenosis. L2-3: Moderate bilateral facet arthropathy. Posterior disc osteophyte complex superimposed on right paracentral disc extrusion with inferior extension. Complete effacement of the right lateral recess. Moderate central canal stenosis. L3-4: Posterior disc osteophyte complex. Moderate bilateral facet arthropathy, right greater than left. Moderate central canal stenosis. L4-5: Moderate bilateral facet arthropathy. No central canal stenosis. L5-S1: Posterior disc osteophyte complex. Moderate bilateral facet arthropathy. Posterior decompression. No central canal stenosis. Visualized sacrum is intact. IMPRESSION: 1. Multilevel degenerative changes, most pronounced at L2-3, where there is right paracentral disc extrusion, resulting in complete effacement of the right lateral recess, moderate central canal stenosis, and moderate right neural foraminal stenosis. 2. Moderate to severe right, and moderate left neural foraminal stenosis at L5-S1. Dictated by: Varsha Mast M.D. on 07/10/2025 at 11:36 Approved by: Varsha Mast M.D. on 07/10/2025 at 11:49
== END ==
PROVIDERS: PCP Family Medicine; Referring Provider Family Medicine; Visit Provider Family Medicine
DX: M51.26 Other intervertebral disc displacement, lumbar region (principal); M47.816 Spondylosis without myelopathy or radiculopathy, lumbar region; M47.817 Spondylosis without myelopathy or radiculopathy, lumbosacral region; M48.061 Spinal stenosis, lumbar region without neurogenic claudication; M48.07 Spinal stenosis, lumbosacral region; M41.9 Scoliosis, unspecified
CPT/HCPCS: 72148

== ENCOUNTER → 2025-07-14 13:55 | Outpatient (CLI) | payer MEDICARE, SELFPAY ==
[2024-10-08 13:57] VITALS: BMI 32.5
[2025-07-14 15:49] LABS: Prostate Specific Antigen 1.21 ng/mL (0.10-4.00)
== END ==
PROVIDERS: PCP Family Medicine; Referring Provider Family Medicine; Visit Provider Family Medicine
DX: R97.20 Elevated prostate specific antigen [PSA] (principal); R35.1 Nocturia
CPT/HCPCS: 36415; 84153